=== PATIENT | female | born 1945 | race Caucasian/White ===

== ENCOUNTER 2022-10-21 12:12 | Outpatient (OUT) | payer MEDICARE, OTHER, SELFPAY ==
[2022-10-21 13:56] LABS: INR <0.93; Partial Thromboplastin Time 26.1 sec (22.3-36.2); Prothrombin Time 9.4 sec (9.0-11.6)
== END 2022-10-21 12:13 ==
LOC: PST 12:17
PROVIDERS: Urology; PCP Internal Medicine
DX: Z01.812 Encounter for preprocedural laboratory examination (principal); N20.0 Calculus of kidney; I10 Essential (primary) hypertension; F41.9 Anxiety disorder, unspecified; M19.90 Unspecified osteoarthritis, unspecified site; M79.7 Fibromyalgia; F32.A Depression, unspecified; K21.9 Gastro-esophageal reflux disease without esophagitis; E03.9 Hypothyroidism, unspecified; E78.5 Hyperlipidemia, unspecified
CPT/HCPCS: 36415; 85610; 85730

== ENCOUNTER 2022-10-29 09:01 | Day surgery (SDC) | payer MEDICARE, OTHER, SELFPAY ==
[2022-10-21 12:55] VITALS: BP 151/78; PULSE 60; RESP 18; TEMP 36.3; O2SAT 95; BMI 31.7
[2022-10-29] VITALS (11 sets, daily range): BP systolic 152–168; BP diastolic 62–95; PULSE 56–66; RESP 11–20; TEMP 35.9–36.9; O2SAT 89–99; BMI 31.5
[2022-10-29] MEDS: LACTATED RINGER'S SOLUTION 1,000 ML 50 ML IV (09:42)
[2022-10-29] MEDS: CIPROFLOXACIN IN 5 % DEXTROSE 400 MG/200 ML PIGGYBACK 200 MG IV (09:43)
--- NOTE | 2022-10-29 11:45 | P.URON_ITS ---
Urology Surgery Operative Note Operative Note Procedure Date: 10/29/22 Time Out Performed: yes Pre-op Diagnosis: bilateral nephrolithiasis left greater than right. obstructing large left renal pelvis calculus 18 mm Post-op Diagnosis: same Procedures performed: #1. Cystoscopy. #2. Left rigid ureteral dilation. #3. Left ureteroscopy. #4. Left pyeloscopy. #5. Holmium laser lithotripsy of left renal calculi #6. Stone basket extraction. #7. Placement of 7 Swedish variable length left ureteral stent Anesthesia: other (Gen. by LMA) Primary Surgeon: Chriss Johnson Complications: non- Estimated blood loss (mL): 5 Findings: #1. Large left renal pelvis stone. #2. Other left renal calculi Specimens: left renal calculi fragments Drains: none Indications for Procedures: this lady has a large left renal pelvis stone which is causing obstruction and recurrent urinary infections. She also has other left renal calculi. She now presents for cystoscopy, ureteroscopy, pyelloscopy, laser lithotripsy and placement of left ureteral stent. She has signed an informed consent after all the risks were explained. Detailed description of Procedure: the patient was brought to the operating room and placed on the operating room table in the supine position. SCDs were placed on the lower extremities and turned on and functioning during the entire case. Timeout was done by all parties in the room. We all agreed upon the patient's identification and the planned procedures for this patient. Genn. anesthesia was then administered. The patient was then repositioned into the modified dorsal lithotomy position. All pressure points were satisfactorily padded. Genitalia were sterilely prepped and draped in usual fashion. I started by passing a 22 FrenchOlympus cystoscope per urethra and into the bladder. Careful panendoscopy revealed diffuse cloudy debris. A large sample was aspirated from the scope and this was sent for culture and sensitivity. I then passed a Glidewire through the scope and cannulated the left ureter and was able to get the wire up to the large renal pelvis stone. The wire buckled numerous times but eventually was able to get around the stone and into the kidney. More significant inflammatory debris was coming down the ureter. I then used a 8 and 10 Swedish rigid dilator to dilate th e distal ureter. Open then removed. I then passed a navigator 11/13 ureteral access sheath over the wire and up to the L5 level. The stylette and wire were then removed. I then passed a Dornier flexible disposable ureteroscope through the access sheath and into the ureter. I then scoped up the ureter and into the renal pelvis. I was able to get right to the stone in the kidney. I then passed a 272 ? holmium laser fiber through the scope and made contact with the stone. I then started doing laser lithotripsy in the testing mode at 10 W continuously.this was a very large stone. I went up to 12 W and then ultimately 14 W. Several thousand pulses were used to fragment and dust this large stone. I then moved into the calyces and did laser lithotripsy on a few other sizable stones. We ran into just minor amount of bleeding. I then used a 0 tip nitinol basket and engaged several pieces and brought them down and these were sent for stone analysis. I then passed a Glidewire back up the sheath into the kidney and removed the access sheath. I then backloaded the cystoscope over the wire and passed it into the bladder. I then slid a 7 Swedish variable length ureteral stent over the wire up into the kidney. The wire was removed and there were good curls in the kidney and in the bladder. The bladder was drained of its contents and the scope was then removed. The anesthetic was then reversed. The patient was then transferred to a [facility] bed and wheeled to PACU in stable condition. She'll be discharged to home later today with a prescription for doxycycline 100 mg daily for 30 days and Vesicare 10 mg daily for 30 days.
[2022-10-29] MEDS: ALBUTEROL SULFATE 2.5 MG/3 ML VIAL NEB IH (12:11)
--- NOTE | 2022-10-29 12:45 | PC.NURSE ---
urinated 150 ml pink tinged urine.
[2022-11-04 20:24] LABS: Calcium Oxalate Dihydrate 10 % (.); Calcium Oxalate Monohydrate 90 % (.); Size 4x3 mm (.)
== END 2022-10-29 13:10 | disposition home or self-care (01) ==
PROVIDERS: PCP Internal Medicine; Visit Provider Urology
PROC: (CPT 52356; principal; 2022-10-29 10:00)
DX: N20.0 Calculus of kidney (principal); F41.9 Anxiety disorder, unspecified; M19.90 Unspecified osteoarthritis, unspecified site; M79.7 Fibromyalgia; F32.A Depression, unspecified; K21.9 Gastro-esophageal reflux disease without esophagitis; E03.9 Hypothyroidism, unspecified; E78.5 Hyperlipidemia, unspecified; I10 Essential (primary) hypertension; M81.0 Age-related osteoporosis without current pathological fracture; R06.02 Shortness of breath; Z87.440 Personal history of urinary (tract) infections; Z90.49 Acquired absence of other specified parts of digestive tract; Z90.710 Acquired absence of both cervix and uterus; Z79.899 Other long term (current) drug therapy; R31.29 Other microscopic hematuria; R39.14 Feeling of incomplete bladder emptying
CPT/HCPCS: 52356; 36415; 76000; 81003; 82365; 94640; 99999; C1874; J2704

== ENCOUNTER 2022-11-09 12:30 | Outpatient (OUT) | payer MEDICARE, OTHER, SELFPAY ==
--- NOTE | 2022-11-09 12:37 | XR_ITS ---
The [address] [address] Patient Name: NICCI VARGAS MRN: [id number] date: 1945 Sex: F Assigned Patient Location: [facility] Current Patient Location: [facility] Accession/Order Number: [id number] Exam Date: 11/09/2022 12:40 Report Date: 11/09/2022 13:34 At the request of: MANOLO RIBEIRO Procedure: XR abdomen 1V EXAMINATION: XR abdomen 1V HISTORY: Kidney stones N20.0 ; stone removal approximately 2 weeks ago COMPARISON: No relevant comparison available. FINDINGS: KIDNEY/URETER - RIGHT: No visible renal or ureteral calcifications. Dense overlying bowel content obscures the kidney. KIDNEY/URETER - LEFT: Left ureteral stent in place. Multiple densities projecting over the kidney suspected represent calcifications/calcium deposition. PELVIS: No visible ureteral calcifications. Any visible calcifications favor phleboliths. BOWEL: No abnormal dilation or deviation. BONES: No acute abnormality. OTHER: Negative. No abnormal gaseous collections. IMPRESSION: 1. Left ureteral stent appearing to be in good position. 2. Suspect multiple left kidney stones. No recent studies for comparison. No visible ureteral stones. Electronically authenticated by: SARAH CARDENAS Date: 11/09/2022 13:34
== END 2022-11-09 12:31 | disposition home or self-care (01) ==
LOC: RAD 12:31
PROVIDERS: PCP Internal Medicine; Visit Provider Urology
DX: N20.0 Calculus of kidney (principal); N28.9 Disorder of kidney and ureter, unspecified; Z96.0 Presence of urogenital implants
CPT/HCPCS: 74018

== ENCOUNTER 2022-12-09 09:46 | Outpatient (OUT) | payer MEDICARE, OTHER, SELFPAY ==
[2022-12-09 11:02] LABS: Basophils Percent Auto 0.5 % (0.2-2.0); Eosinophils Absolute Auto 0.3 10^3/uL (0.0-0.7); Eosinophils Percent Auto 4.4 % (0.9-7.0); Hematocrit 33.6 % (36.0-48.0); Hemoglobin 11.2 g/dL (12.0-16.0); Immature Granulocytes Abs Auto 0.03 10^3/uL (0.00-0.03); Immature Granulocytes Pct Auto 0.4 % (0.0-0.5); Lymphocytes Absolute Auto 1.6 10^3/uL (1.2-3.8); Lymphocytes Percent Auto 20.9 % (20.5-60.0); Mean Corpuscular HGB Conc 33.3 g/dL (29.9-35.2); Mean Corpuscular Hemoglobin 27.9 pg (26.7-34.0); Mean Corpuscular Volume 83.6 fL (81.0-99.0); Mean Platelet Volume 8.8 fL (9.5-13.5); Monocytes Absolute Auto 0.3 10^3/uL (0.3-0.8); Neutrophils Absolute Auto 5.4 10^3/uL (1.4-6.5); Neutrophils Percent Auto 69.8 % (43.0-75.0); Platelet Count 247 10^3/uL (150-450); Red Blood Count 4.02 10^6/uL (4.20-5.40); Red Cell Distribution Width 14.1 % (11.0-15.0); White Blood Count 7.8 10^3/uL (4.0-11.0)
[2022-12-09 11:24] LABS: Partial Thromboplastin Time 28.7 sec (22.3-36.2); Prothrombin Time 9.6 sec (9.0-11.6)
[2022-12-09 11:33] LABS: INR <0.93
[2022-12-09 11:42] LABS: Anion Gap 10.9; BUN Creatinine Ratio 8.4; Calcium 8.9 mg/dL (8.5-10.1); Carbon Dioxide 29.5 mmol/L (21.0-32.0); Chloride 92 mmol/L (98-107); Estimated GFR (African America >60 (>=60); Estimated GFR (Non-African Ame 50 (>=60); Glucose 124 mg/dL (74-106); Potassium 3.4 mmol/L (3.5-5.1); Sodium 129 mmol/L (136-145)
== END 2022-12-09 09:47 | disposition home or self-care (01) ==
LOC: PST 09:46
PROVIDERS: PCP Internal Medicine; Visit Provider Urology
DX: Z01.812 Encounter for preprocedural laboratory examination (principal); Z01.818 Encounter for other preprocedural examination; N20.0 Calculus of kidney; R31.9 Hematuria, unspecified; K21.9 Gastro-esophageal reflux disease without esophagitis; K58.9 Irritable bowel syndrome, unspecified; E78.5 Hyperlipidemia, unspecified; M79.7 Fibromyalgia; E03.9 Hypothyroidism, unspecified; I10 Essential (primary) hypertension; F32.A Depression, unspecified
CPT/HCPCS: 80048; 85025; 85610; 85730; G0463

== ENCOUNTER 2022-12-17 09:05 | Day surgery (SDC) | payer MEDICARE, OTHER, SELFPAY ==
[2022-12-09 10:26] VITALS: BP 152/64; PULSE 58; RESP 20; TEMP 36.4; O2SAT 97; BMI 31.0
--- NOTE | 2022-12-09 10:33 | P.GSHP_ITS ---
History of Present Illness History of Present Illness Chief complaint: left kidney stone Narrative: Patient presents for preadmission testing accompanied by her . The patient states She had a kidney stone procedure done on 10/29/2022 and she is feeling well. She denies abdominal pain, nausea, vomiting, back pain, hematuria, dysuria, or any other complaints. The patient is unsteady on her feet and ambulates with a walker, she has generalized weakness and frequent falls. She cannot tolerate long periods of activity, but she denies any cardiac history or symptoms. Review of Systems ROS Narrative REVIEW OF SYSTEMS: Negative except as stated in HPI, ten or more systems reviewed. Constitutional: No fever or chills ENT: No sore throat or epistaxis Cardiovascular: No edema, chest pain, palpitations, or activity intolerance Respiratory: No shortness of breath, cough, or wheezing Musculoskeletal: No joint pain or swelling Gastrointestinal: No abdominal pain, constipation, diarrhea, or vomiting Genitourinary: No dysuria or hematuria Neurological: No numbness, tingling, or headache Psychiatric: No mood changes PFSH PFS Medical History (Updated 12/09/22 @ 10:16 by Leisa Akins NP) Surgical History (Updated 12/09/22 @ 10:30 by Leisa Akins NP) (10/29/22) (10/29/22) (10/29/22) Family History (Updated 10/21/22 @ 13:06 by Leisa Akins NP) Other Dementia Family history of skin cancer Social History (Updated 10/21/22 @ 12:53 by Leisa Akins NP) Within the past year, how often did you have a drink containing alcohol: never Score interpretation: A score less than 3 is consistent with normal alcohol consumption. Smoking status: Never smoker Non-prescribed substance use: denies use Highest level of school completed/degree received: high school graduate Meds Home Medications and Allergies Home Medications Medication Instructions Recorded Confirmed Type atorvastatin 40 mg tablet 40 mg PO QDAY 10/21/22 12/09/22 History calcium 600 mg capsule mg PO 10/21/22 History cyproheptadine 4 mg tablet 4 mg PO QDAY 10/21/22 12/09/22 History diphenhydramine HCl 25 mg capsule 50 mg PO QDAY PRN sleep 10/21/22 12/09/22 History (Benadryl) fish, borage, flaxseed oils-omega 1 cap PO DAILY 10/21/22 12/09/22 History 3,6,9 cb #1 400 mg-400 mg-400 mg cap ([place] 3-6-9 Complex) gabapentin 400 mg capsule 400 mg PO Q12H 10/21/22 12/09/22 History glucosamine sulfate 500 mg tablet 500 mg PO BID 10/21/22 12/09/22 History (Glucosamine) ibuprofen 200 mg capsule 400 mg PO Q12H 10/21/22 12/09/22 History montelukast 10 mg tablet 10 mg PO QDAY 10/21/22 12/09/22 History oxcarbazepine 300 mg tablet 300 mg PO BID 10/21/22 12/09/22 History pantoprazole 40 mg tablet,delayed 40 mg PO QDAY 10/21/22 12/09/22 History release propranolol 120 mg capsule,24 120 mg PO QDAY 10/21/22 12/09/22 History hr,extended release sertraline 100 mg tablet 100 mg PO Q24H 10/21/22 12/09/22 History doxycycline hyclate 100 mg tablet 100 mg PO DAILY 30 days #30 tabs 10/29/22 Rx solifenacin 10 mg tablet (Vesicare) 10 mg PO DAILY #30 tabs 10/29/22 Rx Allergies Allergy/AdvReac Type Severity Reaction Status Date / Time cephalexin Allergy Severe Anaphylaxis Verified 10/29/22 09:44 Sulfa (Sulfonamide Allergy Unknown Verified 10/29/22 09:21 Antibiotics) acetaminophen [From Tylenol] AdvReac Severe Abdominal Verified 10/29/22 09:21 Pain caffeine AdvReac Severe Abdominal Verified 10/29/22 09:23 Pain Exam Narrative Exam Narrative: Constitutional: Awake, alert, comfortable, Chronically ill-appearing, nontoxic, interactive, vital signs as charted Head: Normocephalic, atraumatic Neck: Supple, normal appearance, normal range of motion, no meningeal signs, no lymphadenopathy Respiratory: No respiratory distress, breath sounds clear Cardiovascular: Regular rate and rhythm, strong and regular heart tones Abdomen: Nontender, normal bowel sounds, soft, no CVA tenderness Musculoskeletal: Kyphotic, antalgic gait with a walker, left lower extremity in a walking boot Skin: No rashes or induration, no lesions, only visible skin inspected Neuro: No neurological deficits, normal sensation Psychiatric: Oriented ?3, Flat affect, Poor insight Constitutional Vital Signs, click to edit/add: Last Vital Signs Temp 97.5 F L 12/09/22 10:26 Pulse 58 L 12/09/22 10:26 Resp 20 12/09/22 10:26 BP 152/64 H 12/09/22 10:26 Pulse Ox 97 12/09/22 10:26 O2 Del Method Room Air 12/09/22 10:26 Assessment and Plan Assessment and Plan (1) Kidney stones: (2) S/P ureteral stent placement: Onset Date: 10/29/22 Plan Left ESWL, possible cystoscopy, left stent removal scheduled with Dr. Johnson 12/17/2022.
[2022-12-17] VITALS (11 sets, daily range): BP systolic 141–179; BP diastolic 56–92; PULSE 57–75; RESP 9–18; TEMP 35.6–36.8; O2SAT 94–98; BMI 30.5
--- NOTE | 2022-12-17 09:45 | XR_ITS ---
The [address] [address] Patient Name: NICCI VARGAS MRN: [id number] date: 1945 Sex: F Assigned Patient Location: [facility] Current Patient Location: Accession/Order Number: [id number] Exam Date: 12/17/2022 09:50 Report Date: 12/17/2022 12:47 At the request of: MANOLO RIBEIRO Procedure: XR abdomen 1V EXAMINATION: XR abdomen 1V, [id number] HISTORY: kidney stones COMPARISON: Abdominal x-ray 11/09/[address] lumbar spine 10/26/2020. FINDINGS/IMPRESSION: Amorphous calcification versus cluster of calcifications projecting over the lower pole of the left kidney measuring 15 mm, previously 12 mm on 11/09/2022. Differences in size could be due to accumulation of layering collecting system calcifications versus differences in exam technique. Several additional calcifications projecting over the left kidney are similar. Left-sided ureteral stent is similarly positioned. No callus conchis along the expected course of the ureters. Moderately above-average colonic stool burden. Electronically authenticated by: THEA CLAROS Date: 12/17/2022 12:47
[2022-12-17] MEDS: LACTATED RINGER'S SOLUTION 1,000 ML 50 ML IV (10:13)
[2022-12-17] MEDS: CIPROFLOXACIN IN 5 % DEXTROSE 400 MG/200 ML PIGGYBACK 200 MG IV (10:14)
--- NOTE | 2022-12-17 11:03 | PM.URSON ---
Urology Surgery Operative Note Operative Note Procedure Date: 12/17/22 Time Out Performed: yes Pre-op Diagnosis: left nephrolithiasis Post-op Diagnosis: same as pre-op Procedures performed: #1. Left ESWL. Anesthesia: General-LMA Primary Surgeon: Chriss Johnson Complications: none Estimated blood loss (mL): 0 Findings: upper pole stone and group of lower pole stones Specimens: none Indications for Procedures: this lady has several left renal calculi remaining after laser lithotripsy and left stent placement. She now presents for left ESWL and possible cystoscopy and left stent removal. She has signed an informed consent for these procedures after risks were explained. Some of these risks include bleeding, perinephric hematoma, infection and anesthesia Detailed description of Procedure: The patient was brought to the Operating Room and placed on Siemens electromagnetic lithotripsy treatment table in the supine position. SCDs were placed on their lower extremities and turned on and functioning during the entire case. Timeout was done by all parties in the room. We all agreed upon the patient's identification and the planned procedures for this patient. General Anesthesia was then administered via LMA. Treatment head was then brought to the patient's correct side. While using flourscopy the upper stone was identified and lined up into the crosshairs. We then began applying shocks at power level II.0 and increased to maximum of power level III.5. Intermittent fluoroscopy showed that the stone fragmented well after 500 shocks. We then lined up the group of the lower pole stones in the crosshairs and similarly applied shocks. We applied a total of 2500 shocks to this larger group. We seemed to have satisfactory fragmentation. The procedure was then terminated. I elected not to remove her stent at this time. She was then transferred to a [facility] bed and wheeled to PACU in stable condition.
--- NOTE | 2022-12-17 11:16 | PC.NURSE ---
Monitor showing bradycardia and asystole but patient is awake and talking replaced patches and running more consistent.
--- NOTE | 2022-12-17 12:02 | PC.NURSE ---
UP TO BATHROOM USING WHEELCHAIR; VOIDED WITHOUT DIFFICULTY CLOUDY DARK YELLOW URINE
--- NOTE | 2022-12-17 12:06 | PC.NURSE ---
No change in bruise size on left flank area
== END 2022-12-17 12:07 | disposition home or self-care (01) ==
PROVIDERS: PCP Internal Medicine; Visit Provider Urology
PROC: (CPT 50590; principal; 2022-12-17 10:30)
DX: N20.0 Calculus of kidney (principal); K21.9 Gastro-esophageal reflux disease without esophagitis; M79.7 Fibromyalgia; I10 Essential (primary) hypertension; E78.5 Hyperlipidemia, unspecified; K58.9 Irritable bowel syndrome, unspecified; M19.90 Unspecified osteoarthritis, unspecified site; F41.9 Anxiety disorder, unspecified; F32.A Depression, unspecified; M81.0 Age-related osteoporosis without current pathological fracture; E03.9 Hypothyroidism, unspecified; Z87.442 Personal history of urinary calculi; Z90.49 Acquired absence of other specified parts of digestive tract; Z90.710 Acquired absence of both cervix and uterus; Z79.899 Other long term (current) drug therapy
CPT/HCPCS: 50590; 36415; 74018; J2704

== ENCOUNTER 2022-12-23 12:37 | Outpatient (OUT) | payer MEDICARE, OTHER, SELFPAY ==
--- NOTE | 2022-12-23 12:46 | XR_ITS ---
The [address] [address] Patient Name: NICCI VARGAS MRN: [id number] date: 1945 Sex: F Assigned Patient Location: [facility] Current Patient Location: Accession/Order Number: [id number] Exam Date: 12/23/2022 12:50 Report Date: 12/24/2022 06:52 At the request of: MANOLO RIBEIRO Procedure: XR abdomen 1V EXAMINATION: XR abdomen 1V HISTORY: Kidney Stone N20.0, Chronic Cystitis N30.20 COMPARISON: XR abdomen 12/17/2022 FINDINGS: KIDNEY/URETER - RIGHT: Several calcifications projecting over right kidney. KIDNEY/URETER - LEFT: Numerous calcifications projecting over left kidney, largest is 14 mm. Left ureteral stent. PELVIS: No appreciable ureteral stones. BOWEL: No abnormal dilation or deviation. BONES: No acute abnormality. OTHER: Negative. No abnormal gaseous collections. XR/XR abdomen 1V IMPRESSION: 1. Grossly stable bilateral nephrolithiasis. 2. Stable left ureteral stent. Electronically authenticated by: SARAH CARDENAS Date: 12/24/2022 06:52
== END 2022-12-23 12:38 | disposition home or self-care (01) ==
LOC: RAD 12:38
PROVIDERS: PCP Internal Medicine; Visit Provider Urology
DX: N30.20 Other chronic cystitis without hematuria (principal); N20.0 Calculus of kidney
CPT/HCPCS: 74018

== ENCOUNTER 2023-07-21 12:06 | Outpatient (OUT) | payer MEDICARE, OTHER, SELFPAY ==
--- NOTE | 2023-07-21 12:14 | XR_ITS ---
The [address] [address] Patient Name: NICCI VARGAS MRN: [id number] date: 1945 Sex: F Assigned Patient Location: [facility] Current Patient Location: Accession/Order Number: [id number] Exam Date: 07/21/2023 12:15 Report Date: 07/22/2023 08:50 At the request of: MANOLO RIBEIRO Procedure: XR abdomen 1V EXAMINATION: XR abdomen 1V HISTORY: kidney stone COMPARISON: XR abdomen 12/23/2022 FINDINGS: KIDNEY/URETER - RIGHT: Suspect small stones within inferior pole. KIDNEY/URETER - LEFT: Suspect 10 mm stone and adjacent small stone within inferior pole of left kidney. PELVIS: No visible ureteral stones. BOWEL: No abnormal dilation or deviation. BONES: No acute abnormality. OTHER: Negative. No abnormal gaseous collections. XR/XR abdomen 1V IMPRESSION: 1. Grossly stable bilateral nephrolithiasis. Evaluation is limited by dense overlying bowel content. Electronically authenticated by: SARAH CARDENAS Date: 07/22/2023 08:50
== END 2023-07-21 12:07 | disposition home or self-care (01) ==
LOC: RAD 12:08
PROVIDERS: PCP Internal Medicine; Visit Provider Urology
DX: N20.0 Calculus of kidney (principal)
CPT/HCPCS: 74018

== ENCOUNTER 2023-09-22 13:21 | Outpatient (OUT) | payer MEDICARE, OTHER, SELFPAY ==
--- NOTE | 2023-09-22 14:25 | PM.PRESUREVA ---
History of Present Illness History of Present Illness Chief complaint: right kidney stone, s/p left stent placement Narrative: Patient presents for preadmission testing accompanied by her . The patient states She had a kidney stone procedure done in August and she is feeling well. She denies abdominal pain, nausea, vomiting, back pain, hematuria, dysuria, or any other complaints. The patient is unsteady on her feet and ambulates with a walker, she has generalized weakness and frequent falls. She cannot tolerate long periods of activity, but she denies any cardiac history or symptoms. Review of Systems ROS Narrative REVIEW OF SYSTEMS: Negative except as stated in HPI, ten or more systems reviewed. Constitutional: No fever , chills, weakness ENT: No sore throat or epistaxis Cardiovascular: No edema, chest pain, or palpitations; admits to activity intolerance Respiratory: No shortness of breath, cough, or wheezing Musculoskeletal: No new joint pain or swelling Gastrointestinal: No abdominal pain, constipation, diarrhea, or vomiting Genitourinary: No dysuria or hematuria Neurological: No numbness, tingling, weakness, or headache Psychiatric: No mood changes. [facility] Medical History (Updated 09/22/23 @ 13:50 by Leisa Akins NP) Dyspnea on exertion ?R06.09 - Other forms of dyspnea (ICD-10) S/P extracorporeal shock wave therapy (12/17/22) ?Z98.890 - Other specified postprocedural states (ICD-10) Transient ischemic attack ?G45.9 - Transient cerebral ischemic attack, unspecified (ICD-10) Vertigo ?R42 - Dizziness and giddiness (ICD-10) Frequent falls ?R29.6 - Repeated falls (ICD-10) Seasonal allergic rhinitis ?J30.2 - Other seasonal allergic rhinitis (ICD-10) Urinary tract infection ?N39.0 - Urinary tract infection, site not specified (ICD-10) Chronic cystitis ?N30.20 - Other chronic cystitis without hematuria (ICD-10) IBS (irritable bowel syndrome) ?K58.9 - Irritable bowel syndrome without diarrhea (ICD-10) Osteoporosis ?M81.0 - Age-related osteoporosis without current pathological fracture (ICD-10) Fibromyalgia ?M79.7 - Fibromyalgia (ICD-10) Arthritis ?M19.90 - Unspecified osteoarthritis, unspecified site (ICD-10) Insomnia ?G47.00 - Insomnia, unspecified (ICD-10) Depression ?F32.A - Depression, unspecified (ICD-10) Anxiety ?F41.9 - Anxiety disorder, unspecified (ICD-10) Restless leg ?G25.81 - Restless legs syndrome (ICD-10) Kidney stones ?N20.0 - Calculus of kidney (ICD-10) GERD (gastroesophageal reflux disease) ?K21.9 - Gastro-esophageal reflux disease without esophagitis (ICD-10) Hypertension ?I10 - Essential (primary) hypertension (ICD-10) High cholesterol ?E78.00 - Pure hypercholesterolemia, unspecified (ICD-10) Hypothyroidism ?E03.9 - Hypothyroidism, unspecified (ICD-10) 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, unspecified (ICD-10) Dilation of urethra ?N36.8 - Other specified disorders of urethra (ICD-10) Surgical History (Updated 09/22/23 @ 13:39 by Leisa Akins NP) S/P ureteral stent placement (08/26/23) ?Z96.0 - Presence of urogenital implants (ICD-10) H/O lithotripsy (10/29/22) ?Z98.890 - Other specified postprocedural states (ICD-10) S/P ureteral stent placement (10/29/22) ?Z96.0 - Presence of urogenital implants (ICD-10) H/O cystoscopy (10/29/22) ?Z98.890 - Other specified postprocedural states (ICD-10) History of ankle surgery ?Z98.890 - Other specified postprocedural states (ICD-10) History of hysterectomy ?Z90.710 - Acquired absence of both cervix and uterus (ICD-10) History of tubal ligation ?Z98.51 - Tubal ligation status (ICD-10) History of section ?Z98.891 - History of uterine scar from previous surgery (ICD-10) History of colonoscopy ?Z98.890 - Other specified postprocedural states (ICD-10) History of cholecystectomy ?Z90.49 - Acquired absence of other specified parts of digestive tract (ICD-10) History of appendectomy ?Z90.49 - Acquired absence of other specified parts of digestive tract (ICD-10) S/P cystourethroscopy with dilation of urethral stricture ?Z98.890 - Other specified postprocedural states (ICD-10) S/P cystourethroscopy with dilation of urethral stricture ?Z98.890 - Other specified postprocedural states (ICD-10) S/P cystourethroscopy with dilation of urethral stricture ?Z98.890 - Other specified postprocedural states (ICD-10) S/P cystourethroscopy with dilation of urethral stricture ?Z98.890 - Other specified postprocedural states (ICD-10) Family History (Updated 10/21/22 @ 13:06 by Leisa Akins NP) Other Dementia Family history of skin cancer Social History (Updated 10/21/22 @ 12:53 by Leisa Akins NP) Within the past year, how often did you have a drink containing alcohol: never Score interpretation: A score less than 3 is consistent with normal alcohol consumption. Smoking status: Never smoker Non-prescribed substance use: denies use Highest level of school completed/degree received: high school graduate Meds Home Medications and Allergies Home Medications ?Medication ?Instructions ?Recorded ?Confirmed ?Type atorvastatin 40 mg tablet 40 mg PO QDAY 10/21/22 09/22/23 History calcium 600 mg capsule mg PO 10/21/22 History cyproheptadine 4 mg tablet 4 mg PO QDAY 10/21/22 09/22/23 History diphenhydramine HCl 25 mg capsule 50 mg PO QDAY PRN sleep 10/21/22 09/22/23 History (Benadryl) fish, borage, flaxseed oils-omega 1 cap PO DAILY 10/21/22 09/22/23 History 3,6,9 cb #1 400 mg-400 mg-400 mg cap ([place] 3-6-9 Complex) gabapentin 400 mg capsule 400 mg PO Q12H 10/21/22 09/22/23 History glucosamine sulfate 500 mg tablet 500 mg PO BID 10/21/22 09/22/23 History (Glucosamine) ibuprofen 200 mg capsule 400 mg PO Q12H 10/21/22 09/22/23 History montelukast 10 mg tablet 10 mg PO QDAY 10/21/22 09/22/23 History oxcarbazepine 300 mg tablet 300 mg PO BID 10/21/22 09/22/23 History pantoprazole 40 mg tablet,delayed 40 mg PO QDAY 10/21/22 09/22/23 History release sertraline 100 mg tablet 100 mg PO Q24H 10/21/22 09/22/23 History plecanatide 3 mg tablet (Trulance) 3 mg PO DAILY 09/22/23 09/22/23 History propranolol 160 mg capsule,24 160 mg PO Q24H 09/22/23 09/22/23 History hr,extended release Allergies Allergy/AdvReac Type Severity Reaction Status Date / Time cephalexin Allergy Severe Anaphylaxis Verified 09/22/23 13:44 Iodinated Contrast Media Allergy SOB Verified 09/22/23 13:44 Sulfa (Sulfonamide Allergy Unknown Verified 09/22/23 13:44 Antibiotics) acetaminophen [From Tylenol] AdvReac Severe Abdominal Verified 09/22/23 13:44 Pain caffeine AdvReac Severe Abdominal Verified 09/22/23 13:44 Pain Exam Narrative Exam Narrative: Constitutional: Awake, alert, comfortable, Chronically ill-appearing, nontoxic, interactive, vital signs as charted Head: Normocephalic, atraumatic Neck: Supple, normal appearance, normal range of motion, no meningeal signs, no lymphadenopathy Respiratory: No respiratory distress, breath sounds clear Cardiovascular: Regular rate and rhythm, strong and regular heart tones Abdomen: Nontender, normal bowel sounds, soft, no CVA tenderness Musculoskeletal: Kyphotic, antalgic gait with a walker Skin: No rashes or induration, no lesions, only visible skin inspected Neuro: No neurological deficits, normal sensation Psychiatric: Oriented ?3, Flat affect, Poor insight Assessment and Plan Assessment and Plan (1) S/P ureteral stent placement: Onset Date: 08/26/23 (2) Kidney stones: Plan Cystoscopy, right retrograde, right ureteroscopy, holmium laser, possible right stent placement, LEFT stent removal scheduled with Dr. Johnson September 30, 2023.
[2023-09-22 15:07] LABS: Basophils Percent Auto 0.5 % (0.2-2.0); Eosinophils Absolute Auto 0.5 10^3/uL (0.0-0.7); Eosinophils Percent Auto 5.7 % (0.9-7.0); Hematocrit 33.6 % (36.0-48.0); Immature Granulocytes Abs Auto 0.04 10^3/uL (0.00-0.03); Immature Granulocytes Pct Auto 0.5 % (0.0-0.5); Lymphocytes Absolute Auto 1.9 10^3/uL (1.2-3.8); Lymphocytes Percent Auto 24.1 % (20.5-60.0); Mean Corpuscular HGB Conc 32.7 g/dL (29.9-35.2); Mean Corpuscular Hemoglobin 27.9 pg (26.7-34.0); Mean Corpuscular Volume 85.3 fL (81.0-99.0); Monocytes Absolute Auto 0.4 10^3/uL (0.3-0.8); Monocytes Percent Auto 5.1 % (1.7-12.0); Neutrophils Absolute Auto 5.1 10^3/uL (1.4-6.5); Neutrophils Percent Auto 64.1 % (43.0-75.0); Platelet Count 279 10^3/uL (150-450); Red Blood Count 3.94 10^6/uL (4.20-5.40); Red Cell Distribution Width 13.7 % (11.0-15.0); White Blood Count 7.9 10^3/uL (4.0-11.0)
[2023-09-22 15:32] LABS: Anion Gap 10.4; BUN Creatinine Ratio 15.9; Calcium 9.1 mg/dL (8.5-10.1); Carbon Dioxide 29.3 mmol/L (21.0-32.0); Chloride 100 mmol/L (98-107); Estimated GFR (African America >60 (>=60); Estimated GFR (Non-African Ame 50 (>=60); Glucose 116 mg/dL (74-106); Potassium 3.7 mmol/L (3.5-5.1); Sodium 136 mmol/L (136-145)
[2023-09-22 15:45] LABS: INR 0.95; Partial Thromboplastin Time 28.2 sec (22.3-36.2); Prothrombin Time 10.1 sec (9.0-11.6)
== END 2023-09-22 13:22 | disposition home or self-care (01) ==
LOC: PST 13:23
PROVIDERS: PCP Internal Medicine; Visit Provider Urology
DX: Z01.812 Encounter for preprocedural laboratory examination (principal); Z01.818 Encounter for other preprocedural examination; N20.0 Calculus of kidney
CPT/HCPCS: 80048; 85025; 85610; 85730; G0463

== ENCOUNTER 2023-09-30 06:56 | Day surgery (SDC) | payer MEDICARE, OTHER, SELFPAY ==
[2023-09-22 14:08] VITALS: BP 182/92; PULSE 64; TEMP 36.3; O2SAT 95; BMI 31.5
[2023-09-30] VITALS (8 sets, daily range): BP systolic 159–177; BP diastolic 59–87; PULSE 66–84; TEMP 35.9–36.6; O2SAT 93–100; BMI 31.3
--- NOTE | 2023-09-30 | FL_ITS ---
The [address] [address] Patient Name: NICCI VARGAS MRN: [id number] date: 1945 Sex: F Assigned Patient Location: [facility] Current Patient Location: Accession/Order Number: [id number] Exam Date: 09/30/2023 08:15 Report Date: 10/01/2023 08:17 At the request of: MANOLO RIBEIRO Procedure: FL fluoroscopy <1hr NON-READ EXAM: FL fluoroscopy <1hr NON-READ HISTORY: TECHNIQUE: FINDINGS: Please see Operative Report. Electronically authenticated by: RADIOLOGIST NO Date: 10/01/2023 08:17
--- OUTSIDE RECORDS SUMMARY | 2023-09-30 07:00 | XMS_ITS | CCD ---
Author Organization [facility] Care Team Providers Care Waiter/Waitress Tourist Class Name Role Phone EBRAHEIM, TRIPP Admitting Unavailable EBHEIM, TRIPP Attending Unavailable Vicky ROCHA Referring Unavailable DONNELL JOYNER Primary Care Unavailable OK Procedure Practitioner Unavailab le EBRARACQUEL, TRIPP Surgeon Unavailable OK Procedure Practitioner Unavailab ABILIO Em Surgeon Unavailable EBRAHEIM, TRIPP Admitting Unavailable JOHNNY, TRIPP Attending Unavailable DONNELL JOYNER Referring Unavailable DONNELL JOYNER Primary Care Unavailable OK Procedure Practitioner Unavailab le EBRAHEIM, TRIPP Surgeon Unavailable OK Procedure Practitioner Unavailab le MACO HERNANDEZ Surgeon Unavailable AR, DR SEGUNDO Primary Care Unavailable AR, DR SEGUNDO Attending Unavailable AR, DR SEGUNDO Admitting Unavailable AR, DR SEGUNDO Admitting Unavailable AR, DR SEGUNDO Primary Care Unavailable AR, DR SEGUNDO Consulting Unavailable AR, DR SEGUNDO Attending Unavailable RONALD, DR SARAH Peña Consulting Unavailable DONNELL JOYNER Primary Care Physician [phone] Donnell Joyner MD Primary Care Provider Donnell Joyner MD Unavailable PEGGY Joyner Primary Care Provider MD Chriss Ribeiro Attending Provider [phone] Donnell Joyner MD Primary Care Provider ARTURO SALAZAR Attending Unavailable DONNELL JOYNER Primary Care Unavailable Donnell Joyner Primary Care Unavailable Chriss Ribeiro Admitting Unavailable Chriss Ribeiro Attending Unavailable Donnell Joyner Primary Care Unavailable Yael Ohara Admitting Unavailable Yael Ohara Attending Unavailable Donnell Joyner Primary Care Unavailable Chriss Ribeiro Admitting Unavailable Chriss Ribeiro Attending Unavailable RACHELLE PEREZ Attending Unavailable GLENROY TROY Attending Unavailable PAULINE, TY Dietrich Attending Unavailable GLENROY TROY Referring Unavailable DONNELL JOYNER Attending Unavailable JOELLEN CROW Attending Unavailable AR, DONNELL Sandoval Referring Unavailable AR, DONENLL Sandoval Attending Unavailable PAULINE, TY Dietrich Attending Unavailable RIBEIRO, Chriss R Attending Unavailable RIBEIRO, Chriss R Attending Unavailable RIBEIRO, Chriss R Attending Unavailable RIBEIRO, Chriss R Attending Unavailable RIBEIRO, Chriss R Referring Unavailable RIBEIRO, Chriss R Attending Unavailable RIBEIRO, Chriss R Referring Unavailable RIBEIRO, Chriss R Admitting Unavailable RIBEIRO, Chriss R Attending Unavailable Allergies Allergy Classification Reported Allergen(s) Allergy Type Date of Onset Reaction(s) Facility (2 sources) Acetaminophen; Translations: [TYLENOL] Drug Allergy 4 [facility] (6 sources) Caffeine; Translations: [CAFFEINE] Drug Allergy 4 Stomach ache (finding), Unknown [facility] (2 sources) Cephalexin; Translations: [KEFLEX] Drug Allergy 7 [facility] (1 source) Contrast media; Translations: [IVP DYE] Propensity to adverse reactions (disorder) 9 [facility] (1 source) Sulfonamides (Antibiotic); Translations: [SULFA] Propensity to adverse reactions (disorder) 9 [facility] (1 source) Iodine (And Iodine Containting Drugs) Drug allergy (disorder) 4 [facility] (1 source) Sulfonamides (Antibiotic) Drug allergy (disorder) 6 [facility] (6 sources) Acetaminophen; Translations: [acetaminophen] Drug Allergy 9 Unknown (qualifier value), Unknown [facility] (7 sources) Cephalexin; Translations: [cephalexin] Drug Allergy 9 Unknown (qualifier value), Rash [facility] (3 sources) Iodine; Translations: [iodine containing compounds] Allergy to substance unknown [facility] (3 sources) Sulfonamides (Antibiotic); Translations: [sulfa drugs] Drug allergy Unknown (qualifier value) [facility] (1 source) Acetaminophen Drug Allergy 3 Unknown [facility] (4 sources) Doxycycline; Translations: [DOXYCYCLINE] Drug Allergy 1 GI intolerance, GI Upset, Nausea Only [facility] (2 sources) Sulfonamides (Antibiotic) Drug Allergy 9 Unknown [facility] (4 sources) Iodinated Contrast Media; Translations: [IODINATED CONTRAST MEDIA] Drug Allergy 3 Unknown [facility] (3 sources) Sulfonamides (Antibiotic); Translations: [SULFA (SULFONAMIDE ANTIBIOTICS)] Propensity to adverse reactions to drug (disorder) 9 Unknown Reaction [facility] Repository (1 source) Acetaminophen Drug Allergy 4 [facility] (1 source) Cephalexin Drug Allergy 4 [facility] (1 source) Doxycycline Drug Allergy 4 [facility] (1 source) Iodinated Contrast Media Drug allergy (disorder) 4 [facility] Medications Current Medications Medication Drug Class(es) Dates Sig (Normalized) Sig (Original) atorvastatin 40 mg oral tablet (6 sources) HMG-CoA Reductase Inhibitor Start: 11-26-2018 take 40 mg by mouth once daily at bedtime Atorvastatin Active 40 MG PO Daily at bedtime August 12, 2023 12:00am B-Complex SR (2 sources) Start: 11-28-2018 take 1 tablet by mouth once daily B-Complex SR 1 tab(s), Oral, Daily, Refill(s) 0 Start Date: 11/28/18 Status: Ordered Calcium (2 sources) Phosphate Binder, Calcium Start: 08-12-2023 take 600 mg by mouth twice daily Calcium Active 600 MG PO Twice daily August 12, 2023 12:00am calcium carbonate 1500 mg oral tablet (1 source) take 1 tablet by mouth twice daily at mealtime calcium carbonate (Calcium 600) 600 mg calcium (1,500 mg) tablet Take 600 mg by mouth 2 times a day with meals. Active calcium citrate 1190 mg / cholecalciferol 0.005 mg oral tablet (2 sources) Vitamin D Start: 11-28-2018 take 1 tablet by mouth twice daily calcium (as citrate)-vitamin D 250 mg-200 intl units oral tablet 1 tab(s), Oral, BID, Refill(s) 0 Start Date: 11/28/18 Status: Ordered Calcium Citrate / Vitamin D (1 source) Calcium Citrate-Vitamin D (CALCIUM CITRATE +D PO) every 12 (twelve) hours. 0 Active celecoxib 200 mg oral capsule (2 sources) Nonsteroidal Anti-inflammatory Drug Start: 11-26-2018 take 200 mg by mouth twice daily Celebrex 200 mg, Oral, BID Start Date: 11/26/18 Status: Ordered chondroitin sulfates 133 mg / glucosamine hydrochloride 167 mg oral capsule (5 sources) Start: 08-12-2023 take 2 capsules by mouth twice daily Glucosamine-Chond roitin Active 2 CAP PO Twice daily August 12, 2023 12:00am Start: 11-28-2018 chondroitin-gl ucosamine Oral, BID, Refill(s) 0 Start Date: 11/28/18 Status: Ordered take 1 tablet by bruce twice daily glucosamine-chondroitin 500-400 mg table t Take 1 tablet by mouth 2 times a day. Active clonazePAM 0.5 mg oral tablet (2 sources) Benzodiazepine Start: 11-26-2018 take 0.5 mg by mouth three times daily clonazepam 0.5 mg, Oral, TID Start Date: 11/26/18 Status: Ordered cyproheptadine hydrochloride 4 mg oral tablet (6 sources) Start: 08-12-2023 take 4 mg by mouth once daily in the evening Cyproheptadine Active 4 MG PO Every evening August 12, 2023 12:00am Start: 11-28-2018 take 2 mg by mouth once daily cyproheptadine 2 mg, Oral, Daily, Refills(s) 0 Start Date: 11/28/18 Status: Ordered diphenhydrAMINE hydrochloride 25 mg oral capsule (4 sources) Histamine-1 Receptor Antagonist Start: 08-12-2023 take 1 capsule by mouth twice daily Diphenhydramine Hcl (Allergy (Diphenhydramine)) 25 mg capsule Active 25 MG PO Twice daily August 12, 2023 12:00am Start: 08-12-2023 take 2 capsules by m outh once daily at bedtime Diphenhydramine Hcl (Allergy (Diphenhydramine)) 25 mg capsule Active 50 MG PO Daily at bedtime August 12, 2023 12:00am diphenhydrAMINE (Sominex) 25 MG tablet Take 50 mg by mouth as needed at bedtime for sleep or allergies 0 Active Estrace Vaginal Cream 0.1 mg/g (2 sources) Start: 03-12-2021 Estrace Vaginal Cream 0.1 mg/g 1 gm, Vaginal, Eugeneri, # 42.5 gm, Refills(s) 3, Pharmacy: [facility], 167, cm, 12/18/19 14:29:00 EDT, Height/Length Dosing, 91, kg, 12/18/19 14:29:00 EDT, Weight Dosing Start Date: 03/12/21 Status: Ordered Fish Oils (2 sources) Start: 11-28-2018 take 1 capsule by mouth twice daily EPA Fish Oil 1000 mg oral capsule 1,000 mg = 1 cap(s), Oral, BID, Refills(s) 0 Start Date: 11/28/18 Status: Ordered fish,bora,flax oils-om3,6,9no1 ([place] 3-6-9) 1,200 mg capsule (1 source) fish,bora,flax oils-om3,6,9no1 ([place] 3-6-9) 1,200 mg capsule Take by mouth. Active Flonase (2 sources) Corticosteroid Start: 11-28-2018 Flonase 50 microgram, Nasal, Daily, Refill(s) 0 Start Date: 11/28/18 Status: Ordered gabapentin 400 mg oral capsule (6 sources) Anti-epileptic Agent Start: 08-12-2023 take 400 mg by mouth twice daily Gabapentin Active 400 MG PO Twice daily August 12, 2023 12:00am Start: 11-26-2018 take 300 mg by mouth twice daily gabapentin 300 mg, Oral, BID Start Date: 11/26/18 Status: Ordered Ptxmgsqxrte-Blxdvucur-Njp C- Mn (GLUCOSAMINE CHONDR 1500 COMPLX PO) (1 source) Glucosamine-Bryce droit-Vit C-Mn (GLUCOSAMINE CHONDR 1500 COMPLX PO) Take 2 tablets by mouth every 12 (twelve) hours 0 Active ibandronic acid 150 mg oral tablet (3 sources) Bisphosphonate Start: 2022 ibandronate (Boniva) 150 MG tablet Indications: Age related osteoporosis, unspecified pathological fracture presence (CMS/HCC) TAKE 1 TABLET 60 MINUTES BEFORE THE FIRST FOOD, BEVERAGE OR MEDICINE OF THE DAY WITH PLAIN WATER ONCE A MONTH 3 tablet 3 03/11/2023 Active Start: 11-28-2018 take 1 tablet by bruce th every month Boniva 150 mg oral tablet 150 mg = 1 tab(s), Oral, qMonth, # 1 tab(s), Refills(s) 0 Start Date: 11/28/18 Status: Ordered ibuprofen 200 mg oral tablet (4 sources) Nonsteroidal Anti-inflammatory Drug Start: 08-12-2023 take 2 tablets by mouth twice daily Ibuprofen (Advil) 200 mg tablet Active 400 MG PO Twice daily August 12, 2023 12:00am take 1 tablet by bruce th every six hours as needed ibuprofen 200 mg tablet Take 1 tablet (2 00 mg) by mouth every 6 hours if needed for mild pain (1 - 3). Active levoFLOXacin 250 mg oral tablet (1 source) Quinolone Antimicrobial Start: 08-26-2023 take 250 mg by mouth once daily Levofloxacin Active 250 MG PO Daily 3 3 August 26, 2023 12:00am montelukast 10 mg oral tablet (6 sources) Leukotriene Receptor Antagonist Start: 11-26-2018 take 10 mg by mouth once daily in the evening Montelukast Active 10 MG PO Every evening August 12, 2023 12:00am Multi Vitamins oral tablet (2 sources) Start: 11-26-2018 take 1 tablet by mouth once daily Multi Vitamins oral tablet 1 tab(s), Oral, Daily Start Date: 11/26/18 Status: Ordered nitrofurantoin, macrocrystals 25 mg / nitrofurantoin, monohydrate 75 mg oral capsule (2 sources) Nitrofuran Antibacterial Start: 12-18-2019 take 1 capsule by mouth twice daily Macrobid 100 mg Cap 100 mg = 1 cap(s), Oral, BID, # 6 cap(s), Refills(s) 0, Pharmacy: [address], 167, cm, 12/18/19 14:29:00 EDT, Height/Length Dosing, 91, kg, 12/18/19 14:29:00 EDT, Weight Dosing Start Date: 12/18/19 Status: Ordered [place] 3-6-9 Fatty Acids (OMEGA 3-6-9 PO) (1 source) take 1 capsule by mouth in the morning [place] 3-6-9 Fatty Acids (OMEGA 3-6-9 PO) Take 1 capsule by mouth in the morning and 1 capsule before bedtime. 0 Active omega 4-npu-nht-fish oil (Fish OiL) 1,000 mg (120 mg-180 mg) capsule (1 source) omega 3-yvd-wkq-fish oil (Fish OiL) 1,000 mg (120 mg-180 mg) capsule Take by mouth. Active [place]-3 Fatty Acids (2 sources) Start: 08-12-2023 take 500 mg by mouth twice daily [place]-3 Fatty Acids Active 500 MG PO Twice daily August 12, 2023 12:00am OXcarbazepine 300 mg oral tablet (6 sources) Anti-epileptic Agent Start: 11-26-2018 take 300 mg by mouth twice daily Oxcarbazepine Active 300 MG PO Twice daily August 12, 2023 12:00am pantoprazole 40 mg delayed release oral tablet (6 sources) Proton Pump Inhibitor Start: 04-06-2023 take 40 mg by mouth once daily in the morning Pantoprazole Active 40 MG PO Every morning August 12, 2023 12:00am Start: 11-26-2018 take 40 mg by mouth once daily pantoprazole 40 mg, Oral, Daily Start Date: 11/26/18 Status: Ordered plecanatide 3 mg oral tablet (3 sources) Start: 06-02-2023 End: 06-01-2024 Trulance 3 mg oral tablet Refills(s) 0 Start Date: 07/19/23 Status: Ordered Plecanatide (Trulance) 3 mg tablet (2 sources) Start: 08-12-2023 take 1 tablet by mouth once daily Plecanatide (Trulance) 3 mg tablet Active 3 MG PO Daily August 12, 2023 12:00am 24 hr propranolol hydrochloride 160 mg extended release oral capsule (6 sources) beta-Adrenergic Tramaine Start: 08-12-2023 take 160 mg by mouth once daily at bedtime Propranolol Active 160 MG PO Daily at bedtime August 12, 2023 12:00am Start: 02-20-2023 take 1 capsule by [facility] every twenty-four hours in the morning propranolol LA (Inderal LA) 160 MG 24 hr capsule Take 160 mg by mouth in the morning. 0 02/20/2023 Active Start: 11-28-2018 propranolol 12 0 mg, Daily, Refills(s) 0 Start Date: 11/28/18 Status: Ordered rOPINIRole 0.25 mg oral tablet (2 sources) Nonergot Dopamine Agonist Start: 12-18-2019 take 4 tablets by mouth once daily ropinirole 0.25 mg Tab mg tab(s), Oral, Daily, Refills(s) 0 Start Date: 12/18/19 Status: Ordered Completed/Discontinued Medications Medication Drug Class(es) Dates Sig (Normalized) Sig (Original) ciprofloxacin 500 mg oral tablet (2 sources) Quinolone Antimicrobial Start: 01-08-2023 take 1 tablet by mouth once daily Cipro 500 mg Tab 500 mg = 1 tab(s), Oral, Daily, Take 1 tablet the day before the procedure and 1 tablet after the procedure, # 2 tab(s), Refills(s) 0, Pharmacy: [id number], 165, cm, 03/24/21 12:27:00 EST, Height/Length Dosing, 82.9, kg, 03/24/21 12:27:00 EST, Weight Dosing Start Date: 01/08/23 Status: Ordered sertraline 100 mg oral tablet (4 sources) Serotonin Reuptake Inhibitor Start: 08-12-2023 End: 08-26-2023 take 100 mg by mouth once daily at bedtime Sertraline Discontinued 100 MG PO Daily at bedtime August 12, 2023 12:00am August 26, 2023 10:57am Start: 11-26-2018 take 100 mg by mouth once pablito y sertraline 100 mg, Oral, Daily Start Date: 11/26/18 Status: Ordered Problems Active Problems Problem Classification Problem Date Documented Da te Episodic/Chronic Anxiety disorders (5 sources) Anxiety; Translations: [Panic disorder with agoraphobia] Onset: 6 11-26-2018 Chronic Calculus of urinary tract (4 sources) Kidney stone; Translations: [Calculus of kidney] Onset: 3 11-27-2022 Episodic Developmental disorders (1 source) Other developmental disorders of speech and language; Translations: [OTH DEV DISORDERS SPEECH LANGUAGE] Onset: 3 Chronic Disorders of lipid metabolism (7 sources) Hyperlipidemia; Translations: [Pure hypercholesterolemia] Onset: 3 11-26-2018 Chronic Esophageal disorders (4 sources) Gastroesophageal reflux disease; Translations: [Gastro-esophageal reflux disease without esophagitis] Onset: 6 11-26-2018 Chronic Essential hypertension (3 sources) Hypertensive disorder; Translations: [Benign essential hypertension] Onset: 3 11-26-2018 Chronic Genitourinary symptoms and ill-defined conditions (2 sources) Female stress incontinence 06-19-2019 Chronic Genitourinary symptoms and ill-defined conditions (8 sources) H/O: urethral stricture; Translations: [History of urinary tract infection] 07-01-2020 Episodic Menopausal disorders (2 sources) Primary ovarian failure; Translations: [Other primary ovarian failure] Onset: 8 09-28-2022 Chronic Mood disorders (2 sources) Depressive disorder 11-26-2018 Chronic Occlusion or stenosis of precerebral arteries (1 source) Arteriosclerosis of carotid artery; Translations: [Occlusion and stenosis of unspecified carotid artery] Onset: 3 09-28-2022 Chronic Osteoarthritis (8 sources) Arthritis; Translations: [Degenerative joint disease involving multiple joints] Onset: 6 11-26-2018 Chronic Osteoporosis (3 sources) Osteoporosis; Translations: [Senile osteoporosis] Onset: 8 11-26-2018 Chronic Other and ill-defined heart disease (1 source) Left ventricular hypertrophy; Translations: [Cardiomegaly] Onset: 3 09-28-2022 Chronic Other and ill-defined heart disease (1 source) Cardiomegaly; Translations: [Cardiomegaly] Onset: 6 11-16-2022 Chronic Other connective tissue disease (3 sources) Fibromyalgia; Translations: [Fibromyalgia] Onset: 9 11-26-2018 Episodic Other diseases of bladder and urethra (2 sources) Urethral stricture 12-18-2019 Episodic Other gastrointestinal disorders (2 sources) Irritable bowel syndrome 11-26-2018 Chronic Other gastrointestinal disorders (1 source) Chronic idiopathic constipation; Translations: [Chronic idiopathic constipation] Onset: 3 09-28-2022 Chronic Other gastrointestinal disorders (4 sources) Dysphagia, oral phase; Translations: [DYSPHAGIA ORAL PHASE] Onset: 3 Episodic Other hereditary and degenerative nervous system conditions (3 sources) Essential tremor; Translations: [Essential tremor] Onset: 4 08-19-2023 Chronic Other hereditary and degenerative nervous system conditions (1 source) Essential tremor; Translations: [Essential tremor] Onset: 4 Chronic Other lower respiratory disease (2 sources) Dyspnea 11-26-2018 Episodic Other nervous system disorders (2 sources) Chronic pain; Translations: [Other chronic pain] Onset: 7 09-28-2022 Chronic Other nutritional; endocrine; and metabolic disorders (3 sources) Body mass index 30+ - obesity; Translations: [Obesity, unspecified] Onset: 3 09-28-2022 Chronic Other nutritional; endocrine; and metabolic disorders (1 source) Obesity; Translations: [Obesity, unspecified] Onset: 0 11-16-2022 Chronic Other nutritional; endocrine; and metabolic disorders (2 sources) Body mass index (BMI) 32.0-32.9, adult; Translations: [Body mass index (BMI) 32.0-32.9, adult] Onset: 4 Chronic Other screening for suspected conditions (not mental disorders or infectious disease) (4 sources) Electrocardiogram abnormal; Translations: [Abnormal electrocardiogram [ECG] [EKG]] Onset: 4 08-19-2023 Episodic Other upper respiratory disease (2 sources) Seasonal allergy 11-26-2018 Chronic Other upper respiratory disease (3 sources) Allergic rhinitis; Translations: [Other allergic rhinitis] Onset: 7 09-28-2022 Chronic Residual codes; unclassified (2 sources) Obstructive sleep apnea syndrome; Translations: [Obstructive sleep apnea (adult) (pediatric)] Onset: 6 Resolved: 3 09-28-2022 Chronic Residual codes; unclassified (2 sources) Never smoked tobacco; Translations: [Other specified health status] Onset: 4 08-19-2023 Episodic Residual codes; unclassified (2 sources) Other specified health status; Translations: [Other specified health status] Onset: 4 Episodic Spondylosis; intervertebral disc disorders; other back problems (1 source) Cervical spondylosis without myelopathy; Translations: [Spondylosis without myelopathy or radiculopathy, cervical region] Onset: 3 09-28-2022 Chronic Thyroid disorders (2 sources) Hypothyroidism 11-26-2018 Chronic Unclassified (2 sources) Drug therapy finding 11-28-2018 Unclassified (2 sources) Finding of sensation of bladder 07-01-2020 Urinary tract infections (3 sources) Chronic cystitis; Translations: [Other chronic cystitis without hematuria] Onset: 4 12-18-2019 Chronic Past or Other Problems Problem Classification Problem Date Documented Date Episodic/Chronic Disorders of teeth and jaw (1 source) Temporomandibular joint disorder; Translations: [Unspecified temporomandibular joint disorder, unspecified side] Onset: 6 11-16-2022 Episodic Fluid and electrolyte disorders (1 source) Hyponatremia; Translations: [Hypo-osmolality and hyponatremia] Onset: 3 09-28-2022 Episodic Fracture of lower limb (1 source) Closed bimalleolar fracture; Translations: [Displaced bimalleolar fracture of unspecified lower leg, initial encounter for closed fracture] Onset: 9 11-16-2022 Episodic Other bone disease and musculoskeletal deformities (2 sources) Osteopenia; Translations: [Other specified disorders of bone density and structure, multiple sites] Onset: 7 09-28-2022 Episodic Other circulatory disease (1 source) H/O: cardiovascular disease; Translations: [Personal history of other diseases of the circulatory system] Onset: 6 11-16-2022 Episodic Other connective tissue disease (1 source) Muscle pain; Translations: [Myalgia, unspecified site] Onset: 3 09-28-2022 Episodic Other fractures (1 source) Compression fracture of thoracic vertebra, nontraumatic; Translations: [Collapsed vertebra, not elsewhere classified, thoracic region, sequela of fracture] Onset: 3 09-28-2022 Episodic Other gastrointestinal disorders (4 sources) Dysphagia, oropharyngeal phase; Translations: [DYSPHAGIA OROPHARYNGEAL PHASE] Onset: 2 Episodic Other gastrointestinal disorders (1 source) Dysphagia; Translations: [Dysphagia, pharyngoesophageal phase] Onset: 3 09-28-2022 Episodic Other injuries and conditions due to external causes (1 source) History of fall; Translations: [History of falling] Onset: 8 11-16-2022 Episodic Other upper respiratory disease (1 source) Voice finding; Translations: [Other voice and resonance disorders] Onset: 6 11-16-2022 Episodic Residual codes; unclassified (1 source) Other amnesia; Translations: [Other amnesia] Onset: 3 Episodic Unclassified (1 source) Onset: 4 08-19-2023 Results Test Name Value Interpretation Reference Range Facility Lab Reportson 09-25-2023 Lab Reports [id number]#1.00TIFF Normal [facility] Consent for Procedure/Surger yon 09-15-2023 Consent for Procedure/Surgery [id number]#1.00TIFF [facility] Pathology Noteon 09-01-2023 Pathology Note [id number]#1.00TIFF [facility] RAD - MISCon 08-31-2023 RAD - MISC [id number]#1.00TIFF [facility] Operative Reporton Operative Report [id number]#1.00TIFF [facility] Basic Metabolic Panelon 08-08 Anion gap [Moles/Vol] 11.1 mmol/L Normal 6.0-15.0 Th e [facility] Comment on above: Performed By: #### B MP #### [facility] [address] [id number] [place] Calcium [Mass/Vol] 9.5 mg/dL Normal 8.6-10.3 [facility] Comment on above: Performed By: #### B MP #### [facility] [address] [id number] [place] Chloride [Moles/Vol] 91 mmol/L Low 98-107 [facility] Comment on above: Performed By: #### B MP #### [address] CO2 [Moles/Vol] 29.0 mmol/L Normal 21.0-31.0 [facility] Comment on above: Performed By: #### B MP #### [address] Creatinine [Mass/Vol] 1.11 mg/dL Normal 0.60-1.20 [facility] Comment on above: Performed By: #### B MP #### [place] [address] [place] Creatinine Clr Calc Pharmacy 45.43 Normal [facility] Comment on above: Result Comment: PERF ORMED BY: [place] [address] PATHOLOGIST INCIDENT ENGINEER NELSON ABDUL M.D. Performed By: #### B MP #### [address] GFR/1.73 sq M.predicted MDRD (S/P/Bld) [Vol rate/Area] 51.194 mL/min/{1.73_m2} Normal [facility] Comment on above: Performed By: #### B MP #### [address] Glucose [Mass/Vol] 104 mg/dL High 70-100 [facility] Comment on above: Result Comment: [place] Glucose Reference Range is dependent on time and content of last meal. Glucose of more than 200 mg/dL in a nonstressed, ambulatory subject supports the diagnosis of Diabetes Mellitus. ADA recommended reference range Performed By: #### B MP #### [address] Potassium [Moles/Vol] 4.1 mmol/L Normal 3.5-5.1 [facility] Comment on above: Performed By: #### B MP #### [address] Sodium [Moles/Vol] 127 mmol/L Low 136-145 [facility] Comment on above: Performed By: #### B MP #### [facility] [address] Urea nitrogen [Mass/Vol] 14 mg/dL Normal 7-25 [facility] Comment on above: Performed By: #### B MP #### [facility] [address] Calcium [Mass/volume] in Ser um or PlasmaOrdered By: Suresh Ayala on 08-26-2023 Calcium [Mass/Vol] 9.5 mg/dL 8.6-10.3 [facility] Carbon dioxide, total [Moles /volume] in Serum or PlasmaOrdered By: Suresh Ayala on 08-26-2023 CO2 [Moles/Vol] 29.0 mmol/L 21.0-31.0 [facility] Chloride [Moles/volume] in S mayra or PlasmaOrdered By: Suresh Ayala on 08-26-2023 Chloride [Moles/Vol] 91 mmol/L 98-107 [facility] Creatinine [Mass/volume] in Serum or PlasmaOrdered By: Suresh Ayala on 08-26-2023 Creatinine [Mass/Vol] 1.11 mg/dL 0.60-1.20 [facility] Glucose [Mass/volume] in Ser um or PlasmaOrdered By: Suresh Ayala on 08-26-2023 Glucose [Mass/Vol] 104 mg/dL 70-100 [facility] Comment on above: ADA recommended refe rence rangeRandom Glucose Reference Range is dependent on time and content of last meal. Glucose of more than 200 mg/dL in a nonstressed, ambulatory subject supports the diagnosis of Diabetes Mellitus. Juan 08-26-2023 L Specimen: [id number] Received: 08/26/23 Status: VENKAT Almeida Num: [id number] Spec Type: Surgical Subm Dr: Chriss Ribeiro MD Tissues: A Gross Only (LEFT KIDNEY STONES) Procedures: Level 1 Gross Age/ Patient Sex Location Account Attending Physician Nicci Vargas 78/F CT [id number] Chriss Ribeiro MD SPEC NUM: [id number] RECD: 08/26/23 STATUS: VENKAT RE NUM: [id number] CHRISTIAN: 08/26/23- DR: Chriss Ribeiro MD ENTERED: 08/26/[address]: SPEC TYPE: Surgical DEPT: S ENTERED BY: [id number] RECV BY: [id number] ORDERED: Level 1 Gross ORDERED: Level 1 Gross Pathological Diagnosis Left kidney stones, evacuation and retrieval: -Multiple brown-brown renal calculi. Pending chemical analysis to follow. Gross only examination Gross Description Fresh, labeled left kidney stones are multiple pieces of brown brown calcified tissue ranging in size from 0.1 x 0.1 x 0.1 cm to 0.3 x 0.2 x 0.1 cm. Submitted for gross identification only. PING / WIL Clinical history: Left kidney stone CPT Codes 76204 Specimen: [id number] Received: 08/26/23 Status: VENKAT Req Num: [id number] Spec Type: Surgical Subm Dr: Chriss Ribeiro MD Tissues: A Gross Only (LEFT KIDNEY STONES) Procedures: Level 1 Gross Patient: Nicci Vargas [id number] (Continued) Signed (signature on file) Cheng Moore MD 08/31/23 6313 Normal [facility] No Panel InformationOrdered By: Suresh Ayala on 08-26-2023 Estimated GFR (CKD-EPI) 51.194 mL/Min [facility] Creatinine Clearance (Chem 45.43 [facility] Potassium [Moles/volume] in Serum or PlasmaOrdered By: Surseh Ayala on 08-26-2023 Potassium [Moles/Vol] 4.1 mmol/L 3.5-5.1 [facility] Serum or plasma anion gap de terminationOrdered By: Suresh Ayala on 08-26-2023 Anion gap [Moles/Vol] 11.1 mmol/L 6.0-15.0 [facility] Sodium [Moles/volume] in Ser um or PlasmaOrdered By: Suresh Ayala on 08-26-2023 Sodium [Moles/Vol] 127 mmol/L 136-145 [facility] Urea nitrogen [Mass/volume] in Serum or PlasmaOrdered By: Suresh Ayala on 08-26-2023 Urea nitrogen [Mass/Vol] 14 mg/dL 7-25 [facility] XR KUBon 08-26-2023 XR K[address] [address] XRay Report Signed Patient: Nicci Vargas MR#: [id number] 00 : 1945 Acct:[id number] Age/Sex: 78 / F ADM Date: 08/26/23 Loc: CT Room: Type: [facility] Attending Dr: Chriss Ribeiro MD Copies to: Chriss Ribeiro MD Ordering Provider: Chriss Ribeiro MD Date of Service: 08/26/23 XR/XR KUB: Ureteral Stone, Kidney stone KUB: COMPARISON: CT 03/31/2009 CLINICAL DATA: Preop for left first rib. Urogram. History of left stone. Supine views of the abdomen and pelvis were obtained. There is air and stool throughout the colon. There is no dilated small bowel. No soft tissue masses are seen. The kidneys are obscured. There are clustered calcifications overlying the kidneys on both sides which may be stones. There are no obvious suspect ureteral or bladder calculi. There is dextroscoliotic curvature and degenerative change at the spine. There are clips from prior cholecystectomy. XR/XR KUB IMPRESSION: SLIGHT LIMITED STUDY DUE TO BOWEL GAS AND STOOL. SUSPECTED BILATERAL NEPHROLITHIASIS. IF THERE ARE MORE RECENT COMPARISON STUDIES, CORRELATION IS SUGGESTED. Impression dictated by: Ana Burns M.D.08/26/2023 11:03 AM Dictation Location: [place] [address] Transcribed By: [facility] 08/26/23 1103 Dictated By: Ana Burns MD 08/26/23 1056 Signed By: 08/26/23 1103 Normal [facility] Consultation Noteon 08-25-19 Consultation Note [id number]#[id number] Normal [facility] ECG 12 Leadon 08-19-2023 Normal sinus rhythm nonspecific ST-T changes [facility] Work Phone: ECG 12-Leadon 08-16-2023 ECG 12-Lead [id number]#1.00TIFF Normal [facility] Lab Reportson 08-13-2023 Lab Reports [id number]#1.00TIFF Normal [facility] Activated partial thrombopla stin time (aPTT) in platelet poor plasma by coagulation aOrdered By: Chriss Ribeiro on 08-12-2023 aPTT Coag (PPP) [Time] 29.5 s 25.1-36.5 [facility] Comment on above: A hematocrit value g reater than 55% may lead to inaccurate results in coagulation testing. Patients having hematocrit values >55% require a special collection tube for coagulation studies. Please contact the laboratory at [phone] for redraw instructions. Basic Metabolic Panelon Anion gap [Moles/Vol] 11.8 mmol/L Normal 6.0-15.0 [facility] Comment on above: Performed By: #### P T, PTT, BMP, CBC #### [address] Calcium [Mass/Vol] 8.7 mg/dL Normal 8.6-10.3 [facility] Comment on above: Result Comment: PERF ORMED BY: [place] [address] PATHOLOGIST INCIDENT ENGINEER NELSON ABDUL M.D. Performed By: #### P T, PTT, BMP, CBC #### [place] [address] [place] Chloride [Moles/Vol] 94 mmol/L Low 98-107 [facility] Comment on above: Performed By: #### P T, PTT, BMP, CBC #### [place] [address] [place] CO2 [Moles/Vol] 28.9 mmol/L Normal 21.0-31.0 [facility] Comment on above: Performed By: #### P T, PTT, BMP, CBC #### [place] [address] [place] Creatinine [Mass/Vol] 1.87 mg/dL High 0.60-1.20 [facility] Comment on above: Performed By: #### P T, PTT, BMP, CBC #### [place] [address] [place] GFR/1.73 sq M.predicted MDRD (S/P/Bld) [Vol rate/Area] 27.377 mL/min/{1.73_m2} Normal [facility] Comment on above: Performed By: #### P T, PTT, BMP, CBC #### [facility] [address] Glucose [Mass/Vol] 93 mg/dL Normal 70-100 [facility] Comment on above: Result Comment: [facility] Glucose Reference Range is dependent on time and content of last meal. Glucose of more than 200 mg/dL in a nonstressed, ambulatory subject supports the diagnosis of Diabetes Mellitus. ADA recommended reference range Performed By: #### P T, PTT, BMP, CBC #### [address] Potassium [Moles/Vol] 3.7 mmol/L Normal 3.5-5.1 [facility] Comment on above: Performed By: #### P T, PTT, BMP, CBC #### [address] Sodium [Moles/Vol] 131 mmol/L Low 136-145 [facility] Comment on above: Performed By: #### P T, PTT, BMP, CBC #### [address] Urea nitrogen [Mass/Vol] 33 mg/dL High 7-25 [facility] Comment on above: Performed By: #### P T, PTT, BMP, CBC #### [address] Basophils Auto (Bld) [#/Vol] Ordered By: Chriss Ribeiro on 08-12-2023 Basophils (Bld) [#/Vol] 0.1 10*3/uL 0.0-0.2 [facility] Basophils/100 WBC Auto (Bld) Ordered By: Chriss Ribeiro on 08-12-2023 Basophils/100 WBC (Bld) 0.5 % . [facility] Calcium [Mass/volume] in Ser um or PlasmaOrdered By: Chriss Ribeiro on 08-12-2023 Calcium [Mass/Vol] 8.7 mg/dL 8.6-10.3 [facility] Carbon dioxide, total [Moles /volume] in Serum or PlasmaOrdered By: Chriss Ribeiro on 08-12-2023 CO2 [Moles/Vol] 28.9 mmol/L 21.0-31.0 [facility] Chloride [Moles/volume] in S mayra or PlasmaOrdered By: Chriss Ribeiro on 08-12-2023 Chloride [Moles/Vol] 94 mmol/L 98-107 [facility] Complete Blood Count Auto Di ffon 08-12-2023 Basophils (Bld) [#/Vol] 0.1 10*3/uL Normal 0.0-0.2 [facility] Comment on above: Result Comment: PERF ORMED BY: [place] [address] PATHOLOGIST INCIDENT ENGINEER NELSON ABDUL M.D. Performed By: #### P T, PTT, BMP, CBC #### [address] Basophils/100 WBC (Bld) 0.5 % Normal . [facility] Comment on above: Performed By: #### P T, PTT, BMP, CBC #### [facility] [address] [place] [address] Eosinophils (Bld) [#/Vol] 0.4 10*3/uL Normal 0.0-0.45 [facility] Comment on above: Performed By: #### P T, PTT, BMP, CBC #### [address] Eosinophils/100 WBC (Bld) 3.8 % Normal . [facility] Comment on above: Performed By: #### P T, PTT, BMP, CBC #### [address] Erythrocyte distribution width (RBC) [Ratio] 15.3 % Normal 11.9-15.3 [facility] Comment on above: Performed By: #### P T, PTT, BMP, CBC #### [address] Hematocrit (Bld) [Volume fraction] 35.6 % Normal 34.0-46.4 [facility] Comment on above: Performed By: #### P T, PTT, BMP, CBC #### [address] Hemoglobin (Bld) [Mass/Vol] 12.0 g/dL Normal 11.8-15.4 [facility] Comment on above: Performed By: #### P T, PTT, BMP, CBC #### [address] Lymphocytes (Bld) [#/Vol] 2.0 10*3/uL Normal 1.00-4.8 [facility] Comment on above: Performed By: #### P T, PTT, BMP, CBC #### [address] Lymphocytes/100 WBC (Bld) 20.9 % Normal . [facility] Comment on above: Performed By: #### P T, PTT, BMP, CBC #### [address] MCH (RBC) [Entitic mass] 28.4 pg Normal 24.7-34.3 [facility] Comment on above: Performed By: #### P T, PTT, BMP, CBC #### [address] MCV (RBC) [Entitic vol] 84.4 fL Normal 80-100 [facility] Comment on above: Performed By: #### P T, PTT, BMP, CBC #### [address] Mean Corpuscular HGB Conc 33.6 g/dL Normal 32.0-35.0 [facility] Comment on above: Performed By: #### P T, PTT, BMP, CBC #### [address] Monocytes (Bld) [#/Vol] 0.4 10*3/uL Normal 0.0-0.8 [facility] Comment on above: Performed By: #### P T, PTT, BMP, CBC #### [place] [address] [place] Monocytes/100 WBC (Bld) 4.5 % Normal . [facility] Comment on above: Performed By: #### P T, PTT, BMP, CBC #### [address] Neutrophils (Bld) [#/Vol] 6.7 10*3/uL Normal 1.8-7.7 [facility] Comment on above: Performed By: #### P T, PTT, BMP, CBC #### [address] Neutrophils/100 WBC (Bld) 70.3 % Normal . [facility] Comment on above: Performed By: #### P T, PTT, BMP, CBC #### [address] NRBC% 0.1 /100{WBC} Normal 0-0.5 [facility] Comment on above: Performed By: #### P T, PTT, BMP, CBC #### [address] Platelet mean volume (Bld) [Entitic vol] 7.2 fL Normal 6.3-10.7 [facility] Comment on above: Performed By: #### P T, PTT, BMP, CBC #### [place] [address] [place] Platelets (Bld) [#/Vol] 261 10*3/uL Normal 150-450 [facility] Comment on above: Performed By: #### P T, PTT, BMP, CBC #### [place] [address] [place] RBC (Bld) [#/Vol] 4.22 10*6/uL Normal 3.60-5.00 [facility] Comment on above: Performed By: #### P T, PTT, BMP, CBC #### [place] [address] [place] WBC (Bld) [#/Vol] 9.6 10*3/uL Normal 3.8-11.6 [facility] Comment on above: Performed By: #### P T, PTT, BMP, CBC #### [facility] [address] Creatinine [Mass/volume] in Serum or PlasmaOrdered By: Chriss Ribeiro on 08-12-2023 Creatinine [Mass/Vol] 1.87 mg/dL 0.60-1.20 [facility] ECG 12 lead ECGon 08-12-2023 ECG 12 lead ECG [facility] [address] [place] [address] Electrocardiograph Report Signed Patient: Nicci Vargas MR#: [id number] 00 : 1945 Acct:[id number] Age/Sex: 78 / F ADM Date: 08/12/23 Loc: Room: Type: [facility] Attending Dr: Chriss Ribeiro MD Ordering Provider: Chriss Ribeiro MD Date of Service: 08/12/2308/31/1253 ECG/ECG 12 lead ECG: Pre-op urology surgery Copies to: Test Reason : Blood Pressure : / mmHG Vent. Rate : 063 BPM Atrial Rate : 063 BPM P-R Int : 164 ms QRS Dur : 088 ms QT Int : 414 ms P-R-T Axes : 066 020 216 degrees QTc Int : 423 ms Normal sinus rhythm Abnormal ECG When compared with ECG of 21-NOV-2007 04:00, T wave inversion now evident in Inferior leads T wave inversion more evident in Anterolateral leads Confirmed by KHALIDA JUAN [facility], DALIA ([id number]) on 08/12/2023 2:49:16 PM Referred By: QUINTIN Electronically Signed By:DALIA GAXIOLA MD FAC Transcribed By: MUS Signed By Dalia Gaxiola MD, FACC 08/12/23 1449 Normal [facility] Eosinophils Auto (Bld) [#/Vo l]Ordered By: Chriss Ribeiro on 08-12-2023 Eosinophils (Bld) [#/Vol] 0.4 10*3/uL 0.0-0.45 [facility] Eosinophils/100 WBC Auto (Bl d)Ordered By: Chriss Ribeiro on 08-12-2023 Eosinophils/100 WBC (Bld) 3.8 % . [facility] Erythrocyte distribution wid th Auto (RBC) [Ratio]Ordered By: Chriss Ribeiro on 08-12-2023 Erythrocyte distribution width (RBC) [Ratio] 15.3 % 11.9-15.3 [facility] Glucose [Mass/volume] in Ser um or PlasmaOrdered By: Chriss Ribeiro on 08-12-2023 Glucose [Mass/Vol] 93 mg/dL 70-100 [facility] Comment on above: ADA recommended refe rence rangeRandom Glucose Reference Range is dependent on time and content of last meal. Glucose of more than 200 mg/dL in a nonstressed, ambulatory subject supports the diagnosis of Diabetes Mellitus. Hematocrit Auto (Bld) [Volum e fraction]Ordered By: Chriss Ribeiro on 08-12-2023 Hematocrit (Bld) [Volume fraction] 35.6 % 34.0-46.4 [facility] Hemoglobin [Mass/volume] in BloodOrdered By: Chriss Ribeiro on 08-12-2023 Hemoglobin (Bld) [Mass/Vol] 12.0 g/dL 11.8-15.4 [facility] INR in Platelet poor plasma by Coagulation assayOrdered By: Chriss Ribeiro on 08-12-2023 INR Coag (PPP) [Relative time] 1.0 {INR} [facility] Comment on above: INR Therapeutic Rang e A) Pre- and Peroperative OAT started two weeks before surgery. NOT HIP SURGERY: 1.5 - 2.5 HIP SURGERY: 2 - 3B) Primary and secondary prevention of venous THROMBOSIS: 2 - 3C) Active venous thrombosis, pulmonary embolismand prevention of recurrent venous thrombosis: 2 - 3D) Prevention of arterial thromboembolismincluding patients with mechanical heart valves: 3 - 4.5 Leukocytes [#/volume] correc sendy for nucleated erythrocytes in Blood by Automated counOrdered By: Chriss Ribeiro on 08-12-2023 WBC corrected for nucl RBC Auto (Bld) [#/Vol] 9.6 10*3/uL 3.8-11.6 [facility] Lymphocytes Auto (Bld) [#/Vo l]Ordered By: Chriss Ribeiro on 08-12-2023 Lymphocytes (Bld) [#/Vol] 2.0 10*3/uL 1.00-4.8 [facility] Lymphocytes/100 WBC Auto (Bl d)Ordered By: Chriss Ribeiro on 08-12-2023 Lymphocytes/100 WBC (Bld) 20.9 % . [facility] MCH Auto (RBC) [Entitic mass ]Ordered By: Chriss Ribeiro on 08-12-2023 MCH (RBC) [Entitic mass] 28.4 pg 24.7-34.3 [facility] MCHC Auto (RBC) [Mass/Vol]Or dered By: Chriss Ribeiro on 08-12-2023 MCHC (RBC) [Mass/Vol] 33.6 g/dL 32.0-35.0 [facility] MCV Auto (RBC) [Entitic vol] Ordered By: Chriss Ribeiro on 08-12-2023 MCV (RBC) [Entitic vol] 84.4 fL 80-100 [facility] Monocytes Auto (Bld) [#/Vol] Ordered By: Chriss Ribeiro on 08-12-2023 Monocytes (Bld) [#/Vol] 0.4 10*3/uL 0.0-0.8 [facility] Monocytes/100 WBC Auto (Bld) Ordered By: Chriss Ribeiro on 08-12-2023 Monocytes/100 WBC (Bld) 4.5 % . [facility] Neutrophils Auto (Bld) [#/Vo l]Ordered By: Chriss Ribeiro on 08-12-2023 Neutrophils (Bld) [#/Vol] 6.7 10*3/uL 1.8-7.7 [facility] Neutrophils/100 WBC Auto (Bl d)Ordered By: Chriss Ribeiro on 08-12-2023 Neutrophils/100 WBC (Bld) 70.3 % . [facility] No Panel InformationOrdered By: Chriss Ribeiro on 08-12-2023 Estimated GFR (CKD-EPI) 27.377 mL/Min [facility] Creatinine Clearance (Chem N/A [facility] Nucleated erythrocytes [Pres ence] in Blood by Automated countOrdered By: Chriss Ribeiro on 08-12-2023 Nucleated RBC Auto Ql (Bld) 0.1 /100{WBC} 0-0.5 [facility] Partial Thromboplastin Timeo n 08-12-2023 aPTT Coag (Bld) [Time] 29.5 s Normal 25.1-36.5 [facility] Comment on above: Result Comment: A he matocrit value greater than 55% may lead to inaccurate results in coagulation testing. Patients having hematocrit values >55% require a special collection tube for coagulation studies. Please contact the laboratory at [phone] for redraw instructions. PERFORMED BY: [address] [address] PATHOLOGIST INCIDENT ENGINEER NELSON ABDUL M.D. Performed By: #### P T, PTT, BMP, CBC #### [facility] [address] [place] [id number] [facility] Platelet mean volume Auto (B ld) [Entitic vol]Ordered By: Chriss Ribeiro on 08-12-2023 Platelet mean volume (Bld) [Entitic vol] 7.2 fL 6.3-10.7 [facility] Platelets Auto (Bld) [#/Vol] Ordered By: Chriss Ribeiro on 08-12-2023 Platelets (Bld) [#/Vol] 261 10*3/uL 150-450 [facility] Potassium [Moles/volume] in Serum or PlasmaOrdered By: Chriss Ribeiro on 08-12-2023 Potassium [Moles/Vol] 3.7 mmol/L 3.5-5.1 [facility] Prothrombin Time INRon 08-11 INR Coag (PPP) [Relative time] 1.0 {INR} Normal [facility] Comment on above: Result Comment: INR Therapeutic Range A) Pre- and Peroperative OAT started two weeks before surgery. NOT HIP SURGERY: 1.5 - 2.5 HIP SURGERY: 2 - 3 B) Primary and secondary prevention of venous THROMBOSIS: 2 - 3 C) Active venous thrombosis, pulmonary embolism and prevention of recurrent venous thrombosis: 2 - 3 D) Prevention of arterial thromboembolism including patients with mechanical heart valves: 3 - 4.5 Performed By: #### P T, PTT, BMP, CBC #### [facility] [address] [place] [address] [facility] PT Coag (PPP) [Time] 11.3 s Normal 9.0-12.9 [facility] Comment on above: Result Comment: A he matocrit value greater than 55% may lead to inaccurate results in coagulation testing. Patients having hematocrit values >55% require a special collection tube for coagulation studies. Please contact the laboratory at [phone] for redraw instructions. Performed By: #### P T, PTT, BMP, CBC #### [facility] [address] Prothrombin time (PT)Ordered By: Chriss Ribeiro on 08-12-2023 PT Coag (PPP) [Time] 11.3 s 9.0-12.9 [facility] Comment on above: A hematocrit value g reater than 55% may lead to inaccurate results in coagulation testing. Patients having hematocrit values >55% require a special collection tube for coagulation studies. Please contact the laboratory at [phone] for redraw instructions. RBC Auto (Bld) [#/Vol]Ordere d By: Chriss Ribeiro on 08-12-2023 RBC (Bld) [#/Vol] 4.22 10*6/uL 3.60-5.00 [facility] Serum or plasma anion gap de terminationOrdered By: Chriss Ribeiro on 08-12-2023 Anion gap [Moles/Vol] 11.8 mmol/L 6.0-15.0 [facility] Sodium [Moles/volume] in Ser um or PlasmaOrdered By: Chriss Ribeiro on 08-12-2023 Sodium [Moles/Vol] 131 mmol/L 136-145 [facility] Urea nitrogen [Mass/volume] in Serum or PlasmaOrdered By: Chriss Ribeiro on 08-12-2023 Urea nitrogen [Mass/Vol] 33 mg/dL 7-25 [facility] WBC Auto (Bld) [#/Vol]Ordere d By: Chriss Ribeiro on 08-12-2023 WBC (Bld) [#/Vol] 9.6 10*3/uL 3.8-11.6 [facility] Consent for Procedure/Surger yon 07-30-2023 Consent for Procedure/Surgery [id number]#1.00TIFF Normal [facility] Consent for Procedure/Surgery [id number]#1.00TIFF [facility] Consent for Procedure/Surger yon 07-29-2023 Consent for Procedure/Surgery [id number]#1.00TIFF Normal [facility] RAD - MISCon 07-22-2023 RAD - MISC [id number]#1.00TIFF [facility] Ambulatory Visit Summaryon 0 07-19-2023 Ambulatory Visit Summary NICCI VARGAS :1945 Visit Date:07/19/2023 Ambulatory Visit Instructions Your Diagnosis Kidney stones Chronic cystitis Tests Performed XR Abdomen 1 View -- Results Pending -- Please visit your patient portal for your results or contact your primary care physician. Your Care Team Attending Physician - QUINTIN JUAN, Chriss Peña Primary Care Physician - DONNELL JOYNER MD Referring Physician - QUINTIN JUAN, Chriss Peña This Is Your Medications List ciprofloxacin (Cipro 500 mg Tab) nitrofurantoin (Macrobid 100 mg Cap) Contact prescribing physician if questions or concerns atorvastatin calcium-vitamin D (calcium (as citrate)-vitamin D 250 mg-200 intl units oral tablet) celecoxib (Celebrex) chondroitin-glucosamine clonazepam cyproheptadine estradiol topical (Estrace Vaginal Cream 0.1 mg/g) fluticasone nasal (Flonase) gabapentin ibandronate (Boniva 150 mg oral tablet) montelukast multivitamin (B-Complex SR) multivitamin (Multi Vitamins oral tablet) omega-3 polyunsaturated fatty acids (EPA Fish Oil 1000 mg oral capsule) oxcarbazepine pantoprazole plecanatide (Trulance 3 mg oral tablet) propranolol ropinirole (ropinirole 0.25 mg Tab) sertraline Procedures Performed Cystoscopic removal of ureteric stent (01/19/2023), ESWL of kidney (12/17/2022), Cystoscopic laser lithotripsy of ureteric calculus (10/29/2022), Dilation of urethra (06/19/2019), Cystourethroscopy with dilation of urethral stricture (02/03/2018), Cystourethroscopy with dilation of urethral stricture (12/24/2016), Cystourethroscopy with dilation of urethral stricture (10/17/2015), Cystourethroscopy with dilation of urethral stricture (11/23/2011), Appendectomy, Bilateral tubal ligation, Caesarean section, Cholecystectomy, Colonoscopy, Hysterectomy. Discharge Vitals Height 165.0 cm Height 65 in Weight 82.9 kg Weight 182.38 lb BMI 30.45 What to do next You Need to Schedule the Following Appointments Follow Up with QUINTIN JUAN, SILVER Younger When: Comments: f/u pending KUB results Where: [facility] [address], [place] [address]- [phone] Medications What How Much When Instructions Unchanged ciprofloxacin (Cipro 500 mg Tab) 1 Tablets By Mouth Every day Take 1 tablet the day before the procedure and 1 tablet after the procedure Unchanged nitrofurantoin (Macrobid 100 mg Cap) 1 Capsules By Mouth 2 times a day Unchanged atorvastatin 40 Milligram By Mouth Every day Contact prescribing physician if questions or concerns Unchanged calcium-vitamin D (calcium (as citrate)-vitamin D 250 mg-200 intl units oral tablet) 1 Tablets By Mouth 2 times a day Contact prescribing physician if questions or concerns Unchanged celecoxib (Celebrex) 200 Milligram By Mouth 2 times a day Contact prescribing physician if questions or concerns Unchanged chondroitin-glucosamine By Mouth 2 times a day Contact prescribing physician if questions or concerns Unchanged clonazepam 0.5 Milligram By Mouth 3 times a day Contact prescribing physician if questions or concerns Unchanged cyproheptadine 2 Milligram By Mouth Every day Contact prescribing physician if questions or concerns Unchanged estradiol topical (Estrace Vaginal Cream 0.1 mg/ g) 1 Gram Vaginal Wednesday Contact prescribing physician if questions or concerns Unchanged fluticasone nasal (Flonase) 50 Microgram Nasal Inhalation Every day Contact prescribing physician if questions or concerns Unchanged gabapentin 300 Milligram By Mouth 2 times a day Contact prescribing physician if questions or concerns Unchanged ibandronate (Boniva 150 mg oral tablet) 1 Tablets By Mouth Once a month Contact prescribing physician if questions or concerns Unchanged montelukast 10 Milligram By Mouth Every day Contact prescribing physician if questions or concerns Unchanged multivitamin (B-Complex SR) 1 Tablets By Mouth Every day Contact prescribing physician if questions or concerns Unchanged multivitamin (Multi Vitamins oral tablet) 1 Tablets By Mouth Every day Contact prescribing physician if questions or concerns Unchanged omega-3 polyunsaturated fatty acids (EPA Fish Oil 1000 mg oral capsule) 1 Capsules By Mouth 2 times a day Contact prescribing physician if questions or concerns Unchanged oxcarbazepine 300 Milligram By Mouth 2 times a day Contact prescribing physician if questions or concerns Unchanged pantoprazole 40 Milligram By Mouth Every day Contact prescribing physician if questions or concerns Unchanged plecanatide (Trulance 3 mg oral tablet) Contact prescribing physician if questions or concerns Unchanged propranolol 120 Milligram Every day Contact prescribing physician if questions or concerns Unchanged ropinirole (ropinirole 0.25 mg Tab) By Mouth Every day Contact prescribing physician if questions or concerns Unchanged sertraline 100 Milligram By Mouth Every day Contact prescribing physician if questions or (more content not included)... Normal [facility] Patient Educationon 07-19-19 Patient Education Urology Kidney Stones Kidney stones are rock-like masses that form inside of the kidneys. Kidneys are organs that make pee (urine). A kidney stone may move into other parts of the urinary tract, including: ? The tubes that connect the kidneys to the bladder (ureters). ? The bladder. ? The tube that carries urine out of the body (urethra). Kidney stones can cause very bad pain and can block the flow of pee. The stone usually leaves your body (passes) through your pee. You may need to have a doctor take out the stone. What are the causes? Kidney stones may be caused by: ? A condition in which certain glands make too much parathyroid hormone (primary hyperparathyroidism). ? A buildup of a type of crystals in the bladder made of a chemical called uric acid. The body makes uric acid when you eat certain foods. ? Narrowing (stricture) of one or both of the ureters. ? A kidney blockage that you were born with. ? Past surgery on the kidney or the ureters, such as gastric bypass surgery. What increases the risk? You are more likely to develop this condition if: ? You have had a kidney stone in the past. ? You have a family history of kidney stones. ? You do not drink enough water. ? You eat a diet that is high in protein, salt (sodium), or sugar. ? You are overweight or very overweight (obese). What are the signs or symptoms? Symptoms of a kidney stone may include: ? Pain in the side of the belly, right below the ribs (flank pain). Pain usually spreads (radiates) to the groin. ? Needing to pee often or right away (urgently). ? Pain when going pee (urinating). ? Blood in your pee (hematuria). ? Feeling like you may vomit (nauseous). ? Vomiting. ? Fever and chills. How is this treated? Treatment depends on the size, location, and makeup of the kidney stones. The stones will often pass out of the body through peeing. You may need to: ? Drink more fluid to help pass the stone. In some cases, you may be given fluids through an IV tube put into one of your veins at the hospital. ? Take medicine for pain. ? Make changes in your diet to help keep kidney stones from coming back. Sometimes, medical procedures are needed to remove a kidney stone. This may involve: ? A procedure to break up kidney stones using a beam of light (laser) or shock waves. ? Surgery to remove the kidney stones. Follow these instructions at home: Medicines ? Take phai-hpp-acowslm and prescription medicines only as told by your doctor. ? Ask your doctor if the medicine prescribed to you requires you to avoid driving or using heavy machinery. Eating and drinking ? Drink enough fluid to keep your pee pale yellow. You may be told to drink at least 8?10 glasses of water each day. This will help you pass the stone. ? If told by your doctor, change your diet. This may include: ? Limiting how much salt you eat. ? Eating more fruits and vegetables. ? Limiting how much meat, poultry, fish, and eggs you eat. ? Follow instructions from your doctor about eating or drinking restrictions. General instructions ? Collect pee samples as told by your doctor. You may need to collect a pee sample: ? 24 hours after a stone comes out. ? 8?12 weeks after a stone comes out, and every 6?12 months after that. ? Strain your pee every time you pee (urinate), for as long as told. Use the strainer that your doctor recommends. ? Do not throw out the stone. Keep it so that it can be tested by your doctor. ? Keep all follow-up visits as told by your doctor. This is important. You may need follow-up tests. How is this prevented? To prevent another kidney stone: ? Drink enough fluid to keep your pee pale yellow. This is the best way to prevent kidney stones. ? Eat healthy foods. ? Avoid certain foods as told by your doctor. You may be told to eat less protein. ? Stay at a healthy weight. Where to find more information ? National Kidney Foundation (NKF): www.kidney.org ? [employer] (UCF): www.urologyhealth.org Contact a doctor if: ? You have pain that gets worse or does not get better with medicine. Get help right away if: ? You have a fever or chills. ? You get very bad pain. ? You get new pain in your belly (abdomen). ? You pass out (faint). ? You cannot pee. Summary ? Kidney stones are rock-like masses that form inside of the kidneys. ? Kidney stones can cause very bad pain and can block the flow of pee. ? The stones will often pass out of the body through peeing. ? Drink enough fluid to keep your pee pale yellow. This information is not intended to replace advice given to you by your health care provider. Make sure you discuss any questions you have with your health care provider. Document Revised: 12/29/2021 Document Reviewed: 12/29/2021 [employer] Patient Education ? 2022 [employer]. Normal [facility] Reminderson 07-19-2023 Reminders - From: Chloe Couch To: EU - Pending Results; Sent: 07/19/2023 12:55:26 EDT Show up: 07/19/2023 12:55:00 EDT Subject: KUB @ [facility] Due Date/Time: 07/26/2023 12:54:00 EDT Reminder/Recall Per PRW, patient to have a KUB done at [facility] within the next week. Please send results to PRW as he needs to see them to determine next steps at that time. Normal [facility] Urology Office/Clinic Noteon 07-19-2023 Urology Office/Clinic Note Chief Complaint 6 mo fu HPI Staff Pt last seen in our office 03/24/2021 DX: Microscopic Hematuria, Chronic Cystitis & Feeling of Incomplete Bladder Emptying. pt. has not had any recent imaging NEG C&S 03/24/21 Plan was for pt to f/u in 6m CT Thoracic Spine 09/22/22 (ordered by another provider due to pt falling) Showed Staghorn Stone in Lt Kidney Pt then underwent Lt Laser Litho/Stone Basket Extraction 10/29/22 Stone Analysis not done due to wet specimen KUB 11/09/22 Lt ESWL 12/17/22 KUB 12/23/22 Cysto/Lt Stent Removal 01/19/23 Pt is here today for 6m KUB Patient denies any issues with urination- no dysuria or gross hematuria. Good stream- no leakage. History of Present Illness Tests reviewed: reviewed urine culture, KUBs, CT scan, stone analysis I have reviewed the previous health record information and history for this patient from Dr. Ribeiro. I have reviewed and verified the staff HPI to be accurate for this encounter. Review of Systems PHQ Score Initial Depression Screen Score: 0 SCORE ROS - Provider Constitutional: denies weight loss, denies hot flashes. Eyes: denies eye problems. Gastrointestinal: denies nausea, denies vomiting. Cardiovascular: denies chest pain or angina. Integumentary: no dryness Musculoskeletal: denies musculoskeletal symptoms. ENMT: denies otolaryngeal symptoms. Respiratory: no shortness of breath. Heme/Lymph: denies easy bleeding tendency, denies easy bruising tendency. Psychiatric: no confusion, no anxiety. Genitourinary: See HPI. Physical Exam Vitals & Measurements HT: 65 in HT: 165.0 cm WT: 82.9 kg WT: 182.38 lb BMI: 30.45 General Appearance: alert , no acute distress, well nourished, well developed female. Genitourinary: bladder nonpalpable, no flank pain. Assessment/Plan 1. Kidney stones (N20.0: Calculus of kidney) CT Thoracic Spine 09/22/22 - Staghorn stone in L kidney. S/p L Laser Litho/Stone Basket Extraction 10/29/22. Stone Analysis 90% [place] Ca Ox, 10% Di. KUB 11/09/22 [facility] - Multiple densities over L kidney, suspected to represent calcifications. S/p L ESWL 12/17/22. KUB 12/23/22 [facility] - Several calcifications projecting over R kidney. Numerous calcifications projecting over L kidney, largest measuring 14 mm. L ureteral stent. S/p Cysto/L Stent removal 01/19/23. Denies any stone episodes since last encounter. Pt did not obtain a KUB for today's appt due to not having an order but did not think to call our office. Advised pt to get KUB done now to check for stone growth/formation. Discussed metabolic workup to determine etiology of stone formation but will not proceed until current stones are managed. -KUB this week -Consider metabolic workup in future Follow-up With When Contact Information QUINTIN JUAN, Chriss Peña, URL [facility] [address], [place] [address]- [phone] Additional Instructions: f/u pending KUB results Patient Education Kidney Stones, Ephi-ep-Teuc I, Heather Joyner, personally scribed for Dr. Ribeiro on 07/19/2023 12:51:04. . Documentation recorded by the scribe, Heather Joyner, accurately reflects the services(s) I performed and decisions made by me. Authenticated by Dr. Ribeiro on 07/19/2023 12:52:09. 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 urethra EMMA (stress urinary incontinence, female) Weak urine stream Historical No qualifying data Procedure/Surgical History Cystoscopic removal of ureteric stent (01/19/2023), ESWL of kidney (12/17/2022), Cystoscopic laser lithotripsy of ureteric calculus (10/29/2022), Dilation of urethra (06/19/2019), Cystourethroscopy with dilation of urethral stricture (02/03/2018), Cystourethroscopy with dilation of urethral stricture (12/24/2016), Cystourethroscopy with dilation of urethral stricture (10/17/2015), Cystourethroscopy with dilation of urethral stricture (11/23/2011), Appendectomy, Bilateral tubal ligation, Caesarean section, Cholecystectomy, Colonoscopy, Hysterectomy. Medications atorvastatin, 40 mg, Oral, Daily B-Complex SR, 1 tab(s), Oral, Daily Boniva 150 mg oral tablet, 150 mg= 1 tab(s), Oral, qMonth calcium (as citrate)-vitamin D 250 mg-200 intl units oral tablet, 1 tab(s), Oral, BID Celebrex, 200 mg, Oral, BID chondroitin-glucosamine, Oral, BID Cipro 500 mg Tab, 500 mg= 1 tab(s), Oral, Daily, Not taking clonazepam, 0.5 mg, Oral, TID cyproheptadine, 2 mg, Oral, Daily EPA Fish Oil 1000 mg oral capsule, 1000 mg= 1 cap(s), Oral, BID Estrace Vaginal Cream 0.1 m (more content not included)... [facility] Comment on above: Result Comment: Elec tronically Signed By: Chriss RIBEIRO MD\.br\Date and Time Signed: 07/19/23 12:52 EDT\.br\Electronically Co-Signed By: Heather Joyner\.br\Date and Time Co-Signed: 07/19/23 12:51 EDT DEXA BONE DENSITYon 06-17-19 DEXA BONE DENSITY HISTORY: Screening f or osteoporosis COMPARISON: None available COMMENTS: The lumbar spine and both hips were scanned. The mean bone mineral density from L1 to L4 is 1.213 g/sq cm. T-score 1.5. Z- score 4.0 The mean bone mineral density of the left femoral neck is 0.724 g/sq cm. T-score -1.1. Z- score 1.0. The mean bone mineral density of the right femoral neck is 0.653 g/sq cm. T-score -1.8. Z- score 0.4. These values meet WHO criteria for osteopenia. FRAX not reported because: Treated for osteoporosis. IMPRESSION: OSTEOPENIA. 1 year follow-up recommended. ELECTRONICALLY SIGNED BY: DO Jalil Wilson Not Available Consent for Procedure/Surger yon 01-19-2023 Consent for Procedure/Surgery [id number]#1.00CD:127 Normal [facility] Consent for Treatmenton 01-08 Consent for Treatment [id number]#1.00CD:127 Normal [facility] IntraOperative Documentson 0 01-19-2023 IntraOperative Documents [id number]#1.00CD:127 Normal [facility] Main OR Intraoperative Recor don 01-19-2023 Main OR Intraoperative Record IntraOp Document Type FTURO Summary Primary Physician: Chriss RIBEIRO MD Finalized Date/Time: 01/19/23 14:55:31 Pt. Name: NICCI VARGAS Kali Aparicio/Sex: 1945 Female Med Rec #: [id number] Physician: Chriss RIBEIRO MD Financial #: [id number] Pt. Type: O Room/Bed: / Admit/Disch: 01/19/23 13:08:33 - Institution: Case Times FTURO Entry 1 Patient Times In Room 01/19/23 14:38:00 Out Room 01/19/23 14:58:00 Procedure Times Start 01/19/23 14:52:00 Stop 01/19/23 14:54:00 Anesthesia Times Last Modified By: Con GROVES, Velia Perry 01/19/23 14:55:24 Case Attendance FTURO Entry 1 Entry 2 Entry 3 Case Attendee Chriss RIBEIRO MD, RN, Emma Villarreal CST Role Performed Surgeon - Primary Ear Nose Throat Surgeon - Primary Scrub - Primary Time In 01/19/23 14:38:00 01/19/23 14:38:00 01/19/23 14:38:00 Time Out 01/19/23 14:58:00 01/19/23 14:58:00 01/19/23 14:58:00 Procedure CYSTOSCOPY LOCAL WITH CYSTOSCOPY LOCAL WITH CYSTOSCOPY LOCAL WITH STENT REMOVAL(Left) STENT REMOVAL(Left) STENT REMOVAL(Left) Comments Last Modified By: Con GROVES, Velia Andujar RN, Velia Andujar RN, Velia Perry 01/19/23 14:55:25 01/19/23 14:55:25 01/19/23 14:55:25 Surgical Procedures FTURO Entry 1 Procedure Description Procedure CYSTOSCOPY LOCAL WITH Modifiers Left STENT REMOVAL Surgeon Description CYSTOSCOPY WITH LEFT STENT REMOVAL Primary Procedure Yes Primary Surgeon Chriss RIBEIRO MD Start 01/19/23 14:52:00 Stop 01/19/23 14:54:00 Anesthesia Type Local Surgical Service Urology Wound Class 2 - Clean-Contaminated Last Modified By: Velia Andujar RN 01/19/23 14:55:27 General Case Data FTURO Pre-Care Text: Classifies surgical wound, implements aseptic technique, initiates traffic control Entry 1 Case Information OR URO 1 FT Case Level None Wound Class 2 - Clean-Contaminated Specialty Urology Preop Diagnosis STATUS POST LEFT STENT Postop Same As Preop Yes PLACEMENT Postop Diagnosis STATUS POST LEFT STENT Outcomes Met? Yes PLACEMENT Last Modified By: Velia Andujar RN 01/19/23 14:42:01 Post-Care Text: The patient is free from signs and symptoms of infection EU IntraOp - FTURO Pre-Care Text: Implements protective measures prior to operative or invasive procedure, confirms identity before the operative or invasive procedure, verifies operative procedure, surgical site, and laterality Entry 1 EU Perioperative Protocols Procedure(s) CYSTOSCOPY LOCAL WITH Patient Identity Birthday, ID Band STENT REMOVAL(Left) Verified (select at Check, Patient least 2): Participation Consents / H and P HandP, Surgery/Procedure Operative Site N/A Verified Consent Marking Verified Surgical Site Yes Laterality Verified Yes Verified Procedure Verified Yes Correct Patient Yes Position Verified Availability Equipment, Medication Time Out Chriss RIBEIRO MD, Verified (If Participants Velia Andujar RN, Applicable) Emma Mejia CST Time Out Complete 01/19/23 14:51:00 Allergies Reviewed? Yes Allergies Reviewed Self/Patient With Body Position Frog Legged Prep Area PERINEUM Prep Agents Betadine Solution Skin. Condition Unable to Visualize Additional None Specimens Collected Vitals - EU Blood Pressure 132/71 Pulse 65 bpm Respirations 16 br/min SPO2 98 % EBL 0 IandO - EU Total Intake 0 mL Total Output 0 mL Outcomes Met? Yes Last Modified By: Velia Andujar RN 01/19/23 14:52:54 Post-Care Text: The patient is free from signs and symptoms of injury caused by extraneous objects General Comments: IODINE ALLERGY REVIEWED WITH PATIENT, OK TO USE BETADINE FOR PREP. YANELI ELLIS Implant Log FTURO Pre-Care Text: Records devices implanted during the operative or invasive procedure Entry 1 Implant/Explant Explant Implant Identification Description LEFT URETERAL STENT Usage Data Outcomes Met? Yes Last Modified By: Velia Andujar RN 01/19/23 14:53:24 Post-Care Text: The patient is free from signs and symptoms of injury caused by extraneous objects Sign Out FTURO Entry 1 Before Patient Leaves OR Nurse verbally Yes Nurse verbally n/a confirms with the confirms with the team the name of team that the procedure(s) instrument, sponge, recorded and needle counts are correct (or N/A) Nurse verbally n/a Nurse verbally n/a confirms with the confirms with the team how the team whether there specimen is labeled are any equipment (including patient problems to be name), if applicable addressed Sign Out Complete 01/19/23 14:53:00 Last Modified By: Velia Andujar RN 01/19/23 14:53:59 Case Comments Finalized By: Velia Andujar RN Document Signatures Signed By: Velia Andujar RN 01/19/23 14:55 Normal [facility] Main OR Preoperative Recordo n 01-19-2023 Main OR Preoperative Record Holding Area Document Type FTURO Summary Primary Physician: Chriss RIBEIRO MD Finalized Date/Time: 01/19/23 14:21:06 Pt. Name: NICCI VARGAS/Sex: 1945 Female Med Rec #: [id number] Physician: Chriss RIBEIRO MD Financial #: [id number] Pt. Type: O Room/Bed: / Admit/Disch: 01/19/23 13:08:33 - Institution: Case Times Holding FTURO Pre-Care Text: Verifies consent for planned procedure, identifies individual values and wishes concerning care, includes family members in perioperative teaching Secures patient's records' belongings, and valuables, maintains patient's dignity and privacy, and maintains patient confidentiality Entry 1 In Holding 01/19/23 14:12:00 Outcomes Met? Yes Last Modified By: Emma Ventura RN 01/19/23 14:13:00 Post-Care Text: The patient participates in decisions affecting his or her perioperative plan of care The patient's right to privacy is maintained Surgery Checklist FTURO Entry 1 Patient Birthday, ID Band Procedure History and Physical, Identification: Check, Patient Verification: Surgical Consent, With Participation Patient NPO after Midnight: n/a Personal Items: Cataract Lens Implant Personal Items bilateral cataract lens Limitations: up with wheelchair Comment: implants; Complaints of Pain: Yes Pain Comment: arms/legs - 3/10 Skin Integrity Dry, Warm Vitals - EU Blood Pressure Pulse Respirations SPO2 Additional None RN Reviewed Yes Specimens Collected Last Modified By: Emma Ventura RN 01/19/23 14:20:50 Finalized By: Emma Ventura RN Document Signatures Signed By: Emma Ventura RN 01/19/23 14:20 Emma Ventura RN 01/19/23 14:21 [facility] Operative Reporton Operative Report Patient: MOOSE VARGAS Age: 77 years Sex: Female : 1945 Associated Diagnoses: None Author: Chriss RIBEIRO MD Procedure Operative Information Details: Date/ Time: 01/19/2023 14:55:00. Pre-Op Dx: Foreign Body in Bladder - T19.1XXA. Post-Op Dx: Same. Anesthesia Type: Local. Procedure: Local Cystoscopy with Stent Removal. Complications: None. Risks/Benefits/Informed Consent: Surgical risks, benefits, details of the procedure have been explained to the patient, Full informed consent has been obtained. Intraoperative Information Prepped: The patient was placed in a modified dorso-lithotomy position, The patient was prepped with the Betadine solution. Anesthesia: 2% Xylocaine Jelly per urethra. Procedure: Cystoscopy and Left Stent Removal, The flexible Cystoscope was passed in retrograde fashion into the bladder without difficulty, The bladder was viewed in entirety and found to be without tumors or stones, Mild inflammation was seen surrounding the orifice with the stent seen protruding from it, The stent was then grasped and removed in its entirety. Specimens Removed: None. Devices Implanted: None. Postoperative Information Discharge: The patient tolerated the procedure well and was subsequently discharged home. Normal [facility] Comment on above: Result Comment: Elec tronically Signed By: Chriss RIBEIRO MD\.br\Date and Time Signed: 01/19/23 14:55 EDT Operative Reporton 3 Operative Report [id number]#1.00CD:127 [facility] RAD - MISCon 12-24-2022 RAD - MISC [id number]#1.00CD:127 [facility] Consent for Procedure/Surger yon 12-03-2022 Consent for Procedure/Surgery [id number]#1.00CD:127 [facility] RAD - MISCon 11-17-2022 RAD - MISC [id number]#1.00CD:127 [facility] Lab Reportson 11-05-2022 Lab Reports [id number]#1.00CD:127 [facility] Lab Reportson 11-02-2022 Lab Reports [id number]#1.00CD:127 [facility] Operative Reporton 3 Operative Report [id number]#1.00CD:127 [facility] Lab Reportson 10-26-2022 Lab Reports [id number]#1.00CD:127 [facility] Lab Reportson 10-20-2022 Lab Reports [id number]#1.00CD:127 [facility] RAD - MISCon 10-20-2022 RAD - MISC [id number]:127 [facility] Consent for Procedure/Surger yon 10-09-2022 Consent for Procedure/Surgery [id number]:127 [facility] MR head/brain wo conon 09-03 MR head/brain wo con [facility] [place] [address] [place] [address] MRI Report Signed Patient: Nicci Vargas MR#: [id number] 00 : 1945 Acct:[id number] Age/Sex: 77 / F ADM Date: 09/03/22 Loc: ICMR Room: Type: [facility] Attending Dr: Yael Ohara PA-C Copies to: Yael Ohara PA-C Ordering Provider: Yael Ohara PA-C Date of Service: 09/03/22 MR/MR head/brain wo con: R42,R41.0,R41.3 MR head/brain wo con 09/03/2022 1:16 PM SIGN AND SYMPTOMS: Memory loss, confusion, dizziness with unsteady gait PROTOCOL: Multiplanar multisequence MR images of the brain were obtained without IV contrast. COMPARISON: 07/04/2018 FINDINGS: Extra axial spaces: There is diffuse age-related cortical atrophy. Hemorrhage: None. Ventricular system: Within normal limits. Basal cisterns: Within normal limits and not effaced. Cerebral parenchyma: Periventricular white matter T2 and FLAIR hyperintense signal is noted suggesting mild chronic microvascular ischemic change. Midline shift: None.. Cerebellum: Within normal limits. Brainstem: Within normal limits. OTHER: Calvarium: Normal marrow signal. Vascular system: Satisfactory flow voids within the anterior and posterior circulation. Visualized Paranasal sinuses: There is polypoid mucosal thickening in the right maxillary sinus. Visualized Orbits: Within normal limits. Visualized upper cervical spine: Within normal limits. Sella and skull base: Within normal limits. MR/MR head/brain wo con IMPRESSION: No acute intracranial pathology. Chronic age-related neurodegenerative changes are redemonstrated, similar to the prior exam. Impression dictated by: Isai Diop M.D.09/03/2022 3:39 PM Dictation Location: [place] [address] Transcribed By: [facility] 09/03/22 1539 Dictated By: Isai Diop II, MD 09/03/22 153 Signed By: 09/03/221538 Normal [facility] XR MODIFIED BARIUM SWALLOWon 12-13-2022 XR MODIFIED BARIUM SWALLOW EXAMINATION: XR MODIFIED BARIUM SWALLOW HISTORY: Chronic obstructive lung disease, dysphasia COMPARISON: No relevant comparison available. TECHNIQUE: A swallowing evaluation was performed with fluoroscopy in the usual manner. Standard level fluoroscopic mode of operation utilized. 2.0 minutes; 6 images FINDINGS: ORAL PHASE: Normal deglutition. PHARYNGEAL PHASE: Normal swallowing. ASPIRATION: None. STRUCTURE: Normal. No visible obstruction, stricture, or dilatation. OTHER: Negative. IMPRESSION: 1. No abnormal findings to account for patient's symptoms. 2. Please see speech pathologist's report for further discussion of findings and recommendations. Electronically authenticated by: SARAH CARDENAS Date: 2022-04-21 12:20 Normal [facility] Basic Metabolic Panelon Anion gap [Moles/Vol] 19 mmol/L Normal 12-20 [facility] Comment on above: Result Comment: Effe ctive 05/15/2019 reference range changed. Performed By: #### B MP #### [facility] [address], [place] [id number] Calcium [Mass/Vol] 9.9 mg/dL Normal 8.6-10.2 [facility] Comment on above: Performed By: #### B MP #### [facility] [address], [place] [id number] Chloride [Moles/Vol] 92 mmol/L Low 98-107 [facility] Comment on above: Performed By: #### B MP #### [facility] [address], [place] [id number] CO2 [Moles/Vol] 25 mmol/L Normal 20-31 [facility] Comment on above: Performed By: #### B MP #### [facility] [address], [place] [id number] Creatinine [Mass/Vol] 0.9 mg/dL Normal 0.6-1.4 [facility] Comment on above: Performed By: #### B MP #### [facility] [address], [place] [id number] eGFRAA 75 mL/min/1.73m2 Normal >60 [facility] Comment on above: Performed By: #### B MP #### [facility] [address] [place], [place] [id number] eGFRNAA 62 mL/min/1.73m2 Normal >60 [facility] Comment on above: Performed By: #### B MP #### [facility] [address] [place], [place] [id number] Glucose [Mass/Vol] 107 mg/dL High 65-99 [facility] Comment on above: Result Comment: For FASTING Glucose --- ADA reference ranges: Normal 65-99 mg/dl Prediabetes 100-125 Diabetes >/= 126 Performed By: #### B MP #### [facility] [address] [place], [place] [id number] Potassium [Moles/Vol] 4.3 mmol/L Normal 3.5-5.5 [facility] Comment on above: Performed By: #### B MP #### [facility] [address] [place], [place] [id number] Sodium [Moles/Vol] 131 mmol/L Low 135-146 [facility] Specialist Comment on above: Performed By: #### B MP #### [facility] [address] [place], [place] [id number] Urea nitrogen [Mass/Vol] 15 mg/dL Normal 7-25 [facility] Comment on above: Performed By: #### B MP #### [facility] [address] [id number] ANKLE RIGHT 3 [facility] 06-26-19 20 ANKLE RIGHT 3 [facility] Department of Radiology [address] [place] [phone] Patient Name: NICCI VARGAS : 1945 Sex: F Age: Race: White Pt. Location: Patient Status: O Ordered Date: 06/26/2019 12:45:00 PM Completed Date: 06/26/2019 12:55 PM Requesting Provider: MARU PÉREZ Attending Provider: MARU PÉREZ Report Copy To: DONNELL JOYNER Signs & Symptoms: S82.841A Displaced bimalleolar fracture of right lower leg, init I10 History: [place] Comments: , , , Ordering Provider - MARU PÉREZ PA-C , Exam: ANKLE RIGHT 3 VWS ANKLE RIGHT 3 S 06/26/2019 12:55 PM SIGNS AND SYMPTOMS: S82.841A Displaced bimalleolar fracture of right lower leg, init I10 TECHNOLOGIST COMMENTS: Ortho follow up for right ankle surgery. Surgery was on 12/23/18. QUESTION FOR THE RADIOLOGIST: , , , Ordering Provider - MARU PÉREZ PA-C , PROTOCOL: AP,Lateral and Oblique views were obtained. COMPARISON: May 15, 2019 FINDINGS: Soft tissues: Slightly improved lateral swelling and unchanged medial ossicles with incomplete healing Bones: Lateral malleolar and syndesmotic screw fixation in satisfactory alignment with fibular fracture healing in slightly impacted and offset alignment Prominent calcaneal enthesophytes especially at the Achilles insertion Previous external fixator from tibia to the calcaneus Joints: Mild tibiotalar arthritis, possibly medial talar dome osteochondral lesion Moderate dorsal midfoot osteophyte formation IMPRESSION: 1. 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 Large calcaneal heel spur, unchanged Electronically signed: Fred Hui. Transcribed by: [email or web address], User Resident: Electronically Signed by: FRED HUI @ 06/26/2019 01:09 PM Normal [facility] Comment on above: Order Comment: orif right ankle ANKLE RIGHT 3 VWSon 05-15-19 20 ANKLE RIGHT 3 [facility] Department of Radiology [address] [place] [phone] Patient Name: NICCI VARGAS : 1945 Sex: F Age: Race: White Pt. Location: Patient Status: Ordered Date: 05/15/2019 1:05:00 PM Completed Date: 05/15/2019 01:04 PM Requesting Provider: MARU PÉREZ Attending Provider: Report Copy To: Signs & Symptoms: S82.841A Displaced bimalleolar fracture of right lower leg, init I10 History: [place] Comments: , , , Ordering Provider - MARU PÉREZ PA-C , Exam: ANKLE RIGHT 3 [facility] ANKLE RIGHT 3 S 05/15/2019 1:04 PM EST SIGNS AND SYMPTOMS: S82.841A Displaced bimalleolar fracture of right lower leg, init I10 TECHNOLOGIST COMMENTS: rt ankle surgery 12/23/18 check healing QUESTION FOR THE RADIOLOGIST: , , , Ordering Provider - MARU PÉREZ PA-C , PROTOCOL: AP,Lateral and Oblique views were obtained. COMPARISON: 03/31/2019 FINDINGS: Metallic hardware is again seen in the distal tibia and fibula, unchanged from previous examination. Evidence of previous hardware is also seen. Multiple loose bodies are again seen adjacent to the medial ileus. There is no evidence for an acute osseous abnormality. The ankle mortise is intact. IMPRESSION: 1. Stable right ankle. Electronically signed by:Reji Leiva. Transcribed by: [email or web address], User Resident: Electronically Signed by: REJI LEIVA @ 05/15/2019 01:17 PM Normal [facility] Comment on above: Order Comment: orif right ankle ANKLE RIGHT 3 VWSon 03-31-20 19 ANKLE RIGHT 3 [facility] Department of Radiology [address] [place] [phone] Patient Name: NICCI VARGAS : 1945 Sex: F Age: Race: White Pt. Location: Patient Status: O Ordered Date: 03/31/2019 1:10:00 PM Completed Date: 03/31/2019 01:15 PM Requesting Provider: MARU PÉREZ Attending Provider: Report Copy To: Signs & Symptoms: S82.841A Displaced bimalleolar fracture of right lower leg, init I10 History: [place] Comments: , , , Ordering Provider - MARU PÉREZ PA-C , Exam: ANKLE RIGHT 3 [facility] ANKLE RIGHT 3 S 03/31/2019 1:15 PM EST SIGNS AND SYMPTOMS: S82.841A Displaced bimalleolar fracture of right lower leg, init I10 TECHNOLOGIST COMMENTS: rt ankle surgery check healing QUESTION FOR THE RADIOLOGIST: , , , Ordering Provider - MARU PÉREZ PA-C , PROTOCOL: AP,Lateral and Oblique views were obtained. COMPARISON: March 08, 2019. FINDINGS: Soft tissues: Soft tissue swelling. Bones: Evidence of removal of previous hardware. Residual hardware identified within the osteopenic bones of the distal tibia and fibula syndesmotic screw fixation and a long segment screw across the fibula fracture. Fracture lines are no longer visualized. Osseous irregularity around the margins of the distal tibia predominantly the medial malleolus. Joints: No joint space narrowing. Osteochondral lucency off the medial talar dome. Subtalar joint aren't visualized. IMPRESSION: 1. Osteopenia with significant remodeling around the ankle fixation. 2. Hardware appears appropriately positioned. 3. No significant joint abnormality except for a osteochondral lucency of the talar dome. Electronically signed by:Thai Danielle. Transcribed by: [email or web address], User Resident: Electronically Signed by: THAI DANIELLE @ 03/31/2019 03:16 PM Normal [facility] Comment on above: Order Comment: orif right ankle ANKLE RIGHT 3 [facility] 03-08-20 19 ANKLE RIGHT 3 [facility] Department of Radiology [address] [place] [phone] Patient Name: NICCI VARGAS : 1945 Sex: F Age: Race: White Pt. Location: Patient Status: Ordered Date: 03/08/2019 12:40:00 PM Completed Date: 03/08/2019 12:49 PM Requesting Provider: MARU PÉREZ Attending Provider: Report Copy To: Signs & Symptoms: S82.841A Displaced bimalleolar fracture of right lower leg, init I10 History: [place] Comments: , , , Ordering Provider - MARU PÉREZ PA-C , Exam: ANKLE RIGHT 3 S ANKLE RIGHT 3 [facility] 03/08/2019 12:49 PM EDT SIGNS AND SYMPTOMS: S82.841A Displaced bimalleolar fracture of right lower leg, init I10 TECHNOLOGIST COMMENTS: ortho check for right ankle QUESTION FOR THE RADIOLOGIST: , , , Ordering Provider - MARU PÉREZ PA-C , PROTOCOL: AP,Lateral and Oblique views were obtained. COMPARISON: February 08, 2019 FINDINGS: Soft tissues: Slightly increased swelling with removal of splint Bones: Fibular and syndesmotic screw fixation in satisfactory and unchanged alignment Some healing response along the medial malleolus albeit with some irregularity Moderately large Achilles spur and small to moderate plantar spur Joints: Unchanged IMPRESSION: Healing ankle injury with hardware fixation similar to prior study except for removal of overlying cast and previous removal of the external fixator Electronically signed by:Fred Hui. Transcribed by: [email or web address], User Resident: Electronically Signed by: FRED HUI @ 03/08/2019 01:27 PM Normal [facility] Comment on above: Order Comment: orif right ankle ANKLE RIGHT 3 [facility] 02-09-20 19 ANKLE RIGHT 3 [facility] Department of Radiology [address] [place] [phone] Patient Name: NICCI VARGAS : 1945 Sex: F Age: Race: White Pt. Location: 84 Patient Status: Ordered Date: 02/08/2019 10:15:00 AM Completed Date: 02/08/2019 10:16 AM Requesting Provider: MARU PÉREZ Attending Provider: Report Copy To: Signs & Symptoms: S82.841A Displaced bimalleolar fracture of right lower leg, init I10 History: [place] Comments: , Views (X-RAY, ANKLE): Radiologic Protocol , Views (X-RAY, ANKLE): Radiologic Protocol , , , Ordering Provider - MARU PÉREZ PA-C , Exam: ANKLE RIGHT 3 VWS ANKLE RIGHT 3 VWS 02/08/2019 10:16 AM EDT SIGNS AND SYMPTOMS: S82.841A Displaced bimalleolar fracture of right lower leg, init I10 TECHNOLOGIST COMMENTS: Ortho follow up for surgery to right ankle x2 weeks ago. QUESTION FOR THE RADIOLOGIST: , Views (X-RAY, ANKLE): Radiologic Protocol , Views (X-RAY, ANKLE): Radiologic Protocol , , , Ordering Provider - MARU PÉREZ PA-C , PROTOCOL: AP,Lateral and Oblique views were obtained. COMPARISON: January 24, 2019 FINDINGS: Soft tissues: Swelling with overlying splint Bones: Fibular screw and 2 syndesmotic screws in good alignment Avulsion injuries along the medial Joints: Maintained IMPRESSION: Ankle fixation in satisfactory Electronically signed by:Fred Hui. Transcribed by: [email or web address], User Resident: Electronically Signed by: FRED HUI @ 02/08/2019 11:15 AM [facility] Comment on above: Order Comment: orif right ankle *MRSA/MSSA DNA NASALon 01-24 *MRSA/MSSA DNA NASAL Clinical Report: (D ) Specimen: NASAL SWAB Collected: 01/24/2019 08:32 Status: Final Last Updated: 01/24/2019 13:04 MSSA DNA (Final) Negative MRSA DNA (Final) Negative Normal [facility] Comment on above: Performed By: #### 3 [id number] #### [address] ANKLE RIGHT 2 Son 01-25-20 19 ANKLE RIGHT 2 [facility] Department of Radiology [address] [place] [phone] Patient Name: NICCI VARGAS : 1945 Sex: F Age: Race: White Pt. Location: OUTP Patient Status: O Ordered Date: 01/24/2019 6:35:00 AM Completed Date: 01/24/2019 10:25 AM Requesting Provider: TRIPP BERG Attending Provider: TRIPP BERG Report Copy To: Signs & Symptoms: rt ankle ex fix removal History: rt ankle ex fix removal Comments: rt ankle ex fix removal Exam: ANKLE RIGHT 2 S ANKLE RIGHT 2 S 01/24/2019 10:25 AM EDT SIGNS AND SYMPTOMS: rt ankle ex fix removal TECHNOLOGIST COMMENTS: 4 secs of fluoro used by Dr Berg QUESTION FOR THE RADIOLOGIST: rt ankle ex fix removal PROTOCOL: AP(PA) and Lateral views were obtained. COMPARISON: None FINDINGS: Soft tissues: Bones: Joints: IMPRESSION: Documentation Electronically signed by:Fred Hui. Transcribed by: [email or web address], User Resident: Electronically Signed by: FRED HUI @ 01/24/2019 10:42 AM Normal [facility] Comment on above: Order Comment: rt an kle ex fix removal APTTon 01-24-2019 aPTT Coag (Bld) [Time] 33.1 s Normal 25.0-35.0 [facility] Comment on above: Result Comment: ALL RESULTS MUST BE INTERPRETED WITH RESPECT TO BLOOD DRAWING ARTIFACT OR DILUTION ERROR OF ANTICOAGULANT AT THE TIME OF SAMPLING. THE APTT SHOULD NOT BE USED TO MONITOR UNFRACTIONATED HEPARIN THERAPY, THIS LABORATORY NO LONGER HAS AN ESTABLISHED THERAPEUTIC RANGE BASED ON THE APTT. IT IS RECOMMENDED THAT THE [facility] - HEPARIN ASSAY (ANTI-XA ACTIVITY) BE USED FOR THIS PURPOSE. Performed By: #### 5 [id number], [id number] #### [facility] [address] Operative Reporton 9 Operative Report MR#: [id number] [facility] Pt. Name: Nicci Vargas Room #: 0C Discharge Date: Birthdate: 1945 OPERATIVE REPORT DATE OF SURGERY: 01/24/2019 SURGEON: Tripp Berg M.D. ASSISTANTS: 1. Shital Heath M.D. 2. Dorothy Lewis M.D. 3. Otilio Walls M.D. PREOPERATIVE DIAGNOSIS: Right bimalleolar ankle fracture, status post minimally invasive open reduction and internal fixation and application of multiplanar ankle spanning external fixator. POSTOPERATIVE DIAGNOSIS: Right bimalleolar ankle fracture, status post minimally invasive open reduction and internal fixation and application of multiplanar ankle spanning external fixator. PROCEDURES PERFORMED: 1. Right ankle removal of external fixator. 2. Right ankle manipulation under anesthesia. ANESTHESIA: General endotracheal. IV FLUIDS: Per anesthesia report. BLOOD LOSS: Minimal. COMPLICATIONS: None. EXPLANTS: [employer]ine [employer] external fixator. INDICATIONS FOR PROCEDURE: This is a 73-year-old female, who sustained a bimalleolar equivalent ankle fracture approximately 1 month ago for which she underwent a minimally invasive open reduction and internal fixation as well as application of ankle spanning external fixator. She is now 1 month from surgery and was therefore recommended for removal of the external fixator. After explaining the risks, benefits, and alternatives, informed consent was obtained. PROCEDURE IN DETAIL: The patient was greeted in the preoperative holding area. Informed consent was deemed to be appropriate. The operative site was marked by the attending surgeon. Preoperative antibiotics in the form of IV Ancef were administered. The patient was taken back to the operating room where general endotracheal anesthesia was induced. The patient was placed supine on the operating room table and the operative site was prepped and draped in the usual sterile fashion. A time-out was performed and the procedure began with the patient, procedure, laterality were confirmed. The fixator was removed in its entirety without complication. Intraoperative fluoroscopy was used to confirm maintained reduction of the ankle after removal of the external fixator. Following removal of the external fixator, the patient was found to have a slight equinus contracture measuring approximately 10 degrees with the knee extended and 5 degrees with the knee flexed. We therefore elected to proceed with manipulation of the ankle. The ankle was gently dorsiflexed with the knee both flexed and extended and we were able to achieve approximately 20 degrees of passive dorsiflexion. A sterile dressing of Xeroform, gauze and Webril was then applied and placed into a well-padded posterior slab splint to maintain the ankle in neutral dorsiflexion. The patient was awoken from anesthesia and taken to PACU in stable condition for postoperative monitoring. At the conclusion of the case, all needle and sponge counts were correct x2. Dr. Berg was present for the entirety of the procedure. Reviewed By: Shital Heath MD 01/31/2019 02:02 P Electronically Signed by: Tripp Berg M.D. 01/31/2019 02:11 P Tripp Berg M.D. I was present for the entire procedure. Date Dict: 01/24/2019/08:01 A/Shital Heath MD Date Trans: 01/24/2019 01:06 P/mmo [id number] cc: Donnell Joyner M.D. [address] [place] [id number] [facility] Operative Report MR#: [id number] [facility] Pt. Name: Nicci Vargas Room #: 0C Discharge Date: Birthdate: 1945 OPERATIVE REPORT DATE OF SURGERY: 01/24/2019 SURGEON: Tripp Berg M.D. ASSISTANTS: 1. Dorothy Lewis M.D. 2. Shital Heath M.D. 3. Otilio Walls MD. PREOPERATIVE DIAGNOSIS: Right bimalleolar ankle fracture. POSTOPERATIVE DIAGNOSIS: Right bimalleolar ankle fracture. PROCEDURES: 1. Removal of right ankle external fixator. 2. Manipulation under anesthesia of the right ankle. ANESTHESIA: General. BLOOD LOSS: Minimal. FLUIDS: Per anesthesia record. SPECIMENS: None. COMPLICATIONS: None. INDICATIONS: The patient is a 73-year-old female, who suffered a right bimalleolar ankle fracture and subsequently had open reduction and internal fixation and ex-fix placement on December 23, 2018. The patient returns to the operating room today for procedure as mentioned above. PROCEDURE IN DETAIL: The patient was met in preoperative area where informed consent was obtained. The appropriate surgical site was marked. All questions raise to the patient were answered by the attending physician as well as assistants present. The patient was taken back to the operative suite, where general anesthesia was smoothly induced. The patient's right lower extremity was prepped with Betadine spray. An appropriate surgical time-out was completed to confirm the patient, procedure, and laterality. We began our procedure by loosening all bolts on the external fixation device and then removing each piece in a piece pantoja fashion. We then used a drill personal driver to remove both tibial pins as well as the calcaneal pin. After this was completed, the ankle is found to be stiff, contracted and immobile, thus the decision was made to the complete the manipulation under anesthesia. Upon completion of the manipulation of the ankle, had much more mobility in both dorsal plantar flexion as well as eversion and inversion of the ankle itself. The right lower extremity was then wiped with wet-to-dry wraps and the pin sites were dressed with Xeroform, 4 x 4, fluffs, and Webril. The patient was placed in a posterior slab and stirrup splint. The patient tolerated the procedure well. PLAN: The patient will discharge home today with adequate pain medication. The patient will remain nonweightbearing on the right lower extremity. We will follow up in the [facility] in [address] Tripp Berg was present for all critical portions of the case and made all critical decisions regarding the patient's care. Electronically Signed by: Tripp Berg M.D. 01/31/2019 02:11 P Tripp Berg M.D. I was present for the allen and critical portions and I was otherwise immediately available to assist. Date Dict: 01/24/2019/07:56 Brittani/Otilio Walls MD Date Trans: 01/24/2019 08:41 Brittani/selma [id number] cc: Donnell Joyner M.D. [address] [place] [address] Normal [facility] POC GLUCOSE LABon 01-24-2019 Glucose [Mass/Vol] 119 mg/dL High 70-100 [facility] Comment on above: Performed By: #### 8 [id number] #### [address] PROTHROMBIN TIMEon 9 INR Coag (PPP) [Relative time] 0.93 {INR} Normal 0.91-1.16 [facility] Comment on above: Result Comment: ACC[facility] P RECOMMENDED INR FOR WARFARIN THERAPY --------- ------- CONDITION INR PROPHYLAXIS OF VENOUS THROMBOSIS 2-3 (HIGH-RISK SURGERY) TREATMENT OF VENOUS THROMBOSIS 2-3 TREATMENT OF PULMONARY EMBOLISM 2-3 PREVENTION OF SYSTEMIC EMBOLISM: 2-3 ACUTE MYOCARDIAL INFARCTION TISSUE HEART VALVES VALVULAR HEART DISEASE ATRIAL FIBRILLATION RECURRENT SYSTEMIC EMBOLISM MECHANICAL HEART VALVE 2.5-3.5 FROM: ORAL ANTICOAGULANTS. MECHANISM OF ACTION, CLINICAL EFFECTIVENESS, AND OPTIMAL THERAPEUTIC RANGE. CHEST 1995;108:231S-246S. Performed By: #### 5 [id number], [id number] #### [address] PT Coag (PPP) [Time] 12.5 s Normal 12.3-14.8 [facility] Comment on above: Result Comment: ALL RESULTS MUST BE INTERPRETED WITH RESPECT TO BLOOD DRAWING ARTIFACT OR DILUTION ERROR OF ANTICOAGULANT AT THE TIME OF SAMPLING. Performed By: #### 5 [id number], [id number] #### [address] ANKLE RIGHT 3 [facility] 01-05-20 19 ANKLE RIGHT 3 [facility] Department of Radiology [address] [place] [phone] Patient Name: NCICI VARGAS : 1945 Sex: F Age: Race: White Pt. Location: Patient Status: O Ordered Date: 01/04/2019 10:20:00 AM Completed Date: 01/04/2019 10:36 AM Requesting Provider: MARU PÉREZ Attending Provider: MARU PÉREZ Report Copy To: Signs & Symptoms: S82.841A Displaced bimalleolar fracture of right lower leg, init I10 History: [place] Comments: , Views (X-RAY, ANKLE): AP, Lateral, Mortise , Views (X-RAY, ANKLE): AP, Lateral, Mortise , , , Ordering Provider - MARU PÉREZ PA-C , Exam: ANKLE RIGHT 3 S ANKLE RIGHT 3 S 01/04/2019 10:36 AM EDT SIGNS AND SYMPTOMS: S82.841A Displaced bimalleolar fracture of right lower leg, init I10 TECHNOLOGIST COMMENTS: ortho follow up for surgery to right ankle. QUESTION FOR THE RADIOLOGIST: , Views (X-RAY, ANKLE): AP, Lateral, Mortise , Views (X-RAY, ANKLE): AP, Lateral, Mortise , , , Ordering Provider - MARU PÉREZ PA-C , PROTOCOL: AP,Lateral and Oblique views were obtained. COMPARISON: 12/23/2018. FINDINGS: External fixator noted with post surgical changes including fusion of the ankle syndesmosis with fracture remaining visualized. Retrograde fibular screw noted. No hardware complication. There is diffuse soft tissue swelling most notably laterally. IMPRESSION: 1. Surgical fixation of ankle fractures as detailed above. 2. Soft tissue swelling Electronically signed by:Yang Nails. Transcribed by: [email or web address], User Resident: Electronically Signed by: YANG NAILS @ 01/04/2019 04:09 PM Normal [facility] Comment on above: Order Comment: , Ranulfo ws (X-RAY, ANKLE): AP, Lateral, Mortise , Views (X-RAY, ANKLE): AP, Lateral, Mortise , , , Ordering Provider - MARU PÉREZ PA-C , Operative Reporton [id number] Operative Report MR#: [id number] [facility] Pt. Name: Nicci Vargas Room #: IHSAN Discharge Date: Birthdate: 1945 OPERATIVE REPORT DATE OF SURGERY: 12/23/2018 SURGEON: Tripp Berg M.D. ASSISTANTS: 1. Joellen Kendall M.D. 2. Otilio Walls MD. 3. Kostas Rutledge MD. PREOPERATIVE DIAGNOSIS: 1. Right bimalleolar equivalent ankle fracture. 2. Right ankle syndesmotic injury. POSTOPERATIVE DIAGNOSIS: 1. Right bimalleolar equivalent ankle fracture. 2. Right ankle syndesmotic injury. PROCEDURE PERFORMED: 1. Minimally invasive open reduction and internal fixation, right distal fibula. 2. Minimally invasive open reduction and internal fixation, right ankle syndesmosis. 3. Application of multiplanar external fixator. ANESTHESIA: General. BLOOD LOSS: Less than 50 mL. COMPLICATIONS: None. SPECIMENS: None. IMPLANTS: Kristine 4.5 cannulated screw, fully threaded of appropriate length for the distal fibula as well as two Kristine 4.5 one partially-threaded one fully-threaded cannulated screw for the syndesmosis of appropriate length as well as two 5.0 Kristine tibial Ex-Fix pin and one 5.0 calcaneal transfixation pin with associated Ex-Fix bars and clamps. INDICATION: The patient is a 73-year-old female, who suffered the aforementioned injury and presented to our clinic the following day. Due to the ankle displacement and type of injury, the aforementioned procedure was recommended. After being explained the risks, benefits, and alternatives, the patient elected to proceed and informed consent was obtained. DESCRIPTION OF PROCEDURE: The patient was met in the preoperative holding area. The operative site was marked by the attending physician. Anesthesia met the patient and brought her back to the operating room where she was positioned supine on the operating table with the right lower extremity exposed. Nonsterile tourniquet was applied, but was not inflated during the case. The patient was then prepped and draped in normal sterile fashion. A surgical time-out was performed to verify correct patient, procedure, site of surgery and antibiotics have been given. We then began by performing a closed reduction maneuver using traction, internal rotation, which reduced the fracture nicely. We then started by placing a Steinmann pin into position in the distal fibula in retrograde fashion for an intramedullary screw. We used two views of x-rays to navigate the screw half the fracture site and up the shaft of the distal fibula. Once in place, we then selected a Kristine 4.5 fully-threaded cannulated screw of appropriate length and inserted this in a retrograde fashion up the shaft of the distal fibula. Once in position, we then turned our attention to the syndesmotic injury. We passed 2 K-wires from lateral to medial through the distal fibula and into the distal tibia just around the intramedullary screw. We then selected one partially threaded 4.5 cannulated screw and 1 fully-threaded 4.5 cannulated screw and passed these across the syndesmosis while keeping the ankle in dorsiflexion and manually reducing the syndesmosis. We then marked out our sites for the external fixator pins and placed two 5-0 tibial pins into the distal tibial shaft and a 1 calcaneal transfixation pin. Once the pins were in place and of appropriate length, we then applied the associated bars and clamps, pulled the fracture out to length with gentle internal rotation to help maintain the reduction and then fix all bars and clamps in place. We then obtained final radiographs demonstrating excellent placement of hardware as well as our external fixator with a maintained reduction in the ankle in good position. All screws were of appropriate length on all views, and the ankle was well reduced. We then cleansed the extremity with Betadine and saline, closed the percutaneous screw sites with 3-0 Novafil and then dressed all wounds with Xeroform gauze, Kerlix, and an James wrap. The patient was then awakened from anesthesia and moved to her stretcher and transferred to the PACU. PLAN: The patient will be nonweightbearing to the right lower extremity. DVT prophylaxis will be instituted. The patient will discharge today on oral antibiotics due to the erythema and will follow up with Dr. Berg's clinic in [address] Berg was present for the entire procedure. Electronically Signed by: Tripp Berg M.D. 12/24/2018 10:09 A Tripp Berg M.D. I was present for the entire procedure. Date Dict: 12/23/2018/04:53 P/Joellen Kendall MD Date Trans: 12/24/2018 03:24 Brittani/selma [id number] cc: Donnell Joyner M.D. 3 [facility] [address] Erik Rocha D.O. P [address] [address] Normal [facility] ANKLE RIGHT 2 [facility] 12-24-19 19 ANKLE RIGHT 2 [facility] Department of Radiology [address] [place] [id number] Patient Name: NICCI VARGAS : 1945 Sex: F Age: Race: White Pt. Location: OUTP Patient Status: O Ordered Date: 12/23/2018 3:25:00 PM Completed Date: 12/23/2018 07:46 PM Requesting Provider: TRIPP BERG Attending Provider: TRIPP BERG Report Copy To: Signs & Symptoms: orif right ankle History: orif right ankle Comments: orif right ankle Exam: ANKLE RIGHT 2 [facility] ANKLE RIGHT 2 [facility] 12/23/2018 7:46 PM EDT SIGNS AND SYMPTOMS: orif right ankle TECHNOLOGIST COMMENTS: orif right ankle, with Dr. BERG fluoro time 37 seconds red c-arm QUESTION FOR THE RADIOLOGIST: orif right ankle PROTOCOL: AP(PA) and Lateral views were obtained. COMPARISON: None FINDINGS: Right ankle ORIF Number of images: 9 Fluoroscopy time: 37 seconds IMPRESSION: 1. This dictation is for documentation purposes only. Approved by:Loyda Trent on 12/23/2018 7:52 PM EDT. I, Joyce Chi, have reviewed the images and report and concur with these findings. Electronically signed by:Joyce Chi. Transcribed by: [email or web address], User Resident: LOYDA TRENT Electronically Signed by: JOYCE CHI @ 12/24/2018 09:16 AM I personally read this/these film(s) with this resident Normal [facility] Comment on above: Order Comment: orif right ankle POC GLUCOSE LABon 12-23-2018 Glucose [Mass/Vol] 97 mg/dL Normal 70-100 [facility] Comment on above: Performed By: #### [id number] #### [facility] [address] Vital Signs Date Time Vital Sign Value Performing Clinician Facility 08-26-2023 14:20-0400 Diastolic blood pressure 81 mm[Hg] II Donnell Joyner Work Phone: [facility] 08-26-2023 14:20-0400 Heart rate 61 /min II Donnell Joyner Work Phone: [facility] 08-26-2023 14:20-0400 Respiratory rate 12 /min II Donnell Joyner Work Phone: [facility] 08-26-2023 14:20-0400 SaO2% (BldA) [Mass fraction] 97 % II Donnell Joyner Work Phone: [facility] 08-26-2023 14:20-0400 Systolic blood pressure 172 mm[Hg] II Donnell Joyner Work Phone: [facility] 08-26-2023 13:42-0400 Body temperature 97.4 [degF] II Donnell Joyner Work Phone: [facility] 08-26-2023 13:17-0400 Inhaled oxygen flow rate 8 L/min II Donnell Joyner Work Phone: [facility] 08-26-2023 11:22-0400 Body mass index (BMI) [Ratio] 30.8 kg/m2 II Donnell Joyner Work Phone: [facility] 08-26-2023 11:03-0400 Body height 165.1 cm II Donnell Joyner Work Phone: [facility] 08-26-2023 11:03-0400 Body weight 84 kg II Donnell Joyner Work Phone: [facility] 08-19-2023 13:34-0400 Body height 165.1 cm Arturo Salazar MD Work Phone: [facility] 08-19-2023 13:34-0400 Body mass index (BMI) [Ratio] 32.12 kg/m2 Arturo Salazar MD Work Phone: [facility] 08-19-2023 13:34-0400 Body weight 87.54 kg Arturo Salazar MD Work Phone: [facility] 08-19-2023 13:34-0400 Diastolic blood pressure 78 mm[Hg] Arturo Salazar MD Work Phone: [facility] 08-19-2023 13:34-0400 Heart rate 61 /min Arturo Salazar MD Work Phone: [facility] 08-19-2023 13:34-0400 Systolic blood pressure 148 mm[Hg] Arturo Salazar MD Work Phone: [facility] Encounters Encounter Date Encounter Type Care Provider Facility Start: 09-30-2023 ambulatory Chriss Zarco ty:CD:[id number] Start: 09-15-2023 End: 09-15-2023 ambulatory TY Romero Available Start: 08-26-2023 End: 08-26-2023 ambulatory Donnell Joyner Facility:[facility] Start: 08-26-2023 End: 08-26-2023 Admission to same day surgery center II Donnell Joyner Work Phone: [facility] Start: 08-26-2023 End: 08-27-2023 ambulatory II Donnell Joyner Work Phone: [facility] Work Phone: Start: 08-19-2023 End: 08-19-2023 ambulatory [facility] Start: 08-19-2023 End: 08-19-2023 Encounter for preprocedural cardiovascular examination [facility] Start: 08-19-2023 End: 08-19-2023 Office outpatient new 45 minutes Arturo Salazar MD Work Phone: [facility] Comment on above: Abnormal EKG; Preop cardiovascular exam; Hyperlipidemia, unspecified hyperlipidemia type; Essential tremor; Never smoked tobacco; Adult BMI 32.0-32.9 kg/sq m Start: 08-19-2023 End: 08-19-2023 Patient encounter status Arturo Salazar MD Work Phone: [facility] Work Phone: Start: 08-12-2023 End: 08-12-2023 ambulatory Donnell Joyner Facility:[facility] Start: 08-12-2023 Encounter for preprocedural laboratory examination Chriss Tsang [facility] Start: 08-12-2023 End: 08-12-2023 ambulatory II Donnell Joyner Work Phone: [facility] Work Phone: Start: 08-12-2023 End: 08-12-2023 Patient encounter procedure II Donnell Joyner Work Phone: [facility] Work Phone: Start: 08-02-2023 End: 08-02-2023 ambulatory JOELLEN MIGNON Not Available Start: 07-28-2023 End: 07-28-2023 ambulatory DONNELL JOYNER Not Available Start: 07-19-2023 End: 07-20-2023 ambulatory Chriss RIBEIRO Facility:[facility] Start: 07-19-2023 End: 07-19-2023 Patient encounter procedure hCriss RIBEIRO [facility] Start: 06-17-2023 End: 06-18-2023 ambulatory GLENROY TROY Not Available Start: 06-16-2023 End: 06-16-2023 ambulatory TY BARTLETT Not Available Start: 06-16-2023 Chart abstracting Ty Bartlett DP Work Phone: [facility] Start: 06-02-2023 End: 06-02-2023 ambulatory GLENROY TROY Not Available Start: 04-26-2023 End: 04-26-2023 ambulatory DONNELL JOYNER Not Available Start: 03-24-2023 End: 03-24-2023 ambulatory RACHELLE Marcela CHRIS Not Available Start: 01-19-2023 End: 01-20-2023 ambulatory Chriss RIBEIRO Facility:[facility] Start: 01-19-2023 End: 01-19-2023 Patient encounter procedure Chriss RIBEIRO [facility] Start: 12-17-2022 End: 12-18-2022 ambulatory Chriss RIBEIRO Facility:CD:[id number] Start: 10-29-2022 End: 10-30-2022 ambulatory Chriss RIBEIRO Facility:CD:[id number] Start: 09-03-2022 End: 09-03-2022 ambulatory Donnell Joyner Facility:[facility] Start: 05-15-2022 End: 07-23-[address] DONNELL JOYNER Facility:[facility] Start: 04-21-2022 End: 04-22-[address] DONNELL JOYNER Facility:[facility] Start: 01-24-2019 End: 01-25-2019 Patient encounter procedure TRIPP EBRAHEIM Facility:[facility] Start: 12-23-2018 End: 12-24-2018 Patient encounter procedure TRIPP BERG Facility:[facility] Procedures Date Procedure Procedure Detail Performing Clinician Start: 08-26-2023 Diagnostic radiograp hy of abdomen II Donnell Joyner Work Phone: Start: 08-26-2023 Cystoscopy II Donnell Joyner Work Phone: Start: 08-26-2023 Diagnostic radiograp hy of abdomen II Donnell Joyner Work Phone: Start: 08-19-2023 ECG 12-LEAD ARTURO MEDLEY Start: 08-19-2023 Ecg routine ecg w/le ast 12 lds w/i&r Arturo Salazar MD Work Phone: Start: 06-16-2023 Lipid 1996 panel - S mayra or Plasma Arturo Salazar MD Work Phone: Start: 01-19-2023 Cystoscopic removal of ureteric stent Chriss RIBEIRO Start: 12-17-2022 Extracorporeal shock wave lithotripsy of calculus of kidney Chriss RIBEIRO Start: 10-29-2022 Cystoscopic laser li thotripsy of ureteric calculus Chriss RIBEIRO Start: 06-19-2019 Dilation of urethra Ihsan RIBEIRO Start: 01-24-2019 ANESTH LOWER LEG PROCEDURE MACO PITQUINCY Start: 01-24-2019 FIXATION OF ANKLE JOINT TRIPP EBRAHEIM Start: 01-24-2019 REMOVE BONE FIXATION DEVICE TRIPP EBRAHEIM Start: 12-23-2018 ANESTH LOWER LEG BONE SURG ABILIO ENNIS Start: 12-23-2018 APPLY BONE FIXATION DEVICE TRIPP EBRAHEIM Start: 12-23-2018 TREAT LOWER LEG JOINT N ABIL EBRAHEIM Start: 12-23-2018 TREATMENT OF ANKLE FRACTURE TRIPP EBRAHEIM Start: 02-03-2018 Cystourethroscopy wi th dilation of urethral stricture Chriss RIBEIRO Start: 12-24-2016 Cystourethroscopy wi th dilation of urethral stricture Chriss RIBEIRO Start: 10-17-2015 Cystourethroscopy wi th dilation of urethral stricture Chriss RIBEIRO Start: 11-23-2011 Cystourethroscopy wi th dilation of urethral stricture Chriss RIBEIRO Appendectomy Chriss RIBEIRO Bilateral tubal ligation Ihsan RIBEIRO section Chriss WINTER Cholecystectomy Chriss SIGALA RS Colonoscopy Chriss RIBEIRO Hysterectomy Chriss RIBEIRO Comment on above: w/ bladder repair Plan of Treatment Date Care Activity Detail Author Start: 06-16-2028 Lipid panel Lipid Panel [facility] Start: 06-17-2025 Screening for osteoporosis Bone Density Scan [facility] Start: 06-02-2024 Medicare Annual Wellness (AWV) Medicare Annual Wellness (AWV) [facility] Start: 03-02-2024 End: 03-02-2024 Patient encounter procedure 03/02/2024 1:50 PM EDT Office Visit [facility] [address] [place] [address] Marianela Stark, 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 [address] [place] [address] Arturo Salazar MD [address] [facility] [address] [place], [place] [id number] [facility] Start: 08-26-2023 [facility] Start: 08-26-2023 [facility] Start: 07-19-2023 End: 07-19-2023 Patient encounter procedure 07/19/2023 1:00 PM EDT Office Visit [facility] [address] [facility] [address] [place] [address] Donnell Joyner MD [address] [facility] [address] [place] [address] [facility] Start: 06-17-2023 End: 06-17-2023 Professional / ancillary services management 06/17/2023 2:00 PM EST Ancillary Procedure [facility] [address] [place] [id number] [facility] Start: 06-16-2023 End: 06-16-2023 Patient encounter procedure 06/16/2023 1:00 PM EST Procedure Visit [facility] [address] [place] [address] Ty Bartlett DPM [address] [place] [address] [facility] Start: 10-06-2014 Pneumococcal Vaccine: 65+ Years (2 - PCV) Pneumococcal Vaccine: 65+ Years (2 - PCV) [facility] Start: 10-06-2014 Pneumococcal Vaccine: 65+ Years (2 of 2 - PCV) Pneumococcal Vaccine: 65+ Years (2 of 2 - PCV) [facility] Start: 10-07-2013 DTaP/Tdap/Td Vaccines (1 - Tdap) DTaP/Tdap/Td Vaccines (1 - Tdap) [facility] Start: 1996 Zoster Vaccines (1 of 2) Zoster Vaccines (1 of 2) [facility] Start: 1964 Diabetes mellitus screening Diabetes Screening [facility] Start: 1964 Hepatitis C screening Hepatitis C Screening [facility] Start: 1945 Medicare Annual Wellness Visit Medicare Annual Wellness Visit (AWV) [facility] Patient referral [facility] Work Phone: Immunizations Immunization Date Immunization Notes Care Provider Pat shaw 04-30-2023 COVID-19 (MODERNA) 12Y and older II Donnell Ar Work Phone: [facility] 04-30-2023 Influenza, injectabl e, Madin Sandy Canine Kidney, preservative free, quadrivalent Ty Bartlett DPM Work Phone: [facility] 03-04-2022 COVID-19 mRNA Bivale nt Booster (Pfizer) II Donnell Joyner Work Phone: [facility] 03-04-2022 influenza, high dose seasonal, preservative-free Ty Bartlett DPM Work Phone: [facility] 03-04-2022 Influenza, Seasonal, Quadrivalent, Adjuvanted Ty Bartlett DPM Work Phone: [facility] 03-04-2022 Moderna SARS-CoV-2 50mcg/0.5mL Booster Ty Smith DPM Work Phone: [facility] 04-05-2021 COVID-19 mRNA-1273 (Moderna) II Donnell Joyner Work Phone: [facility] 04-05-2021 influenza, high dose seasonal, preservative-free Ty Bartlett DPM Work Phone: [facility] 04-05-2021 Influenza, Seasonal, Quadrivalent, Adjuvanted Ty Bartlett DPM Work Phone: [facility] 04-04-2021 Moderna SARS-CoV-2 Booster Vaccination Ty Bartlett DPM Work Phone: [facility] 08-08-2020 COVID-19 mRNA-1273 (Moderna) II Donnell Joyner Work Phone: [facility] 07-11-2020 COVID-19 mRNA-1273 (Moderna) II Donnellbronwyn Joyner Work Phone: [facility] 03-25-2020 influenza, injectabl e, quadrivalent, contains preservative Ty Bartlett DPM Work Phone: [facility] 03-11-2020 influenza virus vacc ine, unspecified formulation Chriss RIBEIRO [facility] 02-23-2019 influenza, high dose seasonal, preservative-free Ty Bartlett DPM Work Phone: [facility] 02-23-2019 Influenza, High-dose Seasonal, Quadrivalent, Preservative Free Ty Bartlett DPM Work Phone: [facility] 02-10-2017 influenza, high dose seasonal, preservative-free Ty Bartlett DPM Work Phone: [facility] 02-10-2017 Influenza, High-dose Seasonal, Quadrivalent, Preservative Free Ty Bartlett DPM Work Phone: [facility] 02-07-2015 seasonal influenza, intradermal, preservative free Ty Bartlett DPM Work Phone: [facility] 10-06-2013 pneumococcal polysaccharide vaccine, 23 valent Ty Bartlett DPM Work Phone: [facility] 10-06-2013 tetanus and diphther ia toxoids, adsorbed, preservative free, for adult use (5 Lf of tetanus toxoid and 2 Lf of diphtheria toxoid) Ty Bartlett DPM Work Phone: [facility] Payers Date Payer Category Payer [employer] others) [id number] 08-27-2022 [employer] others) [id number] 08-27-2022 Self-pay [id number] 07-07-2022 [employer] ( [employer] others) [id number] 07-07-2022 [employer] ( [employer] others) [id number] 06-10-2011 Medicare [id number] 05-10-1959 [employer] ( and others) [id number] 05-10-1959 Medicare [id number] 1945 Unknown [id number] 2.16.840.1.655761.3.579.2.647 1945 Unknown [id number] 2.16.840.1.553029.3.579.2.647 1945 Unknown [id number] 2.16.840.1.907639.3.579.2.593 1945 Unknown [id number] 2.16.840.1.909100.3.579.2.593 1945 Unknown [id number] 2.16.840.1.770493.3.579.2.1244 1945 Unknown [id number] 2.16.840.1.602424.3.579.2.1259 1945 Unknown [id number] 2.16.840.1.476804.3.579.2.1259 1945 Unknown [id number] 2.16.840.1.226550.3.579.2.1259 1945 Unknown [id number] 2.16.840.1.697090.3.579.2.1259 1945 Unknown [id number] 2.16.840.1.299672.3.579.2.1259 1945 Unknown [id number] 2.16.840.1.233997.3.579.2.1259 1945 Unknown [id number] 2.16.840.1.214095.3.579.2.1259 1945 Unknown [id number] 2.16.840.1.878696.3.579.2.1259 1945 Unknown [id number] 2.16.840.1.597291.3.579.2.727 1945 Unknown [id number] 2.16.840.1.346200.3.579.2.727 1945 Unknown [id number] 2.16.840.1.989399.3.579.2.727 1945 Unknown [id number] 2.16.840.1.026995.3.579.2.727 1945 Unknown [id number] 2.16.840.1.753679.3.579.2.727 Unknown [id number] 2.16.840.1.771325.3.579.2.531 Unknown [id number] 2.16.840.1.127672.3.579.2.531 Unknown [id number] 2.16.840.1.782609.3.579.2.531 Social History Date Type Detail Facility Start: 12-18-2019 End: 08-26-2023 Tobacco smoking status Never smoked tobacco (finding) [facility] Start: 11-11-2022 End: 08-19-2023 Sex Assigned At Female [facility] Start: 09-29-2022 End: 08-19-2023 Tobacco use and exposure Smokeless tobacco non-user [facility] Start: 06-02-2023 Alcohol intake Lifetime non-drinker (finding) [facility] Start: 11-11-2022 End: 08-19-2023 History of Social function [facility] Within the last year , have you been afraid of your partner or ex-partner? No [facility] Start: 09-25-2022 In a typical week, how many times do you talk on the telephone with family, friends, or neighbors? Patient refused [facility] Do you belong to any clubs or organizations such as islam groups, unions, fraternal or athletic groups, or school groups? Yes [facility] Are you now , , , , never or living with a partner? [facility] How often to you hav e a drink containing alcohol? Never [facility] (I/We) worried héctor er (my/our) food would run out before (I/we) got money to buy more. Never true [facility] Start: 1945 Sex Assigned At Female [facility] Start: 09-25-2022 Gender identity Identifies as female gender (finding) [facility] Start: 08-19-2023 Alcoholic beverage intake Ex-drinker (finding) [facility] Work Phone: Start: 1945 Sex assigned at Not on file [facility] Work Phone: Start: 08-09-2023 End: 08-19-2023 Exposure to SARS-CoV-2 (event) Not sure [facility] Goals Date Patient Goal Desired Activity /State Functional Status Date Assessment Result Facility 07-19-2023 Functional Status N/A [facility] 01-19-2023 Functional Status N/A [facility] Clinical Notes 01-19-2023 to 08-19-2023 Arturo Salazar MD - 08/19/2023 1:10 PM EDTPatient Instructions Note Date & Type Note Facility 08-19-2023 History of Present illness Narrative Cardiology Consultation- New Consult Reason for referral: Preoperative cardiovascular examination HPI: Nicci Vargas is a 78 y.o. female with no previous cardiac history scheduled to undergo treatment for nephrolithiasis by Dr. Ribeiro. Her preoperative risk assessment and EKG was performed demonstrate nonspecific ST-T changes. Patient denies any previous cardiac history. She denies complaint of chest pain, palpitation, lightheadedness, dizziness or syncope. She admits to limited exercise tolerance due to advanced age, arthritis and chronic dizziness. She reports she had a stress test many years ago. Her cardiovascular examination appears to be normal. EKG showing normal sinus rhythm with nonspecific ST-T changes Assessment 1. Preoperative risk assessment for low risk procedure and form of treatment holding laser for nephrolithiasis. This is a low risk procedure the patient appears to have acceptable risk and I believe she can proceed with any further delay 2. Borderline abnormal EKG showing nonspecific ST-T changes that are of clinical significance patient had no cardiac symptoms 3. Obesity 4. Mixed hyperlipidemia 5. Essential treatment Plan 1. I believe the patient can proceed with her procedure without any further delay. This is a low risk procedure and the patient risk is acceptable. I reviewed the risk from cardiovascular standpoint with the patient and her they both understood and agreed 2. Continue to encourage losing weight, exercise and dietary modification 3. Follow-up in 5 months Past Medical History: Hyperlipidemia, nephrolithiasis, obesity, degenerative joint disease, and essential tremor Surgical History: She has a past surgical history that includes Appendectomy; section, classic; Gallbladder surgery; Cataract extraction; Kidney stone surgery; Ankle surgery; and Colonoscopy. Family History: Family History Problem Relation Name Age of Onset Hypertension Mother Other (heart problems) Mother Cancer Father Diabetes type I Sister Blood clot Sister Social History: Social History Tobacco Use Smoking status: Never Smokeless tobacco: Never Substance Use Topics Alcohol use: Not Currently Allergies: Acetaminophen, Doxycycline, Iodinated contrast media, Sulfa (sulfonamide antibiotics), and Cephalexin Current Medications: Current Outpatient Medications: atorvastatin (Lipitor) 40 mg tablet, Take 1 tablet (40 mg) by mouth once daily., Disp: , Rfl: calcium carbonate (Calcium 600) 600 mg calcium (1,500 mg) tablet, Take 600 mg by mouth 2 times a day with meals., Disp: , Rfl: cyproheptadine (Periactin) 4 mg tablet, Take 1 tablet (4 mg) by mouth once daily at bedtime., Disp: , Rfl: diphenhydrAMINE (BenadryL) 25 mg capsule, Take 1 capsule (25 mg) by mouth 2 times a day as needed for itching., Disp: , Rfl: fish,bora,flax oils-om3,6,9no1 ([place] 3-6-9) 1,200 mg capsule, Take by mouth., Disp: , Rfl: gabapentin (Neurontin) 400 mg capsule, Take 1 capsule (400 mg) by mouth 2 times a day., Disp: , Rfl: glucosamine-chondroitin 500-400 mg tablet, Take 1 tablet by mouth 2 times a day., Disp: , Rfl: ibuprofen 200 mg tablet, Take 1 tablet (200 mg) by mouth every 6 hours if needed for mild pain (1 - 3)., Disp: , Rfl: montelukast (Singulair) 10 mg tablet, Take 1 tablet (10 mg) by mouth once daily at bedtime., Disp: , Rfl: omega 5-xpc-xxl-fish oil (Fish OiL) 1,000 mg (120 mg-180 mg) capsule, Take by mouth., Disp: , Rfl: OXcarbazepine (Trileptal) 300 mg tablet, Take 1 tablet (300 mg) by mouth 2 times a day., Disp: , Rfl: pantoprazole (ProtoNix) 40 mg EC tablet, Take 1 tablet (40 mg) by mouth once daily in the morning. Take before meals. Do not crush, chew, or split., Disp: , Rfl: plecanatide (Trulance) tablet tablet, Take 1 tablet (3 mg) by mouth once daily., Disp: , Rfl: propranolol LA (Inderal LA) 160 mg 24 hr capsule, Take 1 capsule (160 mg) by mouth once daily. Do not crush, chew, or split., Disp: , Rfl: Vitals: Vitals: 08/19/23 1334 BP: 148/78 BP Location: Left arm Patient Position: Sitting Pulse: 61 Weight: 87.5 kg (193 lb) Height: 1.651 m (5' 5 ) EKG done in office today Review of Systems Respiratory: Positive for shortness of breath. Neurological: Positive for dizziness. All other systems reviewed and are negative. Objective Physical Exam Constitutional: Appearance: Normal appearance. HENT: Nose: Nose normal. Neck: Vascular: No carotid bruit. Cardiovascular: Rate and Rhythm: Normal rate. Pulses: Normal pulses. Heart sounds: Normal heart sounds. Pulmonary: Effort: Pulmonary effort is normal. Abdominal: General: Bowel sounds are normal. Palpations: Abdomen is soft. Musculoskeletal: General: Normal range of motion. Cervical back: Normal range of motion. Right lower leg: No edema. Left lower leg: No edema. Skin: General: Skin is warm and dry. Neurological: General: No focal deficit present. Mental Status: She is alert. Psychiatric: Mood and Affect: Mood normal. Behavior: Behavior normal. Thought Content: Thought content normal. Judgment: Judgment normal. Assessment and Plan: 1. Abnormal EKG ECG 12 Lead 2. Preop cardiovascular exam ECG 12 Lead 3. Hyperlipidemia, unspecified hyperlipidemia type Follow Up In Cardiology 4. Essential tremor 5. Never smoked tobacco 6. Adult BMI 32.0-32.9 kg/sq m Scribe Attestation By signing my name below, I, Joleen Sandoval LPN, Scribe attest that this documentation has been prepared under the direction and in the presence of Arturo Salazar MD. Provider Attestation - Scribe documentation All medical record entries made by the Scribe were at my direction and personally dictated by me. I have reviewed the chart and agree that the record accurately reflects my personal performance of the history, physical exam, discussion and plan. documented in this encounter [facility] Work Phone: 08-19-2023 Instructions Joleen Mathis LPN - 08/19/2023 1:10 PM EDT Please bring all medicines, vitamins, and herbal supplements with you when you come to the office. Prescriptions will not be filled unless you are compliant with your follow up appointments or have a follow up appointment scheduled as per instruction of your physician. Refills should be requested at the time of your visit. Fall Prevention Education Given BMI was above normal measurement. Current weight: 87.5 kg (193 lb) Weight change since last visit (-) denotes wt loss 193 lbs Weight loss needed to achieve BMI 25: 43.1 Lbs Weight loss needed to achieve BMI 30: 13.1 Lbs Provided instructions on dietary changes Provided instructions on exercise. Nicci Vargas is clear for surgery from a cardiac standpoint Follow up documented in this encounter [facility] Work Phone: 07-19-2023 Hospital Discharge instructions Patient Education 07/19/2023 12:50:26 Kidney Stones, Ebup-se-Etpq Kidney Stones Kidney stones are rock-like masses that form inside of the kidneys. Kidneys are organs that make pee (urine). A kidney stone may move into other parts of the urinary tract, including: The tubes that connect the kidneys to the bladder (ureters). The bladder. The tube that carries urine out of the body (urethra). Kidney stones can cause very bad pain and can block the flow of pee. The stone usually leaves your body (passes) through your pee. You may need to have a doctor take out the stone. What are the causes? Kidney stones may be caused by: A condition in which certain glands make too much parathyroid hormone (primary hyperparathyroidism). A buildup of a type of crystals in the bladder made of a chemical called uric acid. The body makes uric acid when you eat certain foods. Narrowing (stricture) of one or both of the ureters. A kidney blockage that you were born with. Past surgery on the kidney or the ureters, such as gastric bypass surgery. What increases the risk? You are more likely to develop this condition if: You have had a kidney stone in the past. You have a family history of kidney stones. You do not drink enough water. You eat a diet that is high in protein, salt (sodium), or sugar. You are overweight or very overweight (obese). What are the signs or symptoms? Symptoms of a kidney stone may include: Pain in the side of the belly, right below the ribs (flank pain). Pain usually spreads (radiates) to the groin. Needing to pee often or right away (urgently). Pain when going pee (urinating). Blood in your pee (hematuria). Feeling like you may vomit (nauseous). Vomiting. Fever and chills. How is this treated? Treatment depends on the size, location, and makeup of the kidney stones. The stones will often pass out of the body through peeing. You may need to: Drink more fluid to help pass the stone. In some cases, you may be given fluids through an IV tube put into one of your veins at the hospital. Take medicine for pain. Make changes in your diet to help keep kidney stones from coming back. Sometimes, medical procedures are needed to remove a kidney stone. This may involve: A procedure to break up kidney stones using a beam of light (laser) or shock waves. Surgery to remove the kidney stones. Follow these instructions at home: Medicines Take hwmm-zsg-jjleivd and prescription medicines only as told by your doctor. Ask your doctor if the medicine prescribed to you requires you to avoid driving or using heavy machinery. Eating and drinking Drink enough fluid to keep your pee pale yellow. You may be told to drink at least 8 10 glasses of water each day. This will help you pass the stone. If told by your doctor, change your diet. This may include: ?Limiting how much salt you eat. ?Eating more fruits and vegetables. ?Limiting how much meat, poultry, fish, and eggs you eat. Follow instructions from your doctor about eating or drinking restrictions. General instructions Collect pee samples as told by your doctor. You may need to collect a pee sample: ?24 hours after a stone comes out. ?8 12 weeks after a stone comes out, and every 6 12 months after that. Strain your pee every time you pee (urinate), for as long as told. Use the strainer that your doctor recommends. Do not throw out the stone. Keep it so that it can be tested by your doctor. Keep all follow-up visits as told by your doctor. This is important. You may need follow-up tests. How is this prevented? To prevent another kidney stone: Drink enough fluid to keep your pee pale yellow. This is the best way to prevent kidney stones. Eat healthy foods. Avoid certain foods as told by your doctor. You may be told to eat less protein. Stay at a healthy weight. Where to find more information National Kidney Foundation (NKF): www.kidney.org [facility] (UCF): www.urologyhealth.org Contact a doctor if: You have pain that gets worse or does not get better with medicine. Get help right away if: You have a fever or chills. You get very bad pain. You get new pain in your belly (abdomen). You pass out (faint). You cannot pee. Summary Kidney stones are rock-like masses that form inside of the kidneys. Kidney stones can cause very bad pain and can block the flow of pee. The stones will often pass out of the body through peeing. Drink enough fluid to keep your pee pale yellow. This information is not intended to replace advice given to you by your health care provider. Make sure you discuss any questions you have with your health care provider. Document Revised: 12/29/2021 Document Reviewed: 12/29/2021 [employer] Patient Education 2022 [employer]. Follow Up Care 01/19/2023 15:01:25 With:QUINTIN JUAN, Chriss R, URL Address: [facility] [address] [place] [address]- [phone] When: Unknown Comments:f/u pending KUB results [facility] 01-19-2023 Note [id number] [facility] 01-19-2023 Hospital Discharge instructions Patient Education 01/19/2023 14:55:01 EU - Cystoscopy with Stent Removal Discharge Instructions (CUSTOM) Cystoscopy with Stent Removal Voiding after the procedure: there may be some pain, burning, urgency, frequency and blood tinged urine following the procedure. These symptoms usually resolve within 2-5 days. Drink the amount of fluid it takes to keep the urine pink to yellow or clear in color. Drinking enough water and fluids will help to ease any discomfort after your procedure. If you are having problems that seem out of the ordinary, please call. If unable to contact your physician and you feel it is an emergency, go to the nearest emergency room or call 911 Diet you may resume your normal diet. Activity you may resume your normal activities Call if you have a fever over 100 degrees. Follow Up Care 01/07/2023 15:01:41 With:Chriss RIBEIRO Address: [facility] [address] [place] [address]- Business (1) When:07/20/2023 14:54:43 Comments:With a KUB [facility] 01-19-2023 Note Custom Cystoscopy with Stent Removal ? Voiding after the procedure: there may be some pain, burning, urgency, frequency and blood tinged urine following the procedure. These symptoms usually resolve within 2-5 days. Drink the amount of fluid it takes to keep the urine pink to yellow or clear in color. Drinking enough water and fluids will help to ease any discomfort after your procedure. ? If you are having problems that seem out of the ordinary, please call. ? If unable to contact your physician and you feel it is an emergency, go to the nearest emergency room or call 911 ? Diet ? you may resume your normal diet. ? Activity ? you may resume your normal activities ? Call if you have a fever over 100 degrees. [facility] Evaluation + Plan note Future Appointments Appointment Date:07/19/2023 11:15:00 AM Scheduled Provider:Chriss RIBEIRO MD Location:[facility] Appointment Type:URO Office Visit [facility] Evaluation note No assessment inform ation available [facility] Work Phone: Evaluation note Diagnosis Abnormal EKG Nonspecific abnormal electrocardiogram (ECG) (EKG) Preop cardiovascular exam Pre-operative cardiovascular examination Hyperlipidemia, unspecified hyperlipidemia type Essential tremor Never smoked tobacco Adult BMI 32.0-32.9 kg/sq m Body Mass Index 32.0-32.9, adult documented in this encounter [facility] Work Phone: Hospital course Narrative No data available for this section [facility] Additional Instructions DISCHARGE INSTRUCTIONS FOR URETEROSCOPY, LASER LITHOTRIPSY, STONE EXTRACTION, AND STENT PLACEMENT There are no incisions or dressings to be concerned with, as the procedure was performed inside the urinary system. For 24 hours after surgery: -No driving or operating machinery. -Do not make important decisions. -Do not consume alcohol, sleeping pills. STENT PLACEMENT -you may have a stent which spans the distance between your bladder and your kidney, allowing urine to pass through. It prevents blockage from swelling, kidney stones in the ureter (tube connecting the kidney to the bladder), or scars. The presence of the stent may cause: -Back or side pain, especially with urination. -Frequent or urgent urination. -Bladder pressure or pain. -Blood in the urine. -You may pass stone debris or small blood clots, which is expected. -Drinking plenty of water to dilute the urine may help. -If there is a thread coming out of the urinary channel, be careful not to accidentally pull on this, as it is attached to the stent. -The stent will most likely be removed in office during a short procedure in which a scope is placed into the bladder, the stent is grasped, and removed. At other times the stent may need to stay in longer, either in preparation for other procedures, or for other reasons. If it is to remain usp, however, changes of the stent are required (about every 3-4 months). DIET You may resume your normal diet, but you may want to start slowly and avoid spicy food, caffeine, carbonated beverages, and alcohol- especially if you have a stent. Your diet and fluid intake may make irritation form the stent worse. ACTIVITY You may resume your normal activities, although you should take it easy on the day of the procedure. Minimizing activity may decrease the back discomfort and irritation from the stent, if present. MEDICATIONS -You may resume your home medications unless instructed otherwise. -[Hold aspirin, ibuprofen, Coumadin (warfarin), and other blood thinners until your office visit (we'll discuss when to resume these medications).] -Take your prescribed medications as directed, including your antibiotics. You may also be given a prescription for pain medicine, or medicines to help with the bladder irritation from the stent, if present. THINGS TO WATCH FOR WHICH WOULD REQUIRE AN EMERGENCY ROOM VISIT (OR CALL 911) (This is not a complete list) -Fever over 101.5 degrees Fahrenheit, with or without chills. -Severe bleeding. -Severe drug reactions with itching, hives, or rash, or severe flank pain. -Tenderness or swelling of the calves, chest pain, or shortness of breath. FOLLOW UP -[Please call the office to arrange for your post-operative appointment (with X-Ray)] [ ][facility] Work Phone: Progress note No data available for this section [facility] Summary Purpose Family History No Family History Records Found Relationship Condition Age at Onset Recorded Date/T favio father Dementia Unknown Malignant neoplasm Unknown Not Specified Hypertension Unknown Amnesia Unknown sister Heart disease Unknown Advance Directives No Advanced Directives Records Found Advance Directive Response Recorded Date/ Time Advance Directives No January 2:09pm Chief Complaint and Reason for Visit Chief Complaint Left Kidney Stone Chief Complaint Left Kidney Stone Left Kidney Stone Reason for Referral Specialty Diagnoses / Procedures Referred By Contac t Referred To Contact Diagnoses Abnormal EKG Preop cardiovascular exam Procedures ECG 12 Lead Arturo Salazar MD [address] [facility] [address], [address] [address] Referral ID Status Reason Start Date Expiration Date V isits Requested Visits Authorized [id number] Authorized 08/19/2023 08/18/2024 1 1 Specialty Diagnoses / Procedures Referred By Contac t Referred To Contact Cardiology Diagnoses Hyperlipidemia, unspecified hyperlipidemia type Procedures Follow Up In Cardiology Arturo Salazar MD [address] [facility] [address], [address] [address] Arturo Salazar MD [address] [facility], [facility] [address] [place] [address] Referral ID Status Reason Start Date Expiration Date V isits Requested Visits Authorized [id number] Authorized 08/19/2023 08/18/2024 1 1 Additional Source Comments INFORMATION SOURCE (unrecogn ized section and content) DATE CREATED AUTHOR 06/29/2019 [facility] DATE CREATED AUTHOR AUTHOR'S ORGANIZ ATION 05/15/2021 [facility] dical Specialist DATE CREATED AUTHOR AUTHOR'S ORGANIZ ATION 08/15/2022 [facility]ital DATE CREATED AUTHOR AUTHOR'S ORGANIZ ATION 08/20/2023 [facility] DATE CREATED AUTHOR AUTHOR'S ORGANIZ ATION 09/03/2023 [facility] DATE CREATED AUTHOR AUTHOR'S ORGANIZ ATION 09/17/2023 [facility] dical Specialists EPIC DATE CREATED AUTHOR AUTHOR'S ORGANIZ ATION 09/27/2023 [facility] Patient Care team informatio n (unrecognized section and content) 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 Specialty Start Date End Date Donnell Joyner MD [address] [facility] [address] [place] [address] PCP - General Internal Medicine 09/29/22 Donnell Joyner MD [address] [facility] [address] [place] [address] PCP - ACO Reach 10/01/22 Team Status: Active Member Role Status Dates Donnell Joyner II MD Primary Care Provider Active Team Status: Inactive Member Role Status Dates Donnell Joyner II MD Primary Care Provider Active Start: August 12, 2023 End: August 12, 2023 Chriss Ribeiro MD Attending Provider Active St art: August 12, 2023 End: August 12, 2023 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 Specialty Start Date End Date Donnell Joyner MD [address] [facility] [address] [place] [address] PCP - General Internal Medicine 08/19/23 Team Status: Inactive Member Role Status Dates Donnell Joyner II MD Primary Care Provider Active Start: August 26, 2023 End: August 26, 2023 Chriss Ribeiro MD Attending Provider Active St art: August 26, 2023 End: August 26, 2023 Goals (unrecognized section and content) Goals may be documented in a n alternate section Reason for Visit (unrecogniz ed section and content) Reason Comments Pre-op Clearance Ribeiro holmicm laser stone Establish Care Specialty Diagnoses / Procedures Referred By Contac t Referred To Contact Diagnoses Abnormal EKG Preop cardiovascular exam Procedures ECG 12 Lead Arturo Salazar MD [address] [facility] [address], [address] [place] [address] Referral ID Status Reason Start Date Expiration Date V isits Requested Visits Authorized [id number] Authorized 08/19/2023 08/18/2024 1 1 FOR RECORDS PERTAINING TO PATIENTS WHO ARE OR HAVE BEEN ENROLLED IN A CHEMICAL DEPENDENCY/SUBSTANCEABUSE PROGRAM, SOME INFORMATION MAY BE OMITTED. This clinical summary was aggregated from multiple sources. Caution should be exercised in using it in the provision of clinical care. This summary normalizes information from multiple sources, and as a consequence, information in this document may materially change the coding, format and clinical context of patient data. In addition, data may be omitted in some cases. CLINICAL DECISIONS SHOULD BE BASED ON THE PRIMARY CLINICAL RECORDS. [employer] provides no warranty or guarantee of the accuracy or completeness of information in this document.
[2023-09-30] MEDS: LACTATED RINGER'S SOLUTION 1,000 ML 50 ML IV (07:36)
[2023-09-30] MEDS: CIPROFLOXACIN IN 5 % DEXTROSE 400 MG/200 ML PIGGYBACK 200 MG IV (07:53)
--- NOTE | 2023-09-30 09:09 | PM.URSON ---
Urology Surgery Operative Note Operative Note Procedure Date: 09/30/23 Time Out Performed: yes Pre-op Diagnosis: Right nephrolithiasis; status post left stent placement Post-op Diagnosis: same as pre-op Procedures performed: 1. Cystoscopy. 2. Left stent removal. 3. Right ureteroscopy. 4. Right pyeloscopy. 5. Thulium laser lithotripsy of right renal calculi. 6. Stone basket fragment extraction. 7. Placement of 6 Monegasque variable length right ureteral stent. Anesthesia: General-LMA Primary Surgeon: Chriss Johnson Complications: None Estimated blood loss (mL): 5 Findings: Multiple stones within the right mid calyx Specimens: Right renal stone fragments Drains: 6 Monegasque variable length right ureteral stent Indications for Procedures: This lady had a very large stone burden. Her left side was recently completed. She has a stent in from the left side. She now has right renal calculi which she presents today for definitive laser lithotripsy and possible stent placement. She has signed an informed consent for these procedures along with left stent removal. Detailed description of Procedure: The patient was brought to the operating room and placed on the operating room table in the supine position. SCDs were placed on the lower extremities and turned on and functioning during the entire case. Timeout was done by all parties in the room. We all agreed upon the patient's identification and the planned procedures for this patient. Genn. anesthesia was then administered. The patient was then repositioned into the modified dorsal lithotomy position. All pressure points were satisfactorily padded. Genitalia were sterilely prepped and draped in usual fashion.I started by passing a 22 Monegasque Olympus cystoscope per urethra and into the bladder. Panendoscopy in the bladder showed no evidence of any tumors or stones. The 9 encrusted left stent was grasped with a flexible forceps. The scope and stent were then removed. The scope was then passed back in the bladder and I then passed a wire through the scope up the right ureter and into the kidney. The scope was then removed. I then passed a 10/12 ureteral access sheath over the wire and up to the L5 level. The wire and stylette were then removed. I then passed a flexible ureteroscope through the access sheath and into the ureter. I then ascended up the right ureter and then went into the kidney. I scoped in all of the calyces. It was in the mid pole calyx that I found multiple stones.I then passed a 200 Angstrom laser fiber through the scope and made contact with the stone. I used dusting mode and 10 W of energy. I dusted all of the stones within the midpole calyx. There was minimal bleeding. I then used a 0 tip nitinol basket and engaged a few small pieces and these were removed and sent for stone analysis. Endoscopically I could not appreciate any more stones. Fluoroscopically we could not see any either. The ureteroscope was then removed. I then passed a Glidewire through the sheath into the kidney and removed the access sheath.The cystoscope was then backloaded over the wire and passed back into the bladder. I then slid a 6 Monegasque variable length ureteral stent over the wire up into the right kidney. The wire was removed and there were good curls in the kidney and in the bladder. The bladder was drained of its contents and the scope was then removed. She was then transferred to a [facility] bed and wheeled to PACU in stable condition.
--- NOTE | 2023-09-30 09:30 | PC.NURSE ---
Has urge to void; placed on bedpan
--- NOTE | 2023-09-30 09:33 | PC.NURSE ---
Remains on bedpan
--- NOTE | 2023-09-30 09:43 | PC.NURSE ---
Taken off bedpan; did not urinate
--- NOTE | 2023-09-30 10:29 | PC.NURSE ---
Up to bathroom and voids pink clear urine without difficulty.
[2023-10-07 02:07] LABS: Calcium Oxalate Dihydrate 40 % (.); Calcium Oxalate Monohydrate 60 % (.)
== END 2023-09-30 10:20 | disposition home or self-care (01) ==
PROVIDERS: PCP Internal Medicine; Visit Provider Urology
PROC: (CPT 52356; principal; 2023-09-30 08:00)
DX: N20.0 Calculus of kidney (principal); Z46.6 Encounter for fitting and adjustment of urinary device; Z90.49 Acquired absence of other specified parts of digestive tract; Z90.710 Acquired absence of both cervix and uterus; Z98.51 Tubal ligation status
CPT/HCPCS: 52356; 36415; 76000; 82365; 99999; J1094; J2704

== ENCOUNTER 2024-08-25 14:09 | Outpatient (OUT) | payer MEDICARE, OTHER, SELFPAY ==
[2024-08-25 14:34] LABS: Basophils Absolute Auto 0.1 10^3/uL (0.0-0.1); Basophils Percent Auto 0.5 % (0.2-2.0); Eosinophils Absolute Auto 0.4 10^3/uL (0.0-0.7); Eosinophils Percent Auto 3.4 % (0.9-7.0); Hematocrit 34.1 % (36.0-48.0); Hemoglobin 12.1 g/dL (12.0-16.0); Immature Granulocytes Abs Auto 0.04 10^3/uL (0.00-0.03); Immature Granulocytes Pct Auto 0.4 % (0.0-0.5); Lymphocytes Absolute Auto 1.8 10^3/uL (1.2-3.8); Lymphocytes Percent Auto 16.1 % (20.5-60.0); Mean Corpuscular HGB Conc 35.5 g/dL (29.9-35.2); Mean Corpuscular Hemoglobin 29.2 pg (26.7-34.0); Mean Corpuscular Volume 82.4 fL (81.0-99.0); Mean Platelet Volume 8.8 fL (9.5-13.5); Monocytes Absolute Auto 0.5 10^3/uL (0.3-0.8); Monocytes Percent Auto 4.4 % (1.7-12.0); Neutrophils Absolute Auto 8.4 10^3/uL (1.4-6.5); Neutrophils Percent Auto 75.2 % (43.0-75.0); Platelet Count 258 10^3/uL (150-450); Red Blood Count 4.14 10^6/uL (4.20-5.40); Red Cell Distribution Width 13.3 % (11.0-15.0); White Blood Count 11.1 10^3/uL (4.0-11.0)
[2024-08-25 15:00] LABS: Alanine Aminotransferase 16 U/L (14-59); Albumin Globulin Ratio 0.9; Albumin Level 3.4 g/dL (3.4-5.0); Alkaline Phosphatase 177 U/L (46-116); Anion Gap 9.6; Aspartate Amino Transferase 16 U/L (15-37); BUN Creatinine Ratio 13.3; Bilirubin Total 0.5 mg/dL (0.2-1.0); Calcium 8.9 mg/dL (8.5-10.1); Carbon Dioxide 31.6 mmol/L (21.0-32.0); Chloride 85 mmol/L (98-107); Estimated GFR (African America 49 (>=60 mL/min/1.73m^2); Estimated GFR (Non-African Ame 40 (>=60 mL/min/1.73m^2); Globulin 3.7 g/dL; Glucose 116 mg/dL (74-106); Magnesium 1.7 mg/dL (1.8-2.4); Potassium 4.2 mmol/L (3.5-5.1); Thyroid Stimulating Hormone 1.633 uIU/mL (0.358-3.740); Total Protein 7.1 g/dL (6.4-8.2)
[2024-08-25 15:18] LABS: Sodium 122 mmol/L (136-145)
[2024-08-26 03:08] LABS: Vitamin B12 679 pg/mL (232-1245)
== END 2024-08-25 14:10 | disposition home or self-care (01) ==
LOC: LAB 14:10
PROVIDERS: PCP Internal Medicine; Visit Provider Physician Assistant Medical
DX: R41.89 Other symptoms and signs involving cognitive functions and awareness (principal); R53.1 Weakness
CPT/HCPCS: 36415; 80053; 82607; 82746; 83735; 84443; 85025

== ENCOUNTER 2024-09-05 10:37 | Outpatient (OUT) | payer MEDICARE, OTHER, SELFPAY ==
[2024-09-05 11:05] LABS: BUN Creatinine Ratio 14.7; Calcium 9.4 mg/dL (8.5-10.1); Chloride 91 mmol/L (98-107); Estimated GFR (African America 55 (>=60 mL/min/1.73m^2); Estimated GFR (Non-African Ame 45 (>=60 mL/min/1.73m^2); Glucose 97 mg/dL (74-106); Sodium 128 mmol/L (136-145)
== END 2024-09-05 10:38 | disposition home or self-care (01) ==
LOC: LAB 10:39
PROVIDERS: PCP Internal Medicine; Visit Provider Physician Assistant Medical
DX: E87.1 Hypo-osmolality and hyponatremia (principal)
CPT/HCPCS: 36415; 80048

== ENCOUNTER 2024-09-12 12:21 | Outpatient (OUT) | payer MEDICARE, OTHER, SELFPAY ==
[2024-09-12 13:22] LABS: Alanine Aminotransferase 18 U/L (14-59); Albumin Globulin Ratio 0.8; Albumin Level 3.2 g/dL (3.4-5.0); Alkaline Phosphatase 178 U/L (46-116); Anion Gap 8.5; Aspartate Amino Transferase 25 U/L (15-37); BUN Creatinine Ratio 10.9; Bilirubin Total 0.5 mg/dL (0.2-1.0); Calcium 9.8 mg/dL (8.5-10.1); Carbon Dioxide 34.4 mmol/L (21.0-32.0); Chloride 100 mmol/L (98-107); Estimated GFR (African America 53 (>=60 mL/min/1.73m^2); Estimated GFR (Non-African Ame 44 (>=60 mL/min/1.73m^2); Globulin 3.9 g/dL; Glucose 99 mg/dL (74-106); Potassium 3.9 mmol/L (3.5-5.1); Sodium 139 mmol/L (136-145); Total Protein 7.1 g/dL (6.4-8.2)
== END 2024-09-12 12:22 | disposition home or self-care (01) ==
LOC: LAB 12:24
PROVIDERS: PCP Internal Medicine; Visit Provider Physician Assistant Medical
DX: E87.1 Hypo-osmolality and hyponatremia (principal)
CPT/HCPCS: 36415; 80053

== ENCOUNTER 2024-09-19 20:02 | Emergency (ER) | payer MEDICARE, OTHER, SELFPAY ==
[2024-09-19 20:09] VITALS: BP 130/90; PULSE 80; TEMP 36.4; O2SAT 95
--- OUTSIDE RECORDS SUMMARY | 2024-09-19 20:13 | XMS_ITS | CCD ---
Author Organization [facility] Care Team Providers Care Anesthesiology Physician Assistant Name Role Phone EBRAHEIM, TRIPP Admitting Unavailable EBRAHEIM, TRIPP Attending Unavailable Vicky ROCHA Referring Unavailable DONNELL JOYNER Primary Care Unavailable OK Procedure Practitioner Unavailab le EBRARACQUEL, TRIPP Surgeon Unavailable OK Procedure Practitioner Unavailab ABILIO Em Surgeon Unavailable EBRAHEIM, TRIPP Admitting Unavailable JOHNNY, TRIPP Attending Unavailable DONNELL JOYNER Referring Unavailable DONNELL JOYNER Primary Care Unavailable OK Procedure Practitioner Unavailab le EBRARACQUEL, TRIPP Surgeon Unavailable OK Procedure Practitioner Unavailab MACO Sierra Surgeon Unavailable AR, DR SEGUNDO Primary Care Unavailable AR, DR SEGUNDO Attending Unavailable AR, DR SEGUNDO Admitting Unavailable AR, DR SEGUNDO Admitting Unavailable AR, DR SEGUNDO Primary Care Unavailable AR, DR SEGUNDO Consulting Unavailable AR, DR SEGUNDO Attending Unavailable RONALD, DR SARAH Peña Consulting Unavailable DONNLEL JOYNER Primary Care Physician [phone] Donnell Joyner MD Primary Care Provider Donnell Joyner MD Unavailable PEGGY Joyner Primary Care Provider MD Chriss Ribeiro Attending Provider Donnell Joyner MD Primary Care Provider ARTURO SALAZAR Referring Unavailable DONNELL JOYNER Primary Care Unavailable Chriss RIBEIRO Attending Unavailable Chriss RIBEIRO Referring Unavailable Chriss RIBEIRO Attending Unavailable Chriss RIBEIRO Attending Unavailable Chriss RIBEIRO Attending Unavailable Chriss RIBEIRO Attending Unavailable Chriss RIBEIRO Attending Unavailable DONNELL JOYNER Primary Care Unavailable RACHAEL BRENNAN Attending Unavailable RACHAEL BRENNAN Attending Unavailable RACHAEL BRENNAN Referring Unavailable JOYNER, DONNELL B Primary Care Unavailable JOYNER, DONNELL B Primary Care Unavailable CABAN, FABIEN L Attending Unavailable CABANVICTOR HUGOA L Attending Unavailable CABAN, FABIEN L Referring Unavailable JOYNER, DONNELL B Primary Care Unavailable JOYNER, DONNELL B Primary Care Unavailable GOMBASH, BORIS M Attending Unavailable STELLA OLVERA Admitting Unavailable GOALYSSA, BORIS Larios Attending Unavailable GOPARISHASHBORIS Referring Unavailable JOYNER, DONNELL B Primary Care Unavailable SELWYN LUJAN N Attending Unavailable SELWYN LUJAN Referring Unavailable JOYNER, DONNELL B Primary Care Unavailable Donnell Joyner MD Primary Care Provider Ar II, Donnell Primary Care Provider Maru Walker MD Attending Provider [phone] ARTURO SALAZAR Attending Unavailable JOYNER, DONNELL B Primary Care Unavailable TRABARTURO MYERS Attending Unavailable MYRA SALAZARHAF Referring Unavailable JOYNER, DONNELL B Primary Care Unavailable ARTURO SALAZAR Attending Unavailable KARLA SALAZARURHAF Referring Unavailable JOYNER, DONNELL B Primary Care Unavailable Leisa Brenner Unavailable Ar WOODS Donnell Primary Care Provider Maru Walker MD Attending Provider ANA MCGREGOR Attending Unavailable LEISA TYLER Attending Unavailable TY BARTLETT Attending Unavailable TY BARTLETT Attending Unavailable LEISA TYLER Attending Unavailable LEISA TYLER Attending Unavailable ANA MCGREGOR Attending Unavailable KAMRYN ROCHA Attending Unavailable YAEL OHARA Attending Unavailable AMANDEEP BARTLETTANDRA H Attending Unavailable AR DONNELL B Attending Unavailable JOYNER DONNELL B Attending Unavailable BRIAN STARK Attending Unavailable YAEL OHARA Attending Unavailable TY BARTLETT Attending Unavailable Maru Walker Admitting Unavailable Maru Walker Attending Unavailable Ar Donnell Primary Care Unavailable Maru Walker Attending Unavailable Maru Walker Admitting Unavailable Allergies Allergy Classification Reported Allergen(s) Allergy Type Date of Onset Reaction(s) Facility (2 sources) Acetaminophen; Translations: [TYLENOL] Drug Allergy 4 [facility] (20 sources) Caffeine; Translations: [CAFFEINE] Drug Allergy 4 Stomach ache (finding), Unknown [facility] (2 sources) Cephalexin; Translations: [KEFLEX] Drug Allergy 7 [facility] (1 source) Contrast media; Translations: [IVP DYE] Propensity to adverse reactions (disorder) 9 [facility] (1 source) Sulfonamides (Antibiotic); Translations: [SULFA] Propensity to adverse reactions (disorder) 9 [facility] (1 source) Iodine (And Iodine Containting Drugs) Drug allergy (disorder) 4 The [facility] (1 source) Sulfonamides (Antibiotic) Drug allergy (disorder) 6 The [facility] (20 sources) Acetaminophen; Translations: [acetaminophen] Drug Allergy 9 Unknown (qualifier value), Unknown [facility] (20 sources) Cephalexin; Translations: [cephalexin] Drug Allergy 9 Unknown (qualifier value), Rash [facility] (6 sources) Iodine; Translations: [iodine containing compounds] Allergy to substance unknown [facility] (6 sources) Sulfonamides (Antibiotic); Translations: [sulfa drugs] Drug allergy Unknown (qualifier value) [facility] (20 sources) Acetaminophen Drug Allergy 3 Unknown [facility] (20 sources) Doxycycline; Translations: [DOXYCYCLINE] Drug Allergy 1 GI intolerance, GI Upset, Nausea Only, GI Disturbance, Nausea [facility] (20 sources) Sulfonamides (Antibiotic) Drug Allergy 9 Unknown [facility] (20 sources) Iodinated Contrast Media; Translations: [IODINATED CONTRAST MEDIA] Drug Allergy 3 Unknown [facility] (8 sources) Sulfonamides (Antibiotic); Translations: [SULFA (SULFONAMIDE ANTIBIOTICS)] Allergy to substance 9 Unknown Reaction [facility] (2 sources) Iodine; Translations: [IODINE] Drug Allergy 9 [facility] (1 source) Acetaminophen Drug Allergy 5 [facility] (1 source) Cephalexin Drug Allergy 5 [facility] (1 source) Doxycycline Drug Allergy 5 [facility] (1 source) Iodinated Contrast Media Drug allergy (disorder) 5 [facility] Medications Current Medications Medication Drug Class(es) Dates Sig (Normalized) Sig (Original) amLODIPine 5 mg oral tablet (20 sources) Dihydropyridine Calcium Channel Tramaine Start: 4 take 1 tablet by mouth once daily amLODIPine (Norvasc) 5 MG tablet Indications: Benign essential hypertension (CMS/HCC) Take 1 tablet (5 mg) by mouth Daily 90 tablet 2 01/25/2024 Active amoxicillin 875 mg / clavulanate 125 mg oral tablet (2 sources) Penicillin-class Antibacterial Start: 5 take 1 tablet by mouth every twelve hours aspirin 81 mg delayed release oral tablet (20 sources) Platelet Aggregation Inhibitor, Nonsteroidal Anti-inflammatory Drug Start: 4 take 1 tablet by mouth in the morning aspirin 81 MG EC tablet Take 81 mg by mouth in the morning. 02/02/2024 Active atorvastatin 40 mg oral tablet (20 sources) HMG-CoA Reductase Inhibitor Start: 9 atorvastatin (Lipitor) 40 MG tablet Indications: Pure hypercholesterolemia (CMS/HCC) TAKE 1 TABLET DAILY 90 tablet 3 08/21/2024 Active b complex-vitamin c tablet (1 source) take 1 tablet by mouth once daily b complex-vitamin c tablet Take 1 tablet by mouth once daily. Active b complex-vitamin C-vitamin E-zinc (Stress Formula/Zinc) tablet (17 sources) take 1 tablet by mouth once daily b complex-vitamin C-vitamin E-zinc (Stress Formula/Zinc) tablet Take 1 tablet by mouth Daily Active B-Complex SR (5 sources) Start: 9 take 1 tablet by mouth once daily B-Complex SR 1 tab(s), Oral, Daily, Refill(s) 0 Start Date: 11/28/18 Status: Ordered B-complex with vitamin C tablet (1 source) take 1 tablet by mouth in the morning B-complex with vitamin C tablet Take 1 tablet by mouth in the morning. Active Calcium (5 sources) Phosphate Binder, Calcium Start: take 1 capsule by mouth twice daily Calcium 600 mg capsule Active 600 MG PO Twice daily August 12, 2023 12:00am Start: 08-12-2023 take 1 capsule by mo uth twice daily Calcium 600 mg capsule Active 600 MG PO Twice daily August 11, 2023 11:00pm Start: 08-12-2023 take 600 mg by mouth twice sylvain ly Calcium Active 600 MG PO Twice daily August 12, 2023 12:00am calcium carbonate 1500 mg oral tablet (9 sources) take 1 tablet by bruce th twice daily at mealtime calcium carbonate (Calcium 600) 600 mg calcium (1,500 mg) tablet Take 600 mg by mouth 2 times a day with meals. Active calcium carbonat e (TUMS) 200 mg (500 mg) chewable tablet Chew 1 tablet and swallow daily. Active calcium citrate 1190 mg / cholecalciferol 0.005 mg oral tablet (5 sources) Vitamin D Start: 11-28-2018 take 1 tablet by mouth twice daily calcium (as citrate)-vitamin D 250 mg-200 intl units oral tablet 1 tab(s), Oral, BID, Refill(s) 0 Start Date: 11/28/18 Status: Ordered Calcium Citrate / Vitamin D (20 sources) Calcium Citrate- Vitamin D (CALCIUM CITRATE +D PO) every 12 (twelve) hours. Active Calcium Citrate- Vitamin D (CALCIUM CITRATE +D PO) every 12 (twelve) hours. 0 Active carbidopa 10 mg / levodopa 100 mg oral tablet (17 sources) Aromatic Amino Acid Decarboxylation Inhibitor, Aromatic Amino Acid Start: 06-29-2024 End: 07-29-2024 Carbidopa-Levodopa 10-100 mg tablet Active TAB PO August 15, 2024 12:00am Start: 06-29-2024 End: 07-29-2024 take 1 tablet by mouth three times daily carbidopa-levodopa (Sinemet) 10-100 mg tablet Take 1 tablet by mouth 3 times a day. 06/29/2024 07/29/2024 Active celecoxib 200 mg oral capsule (6 sources) Nonsteroidal Anti-inflammatory Drug Start: 11-26-2018 take 200 mg by mouth twice daily Celebrex 200 mg, Oral, BID Start Date: 11/26/18 Status: Ordered cholecalciferol 0.025 mg oral capsule (19 sources) Vitamin D take 1 capsule by mouth once daily cholecalciferol (Vitamin D-3) 25 MCG (1000 UT) capsule Take 1,000 Units by mouth Daily Active take 1 capsule by mouth once sylvain ly cholecalciferol (Vitamin D-3) 25 MCG (1000 UT) capsule Take 1 capsule (25 mcg) by mouth once daily. Active take 1 tablet by mouth in the mo rning cholecalciferol (VITAMIN D3) 1,000 units tablet Take 1 tablet (1,000 Units total) by mouth in the morning. Active chondroitin sulfates 133 mg / glucosamine hydrochloride 167 mg oral capsule (18 sources) Start: 08-12-2023 take 2 capsules by mouth twice daily Glucosamine-Chondroitin 167-133 mg capsule Active 2 CAP PO Twice daily August 12, 2023 12:00am Start: 11-28-2018 chondroitin-gl ucosamine Oral, BID, Refill(s) 0 Start Date: 11/28/18 Status: Ordered take 1 tablet by bruce th twice daily glucosamine-chondroitin 500-400 mg table t Take 1 tablet by mouth 2 times a day. Active clonazePAM 0.5 mg oral tablet (6 sources) Benzodiazepine Start: 11-26-2018 take 0.5 mg by mouth three times daily clonazepam 0.5 mg, Oral, TID Start Date: 11/26/18 Status: Ordered take 1 tablet by bruce th twice daily as needed clonazePAM (KlonoPIN) 0.5 mg tablet Take 0.5 mg by mouth 2 (two) times a day as needed for seizures. Active cyproheptadine hydrochloride 4 mg oral tablet (20 sources) Start: 08-12-2023 cyproheptadine (Periactin) 4 MG tablet Indications: Vertigo TAKE 1 TABLET AT BEDTIME 90 tablet 3 05/25/2024 Active Start: 11-28-2018 take 2 mg by mouth once daily cyproheptadine 2 mg, Oral, Daily, Refills(s) 0 Start Date: 11/28/18 Status: Ordered take 1.5 tablets by mouth three times daily as needed cyproheptadine (PERIACTIN) 4 mg tablet Take 1.5 tablets (6 mg total) by mouth 3 (three) times a day as needed for allergies. Active diphenhydrAMINE hydrochloride 25 mg oral capsule (20 sources) Histamine-1 Receptor Antagonist Start: 08-12-2023 take [...] by mouth as needed at bedtime for allergies Active docusate sodium 100 mg oral capsule (1 source) take 1 capsule by mouth in the morning, then take 1 capsule by mouth at bedtime docusate sodium (COLACE) 100 mg capsule Take 1 capsule (100 mg total) by mouth in the morning and 1 capsule (100 mg total) before bedtime. Active Estrace Vaginal Cream 0.1 mg/g (5 sources) Start: Estrace Vaginal Cream 0.1 mg/g 1 gm, Vaginal, MonWedFri, # 42.5 gm, Refills(s) 3, Pharmacy: [facility], 167, cm, 12/18/19 14:29:00 EDT, Height/Length Dosing, 91, kg, 12/18/19 14:29:00 EDT, Weight Dosing Start Date: 03/12/21 Status: Ordered Fish Oils (5 sources) Start: 9 take 1 capsule by mouth twice daily EPA Fish Oil 1000 mg oral capsule 1,000 mg = 1 cap(s), Oral, BID, Refills(s) 0 Start Date: 11/28/18 Status: Ordered fish,bora,flax oils-om3,6,9no1 ([place] 3-6-9) 1,200 mg capsule (8 sources) fish,bora,flax oils-om3,6,9no1 ([place] 3-6-9) 1,200 mg capsule Take by mouth. Active Flonase (5 sources) Corticosteroid Start: 9 Flonase 50 microgram, Nasal, Daily, Refill(s) 0 Start Date: 11/28/18 Status: Ordered folic acid 1 mg oral tablet (20 sources) Start: 4 take 1 tablet by mouth in the morning folic acid (Folvite) 1 MG tablet Take 1 mg by mouth in the morning. 02/02/2024 Active gabapentin 400 mg oral capsule (20 sources) Anti-epileptic Agent Start: 4 gabapentin (Neurontin) 400 MG capsule Indications: RLS (restless legs syndrome) TAKE 1 CAPSULE IN THE MORNING AND 1 CAPSULE BEFORE BEDTIME 180 capsule 3 08/21/2024 Active Start: 11-26-2018 take 300 mg by mouth twice sylvain ly gabapentin 300 mg, Oral, BID Start Date: 11/26/18 Status: Ordered take 1 capsule by mo uth three times daily gabapentin (NEURONTIN) 300 mg capsule Take 1 capsule (300 mg total) by mouth 3 (three) times a day. Active glucosamine sulfate 500 mg oral tablet (1 source) take 1 tablet by bruce th in the morning glucosamine sulfate (GLUCOSAMINE) 500 mg tablet Take 1 tablet (500 mg total) by mouth in the morning. Active Jmpuzumhcff-Pzdkebkbk-Xbw C-Mn (GLUCOSAMINE CHONDR 1500 COMPLX PO) (20 sources) Glucosamine-Bryce droit-Vit C-Mn (GLUCOSAMINE CHONDR 1500 COMPLX PO) Take 2 tablets by mouth every 12 (twelve) hours Active Glucosamine-Bryce droit-Vit C-Mn (GLUCOSAMINE CHONDR 1500 COMPLX PO) Take 2 tablets by mouth every 12 (twelve) hours 0 Active ibandronic acid 150 mg oral tablet (20 sources) Bisphosphonate Start: 08-21-2024 ibandronate (B oniva) 150 MG tablet Indications: Age related osteoporosis, unspecified pathological fracture presence (CMS/HCC) TAKE 1 TABLET 60 MINUTES BEFORE THE FIRST FOOD, BEVERAGE OR MEDICINE OF THE DAY WITH PLAIN WATER ONCE A MONTH 3 tablet 3 08/21/2024 Active Start: 03-11-2023 ibandronate (B oniva) 150 MG tablet Indications: Age related osteoporosis, [...] Refills(s) 0 Start Date: 11/28/18 Status: Ordered take 1 tablet by bruce th every 30 days in the morning ibandronate (BONIVA) 150 mg tablet Take 1 tablet (150 mg total) by mouth every 30 (thirty) days. Take in AM with glass of water prior to food, don't lie down for 30 minutes. Active ibuprofen 200 mg oral tablet (20 sources) Nonsteroidal Anti-inflammatory Drug Start: 08-12-2023 take 2 tablets by mouth twice daily Ibuprofen (Advil) 200 mg tablet Active 400 MG PO Twice daily August 12, 2023 12:00am take 1 tablet by mouth in the mo rning ibuprofen 200 MG tablet Indications: Pain Take 200 mg by mouth in the morning and 200 mg before bedtime. Active loratadine 10 mg oral tablet (1 source) take 1 tablet by mouth in the morning loratadine (CLARITIN) 10 mg tablet Take 1 tablet (10 mg total) by mouth in the morning. Active magnesium oxide 400 mg oral tablet (20 sources) Start: 08-15-2024 Magnesium Oxide 400 mg (241.3 mg magnesium) tablet Active MG PO August 15, 2024 12:00am Start: 05-25-2024 magnesium oxid e (Mag-Ox) 400 (240 Mg) MG tablet TAKE 1 TABLET BY MOUTH THREE DAYS A WEEK 05/25/2024 Active Start: 05-25-2024 magnesium oxid e (Mag-Ox) 400 mg (241.3 mg magnesium) tablet 1 tablet (400 mg) 3 times a day. 05/25/2024 Active Start: 02-11-2024 End: 02-10-2025 take 1 tablet by mouth three times weekly magnesium oxide (Mag-Ox) 400 mg tablet Indications: Irritable bowel syndrome with both constipation and diarrhea Take 1 tablet (400 mg) by mouth 3 (three) times a week 36 tablet 3 02/11/2024 06/06/2024 Discontinued (Duplicate order) mometasone furoate 0.05 mg/actuat metered dose nasal spray (1 source) Corticosteroid take 2 spray(s) nasal route in the morning mometasone (NASONEX) 50 mcg/actuation nasal spray Administer 2 sprays into each nostril in the morning. Active montelukast 10 mg oral tablet (20 sources) Leukotriene Receptor Antagonist Start: 019 montelukast (Singulair) 10 MG tablet Indications: Other allergic rhinitis TAKE 1 TABLET DAILY IN THE EVENING 100 tablet 3 07/26/2023 Active Multi Vitamins oral tablet (5 sources) Start: 019 take 1 tablet by mouth once daily Multi Vitamins oral tablet 1 tab(s), Oral, Daily Start Date: 11/26/18 Status: Ordered nitrofurantoin, macrocrystals 25 mg / nitrofurantoin, monohydrate 75 mg oral capsule (3 sources) Nitrofuran Antibacterial Start: 020 take 1 capsule by mouth twice daily Macrobid 100 mg Cap 100 mg = 1 cap(s), Oral, BID, # 6 cap(s), Refills(s) 0, Pharmacy: [address], 167, cm, 12/18/19 14:29:00 EDT, Height/Length Dosing, 91, kg, 12/18/19 14:29:00 EDT, Weight Dosing Start Date: 12/18/19 Status: Ordered [place]rero 3-6-9 Fatty Acids (OMEGA 3-6-9 PO) (20 sources) take 1 capsule by mouth in the morning Pot[place]ro 3-6-9 Fatty Acids (OMEGA 3-6-9 PO) Take 1 capsule by mouth in the morning and 1 capsule before bedtime. Active take 1 capsule by mouth in the m orning [place]ro 3-6-9 Fatty Acids (OMEGA 3-6-9 PO) Take 1 capsule by mouth in the morning and 1 capsule before bedtime. 0 Active omega 5-rsv-huz-fish oil (Fish OiL) 1,000 mg (120 mg-180 mg) capsule (8 sources) omega 3-dha-epa- fish oil (Fish OiL) 1,000 mg (120 mg-180 mg) capsule Take by mouth. Active omega-3 acid ethyl esters (prison) 1000 mg oral capsule (1 source) take 1 capsule by mouth at bedtime omega-3 acid ethyl esters (LOVAZA) 1 gram capsule Take 2 capsules (2 g total) by mouth in the morning and 2 capsules (2 g total) before bedtime. Active Potrero-3 Fatty Acids (2 sources) Start: 08-12-2023 take 500 mg by mouth twice daily Potrero-3 Fatty Acids Active 500 MG PO Twice daily August 12, 2023 12:00am Potrero-3 Fatty Acids capsule (3 sources) Start: 08-12-2023 take 1 capsule by mouth twice daily Potrero-3 Fatty Acids capsule Active 500 MG PO Twice daily August 12, 2023 12:00am Start: 08-12-2023 take 1 capsule by mo [facility] twice daily Potrero-3 Fatty Acids capsule Active 500 MG PO Twice daily August 11, 2023 11:00pm OXcarbazepine 300 mg oral tablet (20 sources) Anti-epileptic Agent Start: 11-26-2018 OXcarbaze pine (Trileptal) 300 MG tablet Indications: Tremor TAKE 1 TABLET TWICE A DAY 180 tablet 3 08/21/2024 Active pantoprazole 40 mg delayed release oral tablet (20 sources) Proton Pump Inhibitor Start: 04-06-2023 pantopra zole (ProtoNix) 40 MG EC tablet Indications: Gastroesophageal reflux disease without esophagitis TAKE 1 TABLET DAILY 90 tablet 3 04/17/2024 Active Start: 11-26-2018 take 40 mg by mouth once daily pantoprazole 40 mg, Oral, Daily Start Date: 11/26/18 Status: Ordered plecanatide 3 mg oral tablet (20 sources) Start: 06-02-2023 End: 06-01-2024 Trulance tablet tablet Indications: Chronic idiopathic constipation TAKE 1 TABLET IN THE MORNING 90 tablet 3 05/22/2024 Active Plecanatide (Trulance) 3 mg tablet (5 sources) Start: 08-12-2023 take 1 tablet by mouth once daily Plecanatide (Trulance) 3 mg tablet Active 3 MG PO Daily August 11, 2023 11:00pm Start: 08-12-2023 take 1 tablet by [facility] once daily Plecanatide (Trulance) 3 mg tablet Active 3 MG PO Daily August 12, 2023 12:00am microencapsulated potassium chloride 10 meq extended release oral tablet (20 sources) Start: 02-11-2024 End: 02-10-2025 take 1 tablet by mouth three times weekly potassium chloride CR (Klor-Con M10) 10 MEQ ER tablet Indications: Irritable bowel syndrome with both constipation and diarrhea Take 1 tablet (10 mEq) by mouth 3 (three) times a week Do not crush or chew. 36 tablet 3 02/11/2024 02/10/2025 Active 24 hr propranolol hydrochloride 160 mg extended release oral capsule (20 sources) beta-Adrenergi c Tramaine Start: 08-12-2023 take 1 capsule by mouth once daily propranolol LA (Inderal LA) 160 MG 24 hr capsule Indications: Tremor Take 1 capsule (160 mg) by mouth Daily 90 capsule 3 10/18/2023 Active Start: 02-20-2023 take 1 capsule by mo [facility] every twenty-four hours in the morning propranolol LA (Inderal LA) 160 MG 24 hr capsule Take 160 mg by mouth in the morning. 0 02/20/2023 Active Start: 11-28-2018 propranolol 12 0 mg, Daily, Refills(s) 0 Start Date: 11/28/18 Status: Ordered take 1 tablet by bruce three times daily propranolol (INDERAL) 60 mg tablet Take 1 tablet (60 mg total) by mouth 3 (three) times a day. Active rOPINIRole 0.25 mg oral tablet (5 sources) Nonergot Dopamine Agonist Start: 12-18-2019 take 4 tablets by mouth once daily ropinirole 0.25 mg Tab mg tab(s), Oral, Daily, Refills(s) 0 Start Date: 12/18/19 Status: Ordered Completed/Discontinued Medications Medication Drug Class(es) Dates Sig (Normalized) Sig (Original) ciprofloxacin 500 mg oral tablet (5 sources) Quinolone Antimicrobial Start: 10-05-2023 take 1 tablet by mouth once daily Cipro 500 mg Tab 500 mg = 1 tab(s), Oral, Daily, Take 1 tablet the day before the procedure and 1 tablet after the procedure, # 2 tab(s), Refills(s) 0, Pharmacy: [facility] #[id number], 165, cm, 07/19/23 11:57:00 EDT, Height/Length Dosing, 82.9, kg, 07/19/23 11:57:00 EDT, Weight Dosing Start Date: 10/05/23 Status: Ordered Start: 01-08-2023 take 1 tablet by bruce once daily Cipro 500 mg Tab 500 mg = 1 tab(s), Oral, Daily, Take 1 tablet the day before the procedure and 1 tablet after the procedure, # 2 tab(s), Refills(s) 0, Pharmacy: [facility] #[id number], 165, cm, 03/24/21 12:27:00 EST, Height/Length Dosing, 82.9, kg, 03/24/21 12:27:00 EST, Weight Dosing Start Date: 01/08/23 Status: Ordered levoFLOXacin 500 mg oral tablet (12 sources) Quinolone Antimicrobial Start: 06-06-2024 End: 07-03-2024 take 1 tablet by mouth once daily levoFLOXacin (Levaquin) 500 MG tablet Indications: Acute recurrent maxillary sinusitis Take 1 tablet (500 mg) by mouth Daily for 10 days 10 tablet 06/06/2024 07/03/2024 Discontinued Start: 03-02-2024 End: 03-12-2024 take 1 tablet by mouth once daily levoFLOXacin (Levaquin) 500 MG tablet Indications: Acute non-recurrent sinusitis, unspecified location Take 1 tablet (500 mg) by mouth Daily for 10 days 10 tablet 03/02/2024 03/12/2024 Active Start: 02-10-2024 End: 02-20-2024 take 1 tablet by mouth once daily levoFLOXacin (Levaquin) 500 MG tablet Indications: Acute non-recurrent sinusitis, unspecified location Take 1 tablet (500 mg) by mouth Daily for 10 days 10 tablet 02/10/2024 02/20/2024 Active Start: 01-12-2024 End: 01-22-2024 take 1 tablet by mouth once daily levoFLOXacin (Levaquin) 500 MG tablet Indications: Acute non-recurrent sinusitis, unspecified location Take 1 tablet (500 mg) by mouth Daily for 10 days 10 tablet 01/12/2024 01/22/2024 Active Start: 08-26-2023 take 1 tablet by bruce once daily Levofloxacin 250 mg tablet Active 250 MG PO Daily 3 August 26, 2023 12:00am regadenoson (Lexiscan) injection 0.4 mg (1 source) Start: 01-24-2024 End: 01-24-2024 0.4 mg, intravenous, Once, On 01/24/24 at 0900, For 1 dose sertraline 100 mg oral tablet (10 sources) Serotonin Reuptake Inhibitor Start: 11-26-2018 End: 08-26-2023 take 1 tablet by mouth once daily at bedtime Sertraline 100 mg tablet Discontinued 100 MG PO Daily at bedtime August 12, 2023 12:00am August 26, 2023 10:57am Tc-99m tetrofosmin (Myoview) injection 10 millicurie (1 source) Start: 01-24-2024 End: 01-24-2024 10 millicurie, intravenous, Once in imaging, Starting on Wed01/24/24 at 0802, For 1 dose, Administer 45 to 90 minutes prior to imaging unless otherwise indicated. Tc-99m tetrofosmin (Myoview) injection 30 millicurie (1 source) Start: 01-24-2024 End: 01-24-2024 30 millicurie, intravenous, Once in imaging, Starting on Wed01/24/24 at 0922, For 1 dose, Administer 45 to 90 minutes prior to imaging unless otherwise indicated. Problems Active Problems Problem Classification Problem Date Documented Da te Episodic/Chronic Acute cerebrovascular disease (2 sources) R.I.N.D. 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, unspecified] 02-10-2024 Chronic Administrative/social admission (2 sources) Patient encounter status; Translations: [Other specified counseling] 06-06-2024 Episodic Anxiety disorders (20 sources) Anxiety; Translations: [Panic disorder with agoraphobia] Onset: 6 Resolved: 5 11-26-2018 Chronic Attention-deficit, conduct, and disruptive behavior disorders (20 sources) Attention deficit hyperactivity disorder, predominantly inattentive type; Translations: [Attention-deficit hyperactivity disorder, predominantly inattentive type] Onset: 4 10-18-2023 Chronic Chronic kidney disease (4 sources) Chronic kidney disease stage 3A ; Translations: [Chronic kidney disease, stage 3a (HCC) (CMS/HCC)] 01-12-2024 Chronic Chronic ulcer of skin (2 sources) Chronic ulcer of skin; Translations: [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 skin] 01-12-2024 Chronic Developmental disorders (1 source) Other developmental disorders of speech and language; Translations: [OTH DEV DISORDERS SPEECH LANGUAGE] Onset: 3 Chronic Disorders of lipid metabolism (20 sources) Hyperlipidemia; Translations: [Pure hypercholesterolemia] Onset: 3 Resolved: 5 11-26-2018 Chronic E Codes: Fall (1 source) Fall Onset: 4 Esophageal disorders (20 sources) Gastroesophageal reflux disease; Translations: [Gastro-esophageal reflux disease without esophagitis] Onset: 6 Resolved: 5 11-26-2018 Chronic Essential hypertension (20 sources) Hypertensive disorder; Translations: [Benign essential hypertension] Onset: 3 11-26-2018 Chronic Genitourinary symptoms and ill-defined conditions (5 sources) Female stress incontinence 06-19-2019 Chronic Genitourinary symptoms and ill-defined conditions (20 sources) H/O: urethral stricture; Translations: [History of urinary tract infection] 07-01-2020 Episodic Malaise and fatigue (6 sources) Asthenia; Translations: [Weakness] 06-29-2024 Episodic Menopausal disorders (20 sources) Primary ovarian failure; Translations: [Other primary ovarian failure] Onset: 8 Resolved: 5 09-28-2022 Chronic Mood disorders (6 sources) Depressive disorder; Translations: [Depressive disorder] Onset: 4 11-26-2018 Chronic Mycoses (3 sources) Onychomycosis; Translations: [Tinea unguium] 04-10-2024 Episodic Neoplasms of unspecified nature or uncertain behavior (1 source) Neoplasm of unspecified behavior of bone, soft tissue, and skin; Translations: [Neoplasm of unspecified behavior of bone, soft tissue, and skin] Onset: 5 Episodic Occlusion or stenosis of precerebral arteries (20 sources) Arteriosclerosis of carotid artery; Translations: [Occlusion and stenosis of unspecified carotid artery] Onset: 3 09-28-2022 Chronic Osteoarthritis (20 sources) Arthritis; Translations: [Degenerative joint disease involving multiple joints] Onset: 6 Resolved: 5 11-26-2018 Chronic Osteoporosis (20 sources) Osteoporosis; Translations: [Senile osteoporosis] Onset: 8 11-26-2018 Chronic Other and ill-defined heart disease (20 sources) Left ventricular hypertrophy; Translations: [Cardiomegaly] Onset: 3 09-28-2022 Chronic Other and ill-defined heart disease (20 sources) Cardiomegaly; Translations: [Cardiomegaly] Onset: 6 11-16-2022 Chronic Other and unspecified benign neoplasm (2 sources) Melanocytic nevus of trunk; Translations: [Melanocytic nevi of trunk] 03-02-2024 Episodic Other and unspecified benign neoplasm (2 sources) Senile angioma; Translations: [Hemangioma of skin and subcutaneous tissue] 03-02-2024 Episodic Other circulatory disease (3 sources) Peripheral vascular disease; Translations: [Other specified peripheral vascular diseases] 04-10-2024 Chronic Other connective tissue disease (1 source) Facial weakness; Translations: [Facial weakness] Onset: 4 Episodic Other connective tissue disease (3 sources) Other symptoms and signs involving the musculoskeletal system; Translations: [Other musculoskeletal symptoms referable to limbs] Onset: 4 03-06-2024 Episodic Other connective tissue disease (2 sources) Pain in both feet; Translations: [Pain in right foot] 04-10-2024 Episodic Other diseases of bladder and urethra (5 sources) Urethral stricture 12-18-2019 Episodic Other gastrointestinal disorders (7 sources) Irritable bowel syndrome; Translations: [Mixed irritable bowel syndrome] 11-26-2018 Chronic Other gastrointestinal disorders (20 sources) Chronic idiopathic constipation; Translations: [Chronic idiopathic constipation] Onset: 3 09-28-2022 Chronic Other gastrointestinal disorders (4 sources) Dysphagia, oral phase; Translations: [DYSPHAGIA ORAL PHASE] Onset: 3 Episodic Other hereditary and degenerative nervous system conditions (20 sources) Essential tremor; Translations: [Essential tremor] Onset: 4 08-19-2023 Chronic Other hereditary and degenerative nervous system conditions (20 sources) Restless legs; Translations: [Restless legs syndrome] Onset: 4 10-18-2023 Chronic Other hereditary and degenerative nervous system conditions (20 sources) Myoclonus; Translations: [Myoclonus] Onset: 4 10-18-2023 Chronic Other hereditary and degenerative nervous system conditions (1 source) Essential tremor; Translations: [Essential tremor] Onset: 4 Chronic Other injuries and conditions due to external causes (3 sources) Foreign body in bladder; Translations: [Foreign body in bladder, initial encounter] Onset: 4 Episodic Other nervous system disorders (20 sources) Chronic pain; Translations: [Other chronic pain] Onset: 7 Resolved: 5 09-28-2022 Chronic Other nervous system disorders (3 sources) Neuropathy; Translations: [Polyneuropathy, unspecified] 04-10-2024 Chronic Other nervous system disorders (2 sources) Chronic pain syndrome; Translations: [Chronic pain syndrome] 06-06-2024 Chronic Other nervous system disorders (4 sources) Impaired cognition; Translations: [Other symptoms and signs involving cognitive functions and awareness] 06-29-2024 Episodic Other nutritional; endocrine; and metabolic disorders (20 sources) Body mass index 30+ - obesity; Translations: [Obesity, unspecified] Onset: 3 09-28-2022 Chronic Other nutritional; endocrine; and metabolic disorders (2 sources) Body mass index (BMI) 30.0-30.9, adult; Translations: [Body mass index (BMI) 30.0-30.9, adult] Onset: 5 Chronic Other nutritional; endocrine; and metabolic disorders (2 sources) Body mass index (BMI) 32.0-32.9, adult; Translations: [Body mass index (BMI) 32.0-32.9, adult] Onset: 4 Chronic Other screening for suspected conditions (not mental disorders or infectious disease) (1 source) Abnormal findings on diagnostic imaging of other specified body structures; Translations: [Abnormal findings on diagnostic imaging of other specified body structures] Onset: 4 Chronic Other skin disorders (4 sources) Epidermoid cyst; Translations: [Epidermal cyst] 03-02-2024 Episodic Other skin disorders (2 sources) Seborrheic keratosis; Translations: [Other seborrheic keratosis] 03-02-2024 Episodic Other upper respiratory disease (5 sources) Seasonal allergy 11-26-2018 Chronic Other upper respiratory disease (20 sources) Allergic rhinitis; Translations: [Other allergic rhinitis] Onset: 7 Resolved: 5 09-28-2022 Chronic Other upper respiratory disease (2 sources) Allergic rhinitis due to pollen; Translations: [Allergic rhinitis due to pollen] 06-06-2024 Chronic Other upper respiratory infections (8 sources) Acute sinusitis; Translations: [Acute sinusitis, unspecified] 02-10-2024 Episodic Residual codes; unclassified (20 sources) Obstructive sleep apnea syndrome; Translations: [Obstructive sleep apnea (adult) (pediatric)] Onset: 6 Resolved: 3 09-28-2022 Chronic Residual codes; unclassified (20 sources) Hypersomnia; Translations: [Hypersomnia, unspecified] Onset: 4 10-18-2023 Chronic Spondylosis; intervertebral disc disorders; other back problems (20 sources) Cervical spondylosis without myelopathy; Translations: [Spondylosis without myelopathy or radiculopathy, cervical region] Onset: 3 09-28-2022 Chronic Thyroid disorders (6 sources) Hypothyroidism; Translations: [Hypothyroidism, unspecified] Onset: 4 11-26-2018 Chronic Unclassified (5 sources) Drug therapy finding 11-28-2018 Unclassified (5 sources) Finding of sensation of bladder 07-01-2020 Unclassified (1 source) Ill Onset: Urinary tract infections (8 sources) Chronic cystitis; Translations: [Other chronic cystitis without hematuria] Onset: 4 12-18-2019 Chronic Past or Other Problems Problem Classification Problem Date Documented Date Episodic/Chronic Blindness and vision defects (20 sources) Diplopia; Translations: [Diplopia] Onset: 4 10-18-2023 Episodic Calculus of urinary tract (20 sources) Kidney stone; Translations: [Calculus of kidney] Onset: 3 11-27-2022 Episodic Conditions associated with dizziness or vertigo (20 sources) Dizziness; Translations: [Vertigo] Onset: 4 10-18-2023 Episodic Disorders of teeth and jaw (20 sources) Temporomandibular joint disorder; Translations: [Unspecified temporomandibular joint disorder, unspecified side] Onset: 6 11-16-2022 Episodic Fluid and electrolyte disorders (20 sources) Hyponatremia; Translations: [Hypo-osmolality and hyponatremia] Onset: 3 09-28-2022 Episodic Fracture of lower limb (20 sources) Closed bimalleolar fracture; Translations: [Displaced bimalleolar fracture of unspecified lower leg, initial encounter for closed fracture] Onset: 9 Resolved: 5 11-16-2022 Episodic Mood disorders (17 sources) Mood disorders Onset: 5 06-06-2024 Other bone disease and musculoskeletal deformities (20 sources) Osteopenia; Translations: [Other specified disorders of bone density and structure, multiple sites] Onset: 7 Resolved: 5 09-28-2022 Episodic Other circulatory disease (20 sources) H/O: cardiovascular disease; Translations: [Personal history of other diseases of the circulatory system] Onset: 6 11-16-2022 Episodic Other connective tissue disease (20 sources) Fibromyalgia; Translations: [Fibromyalgia] Onset: 9 11-26-2018 Episodic Other connective tissue disease (20 sources) Muscle pain; Translations: [Myalgia, unspecified site] Onset: 3 09-28-2022 Episodic Other connective tissue disease (1 source) Weakness of face muscles; Translations: [Facial weakness] Onset: 4 01-30-2024 Episodic Other fractures (20 sources) Compression fracture of thoracic vertebra, nontraumatic; Translations: [Collapsed vertebra, not elsewhere classified, thoracic region, sequela of fracture] Onset: 3 Resolved: 5 09-28-2022 Episodic Other fractures (1 source) Unspecified fracture of unspecified lumbar vertebra, initial encounter for closed fracture; Translations: [Unspecified fracture of unspecified lumbar vertebra, initial encounter for closed fracture] Onset: 4 Episodic Other fractures (20 sources) Closed fracture lumbar vertebra, transverse process ; Translations: [Unspecified fracture of unspecified lumbar vertebra, initial encounter for closed fracture] Onset: 4 Resolved: 5 10-14-2023 Episodic Other fractures (20 sources) Compression fracture of thoracic vertebra; Translations: [Wedge compression fracture of unspecified thoracic vertebra, initial encounter for closed fracture] Onset: 4 Resolved: 5 10-18-2023 Episodic Other gastrointestinal disorders (4 sources) Dysphagia, oropharyngeal phase; Translations: [DYSPHAGIA OROPHARYNGEAL PHASE] Onset: 2 Episodic Other gastrointestinal disorders (20 sources) Dysphagia; Translations: [Dysphagia, pharyngoesophageal phase] Onset: 3 09-28-2022 Episodic Other injuries and conditions due to external causes (20 sources) History of fall; Translations: [History of falling] Onset: 8 11-16-2022 Episodic Other injuries and conditions due to external causes (1 source) Unspecified multiple injuries, initial encounter; Translations: [Unspecified multiple injuries, initial encounter] Onset: 4 Episodic Other injuries and conditions due to external causes (19 sources) H/O: vertebral fracture; Translations: [Personal history of (healed) traumatic fracture] Onset: 5 06-06-2024 Episodic Other lower respiratory disease (15 sources) Dyspnea; Translations: [Shortness of breath] Onset: 4 11-26-2018 Episodic Other lower respiratory disease (1 source) Solitary pulmonary nodule; Translations: [Solitary pulmonary nodule] Onset: 4 Episodic Other lower respiratory disease (20 sources) Nodule of lung; Translations: [Solitary pulmonary nodule] Onset: 4 10-13-2023 Episodic Other lower respiratory disease (1 source) Shortness of breath; Translations: [Shortness of breath] Onset: 4 Episodic Other nervous system disorders (20 sources) Ataxia; Translations: [Ataxia, unspecified] Onset: 4 10-18-2023 Episodic Other nervous system disorders (20 sources) Spasmodic movement; Translations: [Fasciculation] Onset: 4 10-18-2023 Episodic Other nervous system disorders (20 sources) Tremor; Translations: [Tremor, unspecified] Onset: 4 Resolved: 5 10-18-2023 Episodic Other nutritional; endocrine; and metabolic disorders (20 sources) Obesity; Translations: [Obesity, unspecified] Onset: 0 Resolved: 5 11-16-2022 Chronic Other screening for suspected conditions (not mental disorders or infectious disease) (20 sources) Electrocardiogram abnormal; Translations: [Abnormal electrocardiogram [ECG] [EKG]] Onset: 4 08-19-2023 Episodic Other upper respiratory disease (20 sources) Voice finding; Translations: [Other voice and resonance disorders] Onset: 6 11-16-2022 Episodic Residual codes; unclassified (20 sources) Never smoked tobacco; Translations: [Other specified health status] Onset: 4 Resolved: 5 08-19-2023 Episodic Residual codes; unclassified (20 sources) Confusional state; Translations: [Disorientation, unspecified] Onset: 4 10-18-2023 Episodic Residual codes; unclassified (20 sources) Memory impairment; Translations: [Other amnesia] Onset: 4 10-18-2023 Episodic Residual codes; unclassified (2 sources) Other specified health status; Translations: [Other specified health status] Onset: Episodic Spondylosis; intervertebral disc disorders; other back problems (20 sources) Acute low back pain; Translations: [Acute right-sided low back pain without sciatica] Onset: 4 Resolved: 5 10-14-2023 Episodic Sprains and strains (20 sources) Sprain of talofibular ligament of left ankle; Translations: [Sprain of other ligament of left ankle, initial encounter] Onset: 4 Resolved: 5 10-14-2023 Episodic Unclassified (8 sources) Onset: 4 Resolved: 5 08-19-2023 Results Test Name Value Interpretation Reference Range Facility CC CMP (CMP) (FOR REMOTE FH C USE)on 09-12-2024 Albumin [Mass/Vol] 3.2 g/dL Low 3.4 - 5.0 g/dL [facility] ALBUMIN GLOBULIN RATIO 0.8 [facility] ALP [Catalytic activity/Vol] 178 U/L High 46 - 116 U/L [facility] ALT [Catalytic activity/Vol] 18 U/L 14 - 59 U/L [facility] Anion gap [Moles/Vol] 8.5 mmol/L [facility] AST [Catalytic activity/Vol] 25 U/L 15 - 37 U/L [facility] Bilirubin [Mass/Vol] 0.5 mg/dL 0.2 - 1 .0 mg/dL [facility] Calcium [Mass/Vol] 9.8 mg/dL 8.5 - 10. 1 mg/dL [facility] Chloride [Moles/Vol] 100 mmol/L 98 - 10 7 mmol/L [facility] CO2 [Moles/Vol] 34.4 mmol/L High 21.0 - 32.0 mmol/L [facility] Creatinine [Mass/Vol] 1.19 mg/dL High 0.55 - 1.02 mg/dL [facility] GFR/1.73 sq M.predicted CKD-EPI (S/P/Bld) [Vol rate/Area] 53 Low >=60 mL/min/1.73 m 2 [facility] Globulin (S) [Mass/Vol] 3.9 g/dL [facility] Glucose [Mass/Vol] 99 mg/dL 74 - 106 mg/dL [facility] Interpretation and review of laboratory results Abnormal [facility] Potassium [Moles/Vol] 3.9 mmol/L 3.5 - 5.1 mmol/L [facility] Protein [Mass/Vol] 7.1 g/dL 6.4 - 8.2 g/dL [facility] Sodium [Moles/Vol] 139 mmol/L 136 - 145 mmol/L [facility] TB EGFR-NON AF [place] 44 Low >=60 mL/min/1.73 m 2 [facility] Urea nitrogen [Mass/Vol] 13 mg/dL 7.0 - 18.0 mg/dL [facility] Urea nitrogen/Creatinine [Mass ratio] 10.9 mg/mg [facility] Juan 09-06-2024 L ------ Specimen: [id number] Received: 09/07/24 Status: VENKAT Mcclure Num: [id number] Spec Type: Surgical Subm Dr: Maru Walker MD Tissues: A Skin-Other than Cyst, tag, debridement or plastic repair (RIGHT BACK) Procedures: HE, Gross/Hari L4 Age/ Patient Sex Location Account Attending Physician Nicci Vargas 79/F [place] [id number] Maru Walker MD SPEC NUM: [id number] RECD: 09/07/24 STATUS: VENKAT MCCLURE NUM: [id number] CHRISTIAN: 09/06/24-1055 [facility] DR: Maru Walker MD ENTERED: 09/07/24-[address] [facility] [address]: KYLE TYPE: Surgical DEPT: S ENTERED BY: [id number] RECV BY: [id number] ORDERED: HE, Gross/Micro L4 ORDERED: HE, Gross/Micro L4 Pathological Diagnosis Right back, biopsy: Skin with epidermal inclusion cyst. Clinical Information Mass increasing in size, primary D49.2 Neoplasm of unspecified behavior of bone, soft tissue and skin Gross Description Part A is received in formalin labeled with the patients name, date of , and right back is a hearn-brown, disrupted cystic structure, 1.3 x 0.9 x 0.6 cm, resected with fibrofatty tissue up to 0.3 cm in thickness, and an ovoid portion of hearn-brown, wrinkled skin, 0.6 x 0.4 cm. The capsular surface displays a 0.6 cm in greatest dimension disruption. The capsular surface is inked black and the specimen is sectioned to reveal a smooth-lined internal cavity, filled with a hearn-brown, friable material. The specimen is entirely submitted in a single cassette. (1, ns, [id number] A) CPT Codes 41289 Specimen: [id number] Received: 09/07/24 Status: VENKAT Mcclure Num: [id number] Spec Type: Surgical Subm Dr: Maru Walker MD Tissues: A Skin-Other than Cyst, tag, debridement or plastic repair (RIGHT BACK) Procedures: Mary SUAREZ/Hari Villarreal Patient: Nicci Vargas [id number] (Continued) Signed (signature on file) Chito Perry MD 09/08/24 1154 Normal [facility] ALL BASIC METABOLIC PANELon 09-05-2024 Anion gap [Moles/Vol] 10 mmol/L [facility] Calcium [Mass/Vol] 9.4 mg/dL 8.5 - 10. 1 mg/dL [facility] Chloride [Moles/Vol] 91 mmol/L Low 98 - 10 7 mmol/L [facility] CO2 [Moles/Vol] 31 mmol/L 21.0 - 32.0 mmol/L [facility] Creatinine [Mass/Vol] 1.16 mg/dL High 0.55 - 1.02 mg/dL [facility] GFR/1.73 sq M.predicted CKD-EPI (S/P/Bld) [Vol rate/Area] 55 Low >=60 mL/min/1.73 m 2 [facility] Glucose [Mass/Vol] 97 mg/dL 74 - 106 mg/dL [facility] Interpretation and review of laboratory results Abnormal [facility] Potassium [Moles/Vol] 4 mmol/L 3.5 - 5.1 mmol/L [facility] Sodium [Moles/Vol] 128 mmol/L Low 136 - 145 mmol/L [facility] TBH EGFR-NON AF [place] 45 Low >=60 mL/min/1.73 m 2 [facility] Urea nitrogen [Mass/Vol] 17 mg/dL 7.0 - 18.0 mg/dL [facility] Urea nitrogen/Creatinine [Mass ratio] 14.7 mg/mg [facility] ALL CBC WITH AUTO DIFFon BASOPHILS ABSOLUTE AUTO 0.1 [facility] Basophils/100 WBC (Bld) 0.5 % 0.2 - 2.0 % [facility] Eosinophils/100 WBC (Bld) 3.4 % 0.9 - 7.0 % [facility] Erythrocyte distribution width (RBC) [Ratio] 13.3 % 11.0 - 15.0 % [facility] Hematocrit (Bld) [Volume fraction] 34.1 % Low 36.0 - 48.0 % [facility] Hemoglobin (Bld) [Mass/Vol] 12.1 g/dL 12.0 - 16.0 g/dL [facility] IMMATURE GRANULOCYTES ABS AUTO 0.04 High [facility] Immature granulocytes/100 WBC (Bld) 0.4 % 0.0 - 0.5 % [facility] Interpretation and review of laboratory results Abnormal [facility] LYMPHOCYTES ABSOLUTE AUTO 1.8 [facility] Lymphocytes/100 WBC (Bld) 16.1 % Low 20.5 - 60.0 % [facility] MCH (RBC) [Entitic mass] 29.2 pg 26.7 - 34.0 pg [facility] MCHC (RBC) [Mass/Vol] 35.5 g/dL High 29.9 - 35.2 g/dL [facility] MCV (RBC) [Entitic vol] 82.4 fL 81.0 - 99.0 fL [facility] MONOCYTES ABSOLUTE AUTO 0.5 [facility] Monocytes/100 WBC (Bld) 4.4 % 1.7 - 12.0 % [facility] NEUTROPHILS ABSOLUTE AUTO 8.4 High [facility] Neutrophils/100 WBC (Bld) 75.2 % High 43.0 - 75.0 % [facility] Platelet mean volume (Bld) [Entitic vol] 8.8 fL Low 9.5 - 13.5 fL [facility] TBH EO # 0.4 [facility] PLT 258 [facility] RBC 4.14 Low [facility] WBC 11.1 High [facility] Juan 07-05-2024 L ------ Specimen: [id number] Received: 07/06/24 Status: VENKAT Mcclure Num: [id number] Spec Type: Surgical Subm Dr: Maru Walker MD Tissues: A Skin-Other than Cyst, tag, debridement or plastic repair (BACK) Procedures: HE/2, Gross/Micro L4 Age/ Patient Sex Location Account Attending Physician Nicci Vargas 79/F [place] [id number] Maru Walker MD SPEC NUM: [id number] RECD: 07/06/24 STATUS: VENKAT KAMI NUM: [id number] CHRISTIAN: 07/05/24-3 [facility] DR: Maru Walker MD ENTERED: 07/06/24-[address] [facility] [address]: KYLE TYPE: Surgical DEPT: S ENTERED BY: [id number] RECV BY: [id number] ORDERED: HE/2, Gross/Micro L4 ORDERED: HE/2, Gross/Micro L4 Pathological Diagnosis Skin, back, excision: -Benign and minor infected epidermal inclusion cyst with recent and previous ruptures, and the moderately associated acute and chronic inflammation at the cystic wall and within the lumen -Completely resected, and no evidence of malignancy identified Clinical Information D49.2 Neoplasm of unspecified behavior, mass increasing in size-primary biopsy Gross Description Part A is received in formalin labeled with the patients name, date of , and back is a hearn-brown to pink, intact cystic structure, 1.2 x 1.1 x 1 cm, resected with fibrofatty tissue, up to 0.5 cm in thickness, and a hearn-brown, wrinkled, unoriented ellipse of skin, 0.8 x 1.3 cm. Serial sections reveal a smooth lined cystic cavity, filled with hearn-brown, friable material. The polar tips are submitted intact in cassette A1 with the bisected center the specimen submitted in A2. (2, ns, A)SIENNA Specimen: [id number] Received: 07/06/24 Status: VENKAT Mcclure Num: [id number] Spec Type: Surgical Subm Dr: Maru Walker MD Tissues: A Skin-Other than Cyst, tag, debridement or plastic repair (BACK) Procedures: Mary ANDRE/Hari Villarreal Patient: Nicci Vargas [id number] (Continued) Specimen: [id number] Received: 07/06/24 (Continued) Signed (signature on file) Cheng Moore MD 07/07/24 1754 Specimen: [id number] Received: 07/06/24 Status: VENKAT Mcclure Num: [id number] Spec Type: Surgical Subm Dr: Maru Walker MD Tissues: A Skin-Other than Cyst, tag, debridement or plastic repair (BACK) Procedures: DANIELA/Mary Loomis/Hari L4 Patient: Nicci Vargas [id number] (Continued) Specimen: [id number] Received: 07/06/24 (Continued) Microscopic Description Microscopic examinations are performed supporting the above interpretation CPT Codes 82262 Specimen: [id number] Received: 07/06/24 Status: VENKAT Loweherlinda Num: [id number] Spec Type: Surgical Subm Dr: Maru Walker MD Tissues: A Skin-Other than Cyst, tag, debridement or plastic repair (BACK) Procedures: HE/Mary Loomis/Hari L4 Patient: Nicci Vargas [id number] (Continued) Signed (signature on file) Cheng Moore MD 07/07/24 7794 Normal [facility] CBC AND AUTO DIFFon 02-01-20 ABSOLUTE BASOPHIL 0.0 X10E9/L [facility] Comment on above: Performed By: #### C BCA, CMP, ####[facility] ([id number] [place] [id number] ABSOLUTE NEUTROPHIL 7.2 X10E9/L High 1.5-6.6 [facility] Comment on above: Performed By: #### C MELY, CMP, ####[facility] ([id number])[address] [place] [address] 92563 Basophils/100 WBC (Bld) 0.5 % Normal [facility] Comment on above: Performed By: #### C MELY, CMP, ####[facility] ([id number])[address] [place] [address] 72178 Eosinophils (Bld) [#/Vol] 0.4 10*3/uL Normal 0.0-0.4 [facility] Comment on above: Performed By: #### Yi BOONE, [facility], ####[facility] ([id number])[address] [place] [address] 72432 Eosinophils/100 WBC (Bld) 3.8 % Normal [facility] Comment on above: Performed By: #### Yi BOONE, CMP, ####[facility] ([id number])[address] [place] [address] 08183 Erythrocyte distribution width (RBC) [Ratio] 15.2 % High 11.5-15.0 [facility] Comment on above: Performed By: #### C MELY, [facility], ####[facility] ([id number])[address] [place] [address] 20947 Hematocrit (Bld) [Volume fraction] 32.5 % Low 35-47 [facility] Comment on above: Performed By: #### Yi BCA, CMP, ####[facility] ([id number])[address] [place] [address] 08748 Hemoglobin (Bld) [Mass/Vol] 11.0 g/dL Low 11.7-15.5 [facility] Comment on above: Performed By: #### Yi BOONE CMP, ####[facility] ([id number])[address] [place] [address] 31233 Lymphocytes (Bld) [#/Vol] 1.7 10*3/uL Normal 1.0-3.5 [facility] Comment on above: Performed By: #### Yi BOONE [facility], ####[facility] ([id number])[address] [place] [address] 37244 Lymphocytes/100 WBC (Bld) 17.9 % Normal [facility] Comment on above: Performed By: #### Yi BOONE [facility], ####[facility] ([id number])[address] [place] [address] 45564 MCH (RBC) [Entitic mass] 28.6 pg Normal 27-34 [facility] Comment on above: Performed By: #### Yi BOONE [facility], ####[facility] ([id number])[address] [place] [address] 02117 MCHC (RBC) [Mass/Vol] 33.8 g/dL Normal 32-36 [facility] Comment on above: Performed By: #### Yi BOONE [facility], ####[facility] ([id number])[address] [place] [address] 41019 MCV (RBC) [Entitic vol] 84 fL Normal 80-100 [facility] Comment on above: Performed By: #### Yi BOONE CMP, ####[facility] ([id number])[address] [place] [address] 32745 Monocytes (Bld) [#/Vol] 0.4 10*3/uL Normal 0-0.9 [facility] Comment on above: Performed By: #### C PANCHO BOONE, ####[facility] ([id number])[address] [place] [address] 73196 Monocytes/100 WBC (Bld) 4.1 % Normal [facility] Comment on above: Performed By: #### Yi BOONE CMP, ####[facility] ([id number])[address] [place] [address] 88731 Neutrophils/100 WBC (Bld) 73.7 % Normal [facility] Comment on above: Performed By: #### Yi BOONE CMP, ####[facility] ([id number])[address] [place] [address] 95752 Platelet mean volume (Bld) [Entitic vol] 6.9 fL Low 7-12 [facility] Comment on above: Performed By: #### Yi BOONE CMP, ####[facility] ([id number])[address] [place] [address] 93740 Platelets (Bld) [#/Vol] 226 10*3/uL Normal 150-450 [facility] Comment on above: Performed By: #### iY BOONE CMP, ####[facility] ([id number])[address] [place] [address] 19321 RBC COUNT 3.85 X10E12/L Normal 3.80-5.20 [facility] Comment on above: Performed By: #### Yi BOONE CMP, ####[facility] ([id number])[address] [place] [address] 74673 WBC (Bld) [#/Vol] 9.7 10*3/uL Normal 4.0-11.0 [facility] Comment on above: Performed By: #### Yi BOONE CMP, ####[facility] ([id number])[address] [place] [address] [place] [address] COMPREHENSIVE METABOLIC PANE Juan 02-01-2024 Albumin [Mass/Vol] 3.2 g/dL Normal 3.2-5.3 [facility] Comment on above: Performed By: #### C BCA, CMP, ####[facility] ([id number])[address] [place] [address] [place] [address] ALP [Catalytic activity/Vol] 153 U/L High 39-130 [facility] Comment on above: Performed By: #### C BCA, CMP, ####[facility] ([id number])[address] [place] [address] 74766 ALT [Catalytic activity/Vol] 14 U/L Normal 0-31 [facility] Comment on above: Performed By: #### C BCA, CMP, ####[facility] ([id number])[address] [place] [address] [place] [address] Anion gap [Moles/Vol] 9 mmol/L Normal 5-15 [facility] Comment on above: Performed By: #### C BCA, CMP, ####[facility] ([id number])[address] [place] [address] 65185 AST [Catalytic activity/Vol] 14 U/L Normal 0-41 [facility] Comment on above: Performed By: #### C BCA, CMP, 05521-0 ####[facility] ([id number])[address] [place] [address] 14473 Bilirubin [Mass/Vol] 0.5 mg/dL Normal 0.3-1.2 [facility] Comment on above: Performed By: #### C BCA, CMP, ####[facility] ([id number])[address] [place] [address] 90669 Calcium [Mass/Vol] 8.8 mg/dL Normal 8.5-10.5 [facility] Comment on above: Performed By: #### C PANCHO BOONE, ####[facility] ([id number])[address] [place] [address] 77569 Chloride [Moles/Vol] 97 mmol/L Low 98-109 [facility] Comment on above: Performed By: #### C PANCHO BOONE, ####[facility] ([id number])[address] [place] [address] 92036 CO2 [Moles/Vol] 26 mmol/L Normal 22-32 [facility] Comment on above: Performed By: #### C PANCHO BOONE, ####[facility] ([id number])[address] [place] [address] 94233 Creatinine [Mass/Vol] 0.79 mg/dL Normal 0.40-1.00 [facility] Comment on above: Result Comment: METH OD TRACEABLE TO IDMS STANDARD Performed By: #### C PANCHO BOONE, 77670-0 ####[facility] ([id number])[address] [place] [address] 91691 GFR/1.73 sq M.predicted among non-blacks MDRD (S/P/Bld) [Vol rate/Area] 77 mL/min/{1.73_m2} Normal >59 [facility] Comment on above: Result Comment: Reported eGFR is based on the CKD-EPI 2020 equation that does not use a race coefficient. Performed By: #### C PANCHO BOONE, ####[facility] ([id number])[address] [place] [address] 16353 Glucose [Mass/Vol] 121 mg/dL High 65-99 [facility] Comment on above: Performed By: #### C PANCHO BOONE, ####[facility] ([id number])[address] [place] [address] 03290 Potassium [Moles/Vol] 3.3 mmol/L Low 3.5-5.0 [facility] Comment on above: Performed By: #### C PANCHO BOONE, ####[facility] ([id number])[address] [place] [address] 55547 Protein [Mass/Vol] 6.5 g/dL Normal 6.0-8.0 [facility] Comment on above: Performed By: #### C PANCHO BOONE, ####[facility] ([id number])[address] [place] [address] 03277 Sodium [Moles/Vol] 132 mmol/L Low 134-146 [facility] Comment on above: Performed By: #### C MELY [facility], ####[facility] ([id number])[address] [place] [address] 24334 Urea nitrogen [Mass/Vol] 15 mg/dL Normal 5-27 [facility] Comment on above: Performed By: #### Yi BOONE CMP, ####[facility] ([id number])[address] [place] [address] 42138 MAGNESIUMon 02-01-2024 Magnesium [Mass/Vol] 1.7 mg/dL Low 1.8-2.6 [facility] Comment on above: Performed By: #### C PANCHO BOONE, ####[facility] ([id number])[address] [place] [address] 36214 CBC AND AUTO DIFFon 01-31-20 ABSOLUTE BASOPHIL 0.0 X10E9/L Normal 0.0-0.2 [facility] Comment on above: Performed By: #### Yi BOONE CMP, ####[facility] ([id number])[address] [place] [address] 96003#### 04084-5, HA1C ####[facility] ([id number])[address] [facility], [address] [place] [address] 93982 ABSOLUTE NEUTROPHIL 8.3 X10E9/L High 1.5-6.6 [facility] Comment on above: Performed By: #### C BCA, CMP, 24138-8 ####[facility] ([id number])[address] [place] [address] 63858#### 38151-9, HA1C ####[facility] ([id number])[address] [place] [address], [address] [place] [address] 29962 Basophils/100 WBC (Bld) 0.3 % Normal [facility] Comment on above: Performed By: #### C BCA, CMP, 31031-7 ####[facility] ([id number])[address] [place] [address] 37141#### 40187-4, HA1C ####[facility] ([id number])[address] [facility], [address] [place] [address] 89489 Eosinophils (Bld) [#/Vol] 0.4 10*3/uL Normal 0.0-0.4 [facility] Comment on above: Performed By: #### C BCA, CMP, 70733-9 ####[facility] ([id number])[address] [place] [address] 52085#### 16524-4, HA1C ####[facility] ([id number])[address] [facility], [address] [place] [address] 28895 Eosinophils/100 WBC (Bld) 3.7 % Normal [facility] Comment on above: Performed By: #### C BCA, CMP, ####[facility] ([id number])[address] [place] [address] 87455#### 86700-3, HA1C ####[facility] ([id number])[address] [place] [address], [address] [place] [address] 93309 Erythrocyte distribution width (RBC) [Ratio] 15.5 % High 11.5-15.0 [facility] Comment on above: Performed By: #### C MELY, PANCHO, 38694-0 ####[facility] ([id number])[address] [place] [address] 77235#### 92490-6, HA1C ####[facility] ([id number])[address] [place] [address], [address] [place] [address] 76609 Hematocrit (Bld) [Volume fraction] 31.4 % Low 35-47 [facility] Comment on above: Performed By: #### Yi BOONE CMP, 82677-7 ####[facility] ([id number])[address] [place] [address] 89509#### 20432-7, HA1C ####[facility] ([id number])[address] [place] [address], [address] [place] [address] 05106 Hemoglobin (Bld) [Mass/Vol] 10.8 g/dL Low 11.7-15.5 [facility] Comment on above: Performed By: #### Yi BCA, CMP, 50955-5 ####[facility] ([id number])[address] [place] [address] 47856#### 23349-8, HA1C ####[facility] ([id number])[address] [place] [address], [address] [address] Lymphocytes (Bld) [#/Vol] 1.8 10*3/uL Normal 1.0-3.5 [facility] Comment on above: Performed By: #### C BCA, CMP, ####[facility] ([id number])[address] [place] [address] 88494#### 90039-7, HA1C ####[facility] ([id number])[address] [facility], [address] [place] [address] 62391 Lymphocytes/100 WBC (Bld) 16.2 % Normal [facility] Comment on above: Performed By: #### Yi BOONE, CMP, 05319-0 ####[facility] ([id number])[address] [place] [address] 80256#### 11050-4, HA1C ####[facility] ([id number])[address] [place] [address], [address] [place] [address] 10345 MCH (RBC) [Entitic mass] 29.1 pg Normal 27-34 [facility] Comment on above: Performed By: #### Yi BOONE, CMP, 28883-1 ####[facility] ([id number])[address] [place] [address] 13310#### 10001-9, HA1C ####[facility] ([id number])[address] [place] [address] [place] [address] 44295 MCHC (RBC) [Mass/Vol] 34.3 g/dL Normal 32-36 [facility] Comment on above: Performed By: #### Yi BOONE, CMP, 64182-1 ####[facility] ([id number])[address] [place] [address] 09559#### 29389-2, HA1C ####[facility] ([id number])[address] [place] [address], [address] [address] MCV (RBC) [Entitic vol] 85 fL Normal 80-100 [facility] Comment on above: Performed By: #### Yi BCA, CMP, ####[facility] ([id number])[address] [place] [address] [place] [address]#### 14228-2, HA1C ####[facility] ([id number])[address], [address] [place] [address] 68392 Monocytes (Bld) [#/Vol] 0.4 10*3/uL Normal 0-0.9 [facility] Comment on above: Performed By: #### C BCA, CMP, 77777-4 ####[facility] ([id number])[address] [place] [address] 15076#### 10324-7, HA1C ####[facility] ([id number])[address] [place] [address], [address] [place] [address] 43350 Monocytes/100 WBC (Bld) 3.9 % Normal [facility] Comment on above: Performed By: #### C BCA, CMP, 70293-4 ####[facility] ([id number])[address] [place] [address] 65669#### 32652-1, HA1C ####[facility] ([id number])[address] [place] [address] [place] [address] 69575 Neutrophils/100 WBC (Bld) 75.9 % Normal [facility] Comment on above: Performed By: #### Yi BCA, CMP, 03627-5 ####[facility] ([id number])[address] [place] [address] 87029#### 39788-8, HA1C ####[facility] ([id number])[address] [facility], [address] [place] [address] 54969 Platelet mean volume (Bld) [Entitic vol] 6.7 fL Low 7-12 [facility] Comment on above: Performed By: #### C BCA, CMP, ####[facility] ([id number])[address] [place] [address] 49440#### 07038-9, HA1C ####[facility] ([id number])[address] [place] [address], [address] [place] [address] 66222 Platelets (Bld) [#/Vol] 226 10*3/uL Normal 150-450 [facility] Comment on above: Performed By: #### C BCA, CMP, 86914-0 ####[facility] ([id number])[address] [place] [address] 24134#### 72959-9, HA1C ####[facility] ([id number])[address] [place] [address], [address] [place] [address] 37994 RBC COUNT 3.71 X10E12/L Low 3.80-5.20 [facility] Comment on above: Performed By: #### C BCA, CMP, 20559-3 ####[facility] ([id number])[address] [place] [address] 63601#### 57001-9, HA1C ####[facility] ([id number])[address] [place] [address], [address] [place] [address] 62367 WBC (Bld) [#/Vol] 10.9 10*3/uL Normal 4.0-11.0 [facility] Comment on above: Performed By: #### C BCA, CMP, 55675-8 ####[facility] ([id number])[address] [place] [address] 57362#### 92035-6, HA1C ####[facility] ([id number])[address] [place] [address], [address] [place] [address] 42374 COMPREHENSIVE METABOLIC PANE Juan 01-31-2024 Albumin [Mass/Vol] 3.0 g/dL Low 3.2-5.3 [facility] Comment on above: Performed By: #### C BCA, CMP, 94154-7 ####[facility] ([id number])[address] [place] [address] 12671#### 58447-9, HA1C ####[facility] ([id number])[address] [facility], [address] [place] [address] 45860 ALP [Catalytic activity/Vol] 141 U/L High 39-130 [facility] Comment on above: Performed By: #### C BCA, CMP, 60740-9 ####[facility] ([id number])[address] [place] [address] 41938#### 28234-5, HA1C ####[facility] ([id number])[address] [place] [address], [address] [place] [address] 88591 ALT [Catalytic activity/Vol] 16 U/L Normal 0-31 [facility] Comment on above: Performed By: #### C BCA, CMP, ####[facility] ([id number])[address] [place] [address] 69824#### 28805-2, HA1C ####[facility] ([id number])[address] [place] [address], [address] [place] [address] 66835 Anion gap [Moles/Vol] 8 mmol/L Normal 5-15 [facility] Comment on above: Performed By: #### C BCA, CMP, ####[facility] ([id number])[address] [place] [address] 04592#### 06382-4, HA1C ####[facility] ([id number])[address] [facility], [address], [place] [address] AST [Catalytic activity/Vol] 14 U/L Normal 0-41 [facility] Comment on above: Performed By: #### C BCA, CMP, ####[facility] ([id number])[address] [place] [address] 16219#### 45173-8, HA1C ####[facility] ([id number])[address], [address], [place] [address] Bilirubin [Mass/Vol] 0.5 mg/dL Normal 0.3-1.2 [facility] Comment on above: Performed By: #### C BCA, CMP, 54483-9 ####[facility] ([id number])[address] [place] [address] 61095#### 43992-8, HA1C ####[facility] ([id number])[address] [facility], [address] [address] Calcium [Mass/Vol] 8.7 mg/dL Normal 8.5-10.5 [facility] Comment on above: Performed By: #### C BCA, CMP, 10912-7 ####[facility] ([id number])[address] [place] [address] 03158#### 31385-3, HA1C ####[facility] ([id number])[address] [facility], [address] [place] [address] 22524 Chloride [Moles/Vol] 97 mmol/L Low 98-109 [facility] Comment on above: Performed By: #### C BCA, CMP, 97658-5 ####[facility] ([id number])[address] [place] [address] 07654#### 50571-6, HA1C ####[facility] ([id number])[address], [address] [address] CO2 [Moles/Vol] 27 mmol/L Normal 22-32 [facility] Comment on above: Performed By: #### C BCA, CMP, 57857-6 ####[facility] ([id number])[address] [place] [address] 02990#### 67547-9, HA1C ####[facility] ([id number])[address], [address], [place] [address] Creatinine [Mass/Vol] 0.86 mg/dL Normal 0.40-1.00 [facility] Comment on above: Result Comment: METH OD TRACEABLE TO IDMS STANDARD Performed By: #### C BCA, CMP, 38401-1 ####[facility] ([id number])[address] [place] [address] 47211#### 98178-5, HA1C ####[facility] ([id number])[address] [address] GFR/1.73 sq M.predicted among non-blacks MDRD (S/P/Bld) [Vol rate/Area] 70 mL/min/{1.73_m2} Normal >59 [facility] Comment on above: Result Comment: Reported eGFR is based on the CKD-EPI 2020 equation that does not use a race coefficient. Performed By: #### C BCA, CMP, 41471-9 ####[facility] ([id number])[address] [place] [address] 02828#### 21814-4, HA1C ####[facility] ([id number])[address] [facility], [address] [place] [address] 11066 Glucose [Mass/Vol] 121 mg/dL High 65-99 [facility] Comment on above: Performed By: #### C BCA, CMP, 19213-5 ####[facility] ([id number])[address] [place] [address] 55133#### 14152-9, HA1C ####[facility] ([id number])[address], [address] [place] [address] 02631 Potassium [Moles/Vol] 3.1 mmol/L Low 3.5-5.0 [facility] Comment on above: Performed By: #### C BCA, CMP, 59101-0 ####[facility] ([id number])[address] [place] [address] 12305#### 72803-0, HA1C ####[facility] ([id number])[address], [address], [place] [address] Protein [Mass/Vol] 6.1 g/dL Normal 6.0-8.0 [facility] Comment on above: Performed By: #### C BCA, CMP, 94421-5 ####[facility] ([id number])[address] [place] [address] 12818#### 67222-4, HA1C ####[facility] ([id number])[address], [address] [place] [address] 36758 Sodium [Moles/Vol] 132 mmol/L Low 134-146 [facility] Comment on above: Performed By: #### C BCA, CMP, ####[facility] ([id number])[address] [place] [address] 37093#### 69681-0, HA1C ####[facility] ([id number])[address], [address] [place] [address] 14171 Urea nitrogen [Mass/Vol] 16 mg/dL Normal 5-27 [facility] Comment on above: Performed By: #### C BCA, CMP, ####[facility] ([id number])[address] [place] [address] 11019#### 19600-2, HA1C ####[facility] ([id number])[address], [address], [place] [address] HGB A1C (GLYCO-HGB)on 2023 Glucose [Mass/Vol] 126 mg/dL Normal [facility] Comment on above: Performed By: #### C BCA, CMP, ####[facility] ([id number])[address] [place] [address] 90031#### 52827-2, HA1C ####[facility] ([id number])[address] [facility], [address] [address] HbA1c (Bld) [Mass fraction] 6.0 % High 4.4-5.6 [facility] Comment on above: Result Comment: NOTE ADA Guidelines Result HgbA1c Normal : less than 5.7 % Prediabetes : 5.7 % to 6.4 % Diabetes : > 6.4 % Use with caution in patients with abnormal hemoglobin variants as the half-life of red blood cells and in vivo glycation rates are affected. Performed By: #### [facility], 86048-8 ####[facility] ([id number])[address] [place] [address] 71404#### 45375-1, HA1C ####[facility] ([id number])[facility] [address] [address] Lipid 1996 panelon 4 Cholesterol [Mass/Vol] 143 mg/dL Low 150-200 [facility] Comment on above: Performed By: #### Yi [facility], 63659-9 ####[facility] ([id number])[address] [place] [address] 51483#### 85668-6, HA1C ####[facility] ([id number])[address] [address] Cholesterol in HDL [Mass/Vol] 48 mg/dL Normal >39 [facility] Comment on above: Result Comment: HDL <40 mg/dL - High Risk HDL > or = 40mg/dL- Desirable HDL >60 mg/dL - Negative Risk Performed By: #### C MELY, CMP, 23822-9 ####[facility] ([id number])[address] [place] [address] 40198#### 40296-2, HA1C ####[facility] ([id number])[address] [facility], [address] [place] [address] Cholesterol in LDL [Mass/Vol] 69 mg/dL Normal <130 [facility] Comment on above: Result Comment: LDL <100 mg/dL - Desirable LDL >160 mg/dL - High Risk Performed By: #### C MELY, CMP, ####[facility] ([id number])[address] [place] [address]200#### 07204-0, HA1C ####[facility] ([id number])[facility], [address] [address] Cholesterol in VLDL [Mass/Vol] 26 mg/dL Normal 0-30 [facility] Comment on above: Performed By: #### C MELY, CMP, ####[facility] ([id number])[address] [place] [address]33#### 27652-9, HA1C ####[facility] ([id number])[address] [facility], [address] [place] [address] CHOLESTEROL:HDL 3.0 Normal 1.0-5.0 [facility] Comment on above: Performed By: #### C BCA, CMP, ####[facility] ([id number])[address] [place] [address] 24337#### 24103-8, HA1C ####[facility] ([id number])[address], [address] [place] [address] Triglyceride [Mass/Vol] 129 mg/dL Normal 27-150 [facility] Comment on above: Performed By: #### C MELY, [facility], 13612-6 ####[facility] ([id number])[address] [place] [address] 88972#### 11682-7, HA1C ####[facility] ([id number])2130 [facility], [address] [place] [address] 91505 MAGNESIUMon 01-31-2024 Magnesium [Mass/Vol] 1.6 mg/dL Low 1.8-2.6 [facility] Comment on above: Performed By: #### C MELY, [facility], 66402-9 ####[facility] ([id number])[address] [place] [address] 06930#### 30039-9, HA1C ####[facility] ([id number])2130 [facility], [address] [address] MR BRAIN WO CONTon MR BRAIN WO CONT MR BRAIN WO CONT STUDY: MRI brain without contrast CLINICAL HISTORY: Stroke, follow up COMPARISON: None. TECHNIQUE: Routine multiplanar multisequence MR imaging of the brain was performed without contrast. FINDINGS: No acute ischemia. No ventricular outflow obstruction. No acute intracranial hemorrhage. Mild burden white matter FLAIR hyperintensities. Mild global parenchymal volume loss. Unremarkable intracranial vascular flow voids. Unremarkable temporal bone structures, visualized suprahyoid neck, scalp soft tissues. Lens placement. Mucosal thickening ethmoid air cells, left frontal sinus. Additional proteinaceous mucous retention cyst anterior inferior alveolar recess right maxillary sinus. Signal abnormality left mandibular body. IMPRESSION: 1. No acute intracranial abnormality. 2. Signal abnormality left mandibular body, presumably long-standing odontogenic disease. Please correlate with overall inspection. Finalized by Chaz Su MD on 01/31/2024 9:52 AM Normal [facility] MR MRA HEAD WO CONTon 2023 MR MRA HEAD WO CONT MR MRA HEAD WO CONT MR MRA HEAD WO CONT CLINICAL INDICATION:Neuro deficit, acute, stroke suspected COMPARISON: None TECHNIQUE: Routine noncontrast, [id number], qagan tayagungin of Reyna MRA was performed. Maximum intensity projection volumetric reformatted images were generated. FINDINGS: Brain MRI dictated separately. Unremarkable visualized intracranial internal carotid arteries, left anterior, middle, posterior cerebral arteries. Asymmetrically less pronounced flow related signal within the right A1 FUNMILAYO when compared to the left, symmetric A2 FUNMILAYO flow related signal. Unremarkable vertebral, basilar arteries. No sizable, saccular aneurysm. 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 Otherwise, normal qagan tayagungin of Reyna MRA. Finalized by Chaz Su MD on 01/31/2024 10:31 AM Normal [facility] MR MRA NECK WO CONTon 2023 MR MRA NECK WO CONT MR MRA NECK WO CONT MR MRA NECK WO CONT CLINICAL INDICATION: Neuro deficit.. Neuro deficit, acute, stroke suspected. COMPARISON: None. TECHNIQUE: 1. Routine noncontrast, [id number], MR angiogram of the neck was performed. Maximum intensity projection volumetric reformatted images were generated. FINDINGS: Appropriately directed flow within the major neck arterial structures. Conventional aortic arch anatomy. Patent brachiocephalic trunk, subclavian, vertebral arteries. High engagement of the right vertebral artery, entering the transverse foramen above C6. Retropharyngeal course right cervical internal carotid artery. Subtle apparent beaded irregularity bilateral cervical internal carotid arteries. There is short segment apparent T1 hyperintensity in the general vicinity of the left cervical internal carotid artery, this extends outside of the anticipated course of the artery and includes the left jugular foramen [saved screen shot(s)], favor artifact. IMPRESSION: Limited noncontrasted neck MRA, subtle apparent beaded irregularity cervical internal carotid arteries, right more so than left. Findings suspicious for femoral muscular dysplasia. No acute large vessel occlusion the major neck arterial structures. Finalized by Chaz Su MD on 01/31/2024 9:52 AM Normal [facility] POTASSIUMon 01-31-2024 Potassium [Moles/Vol] 3.9 mmol/L Normal 3.5-5.0 [facility] Comment on above: Performed By: #### 2 823-3 ####[facility] ([id number])[address] [place] [address] [place] [address] URINALYSISon 01-31-2024 Bilirubin Ql (U) Negative Normal NEG [facility] Comment on above: Performed By: #### U A ####[facility] ([id number])[address] [place] [address] [place] [address] BLOOD/HGB Negative Normal NEG [facility] Comment on above: Performed By: #### U A ####[facility] ([id number])[address] [place] [address], [place] [address] Color (U) YELLOW Normal YELLOW [facility] Comment on above: Performed By: #### U A ####[facility] ([id number])[address] [place] [address] [place] [address] Glucose Ql (U) Negative Normal NEG [facility] Comment on above: Performed By: #### U A ####[facility] ([id number])[address] [place] [address] [place] [address] Ketones Ql (U) Negative Normal NEG [facility] Comment on above: Performed By: #### U A ####[facility] ([id number])[address] [place] [address], [place] [address] Leukocyte esterase Test strip Ql (U) Large Abnormal NEG [facility] Comment on above: Performed By: #### U A ####[facility] ([id number])[address] [place] [address] [place] [address] Nitrite Ql (U) Negative Normal NEG [facility] Comment on above: Performed By: #### U A ####[facility] ([id number])[address] [place] [address]4567 pH (U) 6.5 [pH] Normal 5.0-8.5 [facility] Comment on above: Performed By: #### U A ####[facility] ([id number])[address] [place] [address] Protein Ql (U) Negative Normal NEG [facility] Comment on above: Performed By: #### U A ####[facility] ([id number])[address] [place] [address] R.B.CELLS 0 /hpf Normal 0-5 [facility] Comment on above: Performed By: #### U A ####[facility] ([id number])[address] [place] [address] 40569 Specific gravity (U) [Rel density] 1.015 Normal 1.003-1.035 [facility] Comment on above: Performed By: #### U A ####[facility] ([id number])[address] [place] [address] SQUAMOUS EPITHELIUM 3 /hpf Normal 0-5 [facility] Comment on above: Performed By: #### U A ####[facility] ([id number])[address] [place] [address] TURBIDITY HAZY Abnormal CLEAR [facility] Comment on above: Performed By: #### U A ####[facility] ([id number])[address] [place] [address] 11779 Urobilinogen Qn (U) 0.2 {Jackie'U}/dL Normal <1.1 [facility] Comment on above: Performed By: #### U A ####[facility] ([id number])[address] [place] [address]672 W.B.CELLS 60 /hpf High 0-5 [facility] Comment on above: Performed By: #### U A ####[facility] ([id number])[address] [place] [address] URINE CULTUREon 01-31-2024 Bacteria identified Cx Nom (U) CULTURE RESULTS <10,000 ORGANISMS/ML NORMAL URO GENITAL LOAN Normal [facility] Comment on above: Performed By: #### 6 30-4 ####[facility] ([id number])2130 [facility], [address], [place] [address] BASIC METABOLIC PANLon 01-29 Anion gap [Moles/Vol] 9 mmol/L Normal 5-15 [facility] Comment on above: Performed By: #### C BCA, BMP #### [facility] ([id number]) [address] [place] [address] Calcium [Mass/Vol] 9.2 mg/dL Normal 8.5-10.5 [facility] Comment on above: Performed By: #### C BCA, BMP #### [facility] ([id number]) [address] [place] [address] Chloride [Moles/Vol] 95 mmol/L Low 98-109 [facility] Comment on above: Performed By: #### C BCA, BMP #### [facility] ([id number]) [address] [place] [address] 83310 CO2 [Moles/Vol] 30 mmol/L Normal 22-32 [facility] Comment on above: Performed By: #### C BCA, BMP #### [facility] ([id number]) [address] [place] [address] 61337 Creatinine [Mass/Vol] 1.25 mg/dL High 0.40-1.00 [facility] Comment on above: Result Comment: METH OD TRACEABLE TO IDMS STANDARD Performed By: #### C BCA, BMP #### [facility] ([id number]) [address] [place] [address] 92618 GFR/1.73 sq M.predicted among non-blacks MDRD (S/P/Bld) [Vol rate/Area] 44 mL/min/{1.73_m2} Low >59 [facility] Comment on above: Result Comment: Reported eGFR is based on the CKD-EPI 2020 equation that does not use a race coefficient. Performed By: #### C BCA, BMP #### [facility] ([id number]) [address] [place] [address] 11882 Glucose [Mass/Vol] 82 mg/dL Normal 65-99 [facility] Comment on above: Performed By: #### C BCA, BMP #### [facility] ([id number]) [address] [place] [address] 99763 Potassium [Moles/Vol] 3.6 mmol/L Normal 3.5-5.0 [facility] Comment on above: Performed By: #### C BCA, BMP #### [facility] ([id number]) [address] [place] [address] 57452 Sodium [Moles/Vol] 134 mmol/L Normal 134-146 [facility] Comment on above: Performed By: #### C BCA, BMP #### [facility] ([id number]) [address] [place] [address] 76575 Urea nitrogen [Mass/Vol] 17 mg/dL Normal 5-27 [facility] Comment on above: Performed By: #### C BCA, BMP #### [facility] ([id number]) [address] [place] [address] 67308 CBC AND AUTO DIFFon 01-30-20 24 ABSOLUTE BASOPHIL 0.1 X10E9/L Normal 0.0-0.2 [facility] Comment on above: Performed By: #### C BCA, BMP #### [facility] ([id number]) [address] [place] [address]167 ABSOLUTE NEUTROPHIL 7.9 X10E9/L High 1.5-6.6 [facility] Comment on above: Performed By: #### C MELY, BMP #### [facility] ([id number]) [address] [place] [address] 21674 Basophils/100 WBC (Bld) 0.6 % Normal [facility] Comment on above: Performed By: #### C MELY, BMP #### [facility] ([id number]) [address] [place] [address] 36437 Eosinophils (Bld) [#/Vol] 0.5 10*3/uL High 0.0-0.4 [facility] Comment on above: Performed By: #### C MELY, BMP #### [facility] ([id number]) [address] [place] [address] 79321 Eosinophils/100 WBC (Bld) 4.3 % Normal [facility] Comment on above: Performed By: #### C MELY, BMP #### [facility] ([id number]) [address] [place] [address] 85417 Erythrocyte distribution width (RBC) [Ratio] 15.5 % High 11.5-15.0 [facility] Comment on above: Performed By: #### C MELY, BMP #### [facility] ([id number]) [address] [place] [address] 10597 Hematocrit (Bld) [Volume fraction] 36.5 % Normal 35-47 [facility] Comment on above: Performed By: #### C MELY, BMP #### [facility] ([id number]) [address] [place] [address] 36152 Hemoglobin (Bld) [Mass/Vol] 12.1 g/dL Normal 11.7-15.5 [facility] Comment on above: Performed By: #### C MELY, BMP #### [facility] ([id number]) [address] [place] [address] 41140 Lymphocytes (Bld) [#/Vol] 2.1 10*3/uL Normal 1.0-3.5 [facility] Comment on above: Performed By: #### C MELY, BMP #### [facility] ([id number]) [address] [place] [address] 62905 Lymphocytes/100 WBC (Bld) 18.3 % Normal [facility] Comment on above: Performed By: #### C MELY, BMP #### [facility] ([id number]) [address] [place] [address] 83353 MCH (RBC) [Entitic mass] 28.2 pg Normal 27-34 [facility] Comment on above: Performed By: #### C MELY, BMP #### [facility] ([id number]) [address] [place] [address] 08589 MCHC (RBC) [Mass/Vol] 33.2 g/dL Normal 32-36 [facility] Comment on above: Performed By: #### C MELY, BMP #### [facility] ([id number]) [address] [place] [address] 22454 MCV (RBC) [Entitic vol] 85 fL Normal 80-100 [facility] Comment on above: Performed By: #### C MELY, BMP #### [facility] ([id number]) [address] [place] [address] 40153 Monocytes (Bld) [#/Vol] 0.7 10*3/uL Normal 0-0.9 [facility] Comment on above: Performed By: #### C MELY, BMP #### [facility] ([id number]) [address] [place] [address] 16161 Monocytes/100 WBC (Bld) 5.9 % Normal [facility] Comment on above: Performed By: #### C MELY, BMP #### [facility] ([id number]) [address] [place] [address] 78688 Neutrophils/100 WBC (Bld) 70.9 % Normal [facility] Comment on above: Performed By: #### C MELY, BMP #### [facility] ([id number]) [address] [place] [address] 97520 Platelet mean volume (Bld) [Entitic vol] 6.7 fL Low 7-12 [facility] Comment on above: Performed By: #### C MELY, BMP #### [facility] ([id number]) [address] [place] [address] 15426 Platelets (Bld) [#/Vol] 275 10*3/uL Normal 150-450 [facility] Comment on above: Performed By: #### C MELY, BMP #### [facility] ([id number]) [address] [place] [address] 39409 RBC COUNT 4.31 X10E12/L Normal 3.80-5.20 [facility] Comment on above: Performed By: #### C MELY, BMP #### [facility] ([id number]) [address] [place] [address] 61044 WBC (Bld) [#/Vol] 11.2 10*3/uL High 4.0-11.0 [facility] Comment on above: Performed By: #### C MELY, BMP #### [facility] ([id number]) [address] [place] [address] BRAIN WO CONT STROKE ALER Emilio 01-30-2024 CT BRAIN WO CONT STROKE ALERT CT BRAIN WO CONT STROKE ALERT STUDY: CT HEAD WITHOUT CONTRAST CLINICAL HISTORY: Neuro deficit, acute, stroke suspected CVA, TIA, syncope, transient alteration of awareness, acute neurologic symptoms COMPARISON: None. TECHNIQUE: CT head was performed without contrast utilizing 2.5 mm axial reconstruction with images reviewed in bone and brain windows. Automated exposure control was utilized. FINDINGS: There is no intracranial mass, mass effect or shift of midline structures. No extra-axial fluid collection. Hearn-white differentiation is preserved. No CT evidence of large vessel vascular distribution of acute infarct acute ischemia or acute intracranial hemorrhage. No depressed or widely calvarial fracture. Paranasal sinuses are well aerated. Please note, MRI is more sensitive for the evaluation of acute or occult process is indicated. IMPRESSION: 1. No evidence of an acute intracranial process. All CT scans at this facility use dose modulation, iterative reconstruction, and/or weight based dosing when appropriate to reduce radiation dose to as low as reasonably achievable. Finalized by Andres Davidson MD on 01/30/2024 1:11 PM Normal [facility] Folate [Mass/Vol]on 01-30-20 24 FOLIC ACID 5.8 ng/mL Low >5.8 [facility] Comment on above: Result Comment: NEW REFERENCE RANGE Performed By: #### 8 9579-7, THYR ####[facility] ([id number])[address] [place] [address] 53157#### 2284-8, 2131-9 ####[facility] ([id number])2130 [facility], [address] [place] [address] 97046 Glucose Glucometer (BldC) [M ass/Vol]on 01-30-2024 Glucose [Mass/Vol] 99 mg/dL Normal 65-99 [facility] PROTIME AND INRon 01-30-2024 INR Coag (PPP) [Relative time] 0.9 {INR} Normal 0.8-1.1 [facility] Comment on above: Performed By: #### C BCA, BMP #### [facility] ([id number]) [address] [place] [address] 83099 PT Coag (PPP) [Time] 10.9 s Normal 9.8-13.2 [facility] Comment on above: Result Comment: NEW REFERENCE RANGE Performed By: #### C BCA, BMP #### [facility] ([id number]) [address] [place] [address] 06871 THYROID PROFILEon 01-30-2024 Free T4 [Mass/Vol] 0.77 ng/dL Normal 0.61-1.60 [facility] Comment on above: Performed By: #### 8 9579-7, THYR ####[facility] ([id number])[address] [place] [address] 19903#### 2284-8, 2132-01 ####[facility] ([id number])[address] [place] [address], [address] [place] [address] 43873 TSH 2.39 uIU/mL Normal 0.49-4.67 [facility] Comment on above: Performed By: #### 8 9579-7, THYR ####[facility] ([id number])[address] [place] [address] 15855#### 2284-8, 2132-01 ####[facility] ([id number])[address] [place] [address], [address] [place] [address] 56663 Troponin I.cardiac High sens itivity method [Mass/Vol]on 01-30-2024 1 HOUR TROP I, HIGH SENSITIVITY 6 ng/L Normal <16 [facility] Comment on above: Performed By: #### 8 9579-7, THYR ####[facility] ([id number])[address] [place] [address] 43477#### 2284-8, 2132-01 ####[facility] ([id number])[address] [place] [address], [address] [place] [address] 20419 TROPONIN I, HIGH SENSITIVITY 9 ng/L Normal <16 [facility] Comment on above: Performed By: #### C BCA, BMP #### [facility] ([id number]) [address] [place] [address] 20160 VITAMIN B12on 01-30-2024 Cobalamin (Vitamin B12) [Mass/Vol] 187 pg/mL Normal 180-[address] [facility] Comment on above: Performed By: #### 8 9579-7, THYR ####[facility] ([id number])[address] [place] [address]#### 2284-8, 213-9 ####[facility] ([id number])2130 [facility] [address], [place] [address] aPTT Coag (PPP) [Time]on aPTT Coag (Bld) [Time] 34 s Normal 26-37 [facility] Comment on above: Result Comment: NEW REFERENCE RANGE Performed By: #### C BCA, BMP #### [facility] ([id number]) [address] [place] [address] [place] Heart Perfusion W stress and W radionuclide Latosha 01-24-2024 Normal Lexiscan Myov iew cardiac perfusion stress test. No evidence of ischemia or myocardial infarction by perfusion imaging. Normal left ventricular systolic function, ejection fraction 71%. No previous studies are available for comparison. Signed by: Dalia Harris 01/24/2024 4:44 PM Dictation workstation: [id number] [facility] Interpreted By: Dalia Santos, and Clarice Campos STUDY: MYOCARDIAL PERFUSION STRESS TEST WITH LEXISCAN Performing facility: [facility], [address] [place] [address], [address] [id number] [facility] Provider: Arturo Salazar MD PCP: Dr. Alessandra Joyner Supervising provider: Arturo Salazar MD INDICATION: Abnormal EKG; HISTORY: Gender: F; Age: 78 y/o ; Height: HT 167.6 cm cm; Weight: WT 85.367 kg kg. Abnormal EKG; High Cholesterol; HTN; SOB; Denies smoking. COMPARISON: No comparison. ACCESSION NUMBER(S): [id number] ORDERING CLINICIAN: ARTURO SALAZAR TECHNIQUE: ONE DAY protocol. Stress injection: Date:01-24-24, 33.7 mCi of Myoview IV 20 seconds after rapid injection of Lexiscan. Rest injection: Date: 01-24-24, 10.8 mCi of Myoview IV at rest. The patient had a rapid injection of 0.4 mg of Lexiscan IV over 10 seconds. Imaging was performed by gated tomographic technique. Reason for Lexiscan: uses walker/cane STRESS TEST DATA: Resting heart rate was 64 BPM. Resting blood pressure was 138/86 mmHg. Peak blood pressure was 136/72 mmHg. Peak heart rate was 85 BPM. TEST TERMINATED DUE TO: Protocol completed FINDINGS: STRESS TEST RESULTS: Resting electrocardiogram revealed normal sinus rhythm with incomplete right bundle branch block, non-specific ST and T changes. There were no significant ischemic ECG changes or dysrhythmias. The patient did not have chest pains/symptoms during procedure. There was a normal recovery phase. IMAGING RESULTS: Image quality was good. Rest and stress tomographic images were reviewed and revealed normal perfusion without evidence of ischemia, myocardial infarction, or left ventricular dilatation with stress. Overall left ventricular systolic function appeared to be normal without regional wall motion abnormalities. Ejection fraction was 71%. TID is 1.08 and is normal. There was no evidence of attenuation artifact. [facility] Dalia Harris M D - 01/24/2024 Interpreted By: Dalia Harris and Giannuzzi Michael STUDY: MYOCARDIAL PERFUSION STRESS TEST WITH LEXISCAN Performing facility: [facility], [address] [place] [address], [address], [address] Provider: Arturo Salazar MD PCP: Dr. Alessandra Joyner Supervising provider: Arturo Salazar MD INDICATION: Abnormal EKG; HISTORY: Gender: F; Age: 78 y/o ; Height: HT 167.6 cm cm; Weight: WT 85.367 kg kg. Abnormal EKG; High Cholesterol; HTN; SOB; Denies smoking. COMPARISON: No comparison. ACCESSION NUMBER(S): [id number] ORDERING CLINICIAN: ARTURO SALAZAR TECHNIQUE: ONE DAY protocol. Stress injection: Date:01-24-24, 33.7 mCi of Myoview IV 20 seconds after rapid injection of Lexiscan. Rest injection: Date: 01-24-24, 10.8 mCi of Myoview IV at rest. The patient had a rapid injection of 0.4 mg of Lexiscan IV over 10 seconds. Imaging was performed by gated tomographic technique. Reason for Lexiscan: uses walker/cane STRESS TEST DATA: Resting heart rate was 64 BPM. Resting blood pressure was 138/86 mmHg. Peak blood pressure was 136/72 mmHg. Peak heart rate was 85 BPM. TEST TERMINATED DUE TO: Protocol completed FINDINGS: STRESS TEST RESULTS: Resting electrocardiogram revealed normal sinus rhythm with incomplete right bundle branch block, non-specific ST and T changes. There were no significant ischemic ECG changes or dysrhythmias. The patient did not have chest pains/symptoms during procedure. There was a normal recovery phase. IMAGING RESULTS: Image quality was good. Rest and stress tomographic images were reviewed and revealed normal perfusion without evidence of ischemia, myocardial infarction, or left ventricular dilatation with stress. Overall left ventricular systolic function appeared to be normal without regional wall motion abnormalities. Ejection fraction was 71%. TID is 1.08 and is normal. There was no evidence of attenuation artifact. IMPRESSION: Normal Lexiscan Myoview cardiac perfusion stress test. No evidence of ischemia or myocardial infarction by perfusion imaging. Normal left ventricular systolic function, ejection fraction 71%. No previous studies are available for comparison. Signed by: Dalia Harris 01/24/2024 4:44 PM Dictation workstation: [id number] [facility] Work Phone: Radiology Study observation (narrative) [facility] Work Phone: NM Heart Perfusion W stress and W radionuclide IVOrdered By: Dalia Harris on 01-24-2024 [facility] Work Phone: NUCLEAR STRESS TESTon 2023 NUCLEAR STRESS TEST Interpreted By: Dalia Santos, and Clarice Campos STUDY: MYOCARDIAL PERFUSION STRESS TEST WITH LEXISCAN Performing facility: [facility], [address] [place] [address], [address], [place] [address] [facility] Provider: Arturo Salazar MD PCP: Dr. Alessandra Joyner Supervising provider: Arturo Salazar MD INDICATION: Abnormal EKG; HISTORY: Gender: F; Age: 78 y/o ; Height: HT 167.6 cm cm; Weight: WT 85.367 kg kg. Abnormal EKG; High Cholesterol; HTN; SOB; Denies smoking. COMPARISON: No comparison. ACCESSION NUMBER(S): [id number] ORDERING CLINICIAN: ARTURO SALAZAR TECHNIQUE: ONE DAY protocol. Stress injection: Date:01-24-24, 33.7 mCi of Myoview IV 20 seconds after rapid injection of Lexiscan. Rest injection: Date: 01-24-24, 10.8 mCi of Myoview IV at rest. The patient had a rapid injection of 0.4 mg of Lexiscan IV over 10 seconds. Imaging was performed by gated tomographic technique. Reason for Lexiscan: uses walker/cane STRESS TEST DATA: Resting heart rate was 64 BPM. Resting blood pressure was 138/86 mmHg. Peak blood pressure was 136/72 mmHg. Peak heart rate was 85 BPM. TEST TERMINATED DUE TO: Protocol completed FINDINGS: STRESS TEST RESULTS: Resting electrocardiogram revealed normal sinus rhythm with incomplete right bundle branch block, non-specific ST and T changes. There were no significant ischemic ECG changes or dysrhythmias. The patient did not have chest pains/symptoms during procedure. There was a normal recovery phase. IMAGING RESULTS: Image quality was good. Rest and stress tomographic images were reviewed and revealed normal perfusion without evidence of ischemia, myocardial infarction, or left ventricular dilatation with stress. Overall left ventricular systolic function appeared to be normal without regional wall motion abnormalities. Ejection fraction was 71%. TID is 1.08 and is normal. There was no evidence of attenuation artifact. IMPRESSION: Normal Lexiscan Myoview cardiac perfusion stress test. No evidence of ischemia or myocardial infarction by perfusion imaging. Normal left ventricular systolic function, ejection fraction 71%. No previous studies are available for comparison. Signed by: Dalia Harris 01/24/2024 4:44 PM Dictation workstation: [id number] [facility] Consent for Procedure/Surger yon 10-28-2023 Consent for Procedure/Surgery [id number] [facility] Patient Educationon 10-27-19 Patient Education Urology 24-Hour Urine Collection Why am I having this test? A 24-hour urine specimen is a lab test that requires you to collect all of your urine for an entire day. This is sometimes called a timed urine test. It can provide more information than a single urine sample. There are many reasons to have this test. Your health care provider may order the test to check for or monitor the following conditions: ? High blood pressure. ? Kidney disease. ? Kidney stones. ? Urinary tract infections. ? . ? Diabetes. How do I prepare for this test? ? You may be asked to follow a special diet during or before the collection period. Follow any instructions from your health care provider. If no special instructions are given, you may eat and drink normally. ? Take oure-svu-phhpsbv and prescription medicines only as told by your health care provider. ? Let your health care provider know about any medicines that you are taking, including tztt-zfp-fhtkpaf medicines, vitamins, herbs, and supplements. ? Choose a collection day when you can be at home or when you have a place to store the urine. All urine must be collected during the testing period. How do I do a 24-hour urine collection? ? When you get up in the morning, urinate in the toilet and flush. Write down the time. This will be your start time on the day of collection and your end time on the next morning. ? From the start time on, all of your urine should be kept in the collection jug that you received from the lab. ? If the jug that is given to you already has liquid in it, that is okay. Do not throw out the liquid or rinse out the jug. ? Urinate into a specimen container, such as a urinal or peres that sits over the toilet. Pour the urine from the container into the collection jug. Be careful not to spill any of the urine. Use the equipment provided by the lab. ? Do not let any toilet paper or stool (feces) get into the jug. This will contaminate the sample. ? Stop collecting your urine 24 hours after you started. Collect the last specimen as close as possible to the end of the 24-hour period. ? Keep the jug cool in an ice chest or keep it in the refrigerator during collection. ? When the 24-hour collection is complete, take the jug to the lab as soon as possible. Keep the jug cool in an ice chest while you are bringing it to the lab. What do the results mean? Talk with your health care provider about what your results mean. Questions to ask your health care provider Ask your health care provider, or the department that is doing the test: ? When will my results be ready? ? How will I get my results? ? What are my treatment options? ? What other tests do I need? ? What are my next steps? Summary ? A 24-hour urine specimen is a lab test that requires you to collect all of your urine for an entire day. ? When you get up in the morning, urinate in the toilet and flush. Write down the time. For the next 24 hours, collect all of your urine in the collection jug that you received from the lab. ? Keep the jug cool while collecting the urine and while bringing it back to the lab. ? Take the jug of urine back to the lab as soon as possible after the collection period has ended. This information is not intended to replace advice given to you by your health care provider. Make sure you discuss any questions you have with your health care provider. Document Revised: 10/31/2021 Document Reviewed: 10/31/2021 [employer] Patient Education ? 2022 [employer]. [facility] Urology Office/Clinic Noteon 10-27-2023 Urology Office/Clinic Note Chief Complaint Pt is here for RT stent removal HPI Staff Nicci is a 78 y.o. male here for cysto/RT stent removal. ABX taken History of Present Illness Tests reviewed: reviewed op notes, stone analysis I have reviewed the previous health record information and history for this patient from Dr. Ribeiro. I have reviewed and verified the staff HPI to be accurate for this encounter. There have been no associated fever, chills, flank pain, or blood in the urine. Denies any urinary infections since last encounter. Review of Systems PHQ Score Initial [...] See HPI. Physical Exam Vitals & Measurements T: 37 ?C(Temporal Artery) HR: 76(Peripheral) RR: 16 BP: 132/81 HT: 65 in HT: 165 cm WT: 82 kg WT: 180.4 lb BMI: 30.12 General Appearance: alert , no acute distress, well nourished, well developed female. Genitourinary: bladder nonpalpable, no flank pain. Procedure Operative Information Anesthesia Type: Local Procedure: Local Cystoscopy with Stent Removal Complications: None Surgical risks, benefits, details of the procedure have been explained to the patient. Full informed consent has been obtained. Intraoperative Information Prepped: Patient is placed in modified dorso/lithotomy position. The patient was prepped with the Betadine solution. Anesthesia: 2% Xylocaine Jelly per urethra. Procedure: Cystoscopy and right stent removal. The flexible Cystoscope was passed in retrograde fashion into the bladder without difficulty. The bladder was viewed in entirety and found to be without tumors or stones. Mild inflammation was seen surrounding the orifice with the stent seen protruding from it. The stent was then grasped and removed in its entirety. Specimens Removed: None Postoperative Information The patient tolerated the procedure well and was subsequently discharged home. Assessment/Plan 1. Foreign body in bladder (T19.1XXA: Foreign body in bladder, initial encounter) S/p cysto, L URS, multiple stone basket extraction, L stent placement 08/26/23. S/p cysto, L stent removal, R URS, R pyelo, laser litho of R renal calculi, basket extraction, R stent placement 09/30/23. Pt had IO cysto, R stent removal today wo complications. 2. Kidney stones (N20.0: Calculus of kidney) CT Thoracic Spine 09/22/22 - Staghorn stone in L kidney. S/p L laser litho, stone basket extraction 10/29/22. Stone Analysis - 90% [place] Ca Ox, 10% Di. KUB 11/09/22 [facility] - Multiple densities over L kidney, suspected to represent calcifications. S/p L ESWL 12/17/22. KUB 12/23/22 [facility] - Several calcifications projecting over R kidney. Numerous calcifications projecting over L kidney, largest measuring 14 mm. L ureteral stent. S/p Cysto, L Stent removal 01/19/23. S/p cysto, L URS, multiple stone basket extraction, L stent placement 08/26/23. S/p cysto, L stent removal, R URS, R pyelo, laser litho of R renal calculi, basket extraction, R stent placement 09/30/23. Stone analysis 09/30/23 - 60% Ca Ox mono, 40% Ca Ox di. Discussed metabolic workup including 24 hour urine and blood work for stone prevention. Follow up 3 mos with metabolic workup or sooner if needed. Pt understands and agrees with plan. 3. Chronic cystitis (N30.20: Other chronic cystitis without hematuria) Using Estradiol cream. Follow-up With When Contact Information QUINTIN JUAN, Chriss Peña, URL [facility] [address], [place] [address]- Additional Instructions: 3 mos with metabolic workup Patient Education 24-Hour Urine Collection IKaren, personally scribed for Dr. Ribeiro on 10/27/2023 13:43:33. . Documentation recorded by the scribe, Karen Calderon, accurately reflects the services(s) I performed and decisions made by me. Authenticated by Dr. Ribeiro on 10/27/2023 13:52:32. Problem List/Past Medical History Ongoing Anticoagulated Anxiety Arthritis At risk for falls Chronic cystitis Depression Esophageal reflux Feeling of incomplete bladder emptying Fibromyalgia Foreign body in bladder H/O urethral stricture History of frequent urinary tract infections Hyperlipidemia Hypertension Hypothyroidism IBS (irritable bowel syndrome) Kidney stones Microscopic hematuria Osteoporosis Seasonal allergies Shortness of breath Stricture of female urethra EMMA (stress urinary incontinence, female) Weak urine stream Historical No qualifying data Proc (more content not included)... Normal [facility] Comment on above: Result Comment: Elec tronically Signed By: Chriss RIBEIRO MD\.br\Date and Time Signed: 10/27/23 13:52 EDT\.br\Electronically Co-Signed By: Karen Calderon\.br\Date and Time Co-Signed: 10/27/23 13:43 EDT XR ANKLE LT MIN 3 VWSon 06-0 XR ANKLE LT MIN 3 VWS XR ANKLE LT MIN 3 VWS XR ANKLE LEFT MINIMUM 3 VIEWS HISTORY: Fall, pain COMPARISON: 09/22/2022 IMPRESSION: * Old healed distal fibular fracture and old posttraumatic changes medial medial malleolus. * No acute fracture or dislocation. * Calcaneal spurs. Finalized by Gregor Gonzalez MD on 10/11/2023 11:34 PM Normal [facility] XR FOOT LT MIN 3 VWSon 10-10 XR FOOT LT MIN 3 VWS XR FOOT LT MIN 3 VW S 3 VIEWS LEFT FOOT HISTORY: Fall, pain COMPARISON: 09/22/2022 IMPRESSION: * No acute fracture or dislocation. * Degenerative changes within several of the interphalangeal joints of the foot. * Calcaneal spurs. Finalized by Gregor Gonzalez MD on 10/11/2023 11:35 PM Normal [facility] XR TIBIA FIBULA LT MIN 2 VWS on 10-11-2023 XR TIBIA FIBULA LT MIN 2 VWS XR TIBIA FIBULA LT MIN 2 VWS XR TIBIA FIBULA LT MIN 2 VWS History: TTP following fall Trauma with leg pain Findings: There is no fracture, dislocation, or destructive lesion. Impression: * No acute findings. Consider MR if you suspect occult internal derangement Finalized by Chuck Jiménez MD on 10/11/2023 11:33 PM Normal [facility] BASIC METABOLIC PANLon 10-09 Anion gap [Moles/Vol] 9 mmol/L Normal 5-15 [facility] Comment on above: Performed By: #### C MELY BMP #### [facility] ([id number]) [address] [place] [address] 04435 Calcium [Mass/Vol] 9.2 mg/dL Normal 8.5-10.5 [facility] Comment on above: Performed By: #### C MELY, BMP #### [facility] ([id number]) [address] [place] [address] 51260 Chloride [Moles/Vol] 101 mmol/L Normal 98-109 [facility] Comment on above: Performed By: #### C MELY, BMP #### [facility] ([id number]) [address] [place] [address] 50336 CO2 [Moles/Vol] 28 mmol/L Normal 22-32 [facility] Comment on above: Performed By: #### C MELY, BMP #### [facility] ([id number]) [address] [place] [address] 54722 Creatinine [Mass/Vol] 1.39 mg/dL High 0.40-1.00 [facility] Comment on above: Result Comment: METH OD TRACEABLE TO IDMS STANDARD Performed By: #### C MELY, BMP #### [facility] ([id number]) [address] [place] [address] 51641 GFR/1.73 sq M.predicted among non-blacks MDRD (S/P/Bld) [Vol rate/Area] 39 mL/min/{1.73_m2} Low >59 [facility] Comment on above: Result Comment: Reported eGFR is based on the CKD-EPI 2020 equation that does not use a race coefficient. Performed By: #### C MELY, BMP #### [facility] ([id number]) [address] [place] [address] 45077 Glucose [Mass/Vol] 115 mg/dL High 65-99 [facility] Comment on above: Performed By: #### C MELY, BMP #### [facility] ([id number]) [address] [place] [address] 12339 Potassium [Moles/Vol] 3.4 mmol/L Low 3.5-5.0 [facility] Comment on above: Performed By: #### C BCA, BMP #### [facility] ([id number]) [address] [place] [address] 26662 Sodium [Moles/Vol] 138 mmol/L Normal 134-146 [facility] Comment on above: Performed By: #### C MELY, BMP #### [facility] ([id number]) [address] [place] [address] 09360 Urea nitrogen [Mass/Vol] 18 mg/dL Normal 5-27 [facility] Comment on above: Performed By: #### C MELY, BMP #### [facility] ([id number]) [address] [place] [address] 44994 CBC AND AUTO DIFFon 10-10-19 24 ABSOLUTE BASOPHIL 0.0 X10E9/L Normal 0.0-0.2 [facility] Comment on above: Performed By: #### C MELY, BMP #### [facility] ([id number]) [address] [place] [address] 09123 ABSOLUTE NEUTROPHIL 6.7 X10E9/L High 1.5-6.6 [facility] Comment on above: Performed By: #### C MELY, BMP #### [facility] ([id number]) [address] [place] [address] 07539 Basophils/100 WBC (Bld) 0.5 % Normal [facility] Comment on above: Performed By: #### C MELY, BMP #### [facility] ([id number]) [address] [place] [address] 01601 Eosinophils (Bld) [#/Vol] 0.4 10*3/uL Normal 0.0-0.4 [facility] Comment on above: Performed By: #### C MELY, BMP #### [facility] ([id number]) [address] [place] [address] 16188 Eosinophils/100 WBC (Bld) 4.4 % Normal [facility] Comment on above: Performed By: #### C MELY, BMP #### [facility] ([id number]) [address] [place] [address] 97051 Erythrocyte distribution width (RBC) [Ratio] 14.9 % Normal 11.5-15.0 [facility] Comment on above: Performed By: #### C BCA, BMP #### [facility] ([id number]) [address] [place] [address] 32429 Hematocrit (Bld) [Volume fraction] 36.0 % Normal 35-47 [facility] Comment on above: Performed By: #### C BCA, BMP #### [facility] ([id number]) [address] [place] [address] 41431 Hemoglobin (Bld) [Mass/Vol] 12.1 g/dL Normal 11.7-15.5 [facility] Comment on above: Performed By: #### C MELY, BMP #### [facility] ([id number]) [address] [place] [address] 81550 Lymphocytes (Bld) [#/Vol] 1.8 10*3/uL Normal 1.0-3.5 [facility] Comment on above: Performed By: #### C BCA, BMP #### [facility] ([id number]) [address] [place] [address] 80671 Lymphocytes/100 WBC (Bld) 18.7 % Normal [facility] Comment on above: Performed By: #### C BCA, BMP #### [facility] ([id number]) [address] [place] [address] 36532 MCH (RBC) [Entitic mass] 28.1 pg Normal 27-34 [facility] Comment on above: Performed By: #### C BCA, BMP #### [facility] ([id number]) [address] [place] [address] 64065 MCHC (RBC) [Mass/Vol] 33.5 g/dL Normal 32-36 [facility] Comment on above: Performed By: #### C BCA, BMP #### [facility] ([id number]) [address] [place] [address] 09100 MCV (RBC) [Entitic vol] 84 fL Normal 80-100 [facility] Comment on above: Performed By: #### Yi BOONE, BMP #### [facility] ([id number]) [address] [place] [address] 38178 Monocytes (Bld) [#/Vol] 0.5 10*3/uL Normal 0-0.9 [facility] Comment on above: Performed By: #### C MELY, BMP #### [facility] ([id number]) [address] [place] [address] 26678 Monocytes/100 WBC (Bld) 5.6 % Normal [facility] Comment on above: Performed By: #### Yi BOONE, BMP #### [facility] ([id number]) [address] [place] [address] 31078 Neutrophils/100 WBC (Bld) 70.8 % Normal [facility] Comment on above: Performed By: #### C MELY, BMP #### [facility] ([id number]) [address] [place] [address] 68408 Platelet mean volume (Bld) [Entitic vol] 6.7 fL Low 7-12 [facility] Comment on above: Performed By: #### C MELY, BMP #### [facility] ([id number]) [address] [place] [address] 54996 Platelets (Bld) [#/Vol] 343 10*3/uL Normal 150-450 [facility] Comment on above: Performed By: #### C MELY, BMP #### [facility] ([id number]) [address] [place] [address] 41404 RBC COUNT 4.29 X10E12/L Normal 3.80-5.20 [facility] Comment on above: Performed By: #### Yi BOONE, BMP #### [facility] ([id number]) [address] [place] [address] WBC (Bld) [#/Vol] 9.4 10*3/uL Normal 4.0-11.0 [facility] Comment on above: Performed By: #### C MEYL, SAWYER #### [facility] ([id number]) [address] [place] [address] CT ABDOMEN AND PELVIS WO CON Ton 10-10-2023 CT ABDOMEN AND PELVIS WO CONT CT ABDOMEN AND PELVIS WO CONT CLINICAL INFORMATION: Abdominal trauma, blunt; abd pain right hip pain. TECHNIQUE: CT Abdomen and Pelvis without intravenous contrast. All CT scans at this facility use dose modulation, iterative reconstruction, and/or weight based dosing when appropriate to reduce radiation dose to as low as reasonably achievable. COMPARISON: 10/16/2022 FINDINGS: Noncontrast evaluation of abdominal and retroperitoneal organs is not optimal. No focal hepatic or splenic abnormality is present. Patient is status post cholecystectomy with no gross biliary dilation. The pancreas and adrenal glands are within normal limits. A right ureteral stent is present. There are nonobstructing renal calculi on the right measuring up to 3 mm. Multiple nonobstructing left renal calculi present as well measuring up to 1 cm. There is some mural thickening and irregularity within the renal pelvis and some calyces. The urinary bladder is within normal limits A large amount of stool is present within colon distally to the sigmoid region. No dilated small bowel loops are present. There is no focal osseous abnormality. Degenerative changes are present in the lower lumbar facet joints. Fat-containing left inguinal hernia is noted. IMPRESSION: No traumatic abnormality within the abdomen or pelvis. Nonobstructing renal calculi with a right ureteral stent in place. Irregularity of the left renal pelvis and calyces may reflect scarring but acute inflammation or an underlying lesion cannot be excluded. Moderate amount stool within the colon. Finalized by Chris Messer MD on 10/10/2023 8:53 AM Normal [facility] CT BRAIN WO CONTon CT BRAIN WO CONT CT BRAIN WO CONT CT BRAIN WITHOUT CONTRAST HISTORY: Fall, head trauma, headache COMPARISON: CT brain 10/16/2022 TECHNIQUE: Unenhanced axial images of the brain were obtained. Automatic exposure control (AEC) was utilized. All CT scans at this facility use dose modulation, iterative reconstruction, and/or weight based dosing when appropriate to reduce radiation dose to as low as reasonably achievable. FINDINGS: No evidence of acute intracranial hemorrhage or extra-axial fluid collection. Yun-white differentiation is well-preserved. No mass, mass effect, or shift of midline structures. No ventriculomegaly. Intracranial atherosclerotic calcifications. Bilateral lens replacements.] Retention cyst in the right maxillary sinus. No depressed calvarial fractures. IMPRESSION: No evidence of acute intracranial process. Approved by Resident: Donnell Cha DO on 10/10/2023 8:18 AM Abilio Rivera MD have personally reviewed the image(s) and agree with and/or edited the report Finalized by Abilio Lopez MD on 10/10/2023 8:27 AM Normal [facility] CT CERVICAL SPINE WO CONTon 10-10-2023 CT CERVICAL SPINE WO CONT CT CERVICAL SPINE WO CONT Clinical history:Trauma. Neck pain. CT cervical spine:10/10/2023 Procedure: Axial images were obtained through the cervical spine. Coronal and sagittal reconstructions were performed. All CT scans at this facility use dose modulation, iterative reconstruction, and/or weight based dosing when appropriate to reduce radiation dose to as low as reasonably achievable. Findings: There is no fracture or focal vertebral abnormality. Vertebral shapes are normal through the cervical region. Loss of intervertebral disc height is present through the lower cervical spine levels. There are moderate facet hypertrophic changes greatest on the left at C3-C4. No paravertebral mass or fluid collection is evident. IMPRESSION: No acute osseous injury. Finalized by Chris Messer MD on 10/10/2023 8:23 AM Normal [facility] CT CHEST WO CONTon CT CHEST WO CONT CT CHEST WO CONT Clinical history:Chest trauma. CT chest without contrast:10/28/2023 Comparison: 09/22/2022 Procedure: Axial images were obtained through the chest without intravenous contrast. Coronal and sagittal reconstructions were performed. All CT scans at this facility use dose modulation, iterative reconstruction, and/or weight based dosing when appropriate to reduce radiation dose to as low as reasonably achievable. Findings: There is no displaced rib fracture. A sclerotic lesion within the T8 vertebral body suspected with a bone island. Sclerosis of the inferior aspect of T3 appears unchanged. The heart is enlarged. The main pulmonary artery diameter is 2.6 cm. The ascending thoracic aortic diameter is 3.7 cm. Atherosclerotic calcification is present within the aorta. There is no gross mediastinal mass or adenopathy evident within the limitations of this study An 8 mm right lower lobe nodule on axial image 99 and appears unchanged. There is strandy density in the dependent portion of both lungs similar to the previous study consistent with scarring and/or atelectasis. IMPRESSION: No posttraumatic abnormality within the thorax. Cardiomegaly. Peripheral lung opacities may reflect atelectasis or pneumonitis. Finalized by Chris Messer MD on 10/10/2023 8:40 AM Normal [facility] CT LUMBAR RECONSTRUCTIONon 0 10-10-[address] LUMBAR RECONSTRUCTION STUDY: CT LUMBAR RECONSTRUCTION INDICATION: Fall out of shower, dislodged toilet from the floor. Headache, back pain right hip pain. TECHNIQUE: * CT of the lumbar spine, was performed without intravenous contrast. Coronal & sagittal MPR images were generated and reviewed. * All CT scans at this facility use dose modulation, iterative reconstruction, and/or weight based dosing when appropriate to reduce radiation dose to as low as reasonably achievable. FINDINGS: Chronic height loss of T12. Acute fracture of the right L1 and likely L2 transverse processes. Mild lower lumbar facet arthropathy. Multilevel bony neuroforaminal narrowing most significant at L4-L5 and L5-S1. Mild bony spinal canal narrowing at T11-T12. Aortoiliac is present. Right double-J ureteral stent. Fatty infiltration of pancreas. IMPRESSION: * Acute fracture of the right L1 and likely L2 transverse processes. Finalized by See Zayas on 10/10/2023 8:48 AM Normal [facility] CT THORACIC RECONSTRUCTIONon 10-10-[address] THORACIC RECONSTRUCTION STUDY: CT THORACIC RECONSTRUCTION INDICATION: Back trauma, no prior imaging (Age >= 16y); Fall out of shower, dislodged toilet from the floor. Headache, back pain right hip pain. TECHNIQUE: * CT of the thoracic spine, was performed without intravenous contrast. Coronal & sagittal MPR images were generated and reviewed. * All CT scans at this facility use dose modulation, iterative reconstruction, and/or weight based dosing when appropriate to reduce radiation dose to as low as reasonably achievable. FINDINGS: Chronic height loss of T3, T4, T10 and T12. Minimally displaced fracture of the right L1 transverse process. Mild multilevel degenerative spondylosis likely contributing to ajud-wq-siyeninr multilevel bony neuroforaminal narrowing. No significant bony spinal canal narrowing by technique. There is a calcified bone lesion at T8 which remains unchanged from 09/22/2022 and may reflect a bone island. Bibasilar atelectasis Aortic atherosclerosis. Multiple pulmonary nodules in the upper lobes measuring 3-4 mm for example at series 614, #19, 12, 22 and 23). A non-calcified 8.4 mm solid nodule in the right lower lobe (series 612, image 51) is indeterminate. This measured 7.7 mm on 09/22/2022. IMPRESSION: * Acute, minimally displaced fracture of the right L1 transverse process. * Indeterminate solid pulmonary nodule measuring 8.4 mm. In a patient of unknown risk level with a solid nodule of 6-8 mm, recommend CT at 6-12 months. In a low-risk patient, then consider CT at 18-24 months. In a high-risk patient, if the nodule is stable at 6-12 months, recommend CT at 18-24 months. GermanMahokenneth H, et al. Guidelines for Management of Incidental Pulmonary Nodules Detected on CT Images: From the Fleischner Society 2017. Radiology. 2017 Nigel;284(1):228-243. Finalized by See Zayas on 10/10/2023 8:37 AM Normal [facility] URINE CULTUREon 10-10-2023 Bacteria identified Cx Nom (U) CULTURE RESULTS >100,000 ORGANISMS/mL AEROCOCCUS URINAE Routine susceptibility testing not available. Aerococcus species are reported to be susceptible to penicillin. A.urinae has also beendescribed as susceptible to amoxacillin and nitrofurantoin (for treatment of urinary tract infections only). <10,000 ORGANISMS/mL NORMAL URO GENITAL LOAN Normal [facility] Comment on above: Performed By: #### 6 30-4 #### [facility] ([id number]) [address], [address] [place] [address] URN MACROSCOPIC NURon 2023 BILIRUBIN OMID Negative Normal NEG [facility] Comment on above: Performed By: #### N UM #### [facility] ([id number]) [address] [place] [address] [place] [address] BLOOD/HGB OMID Large Abnormal NEG [facility] Comment on above: Performed By: #### N UM #### [facility] ([id number]) [address] [place] [address] [place] [address] GLUCOSE OMID Negative Normal NEG [facility] Comment on above: Performed By: #### N UM #### [facility] ([id number]) [address] [place] [address] [place] [address] KETONES OMID Negative Normal NEG [facility] Comment on above: Performed By: #### N UM #### [facility] ([id number]) [address] [place] [address] [place] [address] LEUKOCYTE ESTERASE OMID Large Abnormal NEG [facility] Comment on above: Performed By: #### N UM #### [facility] ([id number]) [address] [place] [address] [place] [address] NITRITE OMID Negative Normal NEG [facility] Comment on above: Performed By: #### N UM #### [facility] ([id number]) [address] [place] [address] [place] [address] PH OMID 6.0 Normal 5.0-8.5 [facility] Comment on above: Performed By: #### N UM #### [facility] ([id number]) [address] [place] [address] PROTEIN OMID 100 mg/dL Abnormal NEG [facility] Comment on above: Performed By: #### N UM #### [facility] ([id number]) [address] [place] [address] [place] [address] SPECIFIC GRAVITY OMID 1.020 Normal 1.003-1.[address] [facility] Comment on above: Performed By: #### N UM #### [facility] ([id number]) [address] [place] [address] UROBILINOGEN OMID 1.0 eu/dL Normal <1.[address] [facility] Comment on above: Performed By: #### N UM #### [facility] ([id number]) [address] [place] [address] Lab Reportson 10-07-2023 Lab Reports [id number]#1.00TIFF Normal [facility] RAD - MISCon 10-01-2023 RAD - MISC [id number]#1.00TIFF Normal [facility] Operative Reporton 4 Operative Report [id number]#1.00TIFF Normal [facility] Lab Reportson 09-25-2023 Lab Reports [id number]#1.00TIFF Normal [facility] Consent for Procedure/Surger yon 09-15-2023 Consent for Procedure/Surgery [id number]#1.00TIFF Normal [facility] Pathology Noteon 09-01-2023 Pathology Note [id number]#1.00TIFF Normal [facility] RAD - MISCon 08-31-2023 RAD - MISC [id number]#1.00TIFF Normal [facility] Operative Reporton Operative Report [id number]#1.00TIFF Normal [facility] Calcium [Mass/volume] in Ser um or PlasmaOrdered By: Suresh Ayala on 08-26-2023 Calcium [Mass/Vol] 9.5 mg/dL 8.6-10.3 [facility] Carbon dioxide, total [Moles /volume] in Serum or PlasmaOrdered By: Suresh Aayla on 08-26-2023 CO2 [Moles/Vol] 29.0 mmol/L 21.0-31.0 [facility] Chloride [Moles/volume] in S mayra or PlasmaOrdered By: Suresh Ayala on 08-26-2023 Chloride [Moles/Vol] 91 mmol/L 98-107 [facility] Creatinine [Mass/volume] in Serum or PlasmaOrdered By: Suresh Ayala on 08-26-2023 Creatinine [Mass/Vol] 1.11 mg/dL 0.60-1.20 [facility] Glucose [Mass/volume] in Ser um or PlasmaOrdered By: Suresh Ayala on 08-26-2023 Glucose [Mass/Vol] 104 mg/dL 70-100 [facility] Comment on above: ADA recommended refe rence rangeRandom Glucose Reference Range is dependent on time and content of last meal. Glucose of more than 200 mg/dL in a nonstressed, ambulatory subject supports the diagnosis of Diabetes Mellitus. No Panel InformationOrdered By: Suresh Ayala on 08-26-2023 Estimated GFR (CKD-EPI) 51.194 mL/Min [facility] Creatinine Clearance (Chem 45.43 [facility] Potassium [Moles/volume] in Serum or PlasmaOrdered By: Suresh Ayala on 08-26-2023 Potassium [Moles/Vol] 4.1 mmol/L 3.5-5.1 [facility] Serum or plasma anion gap de terminationOrdered By: Suresh Ayala on 08-26-2023 Anion gap [Moles/Vol] 11.1 mmol/L 6.0-15.0 [facility] Sodium [Moles/volume] in Ser um or PlasmaOrdered By: Suresh Ayala on 08-26-2023 Sodium [Moles/Vol] 127 mmol/L 136-145 [facility] Urea nitrogen [Mass/volume] in Serum or PlasmaOrdered By: Suresh Ayala on 08-26-2023 Urea nitrogen [Mass/Vol] 14 mg/dL 7- [facility] Consultation Noteon 08-25-19 24 Consultation Note [id number]#1.00TIFF Normal [facility] ECG 12 Leadon 08-19-2023 Normal sinus rhythm nonspecific ST-T changes [facility] Work Phone: ECG 12-Leadon 08-16-2023 ECG 12-Lead [id number]#1.00TIFF Normal [facility] Lab Reportson 08-13-2023 Lab Reports [id number]#1.00TIFF Normal [facility] Activated partial thrombopla stin time (aPTT) in platelet poor plasma by coagulation aOrdered By: Chriss Ribeiro on 08-12-2023 aPTT Coag (PPP) [Time] 29.5 s 25.1-36.5 [facility] Comment on above: A hematocrit value g reater than 55% may lead to inaccurate results in coagulation testing. Patients having hematocrit values >55% require a special collection tube for coagulation studies. Please contact the laboratory at [phone] for redraw instructions. Basophils Auto (Bld) [#/Vol] Ordered By: Chriss Ribeiro on 08-12-2023 Basophils (Bld) [#/Vol] 0.1 10*3/uL 0.0-0.2 [facility] Basophils/100 WBC Auto (Bld) Ordered By: Chriss Ribeiro on 08-12-2023 Basophils/100 WBC (Bld) 0.5 % . [facility] Calcium [Mass/volume] in Ser um or PlasmaOrdered By: Chriss Ribeiro on 08-12-2023 Calcium [Mass/Vol] 8.7 mg/dL 8.6-10.3 [facility] Carbon dioxide, total [Moles /volume] in Serum or PlasmaOrdered By: Chriss Ribeiro on 08-12-2023 CO2 [Moles/Vol] 28.9 mmol/L 21.0-31.0 [facility] Chloride [Moles/volume] in S mayra or PlasmaOrdered By: Chriss Ribeiro on 08-12-2023 Chloride [Moles/Vol] 94 mmol/L 98-107 [facility] Creatinine [Mass/volume] in Serum or PlasmaOrdered By: Chriss Ribeiro on 08-12-2023 Creatinine [Mass/Vol] 1.87 mg/dL 0.60-1.20 [facility] Eosinophils Auto (Bld) [#/Vo l]Ordered By: Chriss Ribeiro on 08-12-2023 Eosinophils (Bld) [#/Vol] 0.4 10*3/uL 0.0-0.45 [facility] Eosinophils/100 WBC Auto (Bl d)Ordered By: Chriss Ribeiro on 08-12-2023 Eosinophils/100 WBC (Bld) 3.8 % . [facility] Erythrocyte distribution wid th Auto (RBC) [Ratio]Ordered By: Chriss Ribeiro on 08-12-2023 Erythrocyte distribution width (RBC) [Ratio] 15.3 % 11.9-15.3 [facility] Glucose [Mass/volume] in Ser um or PlasmaOrdered By: Chriss Ribeiro on 08-12-2023 Glucose [Mass/Vol] 93 mg/dL 70-100 [facility] Comment on above: ADA recommended refe rence rangeRandom Glucose Reference Range is dependent on time and content of last meal. Glucose of more than 200 mg/dL in a nonstressed, ambulatory subject supports the diagnosis of Diabetes Mellitus. Hematocrit Auto (Bld) [Volum e fraction]Ordered By: Chriss Ribeiro on 08-12-2023 Hematocrit (Bld) [Volume fraction] 35.6 % 34.0-46.4 [facility] Hemoglobin [Mass/volume] in BloodOrdered By: Chriss Ribeiro 08-12-2023 Hemoglobin (Bld) [Mass/Vol] 12.0 g/dL 11.8-15.4 [facility] INR in Platelet poor plasma by Coagulation assayOrdered By: Chriss Ribeiro 08-12-2023 INR Coag (PPP) [Relative time] 1.0 {INR} [facility] Comment on above: INR Therapeutic Rang [...] RBC Auto (Bld) [#/Vol] 9.6 10*3/uL 3.8-11.6 [facility] Lymphocytes Auto (Bld) [#/Vo l]Ordered By: Chriss Ribeiro on 08-12-2023 Lymphocytes (Bld) [#/Vol] 2.0 10*3/uL 1.00-4.8 [facility] Lymphocytes/100 WBC Auto (Bl d)Ordered By: Chriss Ribeiro on 08-12-2023 Lymphocytes/100 WBC (Bld) 20.9 % . [facility] MCH Auto (RBC) [Entitic mass ]Ordered By: Chriss Ribeiro on 08-12-2023 MCH (RBC) [Entitic mass] 28.4 pg 24.7-34.3 [facility] MCHC Auto (RBC) [Mass/Vol]Or dered By: Chriss Ribeiro on 08-12-2023 MCHC (RBC) [Mass/Vol] 33.6 g/dL 32.0-35.0 [facility] MCV Auto (RBC) [Entitic vol] Ordered By: Chriss Ribeiro on 08-12-2023 MCV (RBC) [Entitic vol] 84.4 fL 80-100 [facility] Monocytes Auto (Bld) [#/Vol] Ordered By: Chriss Ribeiro on 08-12-2023 Monocytes (Bld) [#/Vol] 0.4 10*3/uL 0.0-0.8 [facility] Monocytes/100 WBC Auto (Bld) Ordered By: Chriss Ribeiro on 08-12-2023 Monocytes/100 WBC (Bld) 4.5 % . [facility] Neutrophils Auto (Bld) [#/Vo l]Ordered By: Chriss Ribeiro on 08-12-2023 Neutrophils (Bld) [#/Vol] 6.7 10*3/uL 1.8-7.7 [facility] Neutrophils/100 WBC Auto (Bl d)Ordered By: Chriss Ribeiro on 08-12-2023 Neutrophils/100 WBC (Bld) 70.3 % . [facility] No Panel InformationOrdered By: Chriss Ribeiro on 08-12-2023 Estimated GFR (CKD-EPI) 27.377 mL/Min [facility] Creatinine Clearance (Chem N/A [facility] Nucleated erythrocytes [Pres ence] in Blood by Automated countOrdered By: Chriss Ribeiro on 08-12-2023 Nucleated RBC Auto Ql (Bld) 0.1 /100{WBC} 0-0.5 [facility] Platelet mean volume Auto (B ld) [Entitic vol]Ordered By: Chriss Ribeiro on 08-12-2023 Platelet mean volume (Bld) [Entitic vol] 7.2 fL 6.3-10.7 [facility] Platelets Auto (Bld) [#/Vol] Ordered By: Chriss Ribeiro on 08-12-2023 Platelets (Bld) [#/Vol] 261 10*3/uL 150-450 [facility] Potassium [Moles/volume] in Serum or PlasmaOrdered By: Chriss Ribeiro on 08-12-2023 Potassium [Moles/Vol] 3.7 mmol/L 3.5-5.1 [facility] Prothrombin time (PT)Ordered By: Chriss Ribeiro on 08-12-2023 PT Coag (PPP) [Time] 11.3 s 9.0-12.9 [facility] Comment on above: A hematocrit value g reater than 55% may lead to inaccurate results in coagulation testing. Patients having hematocrit values >55% require a special collection tube for coagulation studies. Please contact the laboratory at [phone] for redraw instructions. RBC Auto (Bld) [#/Vol]Ordere d By: Chriss Ribeiro on 08-12-2023 RBC (Bld) [#/Vol] 4.22 10*6/uL 3.60-5.00 [facility] Serum or plasma anion gap de terminationOrdered By: Chriss Ribeiro on 08-12-2023 Anion gap [Moles/Vol] 11.8 mmol/L 6.0-15.0 [facility] Sodium [Moles/volume] in Ser um or PlasmaOrdered By: Chriss Ribeiro on 08-12-2023 Sodium [Moles/Vol] 131 mmol/L 136-145 [facility] Urea nitrogen [Mass/volume] in Serum or PlasmaOrdered By: Chriss Ribeiro on 08-12-2023 Urea nitrogen [Mass/Vol] 33 mg/dL 7-25 [facility] WBC Auto (Bld) [#/Vol]Ordere d By: Chriss Ribeiro on 08-12-2023 WBC (Bld) [#/Vol] 9.6 10*3/uL 3.8-11.6 [facility] Consent for Procedure/Surger yon 07-30-2023 Consent for Procedure/Surgery [id number]#1.00TIFF Normal [facility] Consent for Procedure/Surgery [id number]#1.00TIFF [facility] Consent for Procedure/Surger yon 07-29-2023 Consent for Procedure/Surgery [id number]#1.00TIFF [facility] RAD - MISCon 07-22-2023 RAD - MISC [id number]#1.00TIFF [facility] Ambulatory Visit Summaryon 0 07-19-2023 Ambulatory Visit Summary NICCI VARGAS :1945 Visit Date:07/19/2023 Ambulatory Visit Instructions Your Diagnosis Kidney stones Chronic cystitis Tests Performed XR Abdomen 1 View -- Results Pending -- Please visit your patient portal for your results or contact your primary care physician. Your Care Team Attending Physician - Chriss RIBEIRO MD Primary Care Physician - DONNELL JOYNER MD Referring Physician - Chriss RIBEIRO MD This Is Your Medications List ciprofloxacin (Cipro [...] Following Appointments Follow Up with QUINTIN JUAN, Chriss Peña, URL When: Comments: f/u pending KUB results Where: [facility] [address], [facility] [place] [address]- [phone] Medications What How Much When Instructions Unchanged [...] questions or (more content not included)... Normal [facility] Patient Educationon 07-19-19 24 Patient Education Urology Kidney Stones Kidney stones [...] these instructions at home: Medicines ? Take ypge-hjj-xesjrec and prescription medicines only as told by [...] provider. Document Revised: 12/29/2021 Document Reviewed: 12/29/2021 [employer] Patient Education ? 2022 [employer]. Normal [facility] Reminderson 07-19-2023 Reminders - From: Chloe Couch To: EU - Pending Results; Sent: 07/19/2023 12:55:26 EDT Show up: 07/19/2023 12:55:00 EDT Subject: KUB @ [facility] Due Date/Time: 07/26/2023 12:54:00 EDT Reminder/Recall Per PRW, patient to have a KUB done at [facility] within the next week. Please send results to PRW as he needs to see them to determine next steps at that time. Normal [facility] Urology Office/Clinic Noteon 07-19-2023 Urology [...] Litho/Stone Basket Extraction 10/29/22. Stone Analysis 90% [place] Ca Ox, 10% Di. KUB 11/09/22 [facility] [...] URL [facility] [address], [place] [address] [phone] Additional Instructions: f/u pending KUB results Patient Education Kidney Stones, Oinz-oi-Voru Heather Rivera, personally scribed for Dr. Ribeiro on 07/19/2023 12:51:04. . Documentation recorded by the scribeHeather, accurately reflects the services(s) I performed and [...] Cream 0.1 m (more content not included)... Normal [facility] Comment on above: Result Comment: Elec tronically Signed By: Chriss RIBEIRO MD\.br\Date and Time Signed: 07/19/23 12:52 EDT\.br\Electronically Co-Signed By: Heather Joyner\.br\Date and Time Co-Signed: 07/19/23 12:51 EDT XR MODIFIED BARIUM SWALLOWon 04-21-2022 XR MODIFIED BARIUM SWALLOW EXAMINATION: XR MODIFIED [...] by: SARAH CARDENAS Date: 2022-04-21 12:20 Normal [facility] Basic Metabolic Panelon - Anion gap [Moles/Vol] 19 mmol/L Normal 12-20 [facility] Special[facility] Comment on above: Result Comment: Effe ctive 05/15/2019 reference range changed. Performed By: #### B MP #### [facility] [address], [place] [id number] Calcium [Mass/Vol] 9.9 mg/dL Normal 8.6-10.2 [facility] Comment on above: Performed By: #### B MP #### [facility] [address], [place] [id number] Chloride [Moles/Vol] 92 mmol/L Low 98-107 [facility] Specialist Comment on above: Performed By: #### B MP #### [facility] [address], [place] [id number] CO2 [Moles/Vol] 25 mmol/L Normal 20-31 [facility] Specialist Comment on above: Performed By: #### B MP #### [facility] [address], [place] [id number] Creatinine [Mass/Vol] 0.9 mg/dL Normal 0.6-1.4 [facility] Comment on above: Performed By: #### B MP #### [facility] [address], [place] [id number] eGFRAA 75 mL/min/1.73m2 Normal >60 [facility] Comment on above: Performed By: #### B MP #### [facility] [address] [place] [id number] eGFRNAA 62 mL/min/1.73m2 Normal >60 [facility] Comment on above: Performed By: #### B MP #### [facility] [address], [place] [id number] Glucose [Mass/Vol] 107 mg/dL High 65-99 [facility] Comment on above: Result Comment: For FASTING Glucose --- ADA reference ranges: Normal 65-99 mg/dl Prediabetes 100-125 Diabetes >/= 126 Performed By: #### B MP #### [facility] [address], [place] [id number] Potassium [Moles/Vol] 4.3 mmol/L Normal 3.5-5.5 [facility] Comment on above: Performed By: #### B MP #### [facility] [address], [place] [id number] Sodium [Moles/Vol] 131 mmol/L Low 135-146 [facility] Specialist Comment on above: Performed By: #### B MP #### [facility] [address], [place] [id number] Urea nitrogen [Mass/Vol] 15 mg/dL Normal 7-25 [facility] Comment on above: Performed By: #### B MP #### [facility] [address], [place] [id number] ANKLE RIGHT 3 [facility] 06-26-19 20 ANKLE RIGHT 3 [facility] Department of Radiology [address] [place] [address] Patient Name: NICCI VARGAS : 1945 Sex: F Age: Race: White Pt. Location: 84 Patient Status: O Ordered Date: 06/26/2019 12:45:00 PM Completed Date: 06/26/2019 12:55 PM Requesting Provider: MARU PÉREZ Attending Provider: MARU PÉREZ Report Copy To: DONNELL JOYNER Signs & Symptoms: S82.841A Displaced bimalleolar fracture of right lower leg, init I10 History: [place] Comments: , , , Ordering Provider - MARU PÉREZ PA-C , Exam: ANKLE RIGHT 3 VWS ANKLE RIGHT 3 VWS 06/26/2019 12:55 PM SIGNS AND SYMPTOMS: S82.841A [...] unchanged Electronically signed: Fred Hui. Transcribed by: [email or web address], User Resident: Electronically Signed by: FRED HUI @ 06/26/2019 01:09 PM Normal [facility] Comment on above: Order Comment: orif right ankle ANKLE RIGHT 3 VWSon 05-15-19 20 ANKLE RIGHT 3 VWS [facility] Department of Radiology [address] [place] [phone] Patient Name: NICCI VARGAS : 1945 [...] PÉREZ PA-C , Exam: ANKLE RIGHT [address] [facility] ANKLE RIGHT 3 S 05/15/2019 1:04 [...] ankle. Electronically signed by:Reji Leiva. Transcribed by: [email or web address], User Resident: Electronically Signed by: REJI LEIVA @ 05/15/2019 01:17 PM Normal [facility] Comment on above: Order Comment: orif right ankle ANKLE RIGHT 3 Son 03-31-20 19 ANKLE RIGHT 3 S [facility] Department of Radiology [address] [place] [phone] Patient Name: NICCI VARGAS : 1945 Sex: F Age: Race: White Pt. Location: 84 Patient Status: O Ordered Date: 03/31/2019 1:10:00 PM Completed Date: 03/31/2019 01:15 PM Requesting Provider: MARU PÉREZ Attending Provider: Report Copy To: Signs & Symptoms: S82.841A Displaced bimalleolar fracture of right lower leg, init I10 History: [place] Comments: , , , Ordering Provider - MARU PÉREZ PA-C , Exam: ANKLE RIGHT [address] [facility] ANKLE RIGHT 3 S 03/31/2019 1:15 [...] dome. Electronically signed by:Thai Danielle. Transcribed by: [email or web address], User Resident: Electronically Signed by: THAI DANIELLE @ 03/31/2019 03:16 PM Normal [facility] Comment on above: Order Comment: orif right ankle ANKLE RIGHT 3 [facility] 03-08-20 19 ANKLE RIGHT 3 [facility] Department of Radiology [address] [place] [phone] Patient Name: NICCI VARGAS : 1945 [...] PÉREZ PA-C , Exam: ANKLE RIGHT [address] [facility] ANKLE RIGHT [address] [facility] 03/08/2019 12:49 PM EDT SIGNS AND [...] fixator Electronically signed by:Fred Hui. Transcribed by: [email or web address], User Resident: Electronically Signed by: FRED HUI @ 03/08/2019 01:27 PM Normal [facility] Comment on above: Order Comment: orif right ankle ANKLE RIGHT 3 [facility] 02-09-20 19 ANKLE RIGHT 3 [facility] Department of Radiology [address] [place] [phone] Patient Name: NICCI VARGAS : 1945 Sex: F Age: Race: White Pt. Location: 85 Patient Status: Ordered Date: 02/08/2019 10:15:00 AM Completed Date: 02/08/2019 10:16 AM Requesting Provider: MARU PÉREZ Attending Provider: Report Copy To: Signs & Symptoms: S82.841A Displaced bimalleolar fracture of right lower leg, init I10 History: [place] Comments: , Views (X-RAY, ANKLE): Radiologic Protocol [...] satisfactory Electronically signed by:Fred Hui. Transcribed by: [email or web address], User Resident: Electronically Signed by: FRED HUI @ 02/08/2019 11:15 AM Normal [facility] Comment on above: Order Comment: orif right ankle *MRSA/MSSA DNA NASALon 01-24 *MRSA/MSSA DNA NASAL Clinical Report: (D ) Specimen: NASAL SWAB Collected: 01/24/2019 08:32 Status: Final Last Updated: 01/24/2019 13:04 MSSA DNA (Final) Negative MRSA DNA (Final) Negative Normal [facility] Comment on above: Performed By: #### 3 [id number] #### [address] ANKLE RIGHT 2 Son 01-25-20 19 ANKLE RIGHT 2 [facility] Department of Radiology [address] [place] [phone] Patient Name: NICCI VARGAS : 1945 [...] Documentation Electronically signed by:Fred Hui. Transcribed by: [email or web address], User Resident: Electronically Signed by: FRED HUI @ 01/24/2019 10:42 AM Normal [facility] Comment on above: Order Comment: rt an kle ex fix removal APTTon 01-24-2019 aPTT Coag (Bld) [Time] 33.1 s Normal 25.0-35.0 Th e [facility] Comment on above: Result Comment: ALL RESULTS [...] THIS PURPOSE. Performed By: #### 5 [id number], [address] #### [facility] [address] [facility]. [address] Operative Reporton 9 Operative Report MR#: [id number] [place] [facility] Nic[facility] Room #: 0C [...] for the entire procedure. Date Dict: 01/24/2019/08:01 Brittani/Shital Heath MD Date Trans: 01/24/2019 01:06 Barak/selma [id number] cc: Donnell Joyner M.D. 3 [facility] [address] [place] [facility] Operative Report MR#: [id number] [facility] Pt. Name: Nicci Vargas Room #: 0C [...] pantoja fashion. We then used a drill delivery truck driver to remove both tibial pins as [...] Walls MD Date Trans: 01/24/2019 08:41 Brittani/selma [id number] cc: Donnell Joyner M.D. [address] [place] [address] Normal [facility] POC GLUCOSE LABon 01-24-2019 Glucose [Mass/Vol] 119 mg/dL High 70-100 [facility] Comment on above: Performed By: #### [id number] #### [address] PROTHROMBIN TIMEon 9 INR Coag (PPP) [Relative time] 0.93 {INR} Normal 0.91-1.16 [facility] Comment on above: Result Comment: ACCC P [...] CHEST 1995;108:231S-246S. Performed By: #### 5 [id number], [id number] #### [address] PT Coag (PPP) [Time] 12.5 s Normal 12.3-14.8 [facility] Comment on above: Result Comment: ALL RESULTS MUST BE INTERPRETED WITH RESPECT TO BLOOD DRAWING ARTIFACT OR DILUTION ERROR OF ANTICOAGULANT AT THE TIME OF SAMPLING. Performed By: #### 5 [id number], [id number] #### [address] ANKLE RIGHT 3 [facility] 01-05-20 19 ANKLE RIGHT 3 [facility] Department of Radiology [address] [place] [id number] Patient Name: NICCI VARGAS : 1945 [...] swelling Electronically signed by:Yang Nails. Transcribed by: [email or web address], User Resident: Electronically Signed by: YANG NAILS @ 01/04/2019 04:09 PM Normal [facility] Comment on above: Order Comment: , Ranulfo ws (X-RAY, ANKLE): AP, Lateral, Mortise , Views (X-RAY, ANKLE): AP, Lateral, Mortise , , , Ordering Provider - MARU PÉREZ PA-C , Operative Reporton 12-24-201 9 Operative Report MR#: [id number] [facility] Pt. Name: Nicci Vargas Room #: PAT Discharge Date: Birthdate: 1945 OPERATIVE REPORT DATE OF SURGERY: 12/23/2018 SURGEON: Tripp Berg M.D. ASSISTANTS: 1. Edwin Kendall M.D. 2. Otilio Walls MD. 3. [...] for the entire procedure. Date Dict: 12/23/2018/04:53 P/Edwin Kendall MD Date Trans: 12/24/2018 03:24 A/levo [id number] cc: Donnell Joyner M.D. 3 [facility] [address] [address] [place] [address] [facility] [phone] Normal [facility] ANKLE RIGHT 2 [facility] 12-24-19 19 ANKLE RIGHT 2 [facility] Department of Radiology [address] [place] [phone] Patient Name: NICCI VARGAS : 1945 Sex: F Age: Race: White Pt. Location: OUTP Patient Status: O Ordered Date: 12/23/2018 3:25:00 PM Completed Date: 12/23/2018 07:46 PM Requesting Provider: TRIPP BERG Attending Provider: TRIPP BERG Report Copy To: Signs & Symptoms: orif right ankle History: orif right ankle Comments: orif right ankle Exam: ANKLE RIGHT 2 VWS ANKLE RIGHT 2 VWS 12/23/2018 7:46 PM EDT SIGNS AND SYMPTOMS: [...] findings. Electronically signed by:Joyce Chi. Transcribed by: [email or web address], User Resident: LOYDA TRENT Electronically Signed by: JOYCE CHI @ 12/24/2018 09:16 AM I personally read this/these film(s) with this resident Normal [facility] Comment on above: Order Comment: orif right ankle POC GLUCOSE LABon 12-23-2018 Glucose [Mass/Vol] 97 mg/dL Normal 70-100 [facility] Comment on above: Performed By: #### [id number] #### [facility] [address] Vital Signs Date Time Vital Sign Value Performing Clinician Facility 08-31-2024 12:50-0400 Body height 165.1 cm Leisa Lowe PA Work Phone: [facility] 08-31-2024 12:50-0400 Diastolic blood pressure 60 mm[Hg] Leisa Lowe PA Work Phone: [facility] 08-31-2024 12:50-0400 Systolic blood pressure 122 mm[Hg] Leisa Lowe PA Work Phone: [facility] 08-15-2024 14:27-0400 Body height 167.64 cm Donnell Joyner II Work Phone: [facility] 08-15-2024 14:27-0400 Body mass index (BMI) [Ratio] 29.7 kg/m2 Donnell Joyner II Work Phone: [facility] 08-15-2024 14:27-0400 Body temperature 97.3 [degF] Donnell Joyner II Work Phone: [facility] 08-15-2024 14:27-0400 Body weight 83.54 kg Donnell Joyner II Work Phone: [facility] 08-15-2024 14:27-0400 Diastolic blood pressure 78 mm[Hg] Donnell Joyner II Work Phone: [facility] 08-15-2024 14:27-0400 Heart rate 56 /min Donnell Joyner II Work Phone: [facility] 08-15-2024 14:27-0400 Respiratory rate 18 /min Donnell Joyner II Work Phone: [facility] 08-15-2024 14:27-0400 SaO2% (BldA) [Mass fraction] 95 % Donnell Joyner II Work Phone: [facility] 08-15-2024 14:27-0400 Systolic blood pressure 142 mm[Hg] Donnell Joyner II Work Phone: [facility] 08-02-2024 11:22-0400 Body height 165.1 cm Leisa Lowe PA Work Phone: [facility] 08-02-2024 11:22-0400 Body mass index (BMI) [Ratio] 31.28 kg/m2 Leisa Lowe PA Work Phone: [facility] 08-02-2024 11:22-0400 Body weight 85.28 kg Leisa Lowe PA Work Phone: [facility] 08-02-2024 11:22-0400 Diastolic blood pressure 72 mm[Hg] Leisa Lowe PA Work Phone: [facility] 08-02-2024 11:22-0400 Systolic blood pressure 132 mm[Hg] Leisa Lowe PA Work Phone: [facility] 07-11-2024 10:02-0500 Body height 167.6 cm Arturo Salazar MD Work Phone: [facility] 07-11-2024 10:02-0500 Body mass index (BMI) [Ratio] 30.18 kg/m2 Arturo Salazar MD Work Phone: [facility] 07-11-2024 10:02-0500 Body weight 84.82 kg Arturo Salazar MD Work Phone: [facility] 07-11-2024 10:02-0500 Diastolic blood pressure 70 mm[Hg] Arturo Salazar MD Work Phone: [facility] 07-11-2024 10:02-0500 Heart rate 60 /min Arturo Salazar MD Work Phone: [facility] 07-11-2024 10:02-0500 Systolic blood pressure 124 mm[Hg] Arturo Salazar MD Work Phone: [facility] 06-29-2024 12:41-0500 Body height 165.1 cm Leisa Lowe PA Work Phone: [facility] 06-29-2024 12:41-0500 Body mass index (BMI) [Ratio] 31.78 kg/m2 Leisa Lowe PA Work Phone: [facility] 06-29-2024 12:41-0500 Body weight 86.64 kg Leisa Lowe PA Work Phone: [facility] 06-29-2024 12:41-0500 Diastolic blood pressure 78 mm[Hg] Leisa Lowe PA Work Phone: [facility] 06-29-2024 12:41-0500 Systolic blood pressure 130 mm[Hg] Leisa Lowe PA Work Phone: [facility] 06-06-2024 13:23-0500 Body height 167.6 cm Ana Mcgregor PA Work Phone: [facility] 06-06-2024 13:23-0500 Body mass index (BMI) [Ratio] 30.12 kg/m2 Ana Hemmer PA Work Phone: [facility] 06-06-2024 13:23-0500 Body weight 84.64 kg Ana Hemmer PA Work Phone: [facility] 06-06-2024 13:23-0500 Diastolic blood pressure 76 mm[Hg] Ana Hemmer PA Work Phone: [facility] 06-06-2024 13:23-0500 Heart rate 67 /min Ana Hemmer PA Work Phone: [facility] 06-06-2024 13:23-0500 Respiratory rate 16 /min Ana Hemmer PA Work Phone: [facility] 06-06-2024 13:23-0500 SaO2% (BldA) [Mass fraction] 95 % Ana Hemmer PA Work Phone: [facility] 06-06-2024 13:23-0500 Systolic blood pressure 128 mm[Hg] Ana Hemmer PA Work Phone: [facility] 03-06-2024 12:36-0400 Body height 167.6 cm Yael Hill PA Work Phone: [facility] 03-06-2024 12:36-0400 Body mass index (BMI) [Ratio] 30.02 kg/m2 Yael Hill PA Work Phone: [facility] 03-06-2024 12:36-0400 Body weight 84.37 kg Yael Ohara PA Work Phone: [facility] 03-06-2024 12:36-0400 Diastolic blood pressure 82 mm[Hg] Yael Ohara PA Work Phone: [facility] 03-06-2024 12:36-0400 Heart rate 62 /min Yael Hill PA Work Phone: [facility] 03-06-2024 12:36-0400 Respiratory rate 16 /min Yael Hill PA Work Phone: [facility] 03-06-2024 12:36-0400 SaO2% (BldA) [Mass fraction] 98 % Yael TORRES Work Phone: [facility] 03-06-2024 12:36-0400 Systolic blood pressure 148 mm[Hg] Yael TORRES Work Phone: [facility] 02-10-2024 09:15-0400 Body height 165.1 cm Donnell Joyner MD Work Phone: [facility] 02-10-2024 09:15-0400 Body mass index (BMI) [Ratio] 31.28 kg/m2 Donnell Joyner MD Work Phone: [facility] 02-10-2024 09:15-0400 Body weight 85.28 kg Donnell Joyner MD Work Phone: [facility] 02-10-2024 09:15-0400 Diastolic blood pressure 76 mm[Hg] Donnell Joyner MD Work Phone: [facility] 02-10-2024 09:15-0400 Heart rate 72 /min Donnell Joyner MD Work Phone: [facility] 02-10-2024 09:15-0400 SaO2% (BldA) [Mass fraction] 94 % Donnell Joyner MD Work Phone: [facility] 02-10-2024 09:15-0400 Systolic blood pressure 132 mm[Hg] Donnell Joyner MD Work Phone: [facility] 01-24-2024 09:09-0400 Diastolic blood pressure 86 mm[Hg] Audrey 1 [facility] 01-24-2024 09:09-0400 Heart rate 64 /min Audrey 1 [facility] 01-24-2024 09:09-0400 Systolic blood pressure 138 mm[Hg] Audrey 1 [facility] 01-12-2024 13:31-0400 Body height 165.1 cm Donnell Joyner MD Work Phone: [facility] 01-12-2024 13:31-0400 Body mass index (BMI) [Ratio] 29.95 kg/m2 Donnell Joyner MD Work Phone: [facility] 01-12-2024 13:31-0400 Body weight 81.65 kg Donnell Joyner MD Work Phone: [facility] 01-12-2024 13:31-0400 Diastolic blood pressure 50 mm[Hg] Donnell Joyner MD Work Phone: [facility] 01-12-2024 13:31-0400 Heart rate 76 /min Donnell Joyner MD Work Phone: [facility] 01-12-2024 13:31-0400 SaO2% (BldA) [Mass fraction] 95 % Donnell Joyner MD Work Phone: [facility] 01-12-2024 13:31-0400 Systolic blood pressure 120 mm[Hg] Donnell Joyner MD Work Phone: [facility] 12-29-2023 10:04-0400 Body height 167.6 cm Arturo Salazar MD Work Phone: [facility] 12-29-2023 10:04-0400 Body mass index (BMI) [Ratio] 30.38 kg/m2 Arturo Salazar MD Work Phone: [facility] 12-29-2023 10:04-0400 Body weight 85.37 kg Arturo Salazar MD Work Phone: [facility] 12-29-2023 10:04-0400 Diastolic blood pressure 70 mm[Hg] Arturo Salazar MD Work Phone: [facility] 12-29-2023 10:04-0400 Heart rate 60 /min Arturo Salazar MD Work Phone: [facility] 12-29-2023 10:04-0400 Systolic blood pressure 124 mm[Hg] Arturo Salazar MD Work Phone: [facility] 10-27-2023 12:40-0400 Body temperature 98.6 [degF] Chriss RIBEIRO [facility] 10-27-2023 12:40-0400 Diastolic blood pressure 81 mm[Hg] Chriss RIBEIRO [facility] 10-27-2023 12:40-0400 Heart rate 76 /min Chrissjennifer RIBEIRO [facility] 10-27-2023 12:40-0400 Respiratory rate 16 /min Chrissjennifer RIBEIRO [facility] 10-27-2023 12:40-0400 Systolic blood pressure 132 mm[Hg] Chrissjennifer RIBEIRO [facility] 08-26-2023 14:20-0400 Diastolic blood pressure 81 mm[Hg] II Donnell Joyner Work Phone: [facility] 08-26-2023 14:20-0400 Heart rate 61 /min II Donnell Joyner Work Phone: [facility] 08-26-2023 14:20-0400 Respiratory rate 12 /min II Donnell Joyner Work Phone: [facility] 08-26-2023 14:20-0400 SaO2% (BldA) [Mass fraction] 97 % II Donnell Joyner Work Phone: [facility] 08-26-2023 14:20-0400 Systolic blood pressure 172 mm[Hg] II Donnellbronwyn Joyner Work Phone: [facility] 08-26-2023 13:42-0400 Body temperature 97.4 [degF] II Donnellbronwyn Joyner Work Phone: [facility] 08-26-2023 13:17-0400 Inhaled oxygen flow rate 8 L/min II Donnell Joyner Work Phone: [facility] 08-26-2023 11:22-0400 Body mass index (BMI) [Ratio] 30.8 kg/m2 II Donnell Joyner Work Phone: [facility] 08-26-2023 11:03-0400 Body height 165.1 cm II Donnell Joyner Work Phone: [facility] 08-26-2023 11:03-0400 Body weight 84 kg II Donnell Joyner Work Phone: [facility] 08-19-2023 13:34-0400 Body height 165.1 cm Arturo Salazar MD Work Phone: [facility] 08-19-2023 13:34-0400 Body mass index (BMI) [Ratio] 32.12 kg/m2 Arturo Salazar MD Work Phone: [facility] 08-19-2023 13:34-0400 Body weight 87.54 kg Arturo Salazar MD Work Phone: [facility] 08-19-2023 13:34-0400 Diastolic blood pressure 78 mm[Hg] Arturo Salazar MD Work Phone: [facility] 08-19-2023 13:34-0400 Heart rate 61 /min Arutro Salazar MD Work Phone: [facility] 08-19-2023 13:34-0400 Systolic blood pressure 148 mm[Hg] Arturo Salazar MD Work Phone: [facility] Encounters Encounter Date Encounter Type Care Provider Facility Start: 09-12-2024 End: 09-12-2024 Clinisync Result Encounter Leisa TORRES Work Phone: [facility] Unsolicited Start: 09-12-2024 End: 09-12-2024 Clinisync Result Encounter Leisa TORRES Work Phone: [facility] Unsolicited Start: 09-06-2024 End: 09-06-2024 ambulatory Donnell Ar WOODS Work Phone: [facility] Work Phone: Start: 09-06-2024 End: 09-06-2024 Departed Referred Donnell Joyner PEGGY Work Phone: [facility] [place] Work Phone: Start: 09-05-2024 End: 09-05-2024 Clinisync Result Encounter Leisa Lowe PA Work Phone: [facility] Unsolicited Start: 09-05-2024 End: 09-05-2024 Clinisync Result Encounter Leisa Lowe PA Work Phone: [facility] Unsolicited Start: 09-05-2024 End: 09-05-2024 Follow-up encounter Leisa Lowe PA Work Phone: [facility] Comment on above: Hyponatremia (Primar y Dx) Start: 08-31-2024 End: 08-31-2024 Bamboo flowsheet Leisa Lowe PA Work Phone: [facility] Start: 08-31-2024 End: 08-31-2024 Bamboo flowsheet Leisa Lowe PA Work Phone: [facility] Start: 08-31-2024 End: 08-31-2024 Office outpatient visit 25 minutes Leisa Lowe PA Work Phone: [facility] Comment on above: Hyponatremia (Primar y Dx); Tremor; RLS (restless legs syndrome); Weakness; Confusion; Myoclonic jerking Start: 08-31-2024 End: 08-31-2024 ambulatory LEISA LOWE Not Available Start: 08-25-2024 End: 08-25-2024 Clinisync Result Encounter Leisa Lowe PA Work Phone: [facility] Unsolicited Start: 08-25-2024 End: 08-25-2024 Clinisync Result Encounter Leisa Lowe PA Work Phone: [facility] Unsolicited Start: 08-15-2024 End: 08-15-2024 ambulatory Donnell Joyner II Work Phone: [facility] Work Phone: Start: 08-15-2024 End: 08-15-2024 Patient encounter procedure Donnell Joyner II Work Phone: [facility] Work Phone: Start: 08-02-2024 End: 08-02-2024 Bamboo flowsheet Leisa Lowe PA Work Phone: [facility] Start: 08-02-2024 End: 08-02-2024 Bamboo flowsheet Leisa Lowe PA Work Phone: [facility] Start: 08-02-2024 End: 08-02-2024 ambulatory LEISA LOWE Not Available Start: 08-02-2024 End: 08-02-2024 Office outpatient visit 25 minutes Leisa Lowe PA Work Phone: [facility] Comment on above: Tremor (Primary Dx); RLS (restless legs syndrome); Weakness; Vertigo; Cognitive impairment; Myoclonic jerking Start: 07-11-2024 End: 07-11-2024 Office outpatient visit 25 minutes Arturo Salazar MD Work Phone: [facility] Comment on above: Shortness of breath (Primary Dx); Hyperlipidemia, unspecified hyperlipidemia type; Abnormal EKG; BMI 30.0-30.9,adult; Essential tremor; Never smoked tobacco Start: 07-11-2024 End: 07-11-2024 ambulatory [facility] Start: 07-05-2024 End: 07-05-2024 ambulatory Donnell Joyner II Work Phone: [facility] Work Phone: Start: 07-05-2024 End: 07-05-2024 Departed Referred Donnell Joyner II Work Phone: [facility] [place] Work Phone: Start: 07-03-2024 End: 07-03-2024 Patient encounter procedure Ty MARTINEZM Work Phone: [facility] Comment on above: Onychomycosis (Prima ry Dx); Neuropathy; Other specified peripheral vascular diseases (CMS/HCC); Pain in both feet Start: 07-03-2024 End: 07-03-2024 Bamboo flowsheet Ty Bartlett DPM Work Phone: [facility] Start: 07-03-2024 End: 07-03-2024 Bamboo flowsheet Ty Bartlett DPM Work Phone: [facility] Start: 07-03-2024 End: 07-03-2024 ambulatory TY BARTLETT Not Available Start: 06-29-2024 End: 06-29-2024 Bamboo flowsheet Leisa Lowe PA Work Phone: [facility] Start: 06-29-2024 End: 06-29-2024 Bamboo flowsheet Leisa Lowe PA Work Phone: [employer] Start: 06-29-2024 End: 06-29-2024 Office outpatient visit 25 minutes Leisa Lowe PA Work Phone: [employer] Comment on above: Vertigo (Primary Dx) ; RLS (restless legs syndrome); Cervical stenosis of spinal canal; Myoclonic jerking; Cognitive impairment; Weakness Start: 06-29-2024 End: 06-29-2024 ambulatory LEISA LOWE Not Available Start: 06-06-2024 End: 06-06-2024 Bamboo flowsheet Ana Mcgregor PA Work Phone: [facility] Start: 06-06-2024 End: 06-06-2024 Bamboo flowsheet Ana Mcgregor PA Work Phone: [facility] Start: 06-06-2024 End: 06-06-2024 ambulatory ANA MCGREGOR Not Available Start: 06-06-2024 End: 06-06-2024 Patient encounter procedure Ana Mcgregor PA Work Phone: [facility] Comment on above: Medicare annual well ness visit, subsequent (Primary Dx); Acute recurrent maxillary sinusitis; ACP (advance care planning); Cervical spondylosis with myelopathy; Chronic pain syndrome; Confusion; Essential tremor; Hypersomnia; Myoclonic jerking; PATRICA (obstructive sleep apnea); RLS (restless legs syndrome); Nodule of lower lobe of right lung; Abnormal EKG; Arteriosclerosis of both carotid arteries; Benign essential hypertension (CMS/HCC); Cardiomegaly; LVH (left ventricular hypertrophy); Chronic idiopathic constipation; Gastroesophageal reflux disease without esophagitis; Dysphagia, pharyngoesophageal phase; Nephrolithiasis; Age related osteoporosis, unspecified pathological fracture presence (CMS/HCC); Fibromyalgia; Lumbar spondylosis; Myalgia; Osteopenia of multiple sites; Primary localized osteoarthrosis of multiple sites; Primary osteoarthritis of both knees; Primary osteoarthritis of right hip; Temporomandibular joint disorder; Obesity (BMI 30-39.9); Primary ovarian failure; Agoraphobia with panic disorder (CMS/HCC); Non-seasonal allergic rhinitis due to pollen; Anxiety; Ataxia; Attention deficit hyperactivity disorder (ADHD), predominantly inattentive type (CMS/HCC); Diplopia; History of cardiovascular disorder; History of fall; History of vertebral fracture; Pure hypercholesterolemia (CMS/HCC); Hyponatremia; Jerking; Memory change; Other voice and resonance disorders; Vertigo Start: 04-10-2024 End: 04-10-2024 Patient encounter procedure Ty Bartlett DPM Work Phone: [facility] Comment on above: Onychomycosis (Prima ry Dx); Neuropathy; Other specified peripheral vascular diseases (CMS/HCC); Pain in both feet Start: 04-10-2024 End: 04-10-2024 ambulatory TY BARTLETT Not Available Start: 04-10-2024 End: 04-10-2024 Bamboo flowsheet Ty Bartlett DPM Work Phone: [facility] Start: 04-10-2024 End: 04-10-2024 Bamboo flowsheet Ty Bartlett DPM Work Phone: [facility] Start: 03-06-2024 End: 03-06-2024 Bamboo flowsheet Yael Hill PA Work Phone: [facility] Start: 03-06-2024 End: 03-06-2024 Bamboo flowsheet Yael Ohara PA Work Phone: [facility] Start: 03-06-2024 End: 03-06-2024 Office outpatient visit 15 minutes Yael Ohara PA Work Phone: [facility] Comment on above: Vertigo (Primary Dx) ; RLS (restless legs syndrome); Myoclonic jerking; Cervical stenosis of spinal canal; Tremor; Weakness of both lower extremities Start: 03-06-2024 End: 03-06-2024 ambulatory YAEL OHARA Not Available Start: 03-02-2024 End: 03-02-2024 Bamboo flowsheet Brian Peter Felter [employer] EDUCATOR-[employer] SOFTWARE ENGINEER Work Phone: [facility] Start: 03-02-2024 End: 03-02-2024 Bamboo flowsheet Brian A Felter [employer] SPECIAL EDUCATOR-[employer] SOFTWARE ENGINEER Work Phone: [facility] Start: 03-02-2024 End: 03-02-2024 ambulatory BRIAN Brittani FELTER Not Available Start: 03-02-2024 End: 03-02-2024 Office outpatient visit 15 minutes Brian Peter Felter [employer] SPECIAL EDUCATOR-[employer] SOFTWARE ENGINEER Work Phone: [facility] Comment on above: Seborrheic keratosis (Primary Dx); Melanocytic nevus of trunk; Epidermal inclusion cyst; Mcrae angioma Start: 03-01-2024 End: 03-01-2024 Refill Edwin Martino [employer] SPECIAL EDUCATOR-LEAD SOFTWARE ENGINEER Work Phone: [facility] Start: 02-10-2024 End: 02-10-2024 Bamboo flowsheet Donnell Joyner MD Work Phone: [facility] Start: 02-10-2024 End: 02-10-2024 Bamboo flowsheet Donnell Joyner MD Work Phone: [facility] Start: 02-10-2024 End: 02-10-2024 Transitional care manage srvc 14 day discharge Donnell Joyner MD Work Phone: [facility] Comment on above: RIND (reversible isc hemic neurologic deficit) ([facility]/HCC) (Primary Dx); Acute non-recurrent sinusitis, unspecified location; Irritable bowel syndrome with both constipation and diarrhea Start: 02-10-2024 End: 02-10-2024 ambulatory DONNELL JOYNER Not Available Start: 01-31-2024 End: 01-31-2024 ambulatory Chriss RIBEIRO Facility:[facility] Start: 01-31-2024 End: 01-31-2024 Patient encounter procedure Chriss RIBEIRO [facility] Start: 01-30-2024 End: 02-02-2024 Emergency department patient visit BORIS Larios [facility] Start: 01-30-2024 End: 02-01-2024 ambulatory DONNELL JOYNER [facility] Start: 01-30-2024 End: 02-02-2024 Emergency department patient visit SELWYN Kenneth LUJAN [facility] Start: 01-24-2024 End: 01-24-2024 Subsequent hospital visit by physician Audrey Horne Stress Room 1 [facility] Comment on above: Abnormal EKG Start: 01-24-2024 End: 01-24-2024 ambulatory [facility] Start: 01-12-2024 End: 01-12-2024 Bamboo flowsheet Donnell Joyner MD Work Phone: [facility] Start: 01-12-2024 End: 01-12-2024 Bamboo flowsheet Donnell Joyner MD Work Phone: [facility] Start: 01-12-2024 End: 01-12-2024 Office outpatient visit 25 minutes Donnell Joyner MD Work Phone: [facility] Comment on above: Benign essential hyp ertension (CMS/HCC) (Primary Dx); Nodule of lower lobe of right lung; Chronic kidney disease, stage 3a (N18.31); Acute non-recurrent sinusitis, unspecified location; Chronic kidney disease, stage 3b (HCC) ([facility]); 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 skin ([facility]/HCC) Start: 01-12-2024 End: 01-12-2024 ambulatory DONNELL JOYNER Not Available Start: 01-05-2024 End: 01-05-2024 Patient encounter procedure Ty Bartlett DPM Work Phone: [facility] Comment on above: Onychomycosis (Prima ry Dx); Neuropathy; Other specified peripheral vascular diseases ([facility]) Start: 01-05-2024 End: 01-05-2024 ambulatory TY BARTLETT Not Available Start: 01-05-2024 End: 01-05-2024 Bamboo flowsheet Ty Bartlett DPM Work Phone: [facility] Start: 01-05-2024 End: 01-05-2024 Bamboo flowsheet Ty Bartlett DPM Work Phone: [facility] Start: 12-29-2023 End: 12-29-2023 Office outpatient visit 25 minutes Arturo Salazar MD Work Phone: [facility] Comment on above: Shortness of breath (Primary Dx); Hyperlipidemia, unspecified hyperlipidemia type; Abnormal EKG; Adult BMI 32.0-32.9 kg/sq m; Essential tremor; Never smoked tobacco Start: 12-29-2023 End: 12-29-2023 [facility] Start: 10-27-2023 End: 10-27-2023 ambulatory Chriss RIBEIRO Facility:[facility] Start: 10-27-2023 End: 10-27-2023 Patient encounter procedure Chriss RIBEIRO [facility] [place] Start: 10-18-2023 End: 10-18-2023 ambulatory YAEL OHARA Not Available Start: 10-14-2023 End: 10-14-2023 ambulatory KAMRYN ROCHA Not Available Start: 10-13-2023 End: 10-13-2023 ambulatory ANA KOVACSFAISAL Not Available Start: 10-13-2023 Patient encounter status Charan Bartlett DP Work Phone: [facility] Start: 10-11-2023 End: 10-12-2023 Emergency department patient visit FABIEN CABAN [facility] Start: 10-10-2023 End: 10-11-2023 Emergency department patient visit RACHAEL BRENNAN [facility] Start: 10-05-2023 End: 10-13-2023 Pre-admission assessment Chriss RIBEIRO [facility] Start: 09-30-2023 End: 09-30-2023 ambulatory Chriss RIBEIRO Facility:[id number] Start: 09-15-2023 End: 09-15-2023 ambulatory TY BARTLETT Not Available Start: 08-26-2023 End: 08-26-2023 Admission to same day surgery center II Donnell Ar Work Phone: [facility] [place] Start: 08-26-2023 End: 08-26-2023 ambulatory II Donnell Joyner Work Phone: [facility] Work Phone: Start: 08-26-2023 End: 08-26-2023 ambulatory Chriss RIBEIRO Facility:[id number] Start: 08-19-2023 End: 08-19-2023 Office outpatient new 45 minutes Arturo Salazar MD Work Phone: [facility] Comment on above: Abnormal EKG; Preop cardiovascular exam; Hyperlipidemia, unspecified hyperlipidemia type; Essential tremor; Never smoked tobacco; Adult BMI 32.0-32.9 kg/sq m Start: 08-19-2023 End: 06-06-2024 Patient encounter status Arturo Salazra MD Work Phone: [facility] Work Phone: Start: 08-19-2023 End: 08-19-2023 ambulatory [facility] Start: 08-19-2023 End: 08-19-2023 Encounter for preprocedural cardiovascular examination [facility] Start: 08-12-2023 End: 08-12-2023 ambulatory II Donnell Joyner Work Phone: [facility] Work Phone: Start: 08-12-2023 End: 08-12-2023 Patient encounter procedure II Donnell Joyner Work Phone: [facility] Work Phone: Start: 07-19-2023 End: 07-19-2023 ambulatory Chriss RIBEIRO Facility:[facility] Start: 07-19-2023 End: 07-19-2023 Patient encounter procedure Chriss RIBEIRO [facility] Start: 06-16-2023 Chart abstracting Ty Bartlett DPM Work Phone: [facility] Start: 01-19-2023 End: 01-19-2023 Patient encounter procedure Chriss RIBEIRO [facility] Start: 05-15-2022 End: 07-23-[address] DONNELL JOYNER Facility:[facility] Start: 04-21-2022 End: 04-22-[address] DONNELL JOYNER Facility:[facility] Start: 01-24-2019 End: 01-25-2019 Patient encounter procedure TRIPP BERG Facility:[facility] Start: 12-23-2018 End: 12-24-2018 Patient encounter procedure TRIPP BERG Facility:[facility] Procedures Date Procedure Procedure Detail Performing Clinician Start: 09-12-2024 [facility] CMP (CMP) (FOR R [facility] USE) Leisa TORRES Work Phone: Start: 09-05-2024 ALL BASIC METABOLIC PANEL Leisa TORRES Work Phone: Start: 08-25-2024 ALL CBC WITH AUTO DIFF Leisa TORRES Work Phone: Start: 01-24-2024 Cv strs tst xers&/or rx cont ecg trcg only Arturo Salazar MD Work Phone: Start: 10-27-2023 Removal of ureteral stent Chriss RIBEIRO Start: 09-30-2023 Lithotripsy using laser Chriss RIBEIRO Start: 08-26-2023 Diagnostic radiograp hy of abdomen II Donnell Joyner Work Phone: Start: 08-26-2023 Cystoscopy II Donnell Joyner Work Phone: Start: 08-26-2023 Diagnostic radiograp hy of abdomen II Donnell Joyner Work Phone: Start: 08-26-2023 Ureteroscopy Chriss KAYLI JAQUEZKalin Start: 08-19-2023 ECG 12-LEAD ARTURO MEDLEY Start: 08-19-2023 Ecg routine ecg w/le ast 12 lds w/i&r Arturo Salazra MD Work Phone: Start: 06-16-2023 Lipid 1996 panel - S mayra or Plasma Artuor Salazar MD Work Phone: Start: 01-19-2023 Cystoscopic removal of ureteric stent Chriss RIBEIRO Start: 12-17-2022 Extracorporeal shock wave lithotripsy of calculus of kidney Chriss RIBEIRO Start: 10-29-2022 Cystoscopic laser li thotripsy of ureteric calculus Chriss RIBEIRO Start: 06-19-2019 Dilation of urethra Rachelle RIBEIRO Start: 01-24-2019 ANESTH LOWER LEG PROCEDURE MACO HERNANDEZ Start: 01-24-2019 FIXATION OF ANKLE JOINT TRIPP EBRAHEIM Start: 01-24-2019 REMOVE BONE FIXATION DEVICE TRIPP EBRAHEIM Start: 12-23-2018 ANESTH LOWER LEG BONE SURG ABILIO Brittani ENNIS Start: 12-23-2018 APPLY BONE FIXATION DEVICE [...] RIBEIRO Appendectomy Chriss RIBEIRO Bilateral tubal ligation Rachelle RIBEIRO section Chriss CHRISTENSEN MOY Cholecystectomy Chriss JOVON MANCUSO Colonoscopy Chriss RIBEIRO Hysterectomy Chriss RIBEIRO Comment on above: w/ bladder repair Plan of Treatment Date Care Activity Detail Author Start: 06-16-2028 Lipid panel Lipid Panel [facility] Start: 06-17-2025 Screening for osteoporosis Bone Density Scan [facility] Start: 06-06-2025 Medicare Annual Well ness (AWV) Medicare Annual Wellness (AWV) [facility] Start: 03-20-2025 End: 03-20-2025 Patient encounter procedure 03/20/2025 9:50 AM EST Office Visit [facility] [address] [place] [address] Arturo Salazar MD [address] [facility] [address] [place] [address] [facility] Start: 03-05-2025 End: 03-05-2025 Patient encounter procedure 03/05/2025 1:35 PM EDT Office Visit [facility] [address] [place] [address] Brain Stark, EARLY CHILDHOOD SPECIAL EDUCATOR-LEAD SOFTWARE ENGINEER [address] [place] [address] [facility] Start: 01-31-2025 Adult BMI Screening Adult BMI Screen ing [facility] Start: 01-08-2025 Influenza vaccination Influenz a Vaccine (Season Ended) [facility] Start: 10-10-2024 Tobacco Screening Tobacco Screening [facility] Start: 09-28-2024 End: 09-28-2024 Patient encounter procedure 09/28/2024 11:15 AM EDT Procedure Visit [facility] [address] [place] [address] Ty Bartlett, DPM [address] [place] [address] [facility] Start: 09-27-2024 End: 09-27-2024 Patient encounter procedure 09/27/2024 1:15 PM EDT Procedure Visit [facility] [address] [place] [address] Ty Bartlett, DPM [address] [place] [address] [facility] Start: 09-26-2024 End: 09-26-2024 Patient encounter procedure 09/26/2024 1:20 PM EDT Office Visit [facility] [address] [place] [phone] Leisa Tyler PA [address] [place] [address] [facility] Start: 09-05-2024 End: 09-05-2025 Comprehensive metabolic 2000 panel - Serum or Plasma Comprehensive metabolic panel Lab Routine Hyponatremia Expected: 09/05/2024 (Approximate), Expires: 09/05/2025 [facility] Work Phone: Comment on above: Expected: 09/05/2024 (Approximate), Expires: 09/05/2025 Start: 09-04-2024 End: 09-04-2024 Patient encounter procedure 09/04/2024 1:30 PM EDT Office Visit [facility] [address] [place] [address] Donnell Joyner MD [address] [place], [place] [id number] [facility] Start: 08-31-2024 End: 08-31-2025 Basic metabolic 1998 panel - Serum or Plasma Basic metabolic panel Lab Routine Hyponatremia Expected: 08/31/2024 (Approximate), Expires: 08/31/2025 [facility] Work Phone: Comment on above: Expected: 08/31/2024 (Approximate), Expires: 08/31/2025 Start: 08-31-2024 End: 08-31-2024 Patient encounter procedure [facility] Comment on above: Arrived Start: 08-02-2024 End: 08-02-2024 Patient encounter procedure 08/02/2024 11:20 AM EDT Office Visit [facility] [address] [place] [phone] Leisa Tyler PA [address] [place] [address] [facility] Start: 07-11-2024 End: 07-11-2024 Patient encounter procedure 07/11/2024 9:50 AM EST Office Visit [address] [place] [phone] Arturo Salazar MD [address] [facility] [address] [place] [address] [facility] Start: 07-03-2024 End: 07-03-2024 Patient encounter procedure [facility] Comment on above: Arrived Start: 06-29-2024 End: 06-29-2025 CBC W Auto Differential panel - Blood CBC and differential Lab Routine Cognitive impairment Weakness Expected: 06/29/2024 (Approximate), Expires: 06/29/2025 [facility] Work Phone: Comment on above: Expected: 06/29/2024 (Approximate), Expires: 06/29/2025 Start: 06-29-2024 End: 06-29-2025 Comprehensive metabolic 2000 panel - Serum or Plasma Comprehensive metabolic panel Lab Routine Cognitive impairment Weakness Expected: 06/29/2024 (Approximate), Expires: 06/29/2025 [facility] Comment on above: Expected: 06/29/2024 (Approximate), Expires: 06/29/2025 Start: 06-29-2024 End: 06-29-2025 Magnesium [Mass/volume] in Serum or Plasma Magnesium Lab Routine Cognitive impairment Weakness Expected: 06/29/2024 (Approximate), Expires: 06/29/2025 [facility] Comment on above: Expected: 06/29/2024 (Approximate), Expires: 06/29/2025 Start: 06-29-2024 End: 06-29-2025 Thyrotropin [Units/volume] in Serum or Plasma TSH Lab Routine Cognitive impairment Weakness Expected: 06/29/2024 (Approximate), Expires: 06/29/2025 [facility] Comment on above: Expected: 06/29/2024 (Approximate), Expires: 06/29/2025 Start: 06-29-2024 End: 06-29-2025 VITAMIN B12/FOLATE, SERUM PANEL VITAMIN B12/FOLATE, SERUM PANEL Lab Routine Cognitive impairment Weakness Expected: 06/29/2024 (Approximate), Expires: 06/29/2025 [facility] Comment on above: Expected: 06/29/2024 (Approximate), Expires: 06/29/2025 Start: 06-29-2024 End: 06-29-2024 Patient encounter procedure [facility] [place] [address] Comment on above: Arrived Start: 06-02-2024 Medicare Annual Well ness (AWV) Medicare Annual Wellness (AWV) [facility] Start: 05-15-2024 End: 05-15-2024 Patient encounter procedure 05/15/2024 2:00 PM EST Office Visit [facility] [address] [place] [address] Donnell Joyner MD [address] [place] [address] [facility] Start: 04-10-2024 End: 04-10-2024 Patient encounter procedure [facility] Comment on above: Arrived Start: 03-06-2024 End: 03-06-2024 Patient encounter procedure [facility] [place] [address] Comment on above: Arrived Start: 03-02-2024 End: 03-02-2024 Patient encounter procedure 03/02/2024 1:50 PM EDT Office Visit [facility] [address] [place] [address] Brian Stark, EARLY CHILDHOOD SPECIAL EDUCATOR-LEAD SOFTWARE ENGINEER [address] [place] [address] [facility] Start: 02-10-2024 End: 02-10-2024 Patient encounter procedure 02/10/2024 9:30 AM EDT Office Visit [facility] [address] [place] [address] Donnell Joyner MD [address] [place] [address] Arrived [facility] Comment on above: Arrived Start: 01-24-2024 End: 01-24-2024 Patient encounter procedure [facility] Start: 01-12-2024 End: 01-12-2024 Patient encounter procedure [facility] Comment on above: Arrived Start: 01-09-2024 COVID-19 Vaccine () COVID-19 Vaccine () [facility] Start: 01-09-2024 COVID-19 Vaccine ( season) COVID-19 Vaccine ( season) [facility] Start: 01-09-2024 Influenza vaccination [facility] Start: 01-05-2024 End: 01-05-2024 Patient encounter procedure 01/05/2024 3:45 PM EDT Procedure [facility] [address] [place] [address] Ty Bartlett DPM [address] [place] [address] Arrived [facility] Comment on above: Arrived Start: 12-29-2023 End: 12-28-2025 NM Heart Perfusion W stress and W radionuclide IV Nuclear Stress Test Cardiac Nuclear Medicine Routine Abnormal EKG Expected: 12/29/2023 (Approximate), Expires: 12/28/2025 [facility] Service Area Work Phone: Comment on above: Expected: 12/29/2023 (Approximate), Expires: 12/28/2025 Start: 12-22-2023 End: 12-22-2023 Patient encounter procedure 12/22/2023 1:20 PM EDT Office Visit [facility] [address] [facility] [address] [place] [phone] Arturo Salazar MD [address] [facility] [address] [place], [place] [id number] [facility] Start: 10-07-2023 DTaP,Tdap and Td Vaccines (2 - Td or Tdap) DTaP,Tdap and Td Vaccines (2 - Td or Tdap) [facility] Start: 08-30-2023 COVID-19 Vaccine ( season) COVID-19 Vaccine ( season) [facility] Start: 08-26-2023 [facility] Start: 08-26-2023 [facility] Start: 07-19-2023 End: 07-19-2023 Patient encounter procedure 07/19/2023 1:00 PM EDT Office Visit [facility] [address] [facility] [address] [place] [address] Donnell Joyner MD [address] [place] [address] [facility] Start: 06-17-2023 End: 06-17-2023 Professional / ancillary services management 06/17/2023 2:00 PM EST Ancillary Procedure [facility] [address] [place] [phone] [facility] Start: 06-16-2023 End: 06-16-2023 Patient encounter procedure 06/16/2023 1:00 PM EST Procedure Visit [facility] [address] [place] [phone] Ty Bartlett DPM [address] [facility] [address] [place] [address] [facility] Start: 2021 RSV High Risk: (Elde rly (60+) or Population) (1 - 1-dose 75+ series) RSV High Risk: (Elderly (60+) or Population) (1 - 1-dose 75+ series) [facility] Start: 10-06-2014 Pneumococcal Vaccine : 65+ Years (2 - PCV) Pneumococcal Vaccine: 65+ Years (2 - PCV) [facility] Start: 10-06-2014 Pneumococcal Vaccine : 65+ Years (2 of 2 - PCV) Pneumococcal Vaccine: 65+ Years (2 of 2 - PCV) [facility] Start: 10-07-2013 DTaP/Tdap/Td Vaccine s (1 - Tdap) DTaP/Tdap/Td Vaccines (1 - Tdap) [facility] Start: 2011 Fall Risk Screening Fall Risk Screen [facility] Start: 2006 RSV patient s and/or patients aged 60+ years (1 - 1-dose 60+ series) RSV patients and/or patients aged 60+ years (1 - 1-dose 60+ series) [facility] Start: 1996 Administration of varicella zoster vaccine Zoster (Shingles) Vaccine (1 of 2) [employer] Start: 1996 Zoster Vaccines (1 of 2) Zoste r Vaccines (1 of 2) [facility] Start: 1968 DTaP/Tdap/Td Vaccine s (1 - Tdap) DTaP/Tdap/Td Vaccines (1 - Tdap) [facility] Start: 1964 Diabetes mellitus screening Diabetes Screening [facility] Start: 1964 Hepatitis C screening Hepatitis C Sc reening [facility] Start: 1958 Depression Screening Depression Scre ening [employer] Start: 1946 Medicare Annual Well ness Visit [facility] Patient referral [facility] Work Phone: Immunizations Immunization Date Immunization Notes Care Provider Fa [facility] 04-30-2023 COVID-19 (MODERNA) 12Y and older II Donnell Joyner Work Phone: [facility] 04-30-2023 influenza virus vacc ine, unspecified formulation Chriss RIBEIRO [facility] 04-30-2023 Influenza, injectabl e, Madin Betsy Canine Kidney, preservative free, quadrivalent Ty Bartlett DPM Work Phone: [facility] 03-04-2022 COVID-19 mRNA Bivale nt Booster (Pfizer) II Donnell Joyner Work Phone: [facility] 03-04-2022 influenza virus vacc ine, unspecified formulation Chriss RIBEIRO [facility] 03-04-2022 influenza, high dose seasonal, preservative-free Ty Bartlett DPM Work Phone: [facility] 03-04-2022 Influenza, Seasonal, Quadrivalent, Adjuvanted Ty Bartlett DPM Work Phone: [facility] 03-04-2022 Moderna SARS-CoV-2 50mcg/0.5mL Booster Ty Bartlett DPM Work Phone: [facility] 04-05-2021 COVID-19 mRNA-1273 (Moderna) II Donnell Joyner Work Phone: [facility] 04-05-2021 influenza virus vacc ine, unspecified formulation Chriss RIBEIRO [facility] 04-05-2021 influenza, high dose seasonal, preservative-free Ty Bartlett DPM Work Phone: [facility] 04-05-2021 Influenza, Seasonal, Quadrivalent, Adjuvanted Ty Bartlett DPM Work Phone: [facility] 04-04-2021 Moderna SARS-CoV-2 Booster Vaccination Ty Bartlett DPM Work Phone: [facility] 08-08-2020 COVID-19 mRNA-1273 (Moderna) II Donnell Joyner Work Phone: [facility] Comment on above: Result Comment: 2023: [id number] 07-11-2020 COVID-19 mRNA-1273 (Moderna) II Donnell Joyner Work Phone: [facility] Comment on above: Result Comment: 2023: [id number] 03-25-2020 influenza virus vacc ine, unspecified formulation Chriss RIBEIRO [facility] 03-25-2020 influenza, injectabl e, quadrivalent, contains preservative Ty Bartlett DPM Work Phone: [facility] 03-11-2020 influenza virus vacc ine, unspecified formulation Chriss RIBEIRO [facility] 02-07-2020 pneumococcal conjuga te vaccine, 13 valent Chriss RIBEIRO [facility] 02-23-2019 influenza virus vacc ine, unspecified formulation Chriss RIBEIRO [facility] 02-23-2019 influenza, high dose seasonal, preservative-free Ty Bartlett DPM Work Phone: [facility] 02-23-2019 Influenza, High-dose Seasonal, Quadrivalent, Preservative Free Ty Bartlett DPM Work Phone: [facility] 02-10-2017 influenza virus vacc ine, unspecified formulation Chriss RIBEIRO [facility] 02-10-2017 influenza, high dose seasonal, preservative-free Ty Bartlett DPM Work Phone: [facility] 02-10-2017 Influenza, High-dose Seasonal, Quadrivalent, Preservative Free Ty Bartlett DPM Work Phone: [facility] 02-07-2015 seasonal influenza, intradermal, preservative free Ty Bartlett DPM Work Phone: [facility] 10-06-2013 pneumococcal polysaccharide vaccine, 23 valent Ty Bartlett DPM Work Phone: [facility] 10-06-2013 tetanus and diphther ia toxoids, adsorbed, preservative free, for adult use (5 Lf of tetanus toxoid and 2 Lf of diphtheria toxoid) Ty Bartlett DPM Work Phone: [facility] Payers Date Payer Category Payer [employer] ( and others) [id number] 07-05-2024 Self-pay [id number] 08-19-2023 [employer] ( and others) [id number] 05-10-2023 For Life (TFL) F OR LIFE [id number] 07-07-2022 [employer] ( and others) [id number] .[id number] 07-07-2022 [employer] ( and others) [id number] 02-23-2013 () 1.2.840.11 4350.1.13.693.2 .[id number] 06-10-2011 Medicare [id number]. 1.13.693.2 .7.3.402730.315 05-10-1959 [employer] ( and others) [id number] 05-10-1959 Medicare [id number] 1946 Unknown [id number] 2.16.840.1.674072.3.579.2 .647 1946 Unknown [id number] 2.16.840.1.403390.3.579.2 .647 1946 Unknown [id number] 2.16.840.1.906975.3.579.2 .593 1946 Unknown [id number] 2.16.840.1.652005.3.579.2 .593 1946 Unknown [id number] 2.16.840.1.819067.3.579.2 .1246 1946 Unknown [id number] 2.16.840.1.179176.3.579.2 .1246 1946 Unknown [id number] 2.16.840.1.783624.3.579.2 .1246 1946 Unknown [id number] 2.16.840.1.074671.3.579.2 .1245 1946 Unknown [id number] 2.16.840.1.855326.3.579.2 .1246 1946 Unknown [id number] 2.16.840.1.326665.3.579.2 .727 1946 Unknown [id number] 2.16.840.1.423934.3.579.2 .727 1946 Unknown [id number] 2.16840.1.701591.3.579.2 .1946 Unknown [id number] 2.16840.1.948140.3.579.2 .1946 Unknown [id number] 2.16840.1.718155.3.579.2 .1946 Unknown [id number] 2.16840.1.007013.3.579.2 .1946 Unknown [id number] 2.16840.1.839648.3.579.2 .1285 1946 Unknown [id number] 2.16840.1.757292.3.579.2 .1285 1946 Unknown [id number] 2.16840.1.478014.3.579.2 .1285 1946 Unknown [id number] 2.16.840.1.952321.3.579.2 .1285 1946 Unknown [id number] 2.16840.1.935863.3.579.2 .1285 1946 Unknown [id number] 2.16.840.1.778833.3.579.2 .1285 1946 Unknown [id number] 2.16840.1.304606.3.579.2 .1286 1946 Unknown [id number] 2.16.840.1.109336.3.579.2 .1286 1946 Unknown [id number] 2.16.840.1.707261.3.579.2 .1286 1946 Unknown [id number] 2.16.840.1.485664.3.579.2 .1286 1946 Unknown [id number] 2.16.840.1.971089.3.579.2 .1286 1946 Unknown [id number] 2.840.1.367660.3.579.2 .128 1946 Unknown [id number] 2.840.1.281110.3.579.2 .128 1946 Unknown [id number] 2.840.1.646616.3.579.2 .128 1946 Unknown [id number] 2.840.1.904498.3.579.2 .1244 1946 Unknown [id number] 2.840.1.948201.3.579.2 .1244 1946 Unknown [id number] 2.840.1.684102.3.579.2 .1244 1946 Unknown [id number] 2.840.1.074800.3.579.2 .1259 1946 Unknown [id number] 2.840.1.161471.3.579.2 .1259 1946 Unknown [id number] 2.16840.1.498342.3.579.2 .1259 1946 Unknown [id number] 2.16840.1.406812.3.579.2 .1259 1946 Unknown [id number] 2.16840.1.799090.3.579.2 .1259 1946 Unknown [id number] 2.16.840.1.598561.3.579.2 .1258 1946 Unknown [id number] 2.16.840.1.538300.3.579.2 .9 1946 Unknown [id number] 2.16.840.1.774239.3.579.2 .1258 1946 Unknown [id number] 2.16.840.1.028209.3.579.2 .1258 1946 Unknown [id number] 2.16.840.1.164100.3.579.2 .1258 1946 Unknown [id number] 2.16.840.1.828484.3.579.2 .1258 1946 Unknown [id number] 2.16.840.1.459050.3.579.2 .1258 1946 Unknown [id number] 2.16.840.1.005887.3.579.2 .1258 1946 Unknown [id number] 2.16.840.1.939533.3.579.2 .1258 1946 Unknown [id number] 2.16.840.1.647066.3.579.2 .1259 Unknown [id number] 2.16.840.1.863713.3.579.2 .531 Unknown [id number] 2.16.840.1.593610.3.579.2 .531 Social History Date Type Detail Facility Start: 12-18-2019 End: 09-29-2022 Tobacco smoking status Never smoked tobacco (finding) [facility] Start: 11-11-2022 End: 05-08-2024 Sex Assigned At Female [facility] Start: 09-29-2022 End: 08-19-2023 Tobacco use and exposure Smokeless tobacco non-user [facility] Start: 06-02-2023 End: 08-31-2024 Alcohol intake Lifetime non-drinker (finding) [facility] Start: 11-11-2022 End: 05-08-2024 History of Social function [facility] Within the last year , have you been afraid of your partner or ex-partner? No [facility] Start: 09-25-2022 In a typical week, how many times do you talk on the telephone with family, friends, or neighbors? Patient refused [facility] Do you belong to any clubs or organizations such as mosque groups, unions, [employer] or athletic groups, or school groups? Yes [facility] Are you now , , , , never or living with a partner? [facility] How often to you hav e a drink containing alcohol? Never [facility] (I/We) worried wheth er (my/our) food would run out before (I/we) got money to buy more. Never true [facility] Start: 1945 Sex Assigned At Female [facility] Start: 09-25-2022 Gender identity Identifies as female gender (finding) [facility] Start: 08-19-2023 End: 12-29-2023 Alcoholic beverage intake Ex-drinker (finding) [facility] Work Phone: Start: 1945 Sex assigned at Not on file [facility] Work Phone: Start: 08-09-2023 End: 07-11-2024 Exposure to SARS-CoV-2 (event) Not sure [facility] Do you feel stress - tense, restless, nervous, or anxious, or unable to sleep at night because your mind is troubled all the time - these days [OSQ] Not at all [facility] Start: 12-13-2014 End: 09-08-2024 Sex Female (finding) [facility] Procedure Code Equipment Code Equipment Origin al Text Equipment Identifier Dates Cystoscopy, with ureteral calculus manipulation and stent placement Polymeric ureteral stent [id number] [facility] Start: 08-26-2023 Goals Date Patient Goal Desired Activity /State Personal health goal Comment on above: Formatting of this n ote might be different from the original. Evaluation of progress towards goal: await diagnostic imaging results Functional Status Date Assessment Result Facility 10-27-2023 Functional Status N/A [facility] [place] 07-19-2023 Functional Status N/A [facility] [place] 01-19-2023 Functional Status N/A [facility] Clinical Notes 01-19-2023 to 09-05-2024 Telephone Encounter - BRIAN Alexander - 09/05/2024 11:11 AM EDTTelephone Encounter - BRIAN Alexander - 09/05/2024 11:11 AM BRIAN Warner - 08/31/2024 1:00 PM EDT Note Date & Type Note Facility 09-05-2024 Telephone encount er Note Her sodium is still low at 128, but did come up a bit after lowering Trileptal, which means that she needs to come off the Trileptal. Can you please call and have her stop taking this? We will recheck sodium in 1 week after her being off, thanks! Lab ordered and ready to be sent to her lab of choice, thanks! [facility] 09-05-2024 Miscellaneous Notes Formattin g of this note might be different from the original. Her sodium is still low at 128, but did come up a bit after lowering Trileptal, which means that she needs to come off the Trileptal. Can you please call and have her stop taking this? We will recheck sodium in 1 week after her being off, thanks! Lab ordered and ready to be sent to her lab of choice, thanks! documented in this encounter [facility] 08-31-2024 History of Presen t illness Narrative Images from the original note were not included. Subjective Nicci Vargas is a 79 y.o. year old female Chief Complaint Patient presents with Tremors Memory Loss Past Medical History: Diagnosis Date Allergies Ankle fracture 2016 LT Ankle fracture, bimalleolar, closed 2018 Rt Bimalleolar Ankle Fracture (12/2018) Anxiety Appendicitis Arthritis Bone/cartilage disorder Disorder of bone and cartilage, unspecified Broken ankle Closed bimalleolar fracture 01/04/2019 Compression fracture of thoracic spine, non-traumatic, sequela 09/28/2022 Depression ([facility]) Fibromyalgia Gallbladder disease Generalized osteoarthrosis, involving multiple sites GERD (gastroesophageal reflux disease) History of being hospitalized Ankle Fracture, ARF 12/2018, UTI, Weakness 04/28/19, UTI, Uncontrolled HTN 07/27/2020 History of being hospitalized 09/06/2020 Acute Metabolic Encephalopathy, Hyponatremia, ALMA History of medical problems Dr Rosas treated for allergies-persistant pruritus/skin test negative Hyperlipidemia ([facility]) IBS (irritable bowel syndrome) Irritable bowel disease Lumbar transverse process fracture, closed, initial encounter ([facility]) 10/14/2023 Memory loss Myalgia Unspecified myalgia and myositis Myositis PATRICA (obstructive sleep apnea) Osteoporosis ([facility]) Pneumonia RLS (restless legs syndrome) Shingles Sprain of anterior talofibular ligament of left ankle 10/14/2023 Thyroid disease ([facility]) UTI (urinary tract infection) Vertigo Vocal cord paralysis, bilateral partial Past Surgical History: Procedure Laterality Date ABDOMINAL SURGERY 2015 I/D abdominal wall abscess E/O sebaceous cyst abdominal wall ANKLE SURGERY 01/24/2019 Removal of Rt Ankle External Fixator APPENDECTOMY 1959 SECTION, LOW TRANSVERSE 1983 CHOLECYSTECTOMY 1993 COLONOSCOPY 2009 CYSTOSCOPY 2016 CYSTOSCOPY 02/03/2018 urethral dilation CYSTOSCOPY W/ URETERAL STENT PLACEMENT Left 08/26/2023 DILATION AND CURETTAGE OF UTERUS 1973 EXTRACORPOREAL SHOCK WAVE LITHOTRIPSY Left 12/17/2022 IR BIOPSY NECK LYMPH NODE 1987 benign LIPOMA RESECTION 1983 MR ANGIOGRAM HEAD WO IV CONTRAST 01/31/2024 MR ANGIOGRAM HEAD WO IV CONTRAST 01/31/2024 MR ANGIOGRAM NECK WO IV CONTRAST 01/31/2024 MR ANGIOGRAM NECK WO IV CONTRAST 01/31/2024 ORIF ANKLE FRACTURE Right 12/23/2018 SHOULDER DEBRIDEMENT Right 2017 scapula TOTAL VAGINAL HYSTERECTOMY 1990 TUBAL LIGATION Bilateral 1983 Family History Problem Relation Name Age of Onset Peripheral vascular disease Mother Mother Coronary artery disease Mother Mother Stroke Mother Mother Heart disease Mother Mother Dementia Father Father Emphysema Father Father Mental illness Father Father Cancer Father Father Hypertension Other Melanoma Neg Hx Social History Tobacco Use Smoking status: Never Smokeless tobacco: Never Substance Use Topics Alcohol use: Never Medication Documentation Review Audit Reviewed by Cely Varma MA (Pad Hand) on 08/31/24 at 1251 Medication Order Taking? Sig Documenting Provider Last Dose Status amLODIPine (Norvasc) 5 MG tablet [id number] No Take 1 tablet (5 mg) by mouth Daily Donnell Joyner MD Taking Active aspirin 81 MG EC tablet [id number] Take 81 mg by mouth in the morning. Active atorvastatin (Lipitor) 40 MG tablet [id number] TAKE 1 TABLET DAILY Donnell Joyner MD Active b complex-vitamin C-vitamin E-zinc (Stress Formula/Zinc) tablet [id number] Take 1 tablet by mouth Daily BRIAN Garcia Active Calcium Citrate-Vitamin D (CALCIUM CITRATE +D PO) [id number] No every 12 (twelve) hours. Historical ProviderMD Taking Active carbidopa-levodopa (Sinemet) 10-100 MG tablet [id number] Take 1 tablet by mouth in the morning and 1 tablet in the evening and 1 tablet before bedtime. BRIAN Alexander 07/29/24 2359 cholecalciferol (Vitamin D-3) 25 MCG (1000 UT) capsule [id number] Take 1,000 Units by mouth Daily BRIAN Garcia Active cyproheptadine (Periactin) 4 MG tablet [id number] TAKE 1 TABLET AT BEDTIME BRIAN Rodrigues Active diphenhydrAMINE (Sominex) 25 MG tablet [id number] Take 50 mg by mouth as needed at bedtime for allergies BRIAN Garcia Active folic acid (Folvite) 1 MG tablet [id number] No Take 1 mg by mouth in the morning. Taking Active gabapentin (Neurontin) 400 MG capsule [id number] TAKE 1 CAPSULE IN THE MORNING AND 1 CAPSULE BEFORE BEDTIME BRIAN Alexander Active Nlnrnxfczli-Syhwwiobo-Cuk C-Mn (GLUCOSAMINE CHONDR 1500 COMPLX PO) [id number] No Take 2 tablets by mouth every 12 (twelve) hours Historical ProviderMD Taking Active ibandronate (Boniva) 150 MG tablet [id number] TAKE 1 TABLET 60 MINUTES BEFORE THE FIRST FOOD, BEVERAGE OR MEDICINE OF THE DAY WITH PLAIN WATER ONCE A MONTH Donnell Joyner MD Active ibuprofen 200 MG tablet [id number] No Take 200 mg by mouth in the morning and 200 mg before bedtime. Taking Active magnesium oxide (Mag-Ox) 400 (240 Mg) MG tablet [id number] TAKE 1 TABLET BY MOUTH THREE DAYS A WEEK BRIAN Garcia Active montelukast (Singulair) 10 MG tablet [id number] No TAKE 1 TABLET DAILY IN THE EVENING Maria T Godfrey NP Taking Active Potrero 3-6-9 Fatty Acids (OMEGA 3-6-9 PO) [id number] No Take 1 capsule by mouth in the morning and 1 capsule before bedtime. Taking Active OXcarbazepine (Trileptal) 300 MG tablet [id number] TAKE 1 TABLET TWICE A DAY BRIAN Alexander Active pantoprazole (ProtoNix) 40 MG EC tablet [id number] TAKE 1 TABLET DAILY Donnell Joyner MD Active potassium chloride CR (Klor-Con M10) 10 MEQ ER tablet [id number] Take 1 tablet (10 mEq) by mouth 3 (three) times a week Do not crush or chew. Donnell Joyner MD Active propranolol LA (Inderal LA) 160 MG 24 hr capsule [id number] No Take 1 capsule (160 mg) by mouth Daily BRIAN Rodrigues Taking Active Trulance tablet tablet [id number] TAKE 1 TABLET IN THE MORNING Donnell Joyner MD Active HPI RLS -she denies issues -wearing compression stockings every day and this helps TREMOR -on Propranolol, Trileptal and Sinemet -tremors are much better -mostly located in hands, shoulders, and arms -admits to hand weakness -difficulty with joss house keeper at times -ambulates with rollating walker -she notes that she also has leg weakness -she denies freezing episodes -denies any falls DIZZINESS -On Cyproheptadine -episodes becoming more constant -described as feeling lightheaded -denies any syncope -denies double vision -denies nausea or vomiting MEMORY/CONFUSION -reports memory has slightly improved and is overall stable -some days are better than others -continues to be more alert -does not sleep at night -naps a lot during the day -denies recent hallucinations -she has a history of PATRICA but does not wear a CPAP NECK/BACK PAIN -on gabapentin and trileptal -increase in pain -feels like it was her entire spine -she was trying to wean down trileptal due to her sodium being low -she is only taking 300mg daily 1/2 in the morning and 1/2 at bedtime Tremors Associated symptoms include fatigue. Memory Loss Associated symptoms include fatigue. ROS Review of Systems Constitutional: Positive for fatigue. Respiratory: Negative. Cardiovascular: Negative. Gastrointestinal: Negative. Musculoskeletal: Positive for back pain and gait problem. Neurological: Positive for dizziness, tremors and light-headedness. Psychiatric/Behavioral: Positive for confusion. Objective Visit Vitals BP 122/60 Ht 5' 5 BMI 31.28 kg/m Smoking Status Never BSA 1.98 m Neurological Exam Mental Status Awake, alert and oriented to person, place and time. Recent and remote memory are intact. Speech is normal. Language is fluent with no aphasia. Attention and concentration are normal. Fund of knowledge is appropriate for level of education. Cranial Nerves CN II: Visual sanz full to confrontation. CN III, IV, : Extraocular movements intact bilaterally. Normal lids and orbits bilaterally. Pupils equal round and reactive to light bilaterally. CN V: Facial sensation is normal. CN VII: Full and symmetric facial movement. CN VIII: Hearing is normal. CN XI: Shoulder shrug strength is normal. Motor Normal muscle bulk throughout. Normal muscle tone. No abnormal involuntary movements. Sensory Light touch is normal in upper and lower extremities. Temperature is normal in upper and lower extremities. Gait Ambulates with a rollator walker . Motor Examination RUE Strength deltoid, biceps, triceps, wrist extensors, wrist extensors, wrist flexor, joss house keeper strength 5/5. LUE Strength deltoid, biceps, triceps, wrist extensors, wrist extensors, wrist flexor, joss house keeper strength 5/5. RLE Strength illopsoas, quadriceps, tibialis anterior, and gastrocnemius strength 5/5. LLE Strength illopsoas, quadriceps, tibialis anterior, and gastrocnemius strength 5/5. Tone Normal tone x4 extremities. Reflexes: RUE biceps reflex 3, brachioradialis reflex 3 LUE biceps reflex 3, brachioradialis reflex 3 RLE knee reflex 3 LLE knee reflex 3 Assessment and Plan Vertigo Dizziness due to vertigo that varies in intensity. Previous VNG was positive for central and peripheral vestibular dysfunction. She had side effects with meclizine. She has some benefit with cyproheptadine. Symptoms continue which may be due to her hyponatremia as well. RLS (restless legs syndrome) Patient was previously taking requip but has stopped taking this. She has had improvement with use of compression stockings. She denies further issues. Myoclonic jerking She experiences RLS at night. Myoclonic jerking intermittently. She was previously treated with Klonopin. She is unsure why this was stopped but her symptoms are controlled. Cervical stenosis of spinal canal She is noted to have hyperreflexia on exam. MRI of the cervical spine revealed multilevel degenerative changes of the cervical spine including disc, facet, and ligamentum flavum degerative changes. Spinal canal stenosis is most pronounced at C4-5 where there is mass effect on the anterior aspect of the cord. Left greater than right neural foraminal narrowing is noted throughout the cervical spine, greatest at C4-5 on the left. She saw Dr. Quintero, and she is not a surgical candidate. She continues with intermittent neck pain and has been on gabapentin. Her balance improved somewhat with Sinemet. Confusion The patient had previous episodes of confusion and frequent UTIs. Her family was noting decline in memory and concern with her confusion. Brain MRI revealed chronic changes. Neuropsychology evaluation revealed nonspecific findings of reduced processing speed and inattention. Otherwise, cognition and memory noted as consistent with her baseline estimated with no compelling evidence of impairment. She was thought to have underlying struggles with attention/concentration related to poor sleep quality and mild anxiety. She likely has confusion worsened by underlying sleep apnea that is not treated. She has episodes where she is suddenly falling asleep likely due to untreated sleep apnea. She does not have tonic clonic type activities. She elected to hold on neuropsychologic evaluation. Labwork 08/25/24 was most notable for sodium of 122. She was called by online marketer physician and her trileptal was cut in half. Tremor Tremor consistent with intention tremor, worsened with holding objects or reaching for something. Treated with propranolol. She is also on gabapentin and trileptal which can occasionally help with tremor. Tremor improved with propranolol increase. She has increase in tremors with weakness, gait instability, memory loss. She denies family history of Parkinson's disease. She does have resting tremor on exam, worse on the right, with slight rigidity noted on exam which raises concern for Parkinsonism. She has responded well to propranolol and Sinemet. Testing review from [facility] in [place] 01/30/[address]: no evidence of an acute intracranial process Brain MRI: No acute intracranial process, signal abnormality left mandibular body, presumably long standing odontogenic disease MRA of the head: unremarkable intracranial internal carotid arteries, left anterior, middle, posterior cerebral arteries. Asymmetrically less pronounced flow related signal within the right A1 FUNMILAYO when compared to the left, symmetric A2 FUNMILAYO flow related signal. Unremarkable vertebral, basilar arteries. MRA of the neck: limited non-contrasted neck MRA, subtle apparent beaded irregularity cervical internal carotid arteries, right more so than left. No acute large vessel occlusion EEG: Carotid ultrasound: minimal plaque with no significant ICA spectral doppler or color flow disturbances Echocardiogram: EF 60-65%, systolic function normal, left ventricle normal in size with mild concentric increased wall thickness/ hypertrophy Brain MRI 09/03/2022: revealed chronic age-related neurodegenerative changes. Neuropsychology evaluation 12/07/2022: revealed nonspecific findings of reduced processing speed and inattention. Otherwise, cognition and memory noted as consistent with her baseline estimated with no compelling evidence of impairment. She was thought to have underlying struggles with attention/concentration related to poor sleep quality and mild anxiety. MRI of the cervical spine: revealed multilevel degenerative changes of the cervical spine including disc, facet, and ligamentum flavum degerative changes. Spinal canal stenosis is most pronounced at C4-5 where there is mass effect on the anterior aspect of the cord. Left greater than right neural foraminal narrowing is noted throughout the cervical spine, greatest at C4-5 on the left. Routine EEG 2019: normal Ambulatory EEG: normal. MRI of the brain 06/2018: revealed no acute process but it did reveal moderate frontal and parietal cortical atrophy. Routine EEG 09/2020: normal. Routine EEG 01/04/2023: normal. MOCA 06/28/2023: 10/19/2022: 11/17/2021: 10/22/2020: 2018: PLAN Labwork reviewed with the patient and daughter. We will recheck sodium and if remains low, she will need to stop Trileptal. She is hesitant about this. I am unsure of her baseline sodium but I did find a lab from 01/2024 of 132. We discsussed possible risks of untreated hyponatremia and that there are also other potential causes but we will start with stopping medication and going from there. Continue Sinemet 10-100mg PO daily for Parkinsonism. Continue Propranolol ER 160mg PO daily for tremor. Continue cyproheptadine 4mg PO at bedtime for vertigo and headache prevention Continue gabapentin 400mg PO BID for neuropathic pain and potentially tremor Continue aspirin 81mg PO daily for secondary stroke prevention I counseled the patient on stroke signs and symptoms and advised the patient to go immediately to the emergency room should these symptoms develop. The patient states understanding. I counseled the patient on fall precautions. I discussed the high risk of trauma and debility associated with falls. Patient verbalized understanding. Follow up in 4 weeks documented in this encounter [facility] 08-15-2024 Evaluation note Diagnosis Onset Date Resolution Acute maxillary sinusitis acute August 15, 2024 2:19pm [facility] Work Phone: 1(154) 504-177503-04-2025 History of Present illness Narrative* Arturo Salazar MD - 07/11/2024 9:50 AM EST Subjective Nicci Vargas is a 79 y.o. female Chief Complaint Follow-up HPI Patient is here for follow-up continue management for recent evaluation for fatigue, tiredness abnormal EKG and shortness of breath. She underwent extensive workup including echocardiogram and stresstest both appears to be normal. Patient reports symptoms of snoring daily naps and she report previous history of sleep apnea but she did not tolerate CPAP. Assessment 1. Recent evaluation for abnormal EKG with recent complaint of fatigue, tiredness and shortness of breath. Patient is moderate risk for ischemic heart disease. Patient unable to perform treadmill stress test. Recent stress test and echocardiogram noted reviewed and reassuring 2. Borderline abnormal EKG showing nonspecific ST-T changes 3. Obesity 4. Mixed hyperlipidemia 5. Essential hypertension 6. Gait and balance difficulties 7. Sleep apnea untreated Plan 1. I reviewed with the patient result of her echo and a stress test 2. Continue to encourage losing weight, exercise and dietary modification 3. I will try to retrieve the result of her sleep apnea we discussed inspire device and surgical intervention for sleep apnea 4. I highly encouraged her to use stationary bike or exercise equipment to assist in improvement ofher functional status and weight loss 5. I will see her back in 8 months Review of Systems Respiratory: Positive for shortness of breath. All other systems reviewed and are negative. Vitals: 07/11/24 1002 BP: 124/70 BP Location: Right arm Patient Position: Sitting Pulse: 60 Weight: 84.8 kg (187 lb) Height: 1.676 m (5' 6 ) Objective Physical Exam Constitutional: Appearance: Normal appearance. [...] Content: Thought content normal. Judgment: Judgment normal. Allergies Acetaminophen, Doxycycline, Iodinated contrast media, Sulfa (sulfonamide antibiotics), and Cephalexin Current Medications Current Outpatient Medications: amLODIPine (Norvasc) 5 mg tablet, Take 1 tablet (5 mg) by mouth once daily., Disp: , Rfl: aspirin 81 mg EC tablet, Take 1 tablet (81 mg) by mouth once daily., Disp: , Rfl: atorvastatin (Lipitor) 40 mg tablet, Take 1 tablet (40 mg) by mouth once daily., Disp: , Rfl: b complex-vitamin c tablet, Take 1 tablet by mouth once daily., Disp: , Rfl: calcium carbonate (Calcium 600) 600 mg calcium (1,500 mg) tablet, Take 600 mg by mouth 2 times a day with meals., Disp: , Rfl: carbidopa-levodopa (Sinemet) 10-100 mg tablet, Take 1 tablet by mouth 3 times a day., Disp: , Rfl: cholecalciferol (Vitamin D-3) 25 MCG (1000 UT) capsule, Take 1 capsule (25 mcg) by mouth once daily., Disp: , Rfl: cyproheptadine (Periactin) 4 mg tablet, Take 1 tablet (4 mg) by mouth once daily at bedtime., Disp:, Rfl: diphenhydrAMINE (BenadryL) 25 mg capsule, Take 1 capsule (25 mg) by mouth 2 times a day as needed for itching., Disp: , Rfl: fish,bora,flax oils-om3,6,9no1 (Potrero 3-6-9) 1,200 mg capsule, Take by mouth., Disp: , Rfl: gabapentin (Neurontin) 400 mg capsule, Take 1 capsule (400 mg) by mouth 2 times a day., Disp: , Rfl: glucosamine-chondroitin 500-400 mg tablet, Take 1 tablet by mouth 2 times a day. (Patient taking differently: Take 2 tablets by mouth 2 times a day.), Disp: , Rfl: ibuprofen 200 mg tablet, Take 1 tablet (200 mg) by mouth every 6 hours if needed for mild pain (1 -3)., Disp: , Rfl: magnesium oxide (Mag-Ox) 400 mg (241.3 mg magnesium) tablet, 1 tablet (400 mg) 3 times a day., Disp: , Rfl: montelukast (Singulair) 10 mg tablet, Take 1 tablet (10 mg) by mouth once daily at bedtime., Disp: , Rfl: omega 7-nrq-rmi-fish oil (Fish OiL) 1,000 mg (120 mg-180 [...] crush, chew, or split., Disp: , Rfl: Assessment/Plan 1. Shortness of breath 2. Hyperlipidemia, unspecified hyperlipidemia type Follow Up In Cardiology 3. Abnormal EKG 4. BMI 30.0-30.9,adult 5. Essential tremor 6. Never smoked tobacco Scribe Attestation By signing my name below, I, Joleen Sandoval LPN , Adilia attest that this documentation has been prepared under the direction and in the presence of MD Patty. Provider Attestation - Scribe documentation All medical record entries made by the Scribe were at my direction and personally dictated by me. Ihave reviewed the chart and agree that the record accurately reflects my personal performance of the history, physical exam, discussion and plan. [facility] Phone: 1(912) 934-924503-04-2025 Instructions* Patient Instructions* Joleen Mathis LPN - 07/11/2024 9:50 AM EST Please bring all medicines, vitamins, and herbal supplements with you when you come to the office. Prescriptions will not be filled unless you are compliant with your follow up appointments or have a follow up appointment scheduled as per instruction of your physician. Refills should be requested at the time of your visit. BMI was above normal measurement. Current weight: 84.8 kg (187 lb) Weight change since last visit (-) denotes wt loss -1.2 lbs Weight loss needed to achieve BMI 25: 32.4 Lbs Weight loss needed to achieve BMI 30: 1.5 Lbs Provided instructions on dietary changes. Retrieve sleep study Follow [facility] Work Phone: 1(981) 297-787801-28-2025 History of Present illness Narrative* BRIAN Garcia - 06/06/2024 1:00 PM EST Images from the original note were not included. Subjective Patient ID: Nicci Vargas is a 78 y.o. female who presents for No chief complaint on file.. Admits does not drink much water. Medicare Wellness Over the past 2 weeks, how often have you been bothered by any of the following problems? Little interest or pleasure in doing things: Not at all Feeling down, depressed, or hopeless: Not at all Patient Health Questionnaire-2 Score: 0 Over the past 2 weeks, how often have you been bothered by any of the following problems? Trouble falling or staying asleep, or sleeping too much: Not at all Feeling tired or having little energy: Not at all Poor appetite or overeating: Not at all Feeling bad about yourself - or that you are a failure or have let yourself or your family down: Not at all Trouble concentrating on things, such as reading the newspaper or watching television: Not at all Moving or speaking so slowly that other people could have noticed? Or the opposite - being so fidgety or restless that you have been moving around a lot more than usual.: Not at all Thoughts that you would be better off or hurting yourself in some way: Not at all Patient Health Questionnaire-9 Score: 0 Hu[place] Fall Risk History of Falling, Immediate or Within 3 Months: No Ambulatory Aid: Crutches/cane/walker Health Risk Assessment Form Do you need help eating, bathing, using the toilet, dressing, or getting around your home?: Yes Can you prepare your own meals?: No Can you do your own housework without help?: No Can you shop for groceries or clothes without help?: No Do you exercise for about 20 minutes 3 or more days a week?: No How confident are you that you can control and manage most of your health problems?: Somewhat confident Can you mange your money, credit cards and accounts, pay bills and taxes?: No Vision Screening: Yes, no gross abnormalities Hearing Screening: Yes, no gross abnormalities Cognitive Screening Self Assessment: No overt cognitive deficiency is apparent by direct observation Three Word Registration: Village, Kitchen, Baby Clock Drawing: Normal Clock - 2 Three Word Recall: 2/3 words correct - 2 Total Score (0-5 Points): 4 Pain Assessment Pain Score: 2 Advance Care Planning Do you have a living will?: Yes Do you have a medical power of iron pellet tester?: Yes Current Outpatient Medications on File Prior to Visit Medication Sig Dispense Refill magnesium oxide (Mag-Ox) 400 (240 Mg) MG tablet TAKE 1 TABLET BY MOUTH THREE DAYS A WEEK amLODIPine (Norvasc) 5 MG tablet Take 1 tablet (5 mg) by mouth Daily 90 tablet 2 aspirin 81 MG EC tablet Take 81 mg by mouth in the morning. atorvastatin (Lipitor) 40 MG tablet TAKE 1 TABLET DAILY 90 tablet 3 b complex-vitamin C-vitamin E-zinc (Stress Formula/Zinc) tablet Take 1 tablet by mouth Daily Calcium Citrate-Vitamin D (CALCIUM CITRATE +D PO) every 12 (twelve) hours. cholecalciferol (Vitamin D-3) 25 MCG (1000 UT) capsule Take 1,000 Units by mouth Daily cyproheptadine (Periactin) 4 MG tablet TAKE 1 TABLET AT BEDTIME 90 tablet 3 diphenhydrAMINE (Sominex) 25 MG tablet Take 50 mg by mouth as needed at bedtime for allergies folic acid (Folvite) 1 MG tablet Take 1 mg by mouth in the morning. gabapentin (Neurontin) 400 MG capsule Take 1 capsule (400 mg) by mouth in the morning and 1 capsule(400 mg) before bedtime. 180 capsule 0 Nfagdpncwlo-Yngtzgxaf-Fra C-Mn (GLUCOSAMINE CHONDR 1500 COMPLX PO) Take 2 tablets by mouth every 12(twelve) hours ibandronate (Boniva) 150 MG tablet TAKE 1 TABLET 60 MINUTES BEFORE THE FIRST FOOD, BEVERAGE OR MEDICINE OF THE DAY WITH PLAIN WATER ONCE A MONTH 3 tablet 3 ibuprofen 200 MG tablet Take 200 mg by mouth in the morning and 200 mg before bedtime. montelukast (Singulair) 10 MG tablet TAKE 1 TABLET DAILY IN THE EVENING 100 tablet 3 Potrero 3-6-9 Fatty Acids (OMEGA 3-6-9 PO) Take 1 capsule by mouth in the morning and 1 capsule before bedtime. OXcarbazepine (Trileptal) 300 MG tablet Take 300 mg by mouth in the morning and 300 mg before bedtime. pantoprazole (ProtoNix) 40 MG EC tablet TAKE 1 TABLET DAILY 90 tablet 3 potassium chloride CR (Klor-Con M10) 10 MEQ ER tablet Take 1 tablet (10 mEq) by mouth 3 (three) times a week Do not crush or chew. (Patient not taking: Reported on 06/06/2024) 36 tablet 3 propranolol LA (Inderal LA) 160 MG 24 hr capsule Take 1 capsule (160 mg) by mouth Daily 90 capsule 3 Trulance tablet tablet TAKE 1 TABLET IN THE MORNING 90 tablet 3 [DISCONTINUED] magnesium oxide (Mag-Ox) 400 mg tablet Take 1 tablet (400 mg) by mouth 3 (three) times a week 36 tablet 3 No current facility-administered medications on file prior to visit. I have reviewed and reconciled the history and medication list with the patient today. Allergies Allergen Reactions Acetaminophen Unknown Caffeine Unknown Doxycycline GI intolerance Iodinated Contrast Media Other Reaction(s): cough/short of breath Sulfa Antibiotics Other Reaction(s): elevated liver enzymes Cephalexin Rash Social History Tobacco Use Smoking status: Never Smokeless tobacco: Never Vaping Use Vaping status: Never Used Substance Use Topics Alcohol use: Never Drug use: Never Family History Problem Relation Name Age of Onset Peripheral vascular disease Mother Mother Coronary artery disease Mother Mother Stroke Mother Mother Heart disease Mother Mother Dementia Father Father Emphysema Father Father Mental illness Father Father Cancer Father Father Hypertension Other Melanoma Neg Hx Past Medical History: Diagnosis Date Allergies Ankle fracture 2016 LT Ankle fracture, bimalleolar, closed 2018 Rt Bimalleolar Ankle Fracture (12/2018) Anxiety Appendicitis Arthritis Bone/cartilage disorder Disorder of bone and cartilage, unspecified Broken ankle Closed bimalleolar fracture 01/04/2019 Compression fracture of thoracic spine, non-traumatic, sequela 09/28/2022 Depression ([facility]) Fibromyalgia Gallbladder disease Generalized osteoarthrosis, involving multiple sites GERD (gastroesophageal reflux disease) History of being hospitalized Ankle Fracture, ARF 12/2018, UTI, Weakness 04/28/19, UTI, Uncontrolled HTN 07/27/2020 History of being hospitalized 09/06/2020 Acute Metabolic Encephalopathy, Hyponatremia, ALMA History of medical problems Dr Rosas treated for allergies-persistant pruritus/skin test negative Hyperlipidemia ([facility]) IBS (irritable bowel syndrome) Irritable bowel disease Lumbar transverse process fracture, closed, initial encounter ([facility]) 10/14/2023 Memory loss Myalgia Unspecified myalgia and myositis Myositis PATRICA (obstructive sleep apnea) Osteoporosis (CMS/HCC) Pneumonia RLS (restless legs syndrome) Shingles Sprain of anterior talofibular ligament of left ankle 10/14/2023 Thyroid disease (CMS/HCC) UTI (urinary tract infection) Vertigo Vocal cord paralysis, bilateral partial Past Surgical History: Procedure Laterality Date ABDOMINAL SURGERY 2015 I/D abdominal wall abscess E/O sebaceous cyst abdominal wall ANKLE SURGERY 01/24/2019 Removal of Rt Ankle External Fixator APPENDECTOMY 1958 SECTION, LOW TRANSVERSE 1983 CHOLECYSTECTOMY 1992 COLONOSCOPY 2009 CYSTOSCOPY 2016 CYSTOSCOPY 02/03/2018 urethral dilation CYSTOSCOPY W/ URETERAL STENT PLACEMENT Left 08/26/2023 DILATION AND CURETTAGE OF UTERUS 1973 EXTRACORPOREAL SHOCK WAVE LITHOTRIPSY Left 12/17/2022 IR BIOPSY NECK LYMPH NODE 1986 benign LIPOMA RESECTION 1982 MR ANGIOGRAM HEAD WO IV CONTRAST 01/31/2024 MR ANGIOGRAM HEAD WO IV CONTRAST 01/31/2024 MR ANGIOGRAM NECK WO IV CONTRAST 01/31/2024 MR ANGIOGRAM NECK WO IV CONTRAST 01/31/2024 ORIF ANKLE FRACTURE Right 12/23/2018 SHOULDER DEBRIDEMENT Right 2017 scapula TOTAL VAGINAL HYSTERECTOMY 1990 TUBAL LIGATION Bilateral 1982 Visit Vitals BP 128/76 Pulse 67 Resp 16 Ht 5' 6 Wt 186 lb 9.6 oz SpO2 95% BMI 30.12 kg/m Smoking Status Never BSA 1.98 m Review of Systems Constitutional: Negative for chills, fatigue and fever. HENT: Positive for congestion and sinus pressure (Mild). Negative for ear pain, rhinorrhea and sorethroat. Eyes: Negative for pain, discharge and visual disturbance. Respiratory: Negative for cough, shortness of breath and wheezing. Cardiovascular: Negative for chest pain, palpitations and leg swelling. Gastrointestinal: Positive for constipation. Negative for abdominal pain, diarrhea, nausea and vomiting. Genitourinary: Negative for difficulty urinating, dysuria and frequency. Musculoskeletal: Positive for arthralgias and back pain. Skin: Negative for rash. Neurological: Positive for weakness. Negative for dizziness and numbness. Psychiatric/Behavioral: Negative for sleep disturbance. The patient is not nervous/anxious. Objective Physical Exam Constitutional: General: She is not in acute distress. Appearance: She is well-developed. She is obese. HENT: Head: Normocephalic and atraumatic. Right Ear: Tympanic membrane and ear canal normal. Left Ear: Tympanic membrane and ear canal normal. Nose: Right Turbinates: Swollen (Mild). Left Turbinates: Swollen (Mild). Comments: Voice is nasal Mouth/Throat: Mouth: Mucous membranes are moist. Pharynx: Posterior oropharyngeal erythema (Mild) and postnasal drip present. Eyes: General: No scleral icterus. Extraocular Movements: Extraocular movements intact. Conjunctiva/sclera: Conjunctivae normal. Pupils: Pupils are equal, round, and reactive to light. Neck: Vascular: No carotid bruit. Cardiovascular: Rate and Rhythm: Normal rate and regular rhythm. Heart sounds: Normal heart sounds. No murmur heard. Pulmonary: Effort: Pulmonary effort is normal. No respiratory distress. Breath sounds: Normal breath sounds. No wheezing, rhonchi or rales. Abdominal: General: Bowel sounds are normal. There is no distension. Palpations: Abdomen is soft. Tenderness: There is no abdominal tenderness. There is no guarding. Musculoskeletal: General: No swelling or deformity. Normal range of motion. Cervical back: Normal range of motion and neck supple. No tenderness. Skin: General: Skin is warm and dry. Capillary Refill: Capillary refill takes less than 2 seconds. Findings: No rash. Neurological: General: No focal deficit present. Mental Status: She is alert and oriented to person, place, and time. Cranial Nerves: No cranial nerve deficit. Sensory: No sensory deficit. Motor: No weakness. Gait: Gait abnormal (Using rollator). Deep Tendon Reflexes: Reflexes normal. Psychiatric: Mood and Affect: Mood normal. Behavior: Behavior normal. Thought Content: Thought content normal. Judgment: Judgment normal. Assessment & Plan 1. Medicare annual wellness visit, subsequent (Primary) Reviewed all relevant preventative screenings with the patient in detail. Medicare Wellness form completed and will be scanned into patient's chart. All needed testing was ordered. Will continue withyearly Medicare Wellness exams. 2. Acute recurrent maxillary sinusitis Start Levofloxacin as prescribed. Stay hydrated, get plenty of rest. Hold Magnesium and Calcium while on the Levofloxacin. - levoFLOXacin (Levaquin) 500 MG tablet; Take 1 tablet (500 mg) by mouth Daily for 10 days Dispense: 10 tablet; Refill: 0 3. ACP (advance care planning) Patient willing to discuss ACP. Pt has Living Will and DPOA in place. 4. Cervical spondylosis with myelopathy This is a chronic medical condition that is stable since last assessment. No changes in treatment are suggested at this time. 5. Chronic pain syndrome The patient is seeing a medical reception for this condition, treatment is deferred to that specialist. Correspondence from that specialist and any available testing were reviewed during today's visit. 6. Confusion The patient is seeing a medical reception for this condition, treatment is deferred to that specialist. Correspondence from that specialist and any available testing were reviewed during today's visit. 7. Essential tremor The patient is seeing a medical reception for this condition, treatment is deferred to that specialist. Correspondence from that specialist and any available testing were reviewed during today's visit. 8. Hypersomnia This is a chronic medical condition that is stable since last assessment. No changes in treatment are suggested at this time. 9. Myoclonic jerking The patient is seeing a medical reception for this condition, treatment is deferred to that specialist. Correspondence from that specialist and any available testing were reviewed during today's visit. 10. PATRICA (obstructive sleep apnea) This is a chronic medical condition that is stable since last assessment. No changes in treatment are suggested at this time. 11. RLS (restless legs syndrome) The patient is seeing a medical reception for this condition, treatment is deferred to that specialist. Correspondence from that specialist and any available testing were reviewed during today's visit. 12. Nodule of lower lobe of right lung Stable on CT of chest from 10/10/2023. Lungs are clear. 13. Abnormal EKG The patient is seeing a medical reception for this condition, treatment is deferred to that specialist. Correspondence from that specialist and any available testing were reviewed during today's visit. 14. Arteriosclerosis of both carotid arteries The patient is seeing a medical reception for this condition, treatment is deferred to that specialist. Correspondence from that specialist and any available testing were reviewed during today's visit. 15. Benign essential hypertension (CMS/HCC) Patient's blood pressure is currently well controlled. Continue with current medications and I willcontinue to monitor. Goal BP remains less than 130/80. 16. Cardiomegaly The patient is seeing a medical reception for this condition, treatment is deferred to that specialist. Correspondence from that specialist and any available testing were reviewed during today's visit. 17. LVH (left ventricular hypertrophy) The patient is seeing a medical reception for this condition, treatment is deferred to that specialist. Correspondence from that specialist and any available testing were reviewed during today's visit. 18. Chronic idiopathic constipation Pt admits she does not drink enough water. Advised how dehydration can worsen constipation. Continue Trulance as prescribed. 19. Gastroesophageal reflux disease without esophagitis This is a chronic medical condition that is stable since last assessment. No changes in treatment are suggested at this time. Continue Pantoprazole as prescribed. 20. Dysphagia, pharyngoesophageal phase This is a chronic medical condition that is stable since last assessment. No changes in treatment are suggested at this time. Continue Pantoprazole as prescribed. 21. Nephrolithiasis Stay hydrated. No pain or symptoms at this time. Will monitor. 22. Age related osteoporosis, unspecified pathological fracture presence (CMS/HCC) This is a chronic medical condition that is stable since last assessment. No changes in treatment are suggested at this time. Will continue to monitor with routine DEXA scans. 23. Fibromyalgia This is a chronic medical condition that is stable since last assessment. No changes in treatment are suggested at this time. 24. Lumbar spondylosis This is a chronic medical condition that is stable since last assessment. No changes in treatment are suggested at this time. 25. Myalgia This is a chronic medical condition that is stable since last assessment. No changes in treatment are suggested at this time. 26. Osteopenia of multiple sites This is a chronic medical condition that is stable since last assessment. No changes in treatment are suggested at this time. Will continue to monitor with routine DEXA scans. 27. Primary localized osteoarthrosis of multiple sites This is a chronic medical condition that is stable since last assessment. No changes in treatment are suggested at this time. 28. Primary osteoarthritis of both knees This is a chronic medical condition that is stable since last assessment. No changes in treatment are suggested at this time. 29. Primary osteoarthritis of right hip This is a chronic medical condition that is stable since last assessment. No changes in treatment are suggested at this time. 30. Temporomandibular joint disorder This is a chronic medical condition that is stable since last assessment. No changes in treatment are suggested at this time. 31. Obesity (BMI 30-39.9) Encouraged portion control, decrease simple sugars and carbohydrates, gradually increase activity level. Aim for gradual steady weight loss. 32. Primary ovarian failure This is a chronic medical condition that is stable since last assessment. No changes in treatment are suggested at this time. Will continue to monitor with routine preventative screenings. 33. Agoraphobia with panic disorder (CMS/HCC) This is a chronic medical condition that is stable since last assessment. No changes in treatment are suggested at this time. 34. Non-seasonal allergic rhinitis due to pollen This is a chronic medical condition that is stable since last assessment. No changes in treatment are suggested at this time. Continue Singulair. 35. Anxiety This is a chronic medical condition that is stable since last assessment. No changes in treatment are suggested at this time. 36. Ataxia The patient is seeing a medical reception for this condition, treatment is deferred to that specialist. Correspondence from that specialist and any available testing were reviewed during today's visit. 37. Attention deficit hyperactivity disorder (ADHD), predominantly inattentive type (CMS/HCC) This is a chronic medical condition that is stable since last assessment. No changes in treatment are suggested at this time. 38. Diplopia The patient is seeing a medical reception for this condition, treatment is deferred to that specialist. Correspondence from that specialist and any available testing were reviewed during today's visit. 39. History of cardiovascular disorder The patient is seeing a medical reception for this condition, treatment is deferred to that specialist. Correspondence from that specialist and any available testing were reviewed during today's visit. 40. History of fall Has a rollator. Rise slowly. Remove obstacles in walkways through home. Avoid use of rugs. 41. History of vertebral fracture This is a chronic medical condition that is stable since last assessment. No changes in treatment are suggested at this time. Continue Vitamin D supplement daily. 42. Pure hypercholesterolemia (CMS/HCC) This is a chronic medical condition that is stable since last assessment. Encouraged healthy diet. Will continue to monitor with routine labs. 43. Hyponatremia Encouraged good fluid/electrolyte balance. Will continue to monitor with routine labs. 44. Jerking The patient is seeing a medical reception for this condition, treatment is deferred to that specialist. Correspondence from that specialist and any available testing were reviewed during today's visit. 45. Memory change The patient is seeing a medical reception for this condition, treatment is deferred to that specialist. Correspondence from that specialist and any available testing were reviewed during today's visit. 46. Other voice and resonance disorders This is a chronic medical condition that is stable since last assessment. No changes in treatment are suggested at this time. Continue allergy medication. 47. Vertigo The patient is seeing a medical reception for this condition, treatment is deferred to that specialist. Correspondence from that specialist and any available testing were reviewed during today's visit. Follow up in about 3 months (around 09/04/2024) for Medication Follow Up. Ana HERNANDEZ, VALENCIA documented in this encounterGolden Valley Memorial [id number] History of Present illness Narrative* Ty Bartlett, JUANM - 04/10/2024 3:15 PM EST Images from the original note were not included. HPI: Patient states that the nails are especially painful with shoe gear and pressure. She states that they has no pain in the feet. There is pain related to the toenails, especially with shoe gear and pressure. They have difficulty with trimming the nails due to trouble reaching them and because of thethickness in the nail. Patient denies being diabetic. Patient has not problems with slow healing wounds or sores on the feet. Patient does have burning, tingling and numbness in the feet. Patient's PCP is Donnell Joyner MD. Date of Last visit: 02/10/24. Pt also has rash on bilateral feet she is concerned about. No pain or itching. No other pedal complaints at this time. Exam: General Examination: GENERAL APPEARANCE: awake, aware of surroundings, in no acute distress FOOT EXAM: 04/10/24 Vascular: DORSALIS PEDIS PULSE: 1/4 bilateral POSTERIOR TIBIAL PULSE: 0/4 bilateral TEMPERATURE GRADIENT: warm to cool EDEMA: to the ankle bilateral CAPILLARY FILLING TIME(sec): capillary fill intact bilateral digits less than 3 secs Neurologic: VIBRATORY: absent to the hallux IPJ bilateral SEMMES-SANJUANITA 5.07 MONOFILAMENT: intact to the plantar ball of the foot and toes Dermatologic: SKIN FINDINGS: normal HYPERKERATOSIS: nonw NAIL PATHOLOGY: digits 1-5 bilateral are intact SKIN PATHOLOGY: thin, decreased hair growth Nail Pathology: Left Foot: 1 (great toe): Long, Thick, Crumbly, Deformed, Discolored, Brittle, Dystrophic 2: Long, Thick 3: Long, Thick 4: Long, Thick 5: Long, Thick Nail Pathology: Right Foot: 1 (great toe): Long, Thick, Crumbly, Deformed, Discolored, Brittle, Dystrophic 2: Long, Thick 3: Long, Thick 4: Long, Thick 5: Long, Thick Orthopedic: FOOT MORPHOLOGY: planus to the bilateral foot JOINT RANGE OF MOTION: without pain to the ankle, subtalar joint, but motion is limited especially to the subtalar joint DEFORMITIES: arch collapse right, hallux valgus right, contracted digits 4 left, 2,3,4 right PAIN ELICITED WITH PALPATION OF: mildly over the hallux nails bilateral MUSCLE STRENGTH: 5/5 for all pedal groups tested Modifier: -: Q8 Assessments: ICD B35.1 - Dermatophytosis of nail: ICD M79.672 - Pain in left foot: ICD M79.671 - Pain in right foot: Treatment Note: ICD B35.1 - Dermatophytosis of nail: 1. Nails were debrided in length and thickness by manual and mechanical means. 2. Advised patient of proper foot care to prevent any future complications including daily monitoring of the feet. 3. RTC: 9-12 weeks or as needed if problems arise as patient would like to continue to come in for routine nail care appointments to prevent future pain and problems developing from the overgrowth ofthe toenails. CPT 56304 Q8 documented in this encounterGolden Valley Memorial [id number] History of Present illness Narrative* BRIAN Rodrigues - 03/06/2024 12:40 PM EDT Subjective Nicci Vargas is a 78 y.o. year old female Chief Complaint Patient presents with Dizziness Tremors Memory Loss Past Medical History: Diagnosis Date Allergies Ankle fracture 2016 LT Ankle fracture, bimalleolar, closed 2018 Rt Bimalleolar Ankle Fracture (12/2018) Anxiety Appendicitis Arthritis Bone/cartilage disorder Disorder of bone and cartilage, unspecified Broken ankle Depression (CMS/HCC) Fibromyalgia Gallbladder disease Generalized osteoarthrosis, involving multiple sites GERD (gastroesophageal reflux disease) History of being hospitalized Ankle Fracture, ARF 12/2018, UTI, Weakness 04/28/19, UTI, Uncontrolled HTN 07/27/2020 History of being hospitalized 09/06/2020 Acute Metabolic Encephalopathy, Hyponatremia, ALMA History of medical problems Dr Rosas treated for allergies-persistant pruritus/skin test negative Hyperlipidemia (CMS/HCC) IBS (irritable bowel syndrome) Irritable bowel disease Memory loss Myalgia Unspecified myalgia and myositis Myositis PATRICA (obstructive sleep apnea) Osteoporosis (CMS/HCC) Pneumonia RLS (restless legs syndrome) Shingles Thyroid disease (CMS/HCC) UTI (urinary tract infection) Vertigo Vocal cord paralysis, bilateral partial Past Surgical History: Procedure Laterality Date ABDOMINAL SURGERY 2015 I/D abdominal wall abscess E/O sebaceous cyst abdominal wall ANKLE SURGERY 01/24/2019 Removal of Rt Ankle External Fixator APPENDECTOMY 1958 SECTION, LOW TRANSVERSE 1983 CHOLECYSTECTOMY 1992 COLONOSCOPY 2009 CYSTOSCOPY 2016 CYSTOSCOPY 02/03/2018 urethral dilation CYSTOSCOPY W/ URETERAL STENT PLACEMENT Left 08/26/2023 DILATION AND CURETTAGE OF UTERUS 1973 EXTRACORPOREAL SHOCK WAVE LITHOTRIPSY Left 12/17/2022 IR BIOPSY NECK LYMPH NODE 1987 benign LIPOMA RESECTION 1982 MR ANGIOGRAM HEAD WO IV CONTRAST 01/31/2024 MR ANGIOGRAM HEAD WO IV CONTRAST 01/31/2024 MR ANGIOGRAM NECK WO IV CONTRAST 01/31/2024 MR ANGIOGRAM NECK WO IV CONTRAST 01/31/2024 ORIF ANKLE FRACTURE Right 12/23/2018 SHOULDER DEBRIDEMENT Right 2017 scapula TOTAL VAGINAL HYSTERECTOMY 1990 TUBAL LIGATION Bilateral 1983 Family History Problem Relation Name Age of Onset Peripheral vascular disease Mother Mother Coronary artery disease Mother Mother Stroke Mother Mother Heart disease Mother Mother Dementia Father Father Emphysema Father Father Mental illness Father Father Cancer Father Father Hypertension Other Melanoma Neg Hx Social History Tobacco Use Smoking status: Never Smokeless tobacco: Never Substance Use Topics Alcohol use: Never Medication Documentation Review Audit Reviewed by Kelsey Dimas MA ([employer]) on 03/06/24 at 1247 Medication Order Taking? Sig Documenting Provider Last Dose Status amLODIPine (Norvasc) 5 MG tablet [id number] No Take 1 tablet (5 mg) by mouth Daily Donnell Joyner MDTaking Active aspirin 81 MG EC tablet [id number] Take 81 mg by mouth in the morning. Active atorvastatin (Lipitor) 40 MG tablet [id number] No TAKE 1 TABLET DAILY Donnell Joyner MD Taking Active Calcium Citrate-Vitamin D (CALCIUM CITRATE +D PO) [id number] No every 12 (twelve) hours. Historical Provider, Taking Active cyproheptadine (Periactin) 4 MG tablet [id number] No Take 1 tablet by mouth at bedtime Historical Provider, Taking Active folic acid (Folvite) 1 MG tablet [id number] No Take 1 mg by mouth in the morning. Taking Active gabapentin (Neurontin) 400 MG capsule [id number] No Take 400 mg by mouth in the morning and 400 mg before bedtime. Historical Provider, Taking Active Lxgdsfjdtqe-Iudfjimeu-Bvg C-Mn (GLUCOSAMINE CHONDR 1500 COMPLX PO) [id number] No Take 2 tablets by mouth every 12 (twelve) hours Historical Provider, Taking Active ibandronate (Boniva) 150 MG tablet [id number] No TAKE 1 TABLET 60 MINUTES BEFORE THE FIRST FOOD, BEVERAGE OR MEDICINE OF THE DAY WITH PLAIN WATER ONCE A MONTH Donnell Joyner MD Taking Active ibuprofen 200 MG tablet [id number] No Take 200 mg by mouth in the morning and 200 mg before bedtime. Taking Active Discontinued 03/02/24 1547 levoFLOXacin (Levaquin) 500 MG tablet [id number] Take 1 tablet (500 mg) by mouth Daily for 10 days Donnell Joyner MD Active magnesium oxide (Mag-Ox) 400 mg tablet [id number] Take 1 tablet (400 mg) by mouth 3 (three) times a week Donnell Joyner MD Active montelukast (Singulair) 10 MG tablet [id number] No TAKE 1 TABLET DAILY IN THE EVENING Maria T Godfrey NP Taking Active Potrero 3-6-9 Fatty Acids (OMEGA 3-6-9 PO) [id number] No Take 1 capsule by mouth in the morning and 1 capsule before bedtime. Taking Active OXcarbazepine (Trileptal) 300 MG tablet [id number] No Take 300 mg by mouth in the morning and 300 mg before bedtime. Historical Provider, Taking Active pantoprazole (ProtoNix) 40 MG EC tablet [id number] No TAKE 1 TABLET DAILY Donnell Joyner MD Taking Active plecanatide (Trulance) tablet tablet [id number] No Take 1 tablet (3 mg) by mouth in the morning. Maria T Godfrey NP Taking Active potassium chloride CR (Klor-Con M10) 10 MEQ ER tablet [id number] Take 1 tablet (10 mEq) by mouth 3 (three) times a week Do not crush or chew. Donnell Joyner MD Active propranolol LA (Inderal LA) 160 MG 24 hr capsule [id number] No Take 1 capsule (160 mg) by mouth DailyBRIAN Rodrigues Taking Active HPI RLS -she denies any issues -wearing compression stockings every day and this helps TREMOR -on Propranolol -tremors are the same, denies worsening -located in hands, shoulders, and arms -left side a little worse than right -admits to hand weakness -difficulty with joss house keeper at times -balance is improving -ambulates with rollating walker DIZZINESS -continues to have daily episodes of dizziness -episodes come and go throughout the day -described as feeling lightheaded -denies any syncope -reports double vision -states her vision is getting more narrow -denies nausea or vomiting -denies any headaches MEMORY/CONFUSION -reports memory has slightly improved -some days are better than others -continues to be more alert -sleeping well at night -admits vivid dreams -states she gets most of her sleep during the day NECK/BACK PAIN -on gabapentin and trileptal -she states the pain has not been bad -no problems, stable ROS Review of Systems Constitutional: Positive for fatigue. Respiratory: Negative. Cardiovascular: Negative. Gastrointestinal: Negative. Musculoskeletal: Positive for gait problem. Neurological: Positive for dizziness, tremors and light-headedness. Psychiatric/Behavioral: Positive for confusion. Objective Visit Vitals BP 148/82 Pulse 62 Resp 16 Ht 5' 6 Wt 186 lb SpO2 98% BMI 30.02 kg/m Smoking Status Never BSA 1.98 m Neurological Exam Mental Status Awake, alert and oriented to person, place and time. Recent and remote memory are intact. Speech isnormal. Language is fluent with no aphasia. Attention and concentration are normal. Fund of knowledge is appropriate for level of education. Cranial Nerves CN II: Visual acuity is normal. Visual sanz full to confrontation. CN III, IV, : Extraocular movements intact bilaterally. Normal lids and orbits bilaterally. Pupils equal round and reactive to light bilaterally. CN V: Facial sensation is normal. CN VII: Full and symmetric facial movement. CN VIII: Hearing is normal. CN XI: Shoulder shrug strength is normal. Motor Normal muscle bulk throughout. Normal muscle tone. No abnormal involuntary movements. Sensory Light touch is normal in upper and lower extremities. Temperature is normal in upper and lower extremities. Gait Ambulates with a rollator walker . Motor Examination RUE Strength deltoid, biceps, triceps, wrist extensors, wrist extensors, wrist flexor, joss house keeper strength 5/5. LUE Strength deltoid, biceps, triceps, wrist extensors, wrist extensors, wrist flexor, joss house keeper strength 5/5. RLE Strength illopsoas, quadriceps, tibialis anterior, and gastrocnemius strength 5/5. LLE Strength illopsoas, quadriceps, tibialis anterior, and gastrocnemius strength 5/5. Tone Normal tone x4 extremities. Reflexes: RUE biceps reflex 3, brachioradialis reflex 3 LUE biceps reflex 3, brachioradialis reflex 3 RLE knee reflex 3 LLE knee reflex 3 Assessment and Plan Diagnoses and all orders for this visit: Vertigo Dizziness due to vertigo that varies in intensity. Previous VNG was positive for central and peripheral vestibular dysfunction. She had side effects with meclizine. She has some benefit with cyproheptadine. Symptoms continue but are less with medication. Stable with no recent falls. RLS (restless legs syndrome) Patient was previously taking requip but has stopped taking this. She has had improvement with use of compression stockings. At baseline. Myoclonic jerking She experiences RLS at night. Myoclonic jerking intermittently. She was previously treated with Klonopin. Cervical stenosis of spinal canal She is noted to have hyperreflexia on exam. MRI of the cervical spine revealed multilevel degenerative changes of the cervical spine including disc, facet, and ligamentum flavum degerative changes. Spinal canal stenosis is most pronounced at C4-5 where there is mass effect on the anterior aspect ofthe cord. Left greater than right neural foraminal narrowing is noted throughout the cervical spine, greatest at C4-5 on the left. She saw Dr. Quintero, and she is not a surgical candidate. She continues with intermittent neck pain and has been on gabapentin. Continues with balance problem but no recent falls. Confusion The patient had previous episodes of confusion and frequent UTIs. Her family was noting decline in memory and concern with her confusion. Brain MRI revealed chronic changes. Neuropsychology evaluation revealed nonspecific findings of reduced processing speed and inattention. Otherwise, cognition and memory noted as consistent with her baseline estimated with no compelling evidence of impairment. She was thought to have underlying struggles with attention/concentration related to poor sleep quality and mild anxiety. She likely has confusion worsened by underlying sleep apnea. Tremor Tremor consistent with intention tremor, worsened with holding objects or reaching for something. Treated with propranolol. She is also on gabapentin and trileptal which can occasionally help with tremor. Tremor improved with propranolol increase. Overall at baseline. Weakness of both lower extremities She notes continued weakness but is not worsening. Ambulates with a walker or wheelchair and has been counseled on fall precautions. Testing review from [facility] in [place] 01/30/[address]: no evidence of an acute intracranial process Brain MRI: No acute intracranial process, signal abnormality left mandibular body, presumably long standing odontogenic disease MRA of the head: unremarkable intracranial internal carotid arteries, left anterior, middle, posterior cerebral arteries. Asymmetrically less pronounced flow related signal within the right A1 FUNMILAYO when compared to the left, symmetric A2 FUNMILAYO flow related signal. Unremarkable vertebral, basilar arteries. MRA of the neck: limited non-contrasted neck MRA, subtle apparent beaded irregularity cervical internal carotid arteries, right more so than left. No acute large vessel occlusion EEG: Carotid ultrasound: minimal plaque with no significant ICA spectral doppler or color flow disturbances Echocardiogram: EF 60-65%, systolic function normal, left ventricle normal in size with mild concentric increased wall thickness/ hypertrophy Brain MRI 09/03/2022: revealed chronic age-related neurodegenerative changes. Neuropsychology evaluation 12/07/2022: revealed nonspecific findings of reduced processing speed andinattention. Otherwise, cognition and memory noted as consistent with her baseline estimated with no compelling evidence of impairment. She was thought to have underlying struggles with attention/conc entration related to poor sleep quality and mild anxiety. MRI of the cervical spine: revealed multilevel degenerative changes of the cervical spine includingdisc, facet, and ligamentum flavum degerative changes. Spinal canal stenosis is most pronounced at C4-5 where there is mass effect on the anterior aspect of the cord. Left greater than right neural foraminal narrowing is noted throughout the cervical spine, greatest at C4-5 on the left. Routine EEG 2019: normal Ambulatory EEG: normal. MRI of the brain 06/2018: revealed no acute process but it did reveal moderate frontal and parietal cortical atrophy. Routine EEG 09/2020: normal. Routine EEG 01/04/2023: normal. MOCA 06/28/2023: 10/19/2022: 11/17/2021: 10/22/2020: 2019: PLAN Continue Propranolol ER 160mg PO daily for tremor Continue Trileptal 300mg PO BID for neuropathic pain and potentially tremor Continue cyproheptadine 4mg PO at bedtime for vertigo and headache prevention Continue gabapentin 400mg PO BID for neuropathic pain and potentially tremor Continue aspirin 81mg PO daily for secondary stroke prevention I counseled the patient on fall precautions Testing reviewed from [facility] documented in this encounterGolden [facility] [id number] History of Present illness Narrative* Brian Stark, EARLY CHILDHOOD SPECIAL EDUCATOR-LEAD SOFTWARE ENGINEER - 03/02/2024 1:50 PM EDT Images from the original note were not included. Skin Check Location: Patient requests a full body skin examination Dermatologic history: no history of skin cancer, no history of atypical moles Last visit: 1 year ago Established patient Lesions: Location: back Duration: months Quality: itchy Modifying factors: aggravated by picking Associated symptoms: rough Treatments: none All pertinent medical history, medications, and allergies were reviewed. General Exam: alert, oriented to person, place, and time, normal affect, well appearing Unaccompanied Scalp, Examined Right leg Examined Head, Face Examined Left leg Examined Neck Examined Right foot Examined Chest Examined Left foot Examined Back Examined Buttocks Examined Abdomen Examined Digits,nails: Examined Right arm Examined Left arm Examined Lymphatics: Not examined Hands Examined 1. Seborrheic keratosis Stuck on verrucous, variably pigmented papules and plaques. Patient was counseled regarding these benign growths. Removal is normally not necessary, but they may be removed if they are symptomatic or for cosmetic reasons. 2. Melanocytic nevus of trunk Scattered benign appearing, regular brown to light brown melanocytic papules and macules with similar morphology Counseled regarding these benign growths. Rarely, a nevus can develop into malignant melanoma, so any changing nevi should be promptly re-evaluated. 3. Epidermal inclusion cyst Right Upper Back Erythematous, subcutaneous nodule Patient was counseled regarding cysts. Although benign, cysts often slowly enlarge and can occasionally become inflamed. Discussed the only way to definitively diagnose the lesion would be to have itremoved and tested. Discussed treatment options including observation vs. excision. Patient elected for excision. Refer to Dr. Walker for removal Related Procedures Ambulatory referral to Plastic Surgery 4. Mcrae angioma Abdomen (Lower Torso, Anterior) Scattered mcrae-red papule(s). The patient was informed that angiomas are benign growths on the the skin. No treatment is necessary. Next Visit: 1 year documented in this encounterGolden Valley Memorial [id number] History of Present illness Narrative* Donnell Joyner MD - 02/10/2024 9:30 AM EDT Images from the original note were not included. HPI Follow-up Additional comments: Admitted to [facility] 01/30/24 dx: facial droop/weakness discharged home 02/01/24 homehealth ordered has appt with neuro 03/06/24 Constipation Additional comments: Pt is taking trulance and also taking otc colace not working as well as it waspt ? If there are any other suggestions to help Last edited by Val Foy LPN on 02/10/2024 9:22 AM. Subjective Patient ID: Nicci Vargas is a 78 y.o. female who presents for Follow-up (Admitted to [facility] 01/30/24 dx: facial droop/weakness discharged home 02/01/24 home health ordered has appt with neuro 03/06/24) and Constipation (Pt is taking trulance and also taking otc colace not working as well as it was pt ? If there are any other suggestions to help). Flowsheet Row Patient Outreach from 02/03/2024 in [facility] [employer] [facility] with Sarah Quezada LPN Hospital Information Diagnosis facial droop, left leg weakness, Benign HTN, tremors, fibromyalgia, PATRICA, Anxitey Discharge Date 02/01/24 Discharged To: Home Setting Discharge Hospital [facility] Engagement Call Start Time 1128 Admission Date 01/30/24 Medications Discharge medications reviewed and reconciled from hospital? Yes Is the patient having any side effects they believe may be caused by any medication additions or changes? No Does the patient have all medications ordered at discharge? Yes [Spouse states he is getting Vit D 3 at store as she has 2000 units in home and she needs to be on 1000 units.] Is the patient taking all medications as directed (includes completed medication regime)? Yes Appointments Does the patient have a primary care provider? Yes Has the patient kept scheduled appointments due by today? Yes Self Management Patient Teaching Does the patient have access to their discharge instructions? Yes What is the patient's perception of their health status since discharge? Improving Is the patient/caregiver able to teach back the hierarchy of who to call/visit for symptoms/problems? PCP, Specialist, Home Health nurse, Urgent Care, ED, 911 Yes Wrap Up Is the patient/caregiver familiar with Advance Care Planning? No Would the patient like more information on Advance Care Planning? No Wrap Up Additional Comments Phoned pt today and spoke with spouse. He shares she is doing well, he was able to get the folic acid and is going to get the vit C3 1000 units. Call End Time 1139 Pt feels she is not drinking enough water daily she is doing home PT Constipation Current Outpatient Medications on File Prior to Visit Medication Sig Dispense Refill amLODIPine (Norvasc) 5 MG tablet Take 1 tablet (5 mg) by mouth Daily 90 tablet 2 aspirin 81 MG EC tablet Take 81 mg by mouth in the morning. atorvastatin (Lipitor) 40 MG tablet TAKE 1 TABLET DAILY 90 tablet 3 Calcium Citrate-Vitamin D (CALCIUM CITRATE +D PO) every 12 (twelve) hours. cyproheptadine (Periactin) 4 MG tablet Take 1 tablet by mouth at bedtime folic acid (Folvite) 1 MG tablet Take 1 mg by mouth in the morning. gabapentin (Neurontin) 400 MG capsule Take 400 mg by mouth in the morning and 400 mg before bedtime. Wvlcfxlacbm-Kemmrrnwl-Aco C-Mn (GLUCOSAMINE CHONDR 1500 COMPLX PO) Take 2 tablets by mouth every 12(twelve) hours ibandronate (Boniva) 150 MG tablet TAKE 1 TABLET 60 MINUTES BEFORE THE FIRST FOOD, BEVERAGE OR MEDICINE OF THE DAY WITH PLAIN WATER ONCE A MONTH 3 tablet 3 ibuprofen 200 MG tablet Take 200 mg by mouth in the morning and 200 mg before bedtime. montelukast (Singulair) 10 MG tablet TAKE 1 TABLET DAILY IN THE EVENING 100 tablet 3 Potrero 3-6-9 Fatty Acids (OMEGA 3-6-9 PO) Take 1 capsule by mouth in the morning and 1 capsule before bedtime. OXcarbazepine (Trileptal) 300 MG tablet Take 300 mg by mouth in the morning and 300 mg before bedtime. pantoprazole (ProtoNix) 40 MG EC tablet TAKE 1 TABLET DAILY 100 tablet 3 plecanatide (Trulance) tablet tablet Take 1 tablet (3 mg) by mouth in the morning. 90 tablet 3 propranolol LA (Inderal LA) 160 MG 24 hr capsule Take 1 capsule (160 mg) by mouth Daily 90 capsule 3 [DISCONTINUED] levoFLOXacin (Levaquin) 500 MG tablet Take 1 tablet (500 mg) by mouth Daily for 10 days 10 tablet 0 No current facility-administered medications on file prior to visit. I have reviewed and reconciled the history and medication list with the patient today. Allergies Allergen Reactions Acetaminophen Unknown Caffeine Unknown Doxycycline GI intolerance Iodinated Contrast Media Other Reaction(s): cough/short of breath Sulfa Antibiotics Other Reaction(s): elevated liver enzymes Cephalexin Rash Social History Tobacco Use Smoking status: Never Smokeless tobacco: Never Vaping Use Vaping status: Never Used Substance Use Topics Alcohol use: Never Drug use: Never Family History Problem Relation Name Age of Onset Peripheral vascular disease Mother Mother Coronary artery disease Mother Mother Stroke Mother Mother Heart disease Mother Mother Dementia Father Father Emphysema Father Father Mental illness Father Father Cancer Father Father Hypertension Other Melanoma Neg Hx Past Medical History: Diagnosis Date Allergies Ankle fracture 2016 LT Ankle fracture, bimalleolar, closed 2018 Rt Bimalleolar Ankle Fracture (12/2018) Anxiety Appendicitis Arthritis Bone/cartilage disorder Disorder of bone and cartilage, unspecified Broken ankle Depression (CMS/HCC) Fibromyalgia Gallbladder disease Generalized osteoarthrosis, involving multiple sites GERD (gastroesophageal reflux disease) History of being hospitalized Ankle Fracture, ARF 12/2018, UTI, Weakness 04/28/19, UTI, Uncontrolled HTN 07/27/2020 History of being hospitalized 09/06/2020 Acute Metabolic Encephalopathy, Hyponatremia, ALMA History of medical problems Dr Rosas treated for allergies-persistant pruritus/skin test negative Hyperlipidemia (CMS/HCC) IBS (irritable bowel syndrome) Irritable bowel disease Memory loss Myalgia Unspecified myalgia and myositis Myositis PATRICA (obstructive sleep apnea) Osteoporosis (CMS/HCC) Pneumonia RLS (restless legs syndrome) Shingles Thyroid disease (CMS/HCC) UTI (urinary tract infection) Vertigo Vocal cord paralysis, bilateral partial Past Surgical History: Procedure Laterality Date ABDOMINAL SURGERY 2015 I/D abdominal wall abscess E/O sebaceous cyst abdominal wall ANKLE SURGERY 01/24/2019 Removal of Rt Ankle External Fixator APPENDECTOMY 9 SECTION, LOW TRANSVERSE 1983 CHOLECYSTECTOMY 1992 COLONOSCOPY 2009 CYSTOSCOPY 2016 CYSTOSCOPY 02/03/2018 urethral dilation CYSTOSCOPY W/ URETERAL STENT PLACEMENT Left 08/26/2023 DILATION AND CURETTAGE OF UTERUS 1973 EXTRACORPOREAL SHOCK WAVE LITHOTRIPSY Left 12/17/2022 IR BIOPSY NECK LYMPH NODE 1986 benign LIPOMA RESECTION 1982 MR ANGIOGRAM HEAD WO IV CONTRAST 01/31/2024 MR ANGIOGRAM HEAD WO IV CONTRAST 01/31/2024 MR ANGIOGRAM NECK WO IV CONTRAST 01/31/2024 MR ANGIOGRAM NECK WO IV CONTRAST 01/31/2024 ORIF ANKLE FRACTURE Right 12/23/2018 SHOULDER DEBRIDEMENT Right 2017 scapula TOTAL VAGINAL HYSTERECTOMY 1990 TUBAL LIGATION Bilateral 1983 Visit Vitals BP 132/76 Pulse 72 Ht 5' 5 Wt 188 lb SpO2 94% BMI 31.28 kg/m Smoking Status Never BSA 1.98 m Review of Systems HENT: Positive for rhinorrhea and sinus pressure. Gastrointestinal: Positive for constipation. Neurological: Positive for weakness. Objective Physical Exam Constitutional: General: She is not in acute distress. Appearance: Normal appearance. She is well-developed. HENT: Head: Normocephalic and atraumatic. Right Ear: Tympanic membrane and ear canal normal. Left Ear: Tympanic membrane and ear canal normal. Nose: Congestion present. Mouth/Throat: Mouth: Mucous membranes are moist. Pharynx: Posterior oropharyngeal erythema present. Eyes: General: No scleral icterus. Conjunctiva/sclera: Conjunctivae normal. Neck: Thyroid: No thyromegaly. Cardiovascular: Rate and Rhythm: Normal rate and regular rhythm. Heart sounds: Normal heart sounds. No murmur heard. Pulmonary: Effort: Pulmonary effort is normal. No respiratory distress. Breath sounds: Normal breath sounds. No wheezing, rhonchi or rales. Lymphadenopathy: Cervical: No cervical adenopathy. Skin: General: Skin is warm and dry. Comments: Tumor on back as shown Neurological: General: No focal deficit present. Mental Status: She is alert and oriented to person, place, and time. Gait: Gait abnormal. Psychiatric: Mood and Affect: Mood normal. Behavior: Behavior normal. Assessment/Plan Diagnoses and all orders for this visit: RIND (reversible ischemic neurologic deficit) ([facility]) - The patient was seen today in follow up of recent hospital stay. All available hospital records were reviewed and discussed with the patient. Hospital discharge meds were reviewed. Any changes are noted above. She has upcoming appt with Neurology, is on asa and Lipitor, Doing PT. MRI was negativefor stroke, but symptoms suggested stroke type impairment. Acute non-recurrent sinusitis, unspecified location - levoFLOXacin (Levaquin) 500 MG tablet; Take 1 tablet (500 mg) by mouth Daily for 10 days Irritable bowel syndrome with both constipation and diarrhea - potassium chloride CR (Klor-Con M10) 10 MEQ ER tablet; Take 1 tablet (10 mEq) by mouth 3 (three) times a week Do not crush or chew. - magnesium oxide (Mag-Ox) 400 mg tablet; Take 1 tablet (400 mg) by mouth 3 (three) times a week Follow up for As Previously Scheduled. documented in this encounterGolden Valley Memorial [id number] History of Present illness Narrative* Donnell Joyner MD - 01/12/2024 1:45 PM EDT Images from the original note were not included. Subjective Patient ID: Nicci Vargas is a 78 y.o. female who presents for Hypertension. Hypertension Patient is here for follow-up of elevated blood pressure. She is not exercising Cardiac symptoms: none. Patient denies chest pain, claudication, irregular heart beat, near-syncope, orthopnea, palpitations, paroxysmal nocturnal dyspnea, syncope, and tachypnea. Use of agents associated with hypertension: none. Hypertension Pertinent negatives include no chest pain, palpitations or shortness of breath. Current Outpatient Medications on File Prior to Visit Medication Sig Dispense Refill amLODIPine (Norvasc) 5 MG tablet Take 1 tablet (5 mg) by mouth Daily 30 tablet 2 atorvastatin (Lipitor) 40 MG tablet TAKE 1 TABLET DAILY 90 tablet 3 Calcium Citrate-Vitamin D (CALCIUM CITRATE +D PO) every 12 (twelve) hours. cyproheptadine (Periactin) 4 MG tablet Take 1 tablet by mouth at bedtime gabapentin (Neurontin) 400 MG capsule Take 400 mg by mouth in the morning and 400 mg before bedtime. Thnxozxkday-Ubqhexqry-Dst C-Mn (GLUCOSAMINE CHONDR 1500 COMPLX PO) Take 2 tablets by mouth every 12(twelve) hours ibandronate (Boniva) 150 MG tablet TAKE 1 TABLET 60 MINUTES BEFORE THE FIRST FOOD, BEVERAGE OR MEDICINE OF THE DAY WITH PLAIN WATER ONCE A MONTH 3 tablet 3 ibuprofen 200 MG tablet Take 200 mg by mouth in the morning and 200 mg before bedtime. montelukast (Singulair) 10 MG tablet TAKE 1 TABLET DAILY IN THE EVENING 100 tablet 3 Potrero 3-6-9 Fatty Acids (OMEGA 3-6-9 PO) Take 1 capsule by mouth in the morning and 1 capsule before bedtime. OXcarbazepine (Trileptal) 300 MG tablet Take 300 mg by mouth in the morning and 300 mg before bedtime. pantoprazole (ProtoNix) 40 MG EC tablet TAKE 1 TABLET DAILY 100 tablet 3 plecanatide (Trulance) tablet tablet Take 1 tablet (3 mg) by mouth in the morning. 90 tablet 3 propranolol LA (Inderal LA) 160 MG 24 hr capsule Take 1 capsule (160 mg) by mouth Daily 90 capsule 3 No current facility-administered medications on file prior to visit. I have reviewed and reconciled the history and medication list with the patient today. Allergies Allergen Reactions Acetaminophen Unknown Caffeine Unknown Doxycycline GI intolerance Iodinated Contrast Media Other Reaction(s): cough/short of breath Sulfa Antibiotics Other Reaction(s): elevated liver enzymes Cephalexin Rash Social History Tobacco Use Smoking status: Never Smokeless tobacco: Never Vaping Use Vaping status: Never Used Substance Use Topics Alcohol use: Never Drug use: Never Family History Problem Relation Name Age of Onset Peripheral vascular disease Mother Mother Coronary artery disease Mother Mother Stroke Mother Mother Heart disease Mother Mother Dementia Father Father Emphysema Father Father Mental illness Father Father Cancer Father Father Hypertension Other Melanoma Neg Hx Past Medical History: Diagnosis Date Allergies Ankle fracture 2016 LT Ankle fracture, bimalleolar, closed 2018 Rt Bimalleolar Ankle Fracture (12/2018) Anxiety Appendicitis Arthritis Bone/cartilage disorder Disorder of bone and cartilage, unspecified Broken ankle Depression (CMS/HCC) Fibromyalgia Gallbladder disease Generalized osteoarthrosis, involving multiple sites GERD (gastroesophageal reflux disease) History of being hospitalized Ankle Fracture, ARF 12/2018, UTI, Weakness 04/28/19, UTI, Uncontrolled HTN 07/27/2020 History of being hospitalized 09/06/2020 Acute Metabolic Encephalopathy, Hyponatremia, ALMA History of medical problems Dr Rosas treated for allergies-persistant pruritus/skin test negative Hyperlipidemia (CMS/HCC) IBS (irritable bowel syndrome) Irritable bowel disease Memory loss Myalgia Unspecified myalgia and myositis Myositis PATRICA (obstructive sleep apnea) Osteoporosis (CMS/HCC) Pneumonia RLS (restless legs syndrome) Shingles Thyroid disease (CMS/HCC) UTI (urinary tract infection) Vertigo Vocal cord paralysis, bilateral partial Past Surgical History: Procedure Laterality Date ABDOMINAL SURGERY 2015 I/D abdominal wall abscess E/O sebaceous cyst abdominal wall ANKLE SURGERY 01/24/2019 Removal of Rt Ankle External Fixator APPENDECTOMY 1958 SECTION, LOW TRANSVERSE 1983 CHOLECYSTECTOMY 1992 COLONOSCOPY 2009 CYSTOSCOPY 2015 CYSTOSCOPY 02/03/2018 urethral dilation CYSTOSCOPY W/ URETERAL STENT PLACEMENT Left 08/26/2023 DILATION AND CURETTAGE OF UTERUS 1973 EXTRACORPOREAL SHOCK WAVE LITHOTRIPSY Left 12/17/2022 IR BIOPSY NECK LYMPH NODE 1987 benign LIPOMA RESECTION 1983 ORIF ANKLE FRACTURE Right 12/23/2018 SHOULDER DEBRIDEMENT Right 2017 scapula TOTAL VAGINAL HYSTERECTOMY 1990 TUBAL LIGATION Bilateral 1983 Visit Vitals BP 120/50 Pulse 76 Ht 5' 5 Wt 180 lb SpO2 95% BMI 29.95 kg/m Smoking Status Never BSA 1.93 m Review of Systems HENT: Positive for sinus pressure, sore throat and voice change. Respiratory: Positive for cough. Negative for shortness of breath. Cardiovascular: Negative for chest pain and palpitations. Objective Physical Exam Constitutional: General: She is not in acute distress. Appearance: Normal appearance. She is well-developed. HENT: Head: Normocephalic and atraumatic. Right Ear: Tympanic membrane and ear canal normal. Left Ear: Tympanic membrane and ear canal normal. Nose: Congestion present. Mouth/Throat: Mouth: Mucous membranes are moist. Pharynx: Posterior oropharyngeal erythema present. Eyes: General: No scleral icterus. Conjunctiva/sclera: Conjunctivae normal. Neck: Thyroid: No thyromegaly. Cardiovascular: Rate and Rhythm: Normal rate and regular rhythm. Heart sounds: Normal heart sounds. No murmur heard. Pulmonary: Effort: Pulmonary effort is normal. No respiratory distress. Breath sounds: Normal breath sounds. No wheezing, rhonchi or rales. Lymphadenopathy: Cervical: No cervical adenopathy. Skin: General: Skin is warm and dry. Comments: Tumor on back as shown Neurological: General: No focal deficit present. Mental Status: She is alert and oriented to person, place, and time. Psychiatric: Mood and Affect: Mood normal. Behavior: Behavior normal. Assessment/Plan Diagnoses and all orders for this visit: Benign essential hypertension (CMS/HCC) - Improved with Amlodipine. Nodule of lower lobe of right lung Chronic kidney disease, stage 3a (N18.31) Acute non-recurrent sinusitis, unspecified location - levoFLOXacin (Levaquin) 500 MG tablet; Take 1 tablet (500 mg) by mouth Daily for 10 days Chronic kidney disease, stage 3b (HCC) (CMS/HCC) 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 skin (CMS/HCC) Follow up in about 4 months (around 05/13/2024) for Routine F/U. documented in this encounterGolden Valley [facility] [id number] History of Present illness Narrative* Ty Bartlett DPM - 01/05/2024 3:45 PM EDT Images from the original note were not included. HPI: Patient states that the nails are especially painful with shoe gear and pressure. She states that they has no pain in the feet. There is pain related to the toenails, especially with shoe gear and pressure. They have difficulty with trimming the nails due to trouble reaching them and because of thethickness in the nail. Patient denies being diabetic. Patient has not problems with slow healing wounds or sores on the feet. Patient does have burning, tingling and numbness in the feet. Patient's PCP is Donnell Joyner MD. Date of Last visit: 10/13/23. Pt also has rash on bilateral feet she is concerned about. No pain or itching. No other pedal complaints at this time. Exam: General Examination: GENERAL APPEARANCE: awake, aware of surroundings, in no acute distress FOOT EXAM: 01/05/24 Vascular: DORSALIS PEDIS PULSE: 1/4 bilateral POSTERIOR TIBIAL PULSE: 0/4 bilateral TEMPERATURE GRADIENT: warm to cool EDEMA: to the ankle bilateral CAPILLARY FILLING TIME(sec): capillary fill intact bilateral digits less than 3 secs Neurologic: VIBRATORY: absent to the hallux IPJ bilateral SEMMES-SANJUANITA 5.07 MONOFILAMENT: intact to the plantar ball of the foot and toes Dermatologic: SKIN FINDINGS: normal HYPERKERATOSIS: nonw NAIL PATHOLOGY: digits 1-5 bilateral are intact SKIN PATHOLOGY: thin, decreased hair growth Nail Pathology: Left Foot: 1 (great toe): Long, Thick, Crumbly, Deformed, Discolored, Brittle, Dystrophic 2: Long, Thick 3: Long, Thick 4: Long, Thick 5: Long, Thick Nail Pathology: Right Foot: 1 (great toe): Long, Thick, Crumbly, Deformed, Discolored, Brittle, Dystrophic 2: Long, Thick 3: Long, Thick 4: Long, Thick 5: Long, Thick Orthopedic: FOOT MORPHOLOGY: planus to the bilateral foot JOINT RANGE OF MOTION: without pain to the ankle, subtalar joint, but motion is limited especially to the subtalar joint DEFORMITIES: arch collapse right, hallux valgus right, contracted digits 4 left, 2,3,4 right PAIN ELICITED WITH PALPATION OF: mildly over the hallux nails bilateral MUSCLE STRENGTH: 5/5 for all pedal groups tested Modifier: -: Q8 Assessments: ICD B35.1 - Dermatophytosis of nail: ICD M79.672 - Pain in left foot: ICD M79.671 - Pain in right foot: Treatment Note: ICD B35.1 - Dermatophytosis of nail: 1. Nails were debrided in length and thickness by manual and mechanical means. 2. Advised patient of proper foot care to prevent any future complications including daily monitoring of the feet. 3. RTC: 9-12 weeks or as needed if problems arise as patient would like to continue to come in for routine nail care appointments to prevent future pain and problems developing from the overgrowth ofthe toenails. CPT 58313 Q8 documented in this encounterGolden Valley [facility] [id number] History of Present illness Narrative* Arturo Salazar MD - 12/29/2023 10:20 AM EDT Subjective Nicci Vargas is a 78 y.o. female Chief Complaint Follow-up HPI Patient is here for follow-up continue management for recent evaluation for abnormal EKG, hypertension and obesity. Since last time I saw her she described decreased exercise tolerance, fatigue tiredness and shortness of breath. She reports she is unable to exercise due to some back problem and balance issue. She has started on antihypertensive medication recently with good control. She had no previous history of coronary artery disease, congestive heart failure or valvular heart disease however she does have moderate risk for ischemic heart disease. Assessment 1. Recent evaluation for abnormal EKG with recent complaint of fatigue, tiredness and shortness of breath. Patient is moderate risk for ischemic heart disease. Patient unable to perform treadmill stress test 2. Borderline abnormal EKG showing nonspecific ST-T changes 3. Obesity 4. Mixed hyperlipidemia 5. Essential hypertension 6. Gait and balance difficulties Plan 1. I suggested the patient to proceed with Lexiscan myocardial perfusion study in view of her complaint 2. Continue to encourage losing weight, exercise and dietary modification 3. Follow-up in 6-month Review of Systems All other systems reviewed and are negative. Vitals: 12/29/23 1004 BP: 124/70 BP Location: Left arm Patient Position: Sitting Pulse: 60 Weight: 85.4 kg (188 lb 3.2 oz) Height: 1.676 m (5' 6 ) Objective Physical Exam Constitutional: Appearance: Normal appearance. [...] Content: Thought content normal. Judgment: Judgment normal. Allergies Acetaminophen, Doxycycline, Iodinated contrast media, Sulfa (sulfonamide antibiotics), and Cephalexin Current Medications Current Outpatient Medications: amLODIPine (Norvasc) 5 mg tablet, Take 1 tablet (5 mg) by mouth once daily., Disp: , Rfl: atorvastatin (Lipitor) 40 mg tablet, Take 1 tablet (40 mg) by mouth once daily., Disp: , Rfl: calcium carbonate (Calcium 600) 600 mg calcium (1,500 mg) tablet, Take 600 mg by mouth 2 times a day with meals., Disp: , Rfl: cyproheptadine (Periactin) 4 mg tablet, Take 1 tablet (4 mg) by mouth once daily at bedtime., Disp:, Rfl: diphenhydrAMINE (BenadryL) 25 mg capsule, Take 1 capsule (25 mg) by mouth 2 times a day as needed for itching., Disp: , Rfl: fish,bora,flax oils-om3,6,9no1 ([place]rero 3-6-9) 1,200 mg capsule, Take by mouth., [...] hours if needed for mild pain (1 -3)., Disp: , Rfl: montelukast (Singulair) 10 mg tablet, Take 1 tablet (10 mg) by mouth once daily at bedtime., Disp: , Rfl: omega 9-lld-ewm-fish oil (Fish OiL) 1,000 mg (120 mg-180 [...] crush, chew, or split., Disp: , Rfl: Assessment/Plan 1. Shortness of breath 2. Hyperlipidemia, unspecified hyperlipidemia type Follow Up In Cardiology Follow Up In Cardiology 3. Abnormal EKG Nuclear Stress Test 4. Adult BMI 32.0-32.9 kg/sq m 5. Essential tremor 6. Never smoked tobacco Scribe Attestation By signing my name below, IVelia LPN , Scribe attest that this documentation has been prepared under the direction and in the presence of MD Patty. Provider Attestation - Scribe documentation All medical record entries made by the Scribe were at my direction and personally dictated by me. Ihave reviewed the chart and agree that the record accurately reflects my personal performance of the history, physical exam, discussion and plan. documented [facility] encounterAk[facility] Work Phone: 1(832) 323-219208-21-2024 Instructions* Patient Instructions* Mgadaleno Luu MA - 12/29/2023 10:20 AM EDT Please bring all medicines, vitamins, and herbal supplements with you when you come to the office. Prescriptions will not be filled unless you are compliant with your follow up appointments or have a follow up appointment scheduled as per instruction of your physician. Refills should be requested at the time of your visit. documented in this encounterAk[facility] Work Phone: 1(723) 388-860406-19-2024 Hospital Discharge instructions Follow Up Care 10/27/2023 13:56:35 With:QUINTIN JUAN, Chriss Peña, URL Address: [facility] [address] [place] [address]- [phone] When: Unknown [facility] 06-19-2024 Hospital Discharge instructions Patient Education 10/27/2023 13:42:02 24-Hour Urine Collection 24-Hour Urine Collection Why am I having this test? A 24-hour urine specimen is a lab test that requires you to collect all of your urine for an entireday. This is sometimes called a timed urine test. It can provide more information than a single urine sample. There are many reasons to have this test. Your health care provider may order the test to check foror monitor the following conditions: High blood pressure. Kidney disease. Kidney stones. Urinary tract infections. . Diabetes. How do I prepare for this test? You may be asked to follow a special diet during or before the collection period. Follow any instructions from your health care provider. If no special instructions are given, you may eat and drink normally. Take firf-ldx-yynerwo and prescription medicines only as told by your health care provider. Let your health care provider know about any medicines that you are taking, including lcqy-nxg-ihwgsts medicines, vitamins, herbs, and supplements. Choose a collection day when you can be at home or when you have a place to store the urine. All urine must be collected during the testing period. How do I do a 24-hour urine collection? When you get up in the morning, urinate in the toilet and flush. Write down the time. This will be your start time on the day of collection and your end time on the next morning. From the start time on, all of your urine should be kept in the collection jug that you received from the lab. If the jug that is given to you already has liquid in it, that is okay. Do not throw out the liquidor rinse out the jug. Urinate into a specimen container, such as a urinal or peres that sits over the toilet. Pour the urine from the container into the collection jug. Be careful not to spill any of the urine. Use the equipment provided by the lab. Do not let any toilet paper or stool (feces) get into the jug. This will contaminate the sample. Stop collecting your urine 24 hours after you started. Collect the last specimen as close as possible to the end of the 24-hour period. Keep the jug cool in an ice chest or keep it in the refrigerator during collection. When the 24-hour collection is complete, take the jug to the lab as soon as possible. Keep the jug cool in an ice chest while you are bringing it to the lab. What do the results mean? Talk with your health care provider about what your results mean. Questions to ask your health care provider Ask your health care provider, or the department that is doing the test: When will my results be ready? How will I get my results? What are my treatment options? What other tests do I need? What are my next steps? Summary A 24-hour urine specimen is a lab test that requires you to collect all of your urine for an entireday. When you get up in the morning, urinate in the toilet and flush. Write down the time. For the next 24 hours, collect all of your urine in the collection jug that you received from the lab. Keep the jug cool while collecting the urine and while bringing it back to the lab. Take the jug of urine back to the lab as soon as possible after the collection period has ended. This information is not intended to replace advice given to you by your health care provider. Make sure you discuss any questions you have with your health care provider. Document Revised: 10/31/2021 Document Reviewed: 10/31/2021 [employer] Patient Education 2022 [employer]. Follow Up Care 10/25/2023 09:08:38 With:QUINTIN JUAN, Chriss Peña, URL Address: [facility] [address] [place] [address]- When: Unknown [facility] 04-11-2024 History of Present illness Narrative* Arturo Salazar MD - 08/19/2023 1:10 PM EDT Cardiology Consultation- New Consult Reason for referral: [...] mg) by mouth once daily at bedtime., Disp:, Rfl: diphenhydrAMINE (BenadryL) 25 mg capsule, Take 1 capsule (25 mg) by mouth 2 times a day as needed for itching., Disp: , Rfl: fish,bora,flax oils-om3,6,9no1 (Potrero 3-6-9) 1,200 mg capsule, Take by mouth., [...] hours if needed for mild pain (1 -3)., Disp: , Rfl: montelukast (Singulair) 10 mg tablet, Take 1 tablet (10 mg) by mouth once daily at bedtime., Disp: , Rfl: omega 2-pea-vld-fish oil (Fish OiL) 1,000 mg (120 mg-180 [...] signing my name below, I, Joleen Sandoval LPN , Adilia attest that this documentation has been prepared under the direction and in the presence of MD Patty. Provider Attestation - Scribe documentation All medical record entries made by the Scribe were at my direction and personally dictated by me. Ihave reviewed the chart and agree that the record accurately reflects my personal performance of the history, physical exam, discussion and plan. documented in this encounterAkron [facility] Work Phone: 1(337) 208-860204-11-2024 Instructions* Patient Instructions* Joleen Mathis LPN - 08/19/2023 1:10 PM [...] cardiac standpoint Follow up documented in this encounterAkron [facility] Work Phone: 1(913) 479-869203-11-2024 Hospital Discharge instructions Patient Education 07/19/2023 12:50:26 Kidney Stones, Lyzu-nn-Kbkz Kidney Stones Kidney stones are rock-like masses [...] Follow these instructions at home: Medicines Take rlso-xvs-xabngrp and prescription medicines only as told by [...] provider. Document Revised: 12/29/2021 Document Reviewed: 12/29/2021 [employer] Patient Education 2022 [employer]. Follow Up Care 01/19/2023 15:01:25 With:Chriss RIBEIRO MD, URL Address: [facility] [address] [place] [address]- [phone] When: Unknown Comments:f/u pending KUB results [facility] 09-12-2023 Hospital Discharge instructions Patient Education 01/19/2023 14:55:01 [...] RIBEIRO Address: [facility] [address] [place] [address]- Business (1) When:07/20/2023 14:54:43 [facility] Appointment Date:07/19/2023 11:15:00 AM Scheduled Provider:Chriss RIBEIRO MD Location:[facility] Future [facility]ments Appointment Date:01/31/2024 02:15:00 PM Scheduled Provider:Chriss RIBEIRO MD Location:[facility] Appointment Type:URO Office Visit [facility] Evaluation noteNo assessment information available [facility] Work Phone: Evaluation note* Diagnosis Abnormal EKG Nonspecific abnormal electrocardiogram (ECG) (EKG) Preop cardiovascular exam Pre-operative cardiovascular examination Hyperlipidemia, unspecified hyperlipidemia type Essential tremor Never smoked tobacco Adult BMI 32.0-32.9 kg/sq m Body Mass Index 32.0-32.9, adult documented in this encounter [facility] Work Phone: Evaluation note* Diagnosis 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 Acute non-recurrent sinusitis, unspecified location Irritable bowel syndrome with both constipation and diarrhea documented [facility] encounter [facility]* Diagnosis Seborrheic keratosis- Primary Melanocytic nevus of trunk Benign neoplasm of skin of trunk, except scrotum Epidermal inclusion cyst Sebaceous cyst Mcrae angioma documented in this encounter [facility]* Diagnosis Vertigo- Primary Dizziness and giddiness RLS (restless legs syndrome) Restless legs syndrome (RLS) Myoclonic jerking Myoclonus Cervical stenosis of spinal canal Spinal stenosis in cervical region Tremor Abnormal involuntary movements Weakness of both lower extremities documented in this encounter [facility]* Diagnosis Onychomycosis- Primary Dermatophytosis of nail Neuropathy Mononeuritis of unspecified site Other specified peripheral vascular diseases (CMS/HCC) Pain in both feet documented in this encounter [facility]* Diagnosis Shortness of breath- Primary Hyperlipidemia, unspecified hyperlipidemia type Abnormal EKG Nonspecific abnormal electrocardiogram (ECG) (EKG) Adult BMI 32.0-32.9 kg/sq m Body Mass Index 32.0-32.9, adult Essential tremor Never smoked tobacco documented in this encounter [facility] Work Phone: Evaluation note* Diagnosis Abnormal EKG Nonspecific abnormal electrocardiogram (ECG) (EKG) documented in this encounter [facility] Work Phone: Evaluation note* Diagnosis Onychomycosis- Primary Dermatophytosis of nail Neuropathy Mononeuritis of unspecified site Other specified peripheral vascular diseases (CMS/HCC) documented in this encounter [facility]* Diagnosis Benign essential hypertension (CMS/HCC)- Primary Essential hypertension, benign Nodule of lower lobe of right lung Chronic kidney disease, stage 3a (N18.31) Acute non-recurrent sinusitis, unspecified location Chronic kidney disease, stage 3b (HCC) (CMS/HCC) 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 skin (CMS/HCC) documented in this encounter [facility]* Diagnosis Medicare annual wellness visit, subsequent- Primary Acute recurrent maxillary sinusitis ACP (advance care planning) Other specified counseling Cervical spondylosis with myelopathy Chronic pain syndrome Confusion Unspecified psychosis Essential tremor Hypersomnia Hypersomnia, unspecified Myoclonic jerking Myoclonus PATRICA (obstructive sleep apnea) Obstructive sleep apnea (adult) (pediatric) RLS (restless legs syndrome) Restless legs syndrome (RLS) Nodule of lower lobe of right lung Abnormal EKG Nonspecific abnormal electrocardiogram (ECG) (EKG) Arteriosclerosis of both carotid arteries Benign essential hypertension (CMS/HCC) Essential hypertension, benign Cardiomegaly LVH (left ventricular hypertrophy) Cardiomegaly Chronic idiopathic constipation Unspecified constipation Gastroesophageal reflux disease without esophagitis Esophageal reflux Dysphagia, pharyngoesophageal phase Nephrolithiasis Calculus of kidney Age related osteoporosis, unspecified pathological fracture presence (CMS/HCC) Fibromyalgia Unspecified myalgia and myositis Lumbar spondylosis Lumbosacral spondylosis without myelopathy Myalgia Unspecified myalgia and myositis Osteopenia of multiple sites Primary localized osteoarthrosis of multiple sites Primary localized osteoarthrosis, other specified sites Primary osteoarthritis of both knees Primary osteoarthritis of right hip Temporomandibular joint disorder Unspecified temporomandibular joint disorders Obesity (BMI 30-39.9) Primary ovarian failure Other ovarian failure Agoraphobia with panic disorder (CMS/HCC) Agoraphobia with panic disorder Non-seasonal allergic rhinitis due to pollen Anxiety Anxiety state, unspecified Ataxia Lack of coordination Attention deficit hyperactivity disorder (ADHD), predominantly inattentive type (CMS/HCC) Diplopia History of cardiovascular disorder Personal history of unspecified circulatory disease History of fall Personal history of fall History of vertebral fracture Pure hypercholesterolemia (CMS/HCC) Pure hypercholesterolemia Hyponatremia Hyposmolality and/or hyponatremia Jerking Abnormal involuntary movements Memory change Memory loss Other voice and resonance disorders Vertigo Dizziness and giddiness documented in this encounter [facility]* Diagnosis Vertigo- Primary Dizziness and giddiness RLS (restless legs syndrome) Restless legs syndrome (RLS) Cervical stenosis of spinal canal Spinal stenosis in cervical region Myoclonic jerking Myoclonus Cognitive impairment Unspecified persistent mental disorders due to conditions classified elsewhere Weakness Other malaise and fatigue documented [facility] Diagnosis Onychomycosis- Primary Dermatophytosis of nail Neuropathy Mononeuritis of unspecified site Other specified peripheral vascular diseases (CMS/HCC) Pain in both feet documented [facility] Diagnosis Shortness of breath- Primary Hyperlipidemia, unspecified hyperlipidemia type Abnormal EKG Nonspecific abnormal electrocardiogram (ECG) (EKG) BMI 30.0-30.9,adult Essential tremor Never smoked tobacco documented in this encounter [facility] Work Phone: Evaluation note* Diagnosis Tremor- Primary Abnormal involuntary movements RLS (restless legs syndrome) Restless legs syndrome (RLS) Weakness Other malaise and fatigue Vertigo Dizziness and giddiness Cognitive impairment Unspecified persistent mental disorders due to conditions classified elsewhere Myoclonic jerking Myoclonus documented in [facility] Diagnosis Hyponatremia- Primary Hyposmolality and/or hyponatremia Tremor Abnormal involuntary movements RLS (restless legs syndrome) Restless legs syndrome (RLS) Weakness Other malaise and fatigue Confusion Unspecified psychosis Myoclonic jerking Myoclonus documented [facility]* Diagnosis Hyponatremia- Primary Hyposmolality and/or hyponatremia [facility] Narrative* Ty Bartlett, ANSHUL - 07/03/2024 2:15 PM EST Images from the original note were not included. HPI: Patient states that the nails are especially painful with shoe gear and pressure. She states that they has no pain in the feet. There is pain related to the toenails, especially with shoe gear and pressure. They have difficulty with trimming the nails due to trouble reaching them and because of thethickness in the nail. Patient denies being diabetic. Patient has not problems with slow healing wounds or sores on the feet. Patient does have burning, tingling and numbness in the feet. Patient's PCP is Donnell Joyner MD. Date of Last visit: 02/10/24. Pt also has rash on bilateral feet she is concerned about. No pain or itching. No other pedal complaints at this time. Exam: General Examination: GENERAL APPEARANCE: awake, aware of surroundings, in no acute distress FOOT EXAM: 07/03/24 Vascular: DORSALIS PEDIS PULSE: 1/4 bilateral POSTERIOR TIBIAL PULSE: 0/4 bilateral TEMPERATURE GRADIENT: warm to cool EDEMA: to the ankle bilateral CAPILLARY FILLING TIME(sec): capillary fill intact bilateral digits less than 3 secs Neurologic: VIBRATORY: absent to the hallux IPJ bilateral SEMMES-SANJUANITA 5.07 MONOFILAMENT: intact to the plantar ball of the foot and toes Dermatologic: SKIN FINDINGS: normal HYPERKERATOSIS: nonw NAIL PATHOLOGY: digits 1-5 bilateral are intact SKIN PATHOLOGY: thin, decreased hair growth Nail Pathology: Left Foot: 1 (great toe): Long, Thick, Crumbly, Deformed, Discolored, Brittle, Dystrophic 2: Long, Thick 3: Long, Thick 4: Long, Thick 5: Long, Thick Nail Pathology: Right Foot: 1 (great toe): Long, Thick, Crumbly, Deformed, Discolored, Brittle, Dystrophic 2: Long, Thick 3: Long, Thick 4: Long, Thick 5: Long, Thick Orthopedic: FOOT MORPHOLOGY: planus to the bilateral foot JOINT RANGE OF MOTION: without pain to the ankle, subtalar joint, but motion is limited especially to the subtalar joint DEFORMITIES: arch collapse right, hallux valgus right, contracted digits 4 left, 2,3,4 right PAIN ELICITED WITH PALPATION OF: mildly over the hallux nails bilateral MUSCLE STRENGTH: 5/5 for all pedal groups tested Modifier: -: Q8 Assessments: ICD B35.1 - Dermatophytosis of nail: ICD M79.672 - Pain in left foot: ICD M79.671 - Pain in right foot: Treatment Note: ICD B35.1 - Dermatophytosis of nail: 1. Nails were debrided in length and thickness by manual and mechanical means. 2. Advised patient of proper foot care to prevent any future complications including daily monitoring of the feet. 3. RTC: 9-12 weeks or as needed if problems arise as patient would like to continue to come in for routine nail care appointments to prevent future pain and problems developing from the overgrowth ofthe toenails. CPT 94386 Q8 documented in this [facility] course Narrative No data available for this section [facility] Discharge instructions Additional Instructions DISCHARGE INSTRUCTIONS FOR [...] other reasons. If it is to remain correction, however, changes of the stent are required [...] for your post-operative appointment (with X-Ray)] [ ][facility] Work Phone: Hospital Discharge instructions No data available for this section [facility] filed[facility]ed in this [facility] No data available for this section [facility] Summary Purpose Family History No Family History Records Found Relationship Condition Age at Onset Recorded Date/T favio father Dementia Unknown Malignant neoplasm Unknown Not Specified Hypertension Unknown Amnesia Unknown sister Heart disease Unknown Relationship Condition Age at Onset Recorded Date/T favio father Dementia Unknown Malignant neoplasm Unknown mother Hypertension Unknown Amnesia Unknown sister Heart disease Unknown Advance Directives No Advanced Directives Records Found Advance Directive Response Recorded Date/ Time Advance Directives No January 2:09pm Date Activated Date Inactivated Comments 01/30/2024 3:04 PM 02/01/2024 5:13 PM Advance Directive Response Recorded Date/ Time Advance Directives No January 1:09pm Chief Complaint and Reason for Visit Chief Complaint Left Kidney Stone Chief Complaint Left Kidney Stone Left Kidney Stone Chief Complaint Admit Date d49.2 July 05, 2024 10:23am Chief Complaint Admit Date d49.2 July 05, 2024 10:23am cough, chest congestion August 15, 2024 2:19pm Reason for Visit Admit Date Acute maxillary sinusitis August 15 2:19pm Reason for Referral Specialty Diagnoses / Procedures Referred By Reji arce Referred To Contact Radiology Diagnoses Abnormal EKG Procedures Nuclear Stress Test CHG MYOCARDIAL SPECT MULTIPLE STUDIES Arturo Salazar MD [address] [address], [address] [address] Referral ID Status Reason Start Date Expiration Date V isits Requested Visits Authorized [id number] Authorized 12/29/2023 12/28/2024 5 5 Specialty Diagnoses / Procedures Referred By Contac t Referred To Contact Cardiology Diagnoses Hyperlipidemia, unspecified hyperlipidemia type Procedures Follow Up In Cardiology Arturo Salazar MD [address] [place] [address] Arturo Salazar MD [address] [place] [address] Referral ID Status Reason Start Date Expiration Date V isits Requested Visits Authorized [id number] Authorized 12/29/2023 12/28/2024 1 1 Specialty Diagnoses / Procedures Referred By Contac t Referred To Contact Diagnoses Abnormal EKG Preop cardiovascular exam Procedures ECG 12 Lead Arturo Salazar MD [address] [place] [address] Referral ID Status Reason Start Date Expiration Date V isits Requested Visits Authorized [id number] Authorized 08/19/2023 08/18/2024 1 1 Specialty Diagnoses / Procedures Referred By Contac t Referred To Contact Cardiology Diagnoses Hyperlipidemia, unspecified hyperlipidemia type Procedures Follow Up In Cardiology Arturo Salazar MD [address] [place] [address] Arturo Salazar MD [address] [place] [address] Referral ID Status Reason Start Date Expiration Date V isits Requested Visits Authorized [id number] Authorized 08/19/2023 08/18/2024 1 1 Additional Source Comments INFORMATION SOURCE (unrecogn ized section and content) DATE CREATED AUTHOR 06/29/2019 [facility] DATE CREATED AUTHOR AUTHOR'S ORGANIZ ATION 05/15/2021 [facility] DATE CREATED AUTHOR AUTHOR'S ORGANIZ ATION 08/15/2022 [facility] DATE CREATED AUTHOR AUTHOR'S ORGANIZ ATION 01/28/[address] [facility] DATE CREATED AUTHOR AUTHOR'S ORGANIZ ATION [facility]/02[facility]2024 [facility] DATE CREATED AUTHOR AUTHOR'S ORGANIZ ATION 02/03/2024 [facility] DATE CREATED AUTHOR AUTHOR'S ORGANIZ ATION 07/12/2024 [facility] DATE CREATED AUTHOR AUTHOR'S ORGANIZ ATION 09/01/2024 [facility] EPIC DATE CREATED AUTHOR AUTHOR'S ORGANIZ ATION 09/15/2024 [facility] ysician Group Patient Care team informatio n (unrecognized section and content) Anesthesiology Physician Assistant Relationship Specialty Start Date End Date Donnell Joyner MD [address] [facility] [address] [place] [address] PCP - General Internal Medicine 09/29/22 Donnell Joyner MD [address] [facility] [address] [place] [address] PCP - ACO Reach 10/01/22 Team Status: Active Member Role Status Dates Donnell Joyner II MD Primary Care Provider Active Team Status: Inactive Member Role Status Dates Donnell Joyner II MD Primary Care Provider Active Start: August 12, 2023 End: August 12, 2023 Chriss Ribeiro MD Attending Provider Active St art: August 12, 2023 End: August 12, 2023 Anesthesiology Physician Assistant Relationship Specialty Start Date End Date Donnell Joyner MD [address] [facility] [address] [place] [address] PCP - General Internal Medicine 08/19/23 Team Status: Inactive Member Role Status Dates Donnell Joyner II MD Primary Care Provider Active Start: August 26, 2023 End: August 26, 2023 Chriss Ribeiro MD Attending Provider Active St art: August 26, 2023 End: August 26, 2023 Anesthesiology Physician Assistant Relationship Specialty Start Date End Date Donnell Joyner MD [address] [place] [address] PCP - General Internal Medicine 09/29/22 Donnell Joyner MD [address] [place] [address] PCP - ACO Reach 10/01/22 Anesthesiology Physician Assistant Relationship Specialty Start Date End Date Donnell Joyner MD [address] [place] [address] PCP - General Internal Medicine 09/29/22 Donnell Joyner MD [address] [place] [address] PCP - ACO Reach 10/01/22 Anesthesiology Physician Assistant Relationship Specialty Start Date End Date Donnell Joyner MD [address] [place] [address] PCP - General Internal Medicine 09/29/22 Donnell Joyner MD [address] [place] [address] PCP - ACO Reach 10/01/22 Anesthesiology Physician Assistant Relationship Specialty Start Date End Date Donnell Joyner MD [address] [place] [address] PCP - General Internal Medicine 09/29/22 Donnell Joyner MD [address] [place] [address] PCP - ACO Reach 10/01/22 Anesthesiology Physician Assistant Relationship Specialty Start Date End Date Donnell Joyner MD [address] [place] [address] PCP - General Internal Medicine 09/29/22 Donnell Joyner MD [address] [place] [address] PCP - ACO Reach 10/01/22 Anesthesiology Physician Assistant Relationship Specialty Start Date End Date Donnell Joyner MD [address] [place] [address] PCP - General Internal Medicine 09/29/22 Donnell Joyner MD [address] [place] [address] PCP - ACO Reach 10/01/22 Anesthesiology Physician Assistant Relationship Specialty Start Date End Date Donnell Joyner MD [address] [place] [address] PCP - General Internal Medicine 09/29/22 Donnell Joyner MD [address] [place] [address] PCP - ACO Reach 10/01/22 Anesthesiology Physician Assistant Relationship Specialty Start Date End Date Donnell Joyner MD [address] [place] [address] PCP - General Internal Medicine 09/29/22 Donnell Joyner MD [address] [place] [address] PCP - ACO Reach 10/01/22 Anesthesiology Physician Assistant Relationship Specialty Start Date End Date Donnell Joyner MD [address] [place] [address] PCP - General Internal Medicine 08/19/23 Anesthesiology Physician Assistant Relationship Specialty Start Date End Date Donnell Joyner MD [address] [place] [address] PCP - General Internal Medicine 08/19/23 Anesthesiology Physician Assistant Relationship Specialty Start Date End Date Donnell Joyner MD [address] [place] [address] PCP - General Internal Medicine 08/19/23 Anesthesiology Physician Assistant Relationship Specialty Start Date End Date Donnell Joyner MD [address] [place] [address] PCP - General Internal Medicine 08/19/23 Anesthesiology Physician Assistant Relationship Specialty Start Date End Date Donnell Joyner MD [address] [place] [address] PCP - General Internal Medicine 09/29/22 Donnell Joyner MD [address] [place] [address] PCP - ACO Reach 10/01/22 Anesthesiology Physician Assistant Relationship Specialty Start Date End Date Donnell Joyner MD [address] [place] [address] PCP - General Internal Medicine 09/29/22 Donnell Joyner MD [address] [place] [address] PCP - ACO Reach 10/01/22 Anesthesiology Physician Assistant Relationship Specialty Start Date End Date Donnell Joyner MD [address] [place] [address] PCP - General Internal Medicine 09/29/22 Donnell Joyner MD [address] [place] [address] PCP - ACO Reach 10/01/22 Anesthesiology Physician Assistant Relationship Specialty Start Date End Date Donnell Joyner MD [address] [place] [address] PCP - General Internal Medicine 09/29/22 Donnell Joyner MD [address] [place] [address] PCP - ACO Reach 10/01/22 Anesthesiology Physician Assistant Relationship Specialty Start Date End Date Donnell Joyner MD [address] [place] [address] PCP - General Internal Medicine 01/30/24 Anesthesiology Physician Assistant Relationship Specialty Start Date End Date Donnell Joyner MD [address] [place] [address] PCP - General Internal Medicine 09/29/22 Donnell Joyner MD [address] [place] [address] PCP - ACO Reach 10/01/22 Anesthesiology Physician Assistant Relationship Specialty Start Date End Date Donnell Joyner MD [address] [place] [address] PCP - General Internal Medicine 09/29/22 Donnell Joyner MD [address] [place] [address] PCP - ACO Reach 10/01/22 Anesthesiology Physician Assistant Relationship Specialty Start Date End Date Donnell Joyner MD [address] [place] [address] PCP - General Internal Medicine 09/29/22 Donnell Joyner MD [address] [place] [address] PCP - ACO Reach 10/01/22 Team Status: Inactive Member Role Status Dates Donnell Joyner II MD Primary Care Provider Active Start: July 05, 2024 End: July 05, 2024 Maru Walker MD Attending Provider Active Start: July 05, 2024 End: July 05, 2024 Anesthesiology Physician Assistant Relationship Specialty Start Date End Date Donnell Joyner MD [address] [place] [address] PCP - General Internal Medicine 08/19/23 Anesthesiology Physician Assistant Relationship Specialty Start Date End Date Donnell Joyner MD [address] [place] [address] PCP - General Internal Medicine 09/29/22 Donnell Joyner MD [address] [place] [address] PCP - ACO Reach 10/01/22 Leisa Tyler PA [address] [place] [address] Physician District Captain Neurology 08/02/24 Anesthesiology Physician Assistant Relationship Specialty Start Date End Date Donnell Joyner MD [address] [place] [address] PCP - General Internal Medicine 09/29/22 Donnell Joyner MD [address] [place] [address] PCP - ACO Reach 10/01/22 Leisa [place] PA [address] [place] [address] Physician District Captain Neurology 08/02/24 Team Status: Inactive Member Role Status Dates Donnell Joyner II MD Primary Care Provider Active Start: August 15, 2024 End: August 15, 2024 Marleny Raya APRN Attending Provider Active Start: August 15, 2024 End: August 15, 2024 Anesthesiology Physician Assistant Relationship Specialty Start Date End Date Donnell Joyner MD [address] [place] [address] PCP - General Internal Medicine 09/29/22 Donnell Joyner MD [address] [place] [address] PCP - ACO Reach 10/01/22 Leisa [place] PA [address] [place] [address] Physician District Captain Neurology 08/02/24 Anesthesiology Physician Assistant Relationship Specialty Start Date End Date Donnell Joyner MD [address] [place] [address] PCP - General Internal Medicine 09/29/22 Donnell Joyner MD [address] [place] [address] PCP - ACO Reach 10/01/22 Leisa [place] PA [address] [place] [address] Physician District Captain Neurology 08/02/24 Anesthesiology Physician Assistant Relationship Specialty Start Date End Date Donnell Joyner MD [address] [place] [address] PCP - General Internal Medicine 09/29/22 Donnell Joyner MD [address] [place] [address] PCP - ACO Reach 10/01/22 Leisa [place] PA [address] [place], [place] [id number] Physician District Captain Neurology 08/02/24 Team Status: Inactive Member Role Status Dates Maru Walker MD Attending Provider Active Start: September 06, 2024 End: September 06, 2024 Anesthesiology Physician Assistant Relationship Specialty Start Date End Date Donnell Joyner MD [address] [facility] [address] [place] [address] PCP - General Internal Medicine 09/29/22 Donnell Joyner MD [address] [facility] [address] [place] [address] PCP - ACO Reach 10/01/22 Leisa [place] PA [address] [place] [address] Physician District Captain Neurology 08/02/24 Goals (unrecognized section and content) Goals may be documented in a n alternate section Reason for Visit (unrecogniz ed section and content) Reason Comments Pre-op Clearance Ribeiro [email or web address] stone Establish Care Specialty Diagnoses / Procedures Referred By Reji arce Referred To Contact Diagnoses Abnormal EKG Preop cardiovascular exam Procedures ECG 12 Lead Arturo Salazar MD [address] [facility] [place] [address] Referral ID Status Reason Start Date Expiration Date V isits Requested Visits Authorized [id number] Authorized 08/19/2023 08/18/2024 1 1 Reason Comments Follow-up Admitted to [facility] 01/29 dx: facial droop/weakness discharged home 02/01/24 home health ordered has appt with neuro 03/06/24 Constipation Pt is taking trulanc e and also taking otc colace not working as well as it was pt ? If there are any other suggestions to help Reason Comments Skin Check Reason Comments Dizziness Tremors Memory Loss Reason Comments Follow-up 4 month Specialty Diagnoses / Procedures Referred By Contac t Referred To Contact Cardiology Diagnoses Hyperlipidemia, unspecified hyperlipidemia type Procedures Follow Up In Cardiology Arturo Salazar MD [address] [facility] [address], [address] [address] Arturo Salazar MD [address] [place] [address] [address], [address] [address] Referral ID Status Reason Start Date Expiration Date V isits Requested Visits Authorized [id number] Authorized 08/19/2023 08/18/2024 1 1 Specialty Diagnoses / Procedures Referred By Contac t Referred To Contact Radiology Diagnoses Abnormal EKG Procedures Nuclear Stress Test CHG MYOCARDIAL SPECT MULTIPLE STUDIES Arturo Salazar MD [address] [place] [address] 2, [address] [address] Referral ID Status Reason Start Date Expiration Date V isits Requested Visits Authorized [id number] Authorized 12/29/2023 12/28/2024 5 5 Reason Comments Hypertension Reason Comments Med Refill Reason Comments Follow-up 6 months Specialty Diagnoses / Procedures Referred By Contac t Referred To Contact Cardiology Diagnoses Hyperlipidemia, unspecified hyperlipidemia type Procedures Follow Up In Cardiology Arturo Salazar MD [address] [facility] [address], [address] [address] Phone: tel: fax: Arturo Salazar MD [address] [place] [address] 2, [address] [address] Phone: tel: fax: Referral ID Status Reason Start Date Expiration Date V isits Requested Visits Authorized [id number] Authorized 12/29/2023 12/28/2024 1 1 Reason Comments Follow-up Reason Comments Tremors Memory Loss FOR RECORDS PERTAINING TO PATIENTS WHO ARE [...] BE BASED ON THE PRIMARY CLINICAL RECORDS. [facility] [employer] provides no warranty or guarantee of the accuracy or completeness of information in this document.
--- NOTE | 2024-09-19 20:24 | ED.GENADUL1 ---
HPI HPI - General Adult General Chief complaint: Wound/Laceration Stated complaint: upper right shoulder cyst bleeding Time Seen by Provider: 09/19/24 20:04 Source: patient Mode of arrival: walk-in Limitations: no limitations History of Present Illness HPI narrative: The patient is an 79-year-old female who presents to the emergency department today for evaluation for concerns for bleeding at the surgical site. She reports she was seen by a plastic surgeon today at [facility] for a cyst removal to the right posterior shoulder. She reports she had a dressing placed over some Steri-Strips however after returning home she noticed there was some sanguinous drainage saturating the dressing. She reports this continued to worsen throughout the night so came to the ER for evaluation. She does take low-dose aspirin otherwise denies any oral anticoagulant medications. No sick symptoms of fever/chills and nausea/vomiting. Related Data Home Medications ?Medication ?Instructions ?Recorded ?Confirmed atorvastatin 40 mg tablet 40 mg PO QDAY 10/21/22 09/30/23 calcium 600 mg capsule mg PO 10/21/22 cyproheptadine 4 mg tablet 4 mg PO QDAY 10/21/22 09/30/23 diphenhydramine HCl 25 mg capsule 50 mg PO QDAY PRN sleep 10/21/22 09/30/23 (Benadryl) fish, borage, flaxseed oils-omega 1 cap PO DAILY 10/21/22 09/30/23 3,6,9 cb #1 400 mg-400 mg-400 mg cap (Pipestem 3-6-9 Complex) gabapentin 400 mg capsule 400 mg PO Q12H 10/21/22 09/30/23 glucosamine sulfate 500 mg tablet 500 mg PO BID 10/21/22 09/30/23 (Glucosamine) ibuprofen 200 mg capsule 400 mg PO Q12H 10/21/22 09/30/23 montelukast 10 mg tablet 10 mg PO QDAY 10/21/22 09/30/23 oxcarbazepine 300 mg tablet 300 mg PO BID 10/21/22 09/30/23 pantoprazole 40 mg tablet,delayed 40 mg PO QDAY 10/21/22 09/30/23 release plecanatide 3 mg tablet (Trulance) 3 mg PO DAILY 09/22/23 09/30/23 propranolol 160 mg capsule,24 160 mg PO QPM 09/22/23 09/30/23 hr,extended release ibandronate 150 mg tablet 150 mg PO .qmonth 09/23/23 09/30/23 Allergies Allergy/AdvReac Type Severity Reaction Status Date / Time cephalexin Allergy Severe Anaphylaxis Verified 09/19/24 20:14 Iodinated Contrast Media Allergy SOB Verified 09/19/24 20:14 Sulfa (Sulfonamide Allergy Unknown Verified 09/19/24 20:14 Antibiotics) acetaminophen (From Tylenol) AdvReac Severe Abdominal Verified 09/19/24 20:14 Pain caffeine AdvReac Severe Abdominal Verified 09/19/24 20:14 Pain Opioid HPI Opioid Management Most Recent Opioid Data: Last Pain Scale 4 09/30/23, 07:00 Review of Systems ROS Status of ROS 10 or more systems reviewed and unremarkable except as noted in history and below [facility] Medical History (Updated 09/19/24 @ 20:32 by Neptali Salvador NP) Dyspnea on exertion ?R06.09 - Other forms of dyspnea (ICD-10) S/P extracorporeal shock wave therapy (12/17/22) ?Z98.890 - Other specified postprocedural states (ICD-10) Transient ischemic attack ?G45.9 - Transient cerebral ischemic attack, unspecified (ICD-10) Vertigo ?R42 - Dizziness and giddiness (ICD-10) Frequent falls ?R29.6 - Repeated falls (ICD-10) Seasonal allergic rhinitis ?J30.2 - Other seasonal allergic rhinitis (ICD-10) Urinary tract infection ?N39.0 - Urinary tract infection, site not specified (ICD-10) Chronic cystitis ?N30.20 - Other chronic cystitis without hematuria (ICD-10) IBS (irritable bowel syndrome) ?K58.9 - Irritable bowel syndrome without diarrhea (ICD-10) Osteoporosis ?M81.0 - Age-related osteoporosis without current pathological fracture (ICD-10) Fibromyalgia ?M79.7 - Fibromyalgia (ICD-10) Arthritis ?M19.90 - Unspecified osteoarthritis, unspecified site (ICD-10) Insomnia ?G47.00 - Insomnia, unspecified (ICD-10) Depression ?F32.A - Depression, unspecified (ICD-10) Anxiety ?F41.9 - Anxiety disorder, unspecified (ICD-10) Restless leg ?G25.81 - Restless legs syndrome (ICD-10) Kidney stones ?N20.0 - Calculus of kidney (ICD-10) GERD (gastroesophageal reflux disease) ?K21.9 - Gastro-esophageal reflux disease without esophagitis (ICD-10) Hypertension ?I10 - Essential (primary) hypertension (ICD-10) High cholesterol ?E78.00 - Pure hypercholesterolemia, unspecified (ICD-10) Hypothyroidism ?E03.9 - Hypothyroidism, unspecified (ICD-10) 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, unspecified (ICD-10) Dilation of urethra ?N36.8 - Other specified disorders of urethra (ICD-10) Surgical History (Updated 09/22/23 @ 13:39 by Leisa Akins NP) S/P ureteral stent placement (08/26/23) ?Z96.0 - Presence of urogenital implants (ICD-10) H/O lithotripsy (10/29/22) ?Z98.890 - Other specified postprocedural states (ICD-10) S/P ureteral stent placement (10/29/22) ?Z96.0 - Presence of urogenital implants (ICD-10) H/O cystoscopy (10/29/22) ?Z98.890 - Other specified postprocedural states (ICD-10) History of ankle surgery ?Z98.890 - Other specified postprocedural states (ICD-10) History of hysterectomy ?Z90.710 - Acquired absence of both cervix and uterus (ICD-10) History of tubal ligation ?Z98.51 - Tubal ligation status (ICD-10) History of section ?Z98.891 - History of uterine scar from previous surgery (ICD-10) History of colonoscopy ?Z98.890 - Other specified postprocedural states (ICD-10) History of cholecystectomy ?Z90.49 - Acquired absence of other specified parts of digestive tract (ICD-10) History of appendectomy ?Z90.49 - Acquired absence of other specified parts of digestive tract (ICD-10) S/P cystourethroscopy with dilation of urethral stricture ?Z98.890 - Other specified postprocedural states (ICD-10) S/P cystourethroscopy with dilation of urethral stricture ?Z98.890 - Other specified postprocedural states (ICD-10) S/P cystourethroscopy with dilation of urethral stricture ?Z98.890 - Other specified postprocedural states (ICD-10) S/P cystourethroscopy with dilation of urethral stricture ?Z98.890 - Other specified postprocedural states (ICD-10) Family History (Updated 10/21/22 @ 13:06 by Leisa Akins NP) Other Dementia Family history of skin cancer Social History (Updated 10/21/22 @ 12:53 by Leisa Akins NP) Within the past year, how often did you have a drink containing alcohol: never Score interpretation: A score less than 3 is consistent with normal alcohol consumption. Smoking status: Never smoker Non-prescribed substance use: denies use Highest level of school completed/degree received: high school graduate Exam Narrative Exam Narrative: Constituational: Awake/ alert, no apparent distress, well hydrated HENMT: normocephalic, external ears normal, moist oral mucous membranes and oropharynx normal Eyes: Normal external ears and conjunctivae normal Neck: ROM intact Chest: inspection of chest normal Respiratory: Normal respiratory effort Back: nontender MSK: ROM intact, +NVI Skin: + Well-approximated approx 3cm horizontal incision to posterior R shoulder without surrounding edema, ecchymosis, crepitus, or deformity Neuro: no focal deficits Psych: mental status grossly normal Constitutional Vital Signs, click to edit/add: Last Vital Signs Temp 97.6 F 09/19/24 20:09 Pulse 80 09/19/24 20:09 Resp 18 09/19/24 20:09 BP 130/90 09/19/24 20:09 Pulse Ox 95 09/19/24 20:09 O2 Del Method Room Air 09/19/24 20:09 Course Vital Signs Vital signs: Vital Signs Temperature 97.6 F 09/19/24 20:09 Pulse Rate 80 09/19/24 20:09 Respiratory Rate 18 09/19/24 20:09 Blood Pressure 130/90 09/19/24 20:09 Pulse Oximetry 95 09/19/24 20:09 Oxygen Delivery Method Room Air 09/19/24 20:09 Temperature 97.6 F 09/19/24 20:09 Pulse Rate 80 09/19/24 20:09 Respiratory Rate 18 09/19/24 20:09 Blood Pressure 130/90 09/19/24 20:09 Pulse Oximetry 95 09/19/24 20:09 Oxygen Delivery Method Room Air 09/19/24 20:09 Medical Decision Making MDM Narrative Medical decision making narrative: The patient is a well-appearing 79-year-old female who presented to the emergency department today for evaluation concerns for bleeding from surgical site where she had a cyst removed earlier today at [facility]. Initial examination vital signs overall stable. Surgical site appears clean and without evidence of infection or abscess. There is noted to be some scant oozing from this site. Dressing was replaced with Surgicel and gauze and covered with Tegaderm. Manual pressure applied and hemostasis does appear to be achieved on serial reevaluation in addition to applying cold compress to the site. These findings with the patient and her daughter who was present at the bedside including recommendations for supportive care. Advised on following wound care instructions as provided by her plastic surgeon who performed the procedure earlier today. Discussed signs and symptoms of any worsening condition and infection and when to consider reevaluation. Patient and her daughter verbalized an understanding of this and are agreeable with the plan to be discharged home. Medical Records Medical records reviewed: Yes I reviewed the patient's medical records Discharge Plan Discharge Chief Complaint: Wound/Laceration Clinical Impression: Postoperative bleeding from incision Patient Disposition: Home, Self-Care Prescriptions / Home Meds: No Action atorvastatin 40 mg tablet 40 mg PO QDAY cyproheptadine 4 mg tablet 4 mg PO QDAY gabapentin 400 mg capsule 400 mg PO Q12H montelukast 10 mg tablet 10 mg PO QDAY oxcarbazepine 300 mg tablet 300 mg PO BID pantoprazole 40 mg tablet,delayed release (DR/EC) 40 mg PO QDAY diphenhydramine HCl [Benadryl] 25 mg capsule 50 mg PO QDAY PRN (Reason: sleep) glucosamine sulfate [Glucosamine] 500 mg tablet 500 mg PO BID Rx Instructions: administer with meals ibuprofen 200 mg capsule 400 mg PO Q12H calcium 600 mg capsule PO fish,bora,flax oils-om3,6,9no1 [Pipestem 3-6-9 Complex] 400-400-400 mg capsule 1 cap PO DAILY Trulance 3 mg tablet 3 mg PO DAILY propranolol 160 mg capsule,extended release 24 hr 160 mg PO QPM ibandronate 150 mg tablet 150 mg PO .qmonth Print Language: Barbadian Instructions: Postoperative Bleeding (ED) Additional Instructions: Please follow wound care instructions as provided by your surgeon. Monitor for any signs and symptoms of infection or bleeding as discussed. With any reoccurrence of bleeding recommend applying direct pressure, keeping yourself elevated, and applying ice. May return to the ER at any time and with any concerns. Referrals: RATNA LLOYD [Primary Care Provider, Internal Medicine] - 1 week Discharge Date/Time: 09/19/24 21:07
--- NOTE | 2024-09-19 20:25 | PC.NURSE ---
Pt presents to ER for bleeding concern after cyst removal earlier this morning Pt has a saturated Tegaderm over the surgical site Pt states the plastic surgeon told her to leave the bandage on for 2 days This nurse assisted [employer] Neptali with bandage removal, surgical site not actively bleeding at this time Pts skin was washed up, surgicel and pressure bandage applied. Pt positioned in bed with an ice pack against the area for 15 minutes to be re-evaluated prior to discharge
== END 2024-09-19 21:07 | disposition home or self-care (01) ==
PROVIDERS: Emergency Provider Internal Medicine; PCP Internal Medicine
DX: L76.21 Postprocedural hemorrhage of skin and subcutaneous tissue following a dermatologic procedure (principal); Z79.84 Long term (current) use of oral hypoglycemic drugs; Z90.710 Acquired absence of both cervix and uterus; Z90.49 Acquired absence of other specified parts of digestive tract
CPT/HCPCS: 99282

== ENCOUNTER 2025-03-27 13:37 | Outpatient (OUT) | payer MEDICARE, OTHER, SELFPAY ==
--- NOTE | 2025-03-27 13:40 | MR_ITS ---
The [address] [address] Patient Name: NICCI VARGAS MRN: [id number] date: 1945 Sex: F Assigned Patient Location: MRI Current Patient Location: MRI Accession/Order Number: [id number] Exam Date: 03/27/2025 14:00 Report Date: 03/27/2025 16:51 At the request of: TRACE TORRES Procedure: MR thoracic spine wo con MR thoracic spine wo con 03/27/2025 3:21 PM SIGNS AND SYMPTOMS: ^Thoracic Spine Pain PROTOCOL: Multiplanar multisequence MR images of the thoracic spine without IV contrast COMPARISON: None. FINDINGS: The bones of the thoracic spine are in anatomic alignment. There is mild depression of the endplates at T3 and T4 which appear to be chronic in nature. There is Modic type II fatty endplate degenerative change at T3-T4. There is mild disc height loss at C4-C5, T6-T7, T7-T8, T8-9, T9-T10, T10-T11, and T11-T12. There is a sclerotic lesion within the T8 vertebral body which is of uncertain etiology. No epidural or paraspinous fluid collection is appreciated. The visualized paraspinous soft tissues are within normal limits. At T1-T2: There is a normal disc, central canal, and neural foramen. At T2-T3: There is a normal disc, central canal, and neural foramen. At T3-T4: There is a broad-based disc bulge with facet hypertrophy with mild spinal canal narrowing. There is moderate to severe left and moderate right neural foraminal narrowing. At T4-T5: Facet degenerative changes are present. Mild to moderate bilateral neural foraminal narrowing without spinal canal narrowing. At T5-T6: There is a normal disc, central canal, and neural foramen. At T6-T7: There is facet hypertrophy right greater than left. There is mild spinal canal stenosis with moderate right and mild left neural foraminal narrowing. At T7-T8: There is facet hypertrophy bilaterally. There is moderate bilateral neural foraminal narrowing without spinal canal narrowing. At T8-T9: There is facet hypertrophy bilaterally without spinal canal stenosis. There is moderate to severe left and mild right neural foraminal narrowing. At T9-T10: Facet hypertrophy bilaterally. There is mild spinal canal narrowing with mild bilateral neural foraminal narrowing. At T10-T11: There is ligamentum flavum thickening. There is moderate left and moderate neural foraminal narrowing. There is a dural diverticulum right neural foramen. At T11-T12: There is a broad-based disc bulge with facet hypertrophy and ligament flavum thickening. There is mild spinal canal stenosis without significant neural foraminal narrowing. At T12-L1: There is facet hypertrophy with ligamentum flavum thickening. There is mild bilateral neural foraminal narrowing. No spinal canal narrowing. MR/MR thoracic spine wo con IMPRESSION: No cord compression or cord signal abnormality. Multilevel predominantly facet change contributes to neural foraminal stenosis throughout the thoracic spine at multiple levels as above. There is mild depression of the endplates at T3 and T4 which appear to be chronic in nature. There is a sclerotic lesion within the T8 vertebral body which is of uncertain etiology. Impression dictated by: Isai Diop M.D. 03/27/2025 4:51 PM Dictation Location: [place] [address] Electronically authenticated by: [id number] Y Date: 03/27/2025 16:51
== END 2025-03-27 13:38 | disposition home or self-care (01) ==
LOC: MRI 13:37
PROVIDERS: PCP Internal Medicine; Visit Provider Physician Assistant Medical
DX: M54.6 Pain in thoracic spine (principal); M48.04 Spinal stenosis, thoracic region
CPT/HCPCS: 72146